=== PATIENT | female | born 1940 | race Caucasian/White ===

== ENCOUNTER 2017-12-30 10:00 | Outpatient (RCR) | payer MEDICARE, OTHER, SELFPAY ==
--- NOTE | 2017-11-30 13:50 | PTTR_ITS ---
DATE: 11/30/17 SUBJECTIVE: Smitha stating her knees have been really bothersome right greater than left. She is happy to be back participating in PT because she knows it is helpful. OBJECTIVE: Therapeutic procedures ([id number]). * X See flow sheet: Initiate a therex program for open and closed chain LE strengthening, balance re-training and general conditioning. Pt requires rest breaks between exercises due to fatigue and right knee discomfort. * X Provided skilled instruction in proper exercise performance: * X Provided skilled manual cues to facilitate proper muscle recruitment and/ or movement pattern: * X Other: BP taken pre and post session. Pt very fatigued after our session today and required single point cane to return to her car. I do walk with her to her car. Direct treatment time: 30 minutes Total treatment time: 30 minutes Andra Coates, TOOLING ENGINEER
--- NOTE | 2017-12-02 09:48 | PTTR_ITS ---
DATE: 12/02/17 SUBJECTIVE: Smitha stating she was fatigued after last session but she was still able to get some house work done in the afternoon. She knows that PT will really be beneficial to her. She notes left knee discomfort today. OBJECTIVE: Therapeutic procedures ([id number]). * X See flow sheet: Progressed her therex program per tolerance for LE strengthening and conditioning and balance re-training. Add in clinic ambulation where she tolerates 3 minutes 45 seconds prior to needing to rest due to left knee discomfort. She requires CGA with balance activities on uneven surfaces. * X Provided skilled instruction in proper exercise performance: * X Provided skilled manual cues to facilitate proper muscle recruitment and/ or movement pattern: Cues for appropriate muscle activation with her hip pre's. * X Other: Vitals taken and recorded on flow sheet. BP elevated post treatment although not symptomatic. Direct treatment time: 30 minutes Total treatment time: 30 minutes Andra Coates, PAN TANK WORKER
--- NOTE | 2017-12-07 10:59 | NT_ITS ---
NON TREATMENT NOTE: 12/07/17 Patient called in to cancel today's appointment
--- NOTE | 2017-12-09 14:47 | PTTR_ITS ---
DATE: 12/09/17 SUBJECTIVE: I am doing pretty well for the most part. I am having a better day today. OBJECTIVE: Therapeutic procedures ([id number]). * X HEP review: Technique review and corrective modification where appropriate. * X See flow sheet: Completed all activities both for stability motor control and proprioceptive feedback. * X Provided skilled instruction in proper exercise performance: [] * X Provided skilled manual cues to facilitate proper muscle recruitment and/ or movement pattern: [] * X Other: Patient tolerated treatment well Direct treatment time: 30 minutes of direct patient care.
--- NOTE | 2017-12-12 14:21 | PTTR_ITS ---
DATE: 12/12/17 SUBJECTIVE: Pt reports feeling fine today. OBJECTIVE: Therapeutic procedures ([id number]). * X See flow sheet: Progressed pt's LE strengthening program by increasing reps in standing hip PRE's and functional sit to stands, increased time and resistance on NuStep, adding dynamic UE movements to challenge balance. * X Provided skilled instruction in proper exercise performance: Pt requires minimal cueing to maintain proper movement patterns * X Provided skilled manual cues to facilitate proper muscle recruitment and/ or movement pattern. * X Other: Vitals taken at start and end of session. Direct treatment time: 45 minutes Total treatment time: 45 minutes
--- NOTE | 2017-12-14 14:49 | NT_ITS ---
NON TREATMENT NOTE: 12/14/17 Patient arrived to the clinic to cancel today's appointment because she was not feeling well.
--- NOTE | 2017-12-21 15:07 | PTTR_ITS ---
DATE: 12/21/17 SUBJECTIVE: I am sorry I missed the last appointment. I was not feeling well. OBJECTIVE: Therapeutic procedures ([id number]). * X HEP review: Technique review and corrective modification where appropriate. * X See flow sheet: Patient tolerated treatment well. * X Provided skilled instruction in proper exercise performance: [] * X Provided skilled manual cues to facilitate proper muscle recruitment and/ or movement pattern: [] * X Other: Completed all activities Direct treatment time: 30 minutes of direct patient care.
--- NOTE | 2017-12-23 12:07 | PTTR_ITS ---
DATE: 12/23/17 SUBJECTIVE: Smitha stating she feels good today. She notes she is trying to do some of the exercises we do here at home. OBJECTIVE: Therapeutic procedures ([id number]). * X See flow sheet: For LE strength and conditioning exercises incorporating balance activities. Add in cone step over where she requires min A for safety. * X Provided skilled instruction in proper exercise performance: * X Provided skilled manual cues to facilitate proper muscle recruitment and/ or movement pattern: * X Other: Pt tolerating progressions well and we will continue to progress her program as she is able to tolerate. Vitals taken and recorded on flow sheet. Direct treatment time: 35 minutes Total treatment time: 35 minutes Andra Coates, LEAD PRESS OPERATOR
--- NOTE | 2017-12-28 11:41 | PTTR_ITS ---
DATE: 12/28/17 SUBJECTIVE: I am doing pretty well for the most part. OBJECTIVE: Therapeutic procedures ([id number]). * X HEP review: Technique review and corrective modification where appropriate. * X See flow sheet: Completed all corrective activities. * X Provided skilled instruction in proper exercise performance: [] * X Provided skilled manual cues to facilitate proper muscle recruitment and/ or movement pattern: [] * X Other: Patient was guided through her program with balance, stability motor control, and endurance activities. Direct treatment time: 45 minutes of direct patient care.
--- NOTE | 2017-12-30 12:14 | PTTR_ITS ---
DATE: 12/30/17 SUBJECTIVE: Pt stating she is doing well today. No complaints. OBJECTIVE: Therapeutic procedures ([id number]): Pt instructed in her therex program as noted on her flow sheet for progressed LE strengthening, light balance tasks and general cardiopulmonary conditioning. Add additional strengthening for quads and hamstrings today which she tolerates well. Provided skilled cueing for appropriate movement mechanics and equipment set up. Vitals taken and recorded on flow sheet. See flow sheet for specifics. Pt quite fatigued after today's session. Direct treatment time: 40 minutes Total treatment time: 40 minutes Andra Coates, ACQUISITIONS ASSISTANT
== END 2017-12-30 23:59 | disposition home or self-care (01) ==
LOC: PT 10:00
PROVIDERS: PCP Internal Medicine; Referring Provider Internal Medicine; Visit Provider Internal Medicine
DX: M25.561 Pain in right knee (principal); M25.562 Pain in left knee
CPT/HCPCS: 97110

== ENCOUNTER 2018-01-05 15:20 | Outpatient (CLI) | payer MEDICARE, OTHER, SELFPAY ==
--- NOTE | 2018-01-05 14:08 | DI.US_ITS ---
SYMPTOMS/DIAGNOSIS: PARATUBAL CYST, N83.8, THICKENING OF SEPTATION IN PREEXISTING TUBAL CYST PELVIC ULTRASOUND: Comparison is made with June,. Transabdominal and transvaginal exams were performed. The transabdominal images are quite limited by lack of bladder distention. The uterus is retroverted. The endometrium appears thickened and heterogeneous at 14 mm. A cystic mass with septations is again seen in the left adnexal region. It appears slightly increased in size when compared with previous exams, now measuring 8.8 x 4 x 7.3 cm. No solid nodules are seen. The right ovary was not identified. IMPRESSION: Thickened heterogeneous endometrium. Mild interval increase in size of left-sided cystic mass with a few septations.
== END 2018-01-05 15:40 ==
PROVIDERS: PCP Internal Medicine; Visit Provider Obstetrics & Gynecology Gynecology
DX: N83.8 Other noninflammatory disorders of ovary, fallopian tube and broad ligament (principal); R93.8 Abnormal findings on diagnostic imaging of other specified body structures; N85.4 Malposition of uterus
CPT/HCPCS: 76830; 76856

== ENCOUNTER 2018-02-22 10:29 | Outpatient (CLI) | payer MEDICARE, OTHER, SELFPAY ==
[2018-02-23 11:42] LABS: CA 125 3 U/mL (0-30)
== END 2018-02-22 10:49 ==
PROVIDERS: PCP Internal Medicine; Visit Provider Obstetrics & Gynecology Gynecology
DX: N70.11 Chronic salpingitis (principal); N83.8 Other noninflammatory disorders of ovary, fallopian tube and broad ligament; R19.09 Other intra-abdominal and pelvic swelling, mass and lump
CPT/HCPCS: 36415; 86304

== ENCOUNTER 2018-02-26 06:51 | Emergency (ER) | payer MEDICARE, OTHER, SELFPAY ==
[2018-02-26] VITALS (13 sets, daily range): BP systolic 137–199; BP diastolic 82–109; PULSE 71–93; RESP 13–27; TEMP 36.4; O2SAT 92–98
--- NOTE | 2018-02-26 07:11 | DI.CT_ITS ---
SYMPTOMS/DIAGNOSIS: RT LOWER ABD PAIN, NAUSEA, VOMITING CT SCAN OF THE ABDOMEN AND PELVIS: CT scan of the abdomen and pelvis was performed following the uneventful administration of intravenous contrast material. Comparison is 08/05/16. The visualized lung bases show no acute abnormality. The liver, spleen, pancreas, gallbladder, bile ducts and adrenal glands are all unremarkable. There is a 2 x 1.6 x 1 cm stone in the proximal right ureter causing marked hydronephrosis and hydroureter. There is a 2.1 x 1.2 cm nonobstructing stone in the upper pole of the right kidney. The right kidney shows delayed enhancement and perinephritic stranding. There are nonobstructing stones seen in the left kidney. There is mild dilatation of the left renal pelvis. No ureterolithiasis is seen. The left kidney enhances normally. There are tiny hypodensities seen in the renal cortices. They are too small for further characterization but likely reflect cysts. The urinary bladder is intact. The reproductive organs are unremarkable. The abdominal aorta is of normal caliber with mild atherosclerosis. No significant abdominal or pelvic adenopathy, ascites or pneumoperitoneum is seen. There is diverticulosis of the colon but no evidence of acute diverticulitis. No evidence of bowel obstruction or inflammation. No findings to suggest an acute appendicitis are present. Multiple degenerative changes are seen in the lumbar spine. IMPRESSION: 1. 2 x 1.6 cm stone in the proximal right ureter causing marked hydronephrosis and proximal hydroureter. 2. Bilateral nonobstructing renal calculi.
[2018-02-26 07:13] LABS: Bilirubin Negative (Negative); Blood Moderate (Negative); Clarity Sl Cloudy; Glucose Negative (Negative); Ketones Negative (Negative); Leukocyte Esterase Small (Negative); Nitrite Negative (Negative); Specific Gravity 1.025 (1.005-1.025)
--- NOTE | 2018-02-26 07:13 | W.ED.GENAD ---
Discharge Plan Disposition Patient Disposition: [facility] Condition: Stable Discharge Details Chief Complaint: FlankPain Clinical Impression: Urolithiasis, Urinary tract infection Primary Care Provider: Walker Diana ED Provider: Tim Gonzalez Home Meds and New Rx's Prescriptions: No Action verapamil 360 mg capsule,ext rel. pellets 24 hr 360 mg PO DAILY RF: 0 multivitamin [Daily Value] 1 EACH tablet 1 ea PO DAILY RF: 0 atorvastatin [Lipitor] 40 MG tablet 40 mg PO DAILY RF: 0 levothyroxine 50 MCG tablet 50 mcg PO DAILY RF: 0 aspirin [Aspirin Low-Strength] 81 MG tablet,chewable 81 mg PO DAILY RF: 0 furosemide 20 MG tablet 20 mg PO DAILY RF: 0 cholecalciferol (vitamin D3) 1,000 UNIT tablet,chewable 1,000 unit PO DAILY RF: 0 magnesium oxide 400 MG tablet 400 mg PO DAILY Qty: 30 RF: 0 pantoprazole 40 MG tablet,delayed release (DR/EC) 40 mg PO BID@0730,1999 Qty: 60 RF: 0 nitroglycerin [Nitrostat] 0.4 MG tablet, sublingual 0.4 mg Sublingual Q5 MIN PRN X3 PRNQty: 1 RF: 0 clonazepam 0.5 mg Tablet 0.5 mg PO HS RF: 0 diazepam [Valium] 5 mg Tablet 2.5 mg PO DIRECTED RF: 0 bupropion HCl 150 mg Tablet Extended Release 24 Hr 150 mg PO QAM RF: 0 metoprolol succinate 100 MG tablet extended release 24 hr 50 mg PO DAILY RF: 0 Medical Decision Making <Paul Mitchell MD - Last Filed: 02/26/18 07:40> 77-year-old female presents from home with a #4 of abdominal pain associated with nausea and vomiting. She is hypertensive and in mild distress and her exam reveals tenderness of the right side of her abdomen. Differential diagnosis includes appendicitis, colitis, pyelonephritis, ureteral colic, gastroenteritis. Patient had IV access established, given fluids, analgesic and antiemetic, referred for laboratory testing and CT of the abdomen and pelvis. As it is change of shift, patient will be signed out to Dr. Gonzalez pending review of her diagnostics. Please see his note regarding patient's diagnostic findings, final impression and disposition. Lab Data Laboratory Tests Range/Units 02/26/18 02/26/18 07:07 07:15 WBC (4.4-10.8) k/cumm 14.37 H RBC (4.00-5.20) m/cumm 5.68 H Hgb (12.0-15.5) g/dL 16.1 H Hct (36.0-46.0) % 50.1 H MCV (80-95) fL 88.2 MCH (27.0-33.0) pg 28.3 MCHC (32.0-36.0) g/dL 32.1 RDW (11.7-14.6) % 14.9 H Plt Count (130-400) x1000/uL 322 MPV (8.0-11.0) fL 11.3 H Immature Gran % 0.2 Neutrophils % 80.2 Lymphocytes % 12.8 Monocytes % 6.3 Eosinophils % 0.2 Basophils % 0.3 Absolute Neutrophils (1.2-6.7) k/cumm 11.52 H Absolute Lymphocytes (1.2-3.4) k/cumm 1.84 Absolute Monocytes (0.11-0.7) k/cumm 0.91 H Absolute Eosinophils (0.0-0.7) k/cumm 0.03 Absolute Basophils (0.0-0.2) k/cumm 0.04 Urine Color (Yellow) Yellow Urine Clarity Sl cloudy Urine pH (5-8) 7.0 Ur Specific [place] (1.005-1.025) 1.025 Urine Protein (Negative) mg/dL >=300 H Urine Ketones (Negative) mg/dL Negative Urine Blood (Negative) Moderate H Urine Nitrite (Negative) Negative Urine Bilirubin (Negative) Negative Urine Urobilinogen (Up TO 0.2) EU/dL 1.0 H Ur Leukocyte Esterase (Negative) Small H Urine RBC (0-2) 20-50 H Urine WBC (0-5) HPF 20-50 Ur Epithelial Cells (Negative) HPF Many Urine Crystals (Negative) HPF Negative Urine Bacteria (Negative) HPF Moderate Urine Casts (Negative) LPF Negative Urine Mucus (Negative) Moderate Ur Culture Indicated? No/sq. contamination Urine Glucose (Negative) mg/dL Negative <Tim Gonzalez, DO - Last Filed: 02/26/18 10:33> EKG 7: 53 Rate 69, OR 190, QTc 458, QRS 108, sinus rhythm, no significant ST elevations or depressions, inverted T wave in V1, Q waves in lead III, aVF, V1, V2 and V3. These findings are consistent with prior EKG from 04/05/17 The case was signed out to me my my colleague Dr. Paul Mitchell. CT scan results have returned and demonstrate evidence of a 2 cm kidney stone with severe obstruction and notable hydronephrosis with right perirenal stranding. Patient's urinalysis does also demonstrate evidence of concern for infection, although it does appear to be a slightly dirty urine. Potassium is slightly low at 3.3. White count is elevated at 14.37, with the questionable urinalysis for infection, in conjunction with the elevated white count, I am concerned for a potential infection in conjunction with the stone. This does place the patient in a high risk category. I did start the patient on cefepime for infection with kidney stone. I did contact Dr. Bustillos and discussed the case with him, his recommendation is certainly antibiotics, and close follow-up. However the patient is requesting to see her regular urologist Dr. De La Rosa practices in [facility]. I did contact Dr. Dunne's, and he agrees with the current assessment and plan as well as the need for admission, stone removal, and antibiotics. We did contact the [facility] and they also agreed that they have room and have accepted the patient for admission. Patient's pain is currently controlled, she will be given her home blood pressure medication dose metoprolol. Patient will be transferred via [facility] for definitive urologic management. We will get a straight cath urinalysis here for further evaluation of her infection. The culture results will be called into Dr. Wilkinson by our case management team when they do result. I have extensively reviewed the treatment plan with the patient. I have addressed all patient concerns at this time. I have also discussed the plan with the admitting physician and they agree with the current assessment and plan and have agreed to assume responsibility for the patient. All parties demonstrate verbal understanding and agreement with our assessment and plan at this time. IMPRESSION: 1. 20 x 16 x 10 millimeter proximal RIGHT ureteral calculus causes severe dilatation of the RIGHT ureter, and RIGHT collecting system. The RIGHT kidney is edematous and there is RIGHT perirenal stranding. 2. 2.1 x 1.2 cm Nonobstructing right renal calculus in the upper pole of the right kidney. HPI <Paul Mitchell MD - Last Filed: 02/26/18 07:40> General Mode of arrival: ambulatory. Date/Time Provider Initiated Documentation: 02/26/18 06:52. Limitations to Documentation: no limitations. Information obtained by: patient and family. History of Present Illness 77 year old F presents to the emergency department with the chief complaint of Abdominal pain and vomiting, described as moderate, Quality is described as aching, and is localized to the abdomen and right. Patient flank. Patient started experiencing this day(s) and it has been constant. No relieving factors improve symptom(s), No exacerbating factors reported . Patient notes fever/chills. HPI Narrative: 77-year-old female presents from home with her . She has had 3-1/2 days of intermittent episodes of nausea and vomiting associated with right lower quadrant and right flank pain. She states she has had decreased urine output with dark urine. No recent travel. Related Data Home Medications Medication Instructions Recorded Confirmed aspirin [Aspirin Low-Strength] 81 mg PO DAILY tab-cap NS 04/08/14 02/26/18 atorvastatin [Lipitor] 40 mg PO DAILY tab-cap NS 04/08/14 02/26/18 cholecalciferol (vitamin D3) 1,000 unit PO DAILY tab.chew NS 04/08/14 02/26/18 furosemide 20 mg PO DAILY tab-cap NS 04/08/14 02/26/18 levothyroxine 50 mcg PO DAILY tab-cap NS 04/08/14 02/26/18 multivitamin [Daily Value] 1 ea PO DAILY NS 04/08/14 02/26/18 magnesium oxide 400 mg PO DAILY #30 tab 04/06/17 02/26/18 nitroglycerin [Nitrostat] 0.4 mg SUBLINGUAL Q5 MIN PRN X3 04/06/17 02/26/18 PRN #1 bottle pantoprazole 40 mg PO BID@0730,1999 #60 tabcr 04/06/17 02/26/18 verapamil ER 360 mg 24 hr 360 mg PO DAILY 01/16/18 02/26/18 capsule,extended release bupropion HCl 150 mg PO QAM 02/26/18 02/26/18 clonazepam 0.5 mg PO HS 02/26/18 02/26/18 diazepam [Valium] 2.5 mg PO DIRECTED 02/26/18 02/26/18 metoprolol succinate 50 mg PO DAILY 02/26/18 02/26/18 Previous Rx's Medication Instructions Recorded magnesium oxide 400 mg PO DAILY #30 tab 04/06/17 nitroglycerin [Nitrostat] 0.4 mg SUBLINGUAL Q5 MIN PRN X3 04/06/17 PRN #1 bottle pantoprazole 40 mg PO BID@0730,2000 #60 tabcr 04/06/17 Allergies Allergy/AdvReac Type Severity Reaction Status Date / Time losartan Allergy Intermediate Unverified 02/26/18 07:32 formoterol fumarate AdvReac Severe severe Unverified 02/26/18 07:32 [From Dulera] depression lisinopril AdvReac Severe cough Unverified 02/26/18 07:32 mometasone furoate AdvReac Severe severe Unverified 02/26/18 07:32 [From Dulera] depression General Stated Complaint: FlankPain PEDRO: 3 Review of Systems <Paul Mitchell MD - Last Filed: 02/26/18 07:40> Review of Systems 7 systems reviewed and otherwise negative Exam <Paul Mitchell MD - Last Filed: 02/26/18 07:40> Narrative Exam Narrative: GEN: awake, alert, oriented 3. Pleasant, well groomed, interactive, slightly diaphoretic. HEAD: Normocephalic, atraumatic ENT: Mucous membranes moist, oropharynx unremarkable, External ear exam unremarkable EYES: PERRL, EOMI NECK: Full ROM, no KIRBY, no menigismus CHEST/RESP: Nontender, clear to auscultation bilateral, no wheeze/rhonchi/rales CARDIOVASCULAR: RRR, no murmur, rub sandra. 2+ Rad pulse bilateral ABDOMEN: Abdomen is soft, tender with mild rebound right abdomen, no mass. +Bowel sounds EXT: Full ROM, no edema, no rash Neuro: Grossly normal neurologic exam, conversant, interactive. Psych: Speech fluent, thoughts congruent, affect normal Course <Paul Mitchell MD - Last Filed: 02/26/18 07:40> Vital Signs Temperature 36.4 C L 02/26/18 07:05 Pulse 71 02/26/18 07:05 Respiratory Rate 14 02/26/18 07:05 Blood Pressure 199/109 H 02/26/18 07:05 Pulse Oximetry 97 02/26/18 07:05 Temperature 36.4 C L 02/26/18 07:05 Temperature Source Temporal Artery Scan 02/26/18 07:05 Pulse 71 02/26/18 07:05 Respiratory Rate 14 02/26/18 07:05 Blood Pressure 199/109 H 02/26/18 07:05 Blood Pressure Position Sitting 02/26/18 07:05 Pulse Oximetry 97 02/26/18 07:05 Oxygen Delivery Method Room Air 02/26/18 07:05 Oxygen Flow Rate 0 02/26/18 07:05 Pain Level 10 02/26/18 07:05 Sign Out <Paul Mitchell MD - Last Filed: 02/26/18 07:40> Sign Out Data: Sign Out Comment: Followup labs and imaging, re-evaluation Last updated by Paul Mitchell MD at 02/26/18 07:42
--- NOTE | 2018-02-26 07:16 | ED.GENADUL_ITS ---
Discharge Plan Disposition Patient Disposition: [facility] Condition: Stable Discharge Details Chief Complaint: FlankPain Clinical Impression: Urolithiasis, Urinary tract infection Primary Care Provider: Walker Diana ED Provider: Tim Gonzalez Home Meds and New Rx's Prescriptions: No Action verapamil 360 mg capsule,ext rel. pellets 24 hr 360 mg PO DAILY RF: 0 multivitamin [Daily Value] 1 EACH tablet 1 ea PO DAILY RF: 0 atorvastatin [Lipitor] 40 MG tablet 40 mg PO DAILY RF: 0 levothyroxine 50 MCG tablet 50 mcg PO DAILY RF: 0 aspirin [Aspirin Low-Strength] 81 MG tablet,chewable 81 mg PO DAILY RF: 0 furosemide 20 MG tablet 20 mg PO DAILY RF: 0 cholecalciferol (vitamin D3) 1,000 UNIT tablet,chewable 1,000 unit PO DAILY RF: 0 magnesium oxide 400 MG tablet 400 mg PO DAILY Qty: 30 RF: 0 pantoprazole 40 MG tablet,delayed release (DR/EC) 40 mg PO BID@0730,1999 Qty: 60 RF: 0 nitroglycerin [Nitrostat] 0.4 MG tablet, sublingual 0.4 mg Sublingual Q5 MIN PRN X3 PRNQty: 1 RF: 0 clonazepam 0.5 mg Tablet 0.5 mg PO HS RF: 0 diazepam [Valium] 5 mg Tablet 2.5 mg PO DIRECTED RF: 0 bupropion HCl 150 mg Tablet Extended Release 24 Hr 150 mg PO QAM RF: 0 metoprolol succinate 100 MG tablet extended release 24 hr 50 mg PO DAILY RF: 0 Medical Decision Making <Paul iMtchell MD - Last Filed: 02/26/18 07:40> 77-year-old female presents from home with a #4 of abdominal pain associated with nausea and vomiting. She is hypertensive and in mild distress and her exam reveals tenderness of the right side of her abdomen. Differential diagnosis includes appendicitis, colitis, pyelonephritis, ureteral colic, gastroenteritis. Patient had IV access established, given fluids, analgesic and antiemetic, referred for laboratory testing and CT of the abdomen and pelvis. As it is change of shift, patient will be signed out to Dr. Gonzalez pending review of her diagnostics. Please see his note regarding patient's diagnostic findings, final impression and disposition. Lab Data Laboratory Tests Range/Units 02/26/18 02/26/18 07:07 07:15 WBC (4.4-10.8) k/cumm 14.37 H RBC (4.00-5.20) m/cumm 5.68 H Hgb (12.0-15.5) g/dL 16.1 H Hct (36.0-46.0) % 50.1 H MCV (80-95) fL 88.2 MCH (27.0-33.0) pg 28.3 MCHC (32.0-36.0) g/dL 32.1 RDW (11.7-14.6) % 14.9 H Plt Count (130-400) x1000/uL 322 MPV (8.0-11.0) fL 11.3 H Immature Gran % 0.2 Neutrophils % 80.2 Lymphocytes % 12.8 Monocytes % 6.3 Eosinophils % 0.2 Basophils % 0.3 Absolute Neutrophils (1.2-6.7) k/cumm 11.52 H Absolute Lymphocytes (1.2-3.4) k/cumm 1.84 Absolute Monocytes (0.11-0.7) k/cumm 0.91 H Absolute Eosinophils (0.0-0.7) k/cumm 0.03 Absolute Basophils (0.0-0.2) k/cumm 0.04 Urine Color (Yellow) Yellow Urine Clarity Sl cloudy Urine pH (5-8) 7.0 Ur Specific [place] (1.005-1.025) 1.025 Urine Protein (Negative) mg/dL >=300 H Urine Ketones (Negative) mg/dL Negative Urine Blood (Negative) Moderate H Urine Nitrite (Negative) Negative Urine Bilirubin (Negative) Negative Urine Urobilinogen (Up TO 0.2) EU/dL 1.0 H Ur Leukocyte Esterase (Negative) Small H Urine RBC (0-2) 20-50 H Urine WBC (0-5) HPF 20-50 Ur Epithelial Cells (Negative) HPF Many Urine Crystals (Negative) HPF Negative Urine Bacteria (Negative) HPF Moderate Urine Casts (Negative) LPF Negative Urine Mucus (Negative) Moderate Ur Culture Indicated? No/sq. contamination Urine Glucose (Negative) mg/dL Negative <Tim Gonzalez, DO - Last Filed: 02/26/18 10:33> EKG 7: 53 Rate 69, AK 190, QTc 458, QRS 108, sinus rhythm, no significant ST elevations or depressions, inverted T wave in V1, Q waves in lead III, aVF, V1, V2 and V3. These findings are consistent with prior EKG from 04/05/17 The case was signed out to me my my colleague Dr. Paul Mitchell. CT scan results have returned and demonstrate evidence of a 2 cm kidney stone with severe obstruction and notable hydronephrosis with right perirenal stranding. Patient's urinalysis does also demonstrate evidence of concern for infection, although it does appear to be a slightly dirty urine. Potassium is slightly low at 3.3. White count is elevated at 14.37, with the questionable urinalysis for infection, in conjunction with the elevated white count, I am concerned for a potential infection in conjunction with the stone. This does place the patient in a high risk category. I did start the patient on cefepime for infection with kidney stone. I did contact Dr. Bustillos and discussed the case with him, his recommendation is certainly antibiotics, and close follow-up. However the patient is requesting to see her regular urologist Dr. De La Rosa practices in [facility]. I did contact Dr. Dunne's, and he agrees with the current assessment and plan as well as the need for admission, stone removal, and antibiotics. We did contact the [facility] and they also agreed that they have room and have accepted the patient for admission. Patient's pain is currently controlled, she will be given her home blood pressure medication dose metoprolol. Patient will be transferred via [facility] for definitive urologic management. We will get a straight cath urinalysis here for further evaluation of her infection. The culture results will be called into Dr. Wilkinson by our case management team when they do result. I have extensively reviewed the treatment plan with the patient. I have addressed all patient concerns at this time. I have also discussed the plan with the admitting physician and they agree with the current assessment and plan and have agreed to assume responsibility for the patient. All parties demonstrate verbal understanding and agreement with our assessment and plan at this time. IMPRESSION: 1. 20 x 16 x 10 millimeter proximal RIGHT ureteral calculus causes severe dilatation of the RIGHT ureter, and RIGHT collecting system. The RIGHT kidney is edematous and there is RIGHT perirenal stranding. 2. 2.1 x 1.2 cm Nonobstructing right renal calculus in the upper pole of the right kidney. HPI <Paul Mitchell MD - Last Filed: 02/26/18 07:40> General Mode of arrival: ambulatory . Date/Time Provider Initiated Documentation: 02/26/18 06:52 . Limitations to Documentation: no limitations . Information obtained by: patient and family . History of Present Illness 77 year old F presents to the emergency department with the chief complaint of Abdominal pain and vomiting, described as moderate, Quality is described as aching, and is localized to the abdomen and right. Patient flank. Patient started experiencing this day(s) and it has been constant. No relieving factors improve symptom(s), No exacerbating factors reported . Patient notes fever/chills. HPI Narrative: 77-year-old female presents from home with her . She has had 3-1/2 days of intermittent episodes of nausea and vomiting associated with right lower quadrant and right flank pain. She states she has had decreased urine output with dark urine. No recent travel. Related Data Home Medications Medication Instructions Recorded Confirmed aspirin [Aspirin Low-Strength] 81 mg PO DAILY tab-cap NS 04/08/14 02/26/18 atorvastatin [Lipitor] 40 mg PO DAILY tab-cap NS 04/08/14 02/26/18 cholecalciferol (vitamin D3) 1,000 unit PO DAILY tab.chew NS 04/08/14 02/26/18 furosemide 20 mg PO DAILY tab-cap NS 04/08/14 02/26/18 levothyroxine 50 mcg PO DAILY tab-cap NS 04/08/14 02/26/18 multivitamin [Daily Value] 1 ea PO DAILY NS 04/08/14 02/26/18 magnesium oxide 400 mg PO DAILY #30 tab 04/06/17 02/26/18 nitroglycerin [Nitrostat] 0.4 mg SUBLINGUAL Q5 MIN PRN X3 04/06/17 02/26/18 PRN #1 bottle pantoprazole 40 mg PO BID@0730,1999 #60 tabcr 04/06/17 02/26/18 verapamil ER 360 mg 24 hr 360 mg PO DAILY 01/16/18 02/26/18 capsule,extended release bupropion HCl 150 mg PO QAM 02/26/18 02/26/18 clonazepam 0.5 mg PO HS 02/26/18 02/26/18 diazepam [Valium] 2.5 mg PO DIRECTED 02/26/18 02/26/18 metoprolol succinate 50 mg PO DAILY 02/26/18 02/26/18 Previous Rx's Medication Instructions Recorded magnesium oxide 400 mg PO DAILY #30 tab 04/06/17 nitroglycerin [Nitrostat] 0.4 mg SUBLINGUAL Q5 MIN PRN X3 04/06/17 PRN #1 bottle pantoprazole 40 mg PO BID@0730,2000 #60 tabcr 04/06/17 Allergies Allergy/AdvReac Type Severity Reaction Status Date / Time losartan Allergy Intermediate Unverified 02/26/18 07:32 formoterol fumarate AdvReac Severe severe Unverified 02/26/18 07:32 [From Dulera] depression lisinopril AdvReac Severe cough Unverified 02/26/18 07:32 mometasone furoate AdvReac Severe severe Unverified 02/26/18 07:32 [From Dulera] depression General Stated Complaint: FlankPain PEDRO: 3 Review of Systems <Paul Mitchell MD - Last Filed: 02/26/18 07:40> Review of Systems 7 systems reviewed and otherwise negative Exam <Paul Mitchell MD - Last Filed: 02/26/18 07:40> Narrative Exam Narrative: GEN: awake, alert, oriented 3. Pleasant, well groomed, interactive, slightly diaphoretic. HEAD: Normocephalic, atraumatic ENT: Mucous membranes moist, oropharynx unremarkable, External ear exam unremarkable EYES: PERRL, EOMI NECK: Full ROM, no KIRBY, no menigismus CHEST/RESP: Nontender, clear to auscultation bilateral, no wheeze/rhonchi/rales CARDIOVASCULAR: RRR, no murmur, rub sandra. 2+ Rad pulse bilateral ABDOMEN: Abdomen is soft, tender with mild rebound right abdomen, no mass. + Bowel sounds EXT: Full ROM, no edema, no rash Neuro: Grossly normal neurologic exam, conversant, interactive. Psych: Speech fluent, thoughts congruent, affect normal Course <Paul Mitchell MD - Last Filed: 02/26/18 07:40> Vital Signs Temperature 36.4 C L 02/26/18 07:05 Pulse 71 02/26/18 07:05 Respiratory Rate 14 02/26/18 07:05 Blood Pressure 199/109 H 02/26/18 07:05 Pulse Oximetry 97 02/26/18 07:05 Temperature 36.4 C L 02/26/18 07:05 Temperature Source Temporal Artery Scan 02/26/18 07:05 Pulse 71 02/26/18 07:05 Respiratory Rate 14 02/26/18 07:05 Blood Pressure 199/109 H 02/26/18 07:05 Blood Pressure Position Sitting 02/26/18 07:05 Pulse Oximetry 97 02/26/18 07:05 Oxygen Delivery Method Room Air 02/26/18 07:05 Oxygen Flow Rate 0 02/26/18 07:05 Pain Level 10 02/26/18 07:05 Sign Out <Paul Mitchell MD - Last Filed: 02/26/18 07:40> Sign Out Data: Sign Out Comment: Followup labs and imaging, re-evaluation Last updated by Paul Mitchell MD at 02/26/18 07:42
[2018-02-26] MEDS: Lactated Ringers 1,000 ML 500 ML IV (07:17)
[2018-02-26] MEDS: Ondansetron 4 MG/2 ML VIAL IVP (07:17)
[2018-02-26 07:22] LABS: Abs Immature Grans 0.03 k/cumm (0.0-0.09); Absolute Basophil Count 0.04 k/cumm (0.0-0.2); Absolute Eosinophil Count 0.03 k/cumm (0.0-0.7); Absolute Lymphocyte Count 1.84 k/cumm (1.2-3.4); Absolute Monocyte Count 0.91 k/cumm (0.11-0.7); Absolute Neutrophil Count 11.52 k/cumm (1.2-6.7); Basophils % 0.3; Eosinophils % 0.2; HCT 50.1 % (36.0-46.0); HGB 16.1 g/dL (12.0-15.5); Immature Grans % 0.2; Lymphocytes % 12.8; Mean Corp. HGB Concentration 32.1 g/dL (32.0-36.0); Mean Corpuscular Hemoglobin 28.3 pg (27.0-33.0); Mean Corpuscular Volume 88.2 fL (80-95); Mean Platelet Volume 11.3 fL (8.0-11.0); Monocytes % 6.3; Neutrophils % 80.2; Platelet Count 322 x1000/uL (130-400); RBC 5.68 m/cumm (4.00-5.20); RBC Distribution Width 14.9 % (11.7-14.6); White Blood Cell Count 14.37 k/cumm (4.4-10.8)
[2018-02-26 07:25] LABS: Bacteria Moderate HPF (Negative); C & S Indicated? No/Sq. Contamination; Casts Negative LPF (Negative); Crystals Negative HPF (Negative); Epithelial Cells Many HPF (Negative); Mucus Moderate (Negative); RBC 20-50 (0-2); WBC 20-50 HPF (0-5)
[2018-02-26] MEDS: MORPHine 10 MG/ML VIAL 2 MG IVP (07:27)
[2018-02-26 07:37] LABS: ALT 36 U/L (12-78); AST 23 U/L (15-37); Albumin 3.5 g/dL (3.4-5.0); Alkaline Phosphatase 147 U/L (46-116); Anion Gap 10.1 mmol/L (3-11); BUN 15 mg/dL (7-18); Bilirubin, Direct 0.26 mg/dL (0.00-0.20); Bilirubin, Total 0.7 mg/dL (0.2-1.0); CO2 28.9 mmol/L (21.0-32.0); CREATININE 1.06 mg/dL (0.55-1.02); Calcium 9.5 mg/dL (8.5-10.1); Chloride 98 mmol/L (98-107); Estimated GFR 50.54 (mL/min/1.73m2); Glucose 149 mg/dL (70-100); Lipase 98 U/L (73-393); Potassium 3.3 mmol/L (3.5-5.1); Sodium 137 mmol/L (136-145); Total Protein 8.7 g/dL (6.4-8.2)
[2018-02-26 07:53] LABS: Troponin I < 0.02 ng/mL (0.00-0.06)
[2018-02-26] MEDS: Potassium Chloride 20 MEQ TABCR 40 MEQ PO (08:10)
[2018-02-26] MEDS: Omnipaque 350 MG/ML 100 ML BTL IJ (09:05)
--- NOTE | 2018-02-26 09:31 | DI.VRAD_ITS ---
EXAM: CT Abdomen and Pelvis With Intravenous Contrast EXAM DATE/TIME: 02/26/2018 7:13 AM CLINICAL HISTORY: 77 years old, female; Pain; Abdominal pain; Generalized; Patient HX: Rlq pain TECHNIQUE: Axial computed tomography images of the abdomen and pelvis with intravenous contrast. Coronal and sagittal reformatted images were created and reviewed. CONTRAST: 100 ml of [id number] administered intravenously. COMPARISON: CT ABD PELVIS WO CONTRAST 08/05/2016 9:57 AM FINDINGS: Lower thorax: Bibasilar atelectasis ABDOMEN: Liver: Normal. No mass. Gallbladder and bile ducts: Normal. No calcified stones. No ductal dilation. Pancreas: Normal. No ductal dilation. Spleen: Normal. No splenomegaly. Adrenals: Normal. No mass. Kidneys and ureters: 20 x 16 x 10 millimeter proximal RIGHT ureteral calculus causes severe dilatation of the RIGHT ureter, and RIGHT collecting system. The RIGHT kidney is edematous and there is RIGHT perirenal stranding. 2.1 x 1.2 cm Nonobstructing right renal calculus in the upper pole of the right kidney. Nonobstructing left renal calculi. 9 mm cyst in the upper pole of the left kidney. 20 Hounsfield units. Mild hydronephrosis of the left kidney. Dilatation of the left extrarenal pelvis 2.2 cm. However no left ureteral calculus. Stomach and bowel: Diverticulosis of the rectosigmoid. No mauricio diverticulitis. No obstruction. No mucosal thickening. Appendix: No evidence of acute appendicitis. PELVIS: Bladder: Unremarkable as visualized. Reproductive: Unremarkable as visualized. ABDOMEN and PELVIS: Intraperitoneal space: Normal. No free air. No significant fluid collection. Bones/joints: No acute fracture. No dislocation. Soft tissues: Unremarkable. Vasculature: Normal. No abdominal aortic aneurysm. Lymph nodes: Normal. No enlarged lymph nodes. IMPRESSION: 1. 20 x 16 x 10 millimeter proximal RIGHT ureteral calculus causes severe dilatation of the RIGHT ureter, and RIGHT collecting system. The RIGHT kidney is edematous and there is RIGHT perirenal stranding. 2. 2.1 x 1.2 cm Nonobstructing right renal calculus in the upper pole of the right kidney. Dictated and Authenticated by: Yasmeen Corbett MD. Ordering:KAREEM VALLE MD
[2018-02-26] MEDS: CEFEPIME 1 GM in Normal Saline 50 ML IVPB (09:40)
[2018-02-26 09:56] LABS: Bilirubin Negative (Negative); Blood Moderate (Negative); Clarity Clear; Glucose Negative (Negative); Ketones Negative (Negative); Leukocyte Esterase Negative (Negative); Nitrite Negative (Negative); Specific Gravity 1.015 (1.005-1.025); Urobilinogen 0.2 EU/dL (Up TO 0.2); pH 7.5 (5-8)
[2018-02-26 10:12] LABS: Bacteria Few HPF (Negative); C & S Indicated? Yes; Casts Negative LPF (Negative); Crystals Moderate Amorphous HPF (Negative); Epithelial Cells Moderate HPF (Negative); Mucus Trace (Negative)
[2018-02-26] MEDS: Metoprolol 50 MG TAB PO (10:14)
[2018-02-26] MEDS: MORPHine 10 MG/ML VIAL (10:17)
--- NOTE | 2018-02-27 09:24 | CMPROGNOTE_ITS ---
Care Management Progress Note 02/27-Dr. Gonzalez requested Smitha's urine culture results call in to Dr. Stovall at [facility]. Dr. Stovall is Smitha's urologist. Called Dr. Stovall's office with the preliminary report, 24 hours, and faxed to them at [phone].
== END 2018-02-26 11:22 | disposition short-term general hospital (02) ==
PROVIDERS: Emergency Medicine; Emergency Provider Student in an Organized Health Care Education/Training Program; PCP Internal Medicine
DX: N13.2 Hydronephrosis with renal and ureteral calculous obstruction (principal); N39.0 Urinary tract infection, site not specified
CPT/HCPCS: 80053; 80076; 83690; 93005; 96361; 96365; 96375; 99285; 74177; 81003; 81015; 83735; 84484; 85025; 87086; 93010; 99284; J2270; J2405; J3490

== ENCOUNTER 2018-05-09 01:17 | Outpatient (CLI) | payer MEDICARE, OTHER, SELFPAY ==
--- NOTE | 2018-05-09 13:34 | DI.DEXA_ITS ---
SYMPTOMS/DIAGNOSIS: MENOPAUSAL SCREENING, Z78.0 DEXA SCAN: Routine examination. No priors. The lateral spine film shows no compression deformities. Evaluation of the left hip shows a total T score of 0.4 and a Z score of 2.2 which is within normal limits. Evaluation of the lumbar spine shows a total T score 0.9 and a Z score of 3.3 which is also within normal limits. There is no evidence of osteoporosis. IMPRESSION: No evidence of osteoporosis.
== END 2018-05-09 01:37 ==
PROVIDERS: PCP Internal Medicine; Visit Provider Internal Medicine
DX: Z78.0 Asymptomatic menopausal state (principal); Z13.820 Encounter for screening for osteoporosis
CPT/HCPCS: 77080

== ENCOUNTER → 2018-05-12 12:54 | Outpatient (BNVA) | payer MEDICARE, OTHER, SELFPAY | PROVIDERS: PCP Internal Medicine; Referring Provider Internal Medicine; Visit Provider Surgery | DX: R13.10 Dysphagia, unspecified (principal); J44.9 Chronic obstructive pulmonary disease, unspecified; Z87.891 Personal history of nicotine dependence; I10 Essential (primary) hypertension | CPT/HCPCS: 99203; 99213 ==

== ENCOUNTER 2018-06-06 06:06 | Day surgery (SDC) | payer MEDICARE, OTHER, SELFPAY ==
--- NOTE | 2018-06-05 07:39 | STOM_PTH ---
PATIENT: Smitha Lyon LOC: [facility] U#:[id number] AGE/SX: 77/F ROOM: RE06/06/[address]: Gely Byrne MD : 1940 BED: DIS: 06/06/2018 SPEC #: [id number] RECD: 06/06/18 12:50 STATUS: ANNAMARIA REKirill #: [id number] LOPEZ: 06/05/18 07:[address]: Gely Byrne DEPT: Surgical Specimen RECD BY: Karo Locke ENTERED: 06/06/18 12:51 SP TYPE: STOMACH OTHR DR: Walker Diana Tissues: 1 - STOMACH BIOPSY 2 - ESOPHAGUS BIOPSY Procedures: GROSS AND MICRO LEVEL 4 SPECIAL STAIN 1 Comments: [id number]
--- NOTE | 2018-06-06 06:21 | W.PM.ENDDOP ---
Date of service: 06/06/18 Time of Service: 07:30 Endoscopy Report DATE OF PROCEDURE: 06/06/18 PRE-OP DIAGNOSIS: Dysphagia POST-OP DIAGNOSIS: other (Gastritis, esophagitis, shatzki's ring) PROCEDURE: EGD with biopsies SURGEON: Gely Byrne ANESTHESIA: MAC (Tomas Cedillo, COLOR PASTE MIXING SUPERVISOR/ ASA 2) ESTIMATED BLOOD LOSS: 3 PATHOLOGY: other (Antrum bx, GE junction bx) COMPLICATIONS: None DISPOSITION: same day INDICATIONS: Mrs. Lyon is a pleasant 77-year-old female who was seen in the office to discuss an upper endoscopy. She has been having symptoms of dysphasia even though she is on pantoprazole twice a day. Risks, benefits and complications have been reviewed. Complications include but are not limited to bleeding, pain, perforation, sore throat, aspiration, and adverse reaction to the medications. Questions were entertained and answered to their satisfaction and they wished to proceed. No guarantees were given or implied. PREP: Miralax/Dulcolax FINDINGS: 1. Moderate inflammation of the antrum. No ulcers 2. Moderate inflammation of the GE junction and schatzki's ring PROCEDURE DESCRIPTION: After informed consent was obtained the patient was take to the procedure room and placed in a supine position. Monitors were applied and a time out was done. The patients name, date of , procedure type, allergies to medications and metal in their body was reviewed. A bite block was placed and the patient was sedated. Once sedated and comfortable the gastroscope was advanced through the oropharynx which was grossly normal into the esophagus. The proximal and mid-esophagus were normal. In the distal esophagus there was moderate inflammation noted as well as some scar tissue. The scope was advanced into the stomach and through the pylorus into the 3rd portion of the duodenum. The duodenum was noted to be normal. The scope was retracted back into the stomach and biopsies were done to rule out H. pylori. There were no ulcers. The scope was retro-flexed. The cardia and fundus were noted to be normal. There was no hiatal hernia noted. The scope was retracted back into the esophagus and biopsies were done of the GE junction to rule out Douglass's. The Z line was regular. The GE junction was at 35 cm. There was a ring of scar tissue noted at the GE junction. The scope was removed and the patient was woken up and taken back to [facility] in stable condition. Follow up: 2-3 weeks
--- NOTE | 2018-06-06 06:22 | W.PM.DSUDISC ---
Discharge Plan Disposition Patient Disposition: HOME Condition: Good Discharge Details Reason For Visit: Dysphagia Attending Provider: Gely Byrne Primary Care Provider: Walker Diana Home Meds and New Rx's Prescriptions: New sucralfate [Carafate] 1 gram tablet 1 gm PO QID Qty: 56 RF: 0 Continued verapamil 360 mg capsule,ext rel. pellets 24 hr 360 mg PO .12 NOON RF: 0 cholecalciferol (vitamin D3) 1,000 unit capsule 1,000 unit PO DAILY RF: 0 multivitamin [Daily Value] 1 EACH tablet 1 ea PO DAILY RF: 0 atorvastatin [Lipitor] 40 MG tablet 40 mg PO HS RF: 0 levothyroxine 50 MCG tablet 50 mcg PO DAILY RF: 0 aspirin [Aspirin Low-Strength] 81 MG tablet,chewable 81 mg PO DAILY RF: 0 furosemide 20 MG tablet 20 mg PO DAILY RF: 0 magnesium oxide 400 MG tablet 400 mg PO DAILY Qty: 30 RF: 0 pantoprazole 40 MG tablet,delayed release (DR/EC) 40 mg PO BID@0730,2000 Qty: 60 RF: 0 nitroglycerin [Nitrostat] 0.4 MG tablet, sublingual 0.4 mg Sublingual Q5 MIN PRN X3 PRNQty: 1 RF: 0 clonazepam 0.5 mg Tablet 0.5 mg PO HS RF: 0 bupropion HCl 150 mg Tablet Extended Release 24 Hr 150 mg PO QAM RF: 0 metoprolol succinate 100 MG tablet extended release 24 hr 50 mg PO DAILY RF: 0 Discharge Instructions Instructions: Upper Endoscopy (DC), Diet for Stomach Ulcers and Gastritis (GEN), Gastritis (DC), Gastroesophageal Reflux Disease (DC) Additional Instructions: Findings: Inflammation in the stomach and esophagus Follow up: 2-3 weeks New Medication: Carafate 1 tab before meals and before bed time. Other: Need to try and loose weight to help reduce reflux. Please call if you develop: fevers >101.5 Nausea or Vomiting Abdominal pain that is not transient DAY SURGERY UNIT POST COLONOSCOPY INSTRUCTIONS 1. Because there will be medication in your system for the next 24 hours, you may feel a little sleepy. Your coordination will be affected. Therefore: a. Do not drive or operate dangerous equipment for 24 hours. b. Do not drink alcohol beverages for 24 hours (not even beer). c. Plan to go home and rest for the day. 2. Generally there are no restrictions on your activity after a day or so has gone by, but you may feel a bit fatigued for a few days. 3 After you arrive home you may have a light meal and return to a normal diet as you can tolerate it without feeling sick to your stomach. 4. After surgery, you may feel pain or discomfort. This should be only transient, but if it persists please contact your doctor. 5. If there are any questions regarding the findings of your procedure, please feel free to contact your doctor. 6. If you are unable to contact your doctor with a problem, contact the hospital at [phone]. 7. Continue all your regular medications unless directed otherwise. I understand the above instructions and have no questions. Signature of Patient or Responsible Adult Escort Date/Time Name of Responsible Adult Escort Signature of Nurse Date/Time Activity:: Activity as Tolerated Diet:: low acid diet Discharge Orders Discharge Orders: Discharge Order (Routine); Ordered 06/06/18 Ordered By: Gely Byrne DS: Diagnosis Discharge Diagnosis (1) H/O esophagogastroduodenoscopy: Status: Chronic (2) Dysphagia: Status: Acute
[2018-06-06 06:29] VITALS: BP 144/80; PULSE 78; RESP 18; TEMP 37; O2SAT 96
[2018-06-06] MEDS: Lactated Ringers 1,000 ML 80 ML IV (06:55)
[2018-06-06] MEDS: Lidocaine 2% Viscous 15 ML CUP (07:30)
[2018-06-06 08:13] VITALS: BP 154/72; PULSE 60; RESP 16; TEMP 36.8; O2SAT 96
== END 2018-06-06 08:42 | disposition home or self-care (01) ==
PROVIDERS: PCP Internal Medicine; Visit Provider Surgery
PROC: 0DJ68ZZ Inspection of Stomach, Via Natural or Artificial Opening Endoscopic (ICD-10-PCS; CPT 43235; principal; 2018-06-06 07:30)
DX: R13.10 Dysphagia, unspecified (principal); K29.60 Other gastritis without bleeding; K22.10 Ulcer of esophagus without bleeding; J44.9 Chronic obstructive pulmonary disease, unspecified; I10 Essential (primary) hypertension; G47.33 Obstructive sleep apnea (adult) (pediatric)
CPT/HCPCS: 43239; 88305; 88312; J3010

== ENCOUNTER 2018-06-08 13:16 | Outpatient (CLI) | payer MEDICARE, OTHER, SELFPAY ==
--- NOTE | 2018-06-08 12:29 | DI.RAD_ITS ---
SYMPTOMS/DIAGNOSIS: ABD PAIN EPIGASTRIC, R10.13, S/P ENDOSCOPY, ? FREE AIR/PERFORATION PA CHEST: The heart is not enlarged. The lungs are clear and normally expanded. No free intraperitoneal air is seen.
== END 2018-06-08 13:36 ==
PROVIDERS: PCP Internal Medicine; Visit Provider Internal Medicine
DX: R10.13 Epigastric pain (principal)
CPT/HCPCS: 71045

== ENCOUNTER 2018-08-10 14:26 | Outpatient (REF) | payer MEDICARE, OTHER, SELFPAY ==
[2018-08-10 21:30] LABS: Abs Immature Grans 0.04 k/cumm (0.0-0.09); Absolute Basophil Count 0.02 k/cumm (0.0-0.2); Absolute Lymphocyte Count 1.89 k/cumm (1.2-3.4); Absolute Monocyte Count 1.24 k/cumm (0.11-0.7); Absolute Neutrophil Count 12.27 k/cumm (1.2-6.7); Basophils % 0.1; Eosinophils % 0.1; HCT 46.7 % (36.0-46.0); HGB 14.8 g/dL (12.0-15.5); Immature Grans % 0.3; Lymphocytes % 12.2; Mean Corp. HGB Concentration 31.7 g/dL (32.0-36.0); Mean Corpuscular Hemoglobin 27.8 pg (27.0-33.0); Mean Corpuscular Volume 87.6 fL (80-95); Mean Platelet Volume 12.8 fL (8.0-11.0); Neutrophils % 79.3; Platelet Count 232 x1000/uL (130-400); RBC 5.33 m/cumm (4.00-5.20); RBC Distribution Width 14.5 % (11.7-14.6); White Blood Cell Count 15.47 k/cumm (4.4-10.8)
[2018-08-10 21:50] LABS: Absolute Eosinophil Count 0.02 k/cumm (0.0-0.7)
[2018-08-10 21:52] LABS: ALT 23 U/L (12-78); AST 12 U/L (15-37); Albumin 3.4 g/dL (3.4-5.0); Alkaline Phosphatase 152 U/L (46-116); Anion Gap 11.9 mmol/L (3-11); BUN 16 mg/dL (7-18); Bilirubin, Total 0.7 mg/dL (0.2-1.0); CO2 30.1 mmol/L (21.0-32.0); CREATININE 0.77 mg/dL (0.55-1.02); Calcium 9.2 mg/dL (8.5-10.1); Chloride 98 mmol/L (98-107); Glucose 126 mg/dL (70-100); Sodium 140 mmol/L (136-145); TSH (W/Ref FT4) 1.34 uIU/mL (0.358-3.74); Total Protein 7.7 g/dL (6.4-8.2)
== END 2018-08-10 14:46 ==
LOC: NCHCN 14:26
PROVIDERS: PCP Internal Medicine; Visit Provider Nurse Practitioner Family
DX: R10.13 Epigastric pain (principal); R13.10 Dysphagia, unspecified; E03.9 Hypothyroidism, unspecified
CPT/HCPCS: 80053; 84443; 85025

== ENCOUNTER 2018-08-11 09:04 | Outpatient (CLI) | payer MEDICARE, OTHER, SELFPAY ==
--- NOTE | 2018-08-11 10:01 | DI.RAD_ITS ---
SYMPTOM/DIAGNOSIS: EPIGASTRIC ABD PAIN, R10.13 PA AND LATERAL CHEST: The heart is normal in size. The lungs are clear. The mediastinal structures and pleura appear intact. CONCLUSION: Normal chest.
[2018-08-11] MEDS: Omnipaque 350 MG/ML 50 ML BTL IJ ×3 (10:03→11:45)
[2018-08-11] MEDS: Breeza Beverage 473 ML BTL PO (10:04)
--- NOTE | 2018-08-11 11:38 | DI.CT_ITS ---
SYMPTOMS/DIAGNOSIS: ABD PAIN EPIGASTRIC, DYSPHAGIA, R10.13, R13.[address]: CT examination of the abdomen and pelvis was performed with intravenous infusion of 100 cc's of Omnipaque 350 and ingestion of dilute barium. Images obtained through the lung bases are unremarkable. Liver, spleen and pancreas appear normal. Gallbladder and bile ducts are CT normal. Adrenals appear normal bilaterally. Abdominal aorta is of normal diameter and no major vascular abnormality is seen. No abdominal wall hernia seen. No significant abdominal or pelvic adenopathy identified. The appendix appears normal. No evidence of bowel obstruction or diverticulitis. There is marked right hydronephrosis, and there is dilatation of the proximal right ureter. No definite stone identified. The mid to distal ureter is nondistended. The findings are suspicious for other etiologies of obstruction other than calculus including urothelial tumor or stricture. There is a question of slight left hydronephrosis. No left sided stone identified in kidney or ureter. Question slight UPJ obstruction, urothelial tumor vs stricture. The urinary bladder is essentially empty. There is a large previously described pelvic cyst which is bilobed. In comparison with previous examinations including 02/26/18, the predominantly cystic structure is markedly thick walled on today's examination raising the possibility of inflammation or neoplasm. Uterine fundus is grossly unremarkable. Lower uterine segment/cervix appears enlarged with an irregular contour raising the possibility of a mass. Ovaries not specifically identified. There is a tiny quantity of free fluid in the pelvis. CONCLUSION: 1. Proximal right ureteral obstruction, stricture vs urothelial tumor, retrograde ureteroscopy or CT urogram recommended. 2. Question mild UPJ obstruction on the left. 3. Predominantly cystic pelvic mass with marked interval change in appearance since 02/26/18, infectious vs neoplastic etiology. 4. Question lower uterine segment or cervical mass. SECURITY SYSTEM ANALYST consultation recommended.
== END 2018-08-11 09:24 ==
PROVIDERS: PCP Internal Medicine; Visit Provider Nurse Practitioner Family
DX: R10.13 Epigastric pain (principal); R13.10 Dysphagia, unspecified; N13.30 Unspecified hydronephrosis; N28.82 Megaloureter; N94.89 Other specified conditions associated with female genital organs and menstrual cycle; N85.2 Hypertrophy of uterus
CPT/HCPCS: 71046; 74177; Q9967

== ENCOUNTER 2018-08-11 15:19 | Outpatient (REF) | payer MEDICARE, OTHER, SELFPAY | END 2018-08-11 15:39 | LOC: NCHCN 15:19 | PROVIDERS: PCP Internal Medicine; Visit Provider Nurse Practitioner Family | DX: R32 Unspecified urinary incontinence (principal); N13.30 Unspecified hydronephrosis | CPT/HCPCS: 87077; 87086; 87186 ==

== ENCOUNTER 2018-08-14 11:40 | Outpatient (CLI) | payer MEDICARE, OTHER, SELFPAY ==
--- NOTE | 2018-08-14 10:34 | DI.US_ITS ---
SYMPTOM/DIAGNOSIS: F/U ABNL CT, HYDROSALPINX PELVIC ULTRASOUND: The examination is compared with recent abdominal CT of 08/11 and with previous pelvic ultrasound of 01/05/18. Previously noted elongated, predominantly cystic structure of the left adnexa is again noted. As noted on CT, this is now thick walled, raising the possibility of infectious or neoplastic disease associated with this finding. Lower uterine segment was not well visualized. Recent CT showed question of a lower uterine segment or cervical irregular mass. Endometrial stripe is about 14 mm. in thickness which is abnormal in this age group and is heterogenous appearance, neoplastic is a likely diagnostic possibility. The ovaries are not identified. There is mild right sided hydronephrosis. Recent abdominal CT showed right hydronephrosis as well. Urology consult recommended with additional retrograde imaging or CT urogram.
== END 2018-08-14 12:00 ==
PROVIDERS: PCP Internal Medicine; Visit Provider Nurse Practitioner Family
DX: N70.11 Chronic salpingitis (principal); N13.30 Unspecified hydronephrosis; N83.8 Other noninflammatory disorders of ovary, fallopian tube and broad ligament
CPT/HCPCS: 76830; 76856

== ENCOUNTER 2018-08-15 11:00 | Outpatient (REF) | payer MEDICARE, OTHER, SELFPAY ==
[2018-08-15 21:32] LABS: Anion Gap 8.4 mmol/L (3-11); BUN 10 mg/dL (7-18); CO2 32.6 mmol/L (21.0-32.0); CREATININE 0.94 mg/dL (0.55-1.02); Calcium 9.2 mg/dL (8.5-10.1); Chloride 98 mmol/L (98-107); Estimated GFR 58.05 (mL/min/1.73m2); Glucose 136 mg/dL (70-100); Sodium 139 mmol/L (136-145)
[2018-08-15 21:41] LABS: HCT 44.1 % (36.0-46.0); HGB 13.7 g/dL (12.0-15.5); Mean Corp. HGB Concentration 31.1 g/dL (32.0-36.0); Mean Corpuscular Hemoglobin 27.5 pg (27.0-33.0); Mean Corpuscular Volume 88.4 fL (80-95); Mean Platelet Volume 12.5 fL (8.0-11.0); Platelet Count 310 x1000/uL (130-400); RBC 4.99 m/cumm (4.00-5.20); RBC Distribution Width 14.3 % (11.7-14.6); White Blood Cell Count 8.84 k/cumm (4.4-10.8)
[2018-08-15 22:06] LABS: Potassium 2.9 mmol/L (3.5-5.1)
== END 2018-08-15 11:20 ==
LOC: NCHCN 11:00
PROVIDERS: PCP Internal Medicine; Visit Provider Internal Medicine
DX: E87.6 Hypokalemia (principal); I10 Essential (primary) hypertension; R10.13 Epigastric pain
CPT/HCPCS: 80048; 85027

== ENCOUNTER 2018-08-17 01:47 | Outpatient (CLI) | payer MEDICARE, OTHER, SELFPAY ==
--- NOTE | 2018-08-17 10:30 | SATEXT_ITS ---
Assessment: Ms. Lyon presents for nutritional counseling for weight management nutrition therapy, however she has been losing weight as recently she is unable to tolerate much in the way of food. She states that her hiatal hernia and her GERD are so severe that she is vomiting after eating. She walks at the mall and she uses her stepper for 10 to 15 minutes per day. She declined to be weighed at this time. BMI in MD office last week was 42. Her weight was 250 lbs. She is 67. Nutritional Diagnosis: Class 3 obesity related to excess energy intake. Intervention: We discussed eating well for her hiatal hernia and GERD. Provided written materials. Also provided meal plans for her with the right amount of food for her to eat for weight reduction. Encouraged her to be as physically active as she is able. Monitoring and Evaluation: 1. Ms. Lyon will monitor her progress with her nutrition therapy. 2. She will evaluate her follow up needs. She has my contact information. Thank you for the referral. Total time spent face to face was 28 minutes
== END 2018-08-17 02:07 ==
PROVIDERS: PCP Internal Medicine; Visit Provider Dietitian, Registered
DX: E66.9 Obesity, unspecified (principal); Z68.41 Body mass index [BMI] 40.0-44.9, adult; K21.9 Gastro-esophageal reflux disease without esophagitis; Z71.3 Dietary counseling and surveillance
CPT/HCPCS: 97802

== ENCOUNTER 2018-08-22 09:26 | Outpatient (CLI) | payer MEDICARE, OTHER, SELFPAY ==
[2018-08-22 11:12] LABS: HCT 46.9 % (36.0-46.0); HGB 14.6 g/dL (12.0-15.5); Mean Corp. HGB Concentration 31.1 g/dL (32.0-36.0); Mean Corpuscular Hemoglobin 27.5 pg (27.0-33.0); Mean Corpuscular Volume 88.3 fL (80-95); Platelet Count 311 x1000/uL (130-400); RBC 5.31 m/cumm (4.00-5.20); RBC Distribution Width 14.9 % (11.7-14.6); White Blood Cell Count 7.77 k/cumm (4.4-10.8)
[2018-08-22 12:08] LABS: Anion Gap 7.5 mmol/L (3-11); BUN 19 mg/dL (7-18); CO2 30.5 mmol/L (21.0-32.0); CREATININE 0.89 mg/dL (0.55-1.02); Calcium 9.4 mg/dL (8.5-10.1); Chloride 102 mmol/L (98-107); Glucose 115 mg/dL (70-100); Potassium 4.9 mmol/L (3.5-5.1); Sodium 140 mmol/L (136-145)
== END 2018-08-22 09:46 ==
PROVIDERS: PCP Internal Medicine; Visit Provider Obstetrics & Gynecology Gynecology
DX: N70.11 Chronic salpingitis (principal); R93.89 Abnormal findings on diagnostic imaging of other specified body structures; I10 Essential (primary) hypertension; J44.9 Chronic obstructive pulmonary disease, unspecified; K21.9 Gastro-esophageal reflux disease without esophagitis; Z01.818 Encounter for other preprocedural examination
CPT/HCPCS: 36415; 80048; 85027; 86850; 86900; 86901

== ENCOUNTER 2018-08-24 06:03 | Day surgery (SDC) | payer MEDICARE, OTHER, SELFPAY ==
[2018-08-24] VITALS (10 sets, daily range): BP systolic 110–160; BP diastolic 30–92; PULSE 61–73; RESP 11–20; TEMP 35.9–36.4; O2SAT 93–98
[2018-08-24] MEDS: Lactated Ringers 1,000 ML 80 ML IV (06:59)
--- NOTE | 2018-08-24 08:02 | ENDOMET_PTH ---
PATIENT: Smitha Lyon LOC: [facility] U#:[id number] AGE/SX: 77/F ROOM: RE08/24/[address]: Madeline Renee : 1940 BED: DIS: 08/24/2018 SPEC #: [id number] RECD: 08/24/18 12:06 STATUS: ANNAMARIA GARCIA #: [id number] LOPEZ: 08/24/18 08:[address]: Madeline Renee DEPT: Surgical Specimen RECD BY: Giulia Goddard ENTERED: 08/24/18 12:10 SP TYPE: Endomet OTHR DR: Walker Diana Tissues: 1 - ENDOMETRIUM BX/CURRETTE 2 - OVARY NOT TUMOR W OR W/O TUBES Procedures: GROSS AND MICRO LEVEL 4 IMMUNOPEROXIDASE STAIN Comments: [id number]
[2018-08-24] MEDS: Bupivacaine 0.25% Pres-Free 30 ML VIAL (08:43)
--- NOTE | 2018-08-24 10:33 | W.PM.DSUDISC ---
Discharge Plan Disposition Patient Disposition: HOME Condition: Good Discharge Details Reason For Visit: Laparoscopic Bilateral Salpingooophorectomy Attending Provider: Madeline Renee Primary Care Provider: Walkre Diana Home Meds and New Rx's Prescriptions: No Action verapamil 360 mg capsule,ext rel. pellets 24 hr 360 mg PO .12 NOON RF: 0 ondansetron 4 mg tablet,disintegrating 4 mg PO BID-TID PRNRF: 0 mirtazapine 15 mg tablet 15 mg PO DAILY RF: 0 cholecalciferol (vitamin D3) 1,000 unit capsule 1,000 unit PO DAILY RF: 0 multivitamin [Daily Value] 1 EACH tablet 1 ea PO DAILY RF: 0 levothyroxine 50 MCG tablet 50 mcg PO DAILY RF: 0 furosemide 20 MG tablet 20 mg PO DAILY RF: 0 pantoprazole 40 MG tablet,delayed release (DR/EC) 40 mg PO BID@0730,2000 Qty: 60 RF: 0 nitroglycerin [Nitrostat] 0.4 MG tablet, sublingual 0.4 mg Sublingual Q5 MIN PRN X3 PRNQty: 1 RF: 0 bupropion HCl 150 mg Tablet Extended Release 24 Hr 150 mg PO QAM RF: 0 metoprolol succinate 100 MG tablet extended release 24 hr 50 mg PO DAILY RF: 0 Discharge Instructions Additional Instructions: You have skin glue on your incisions. That can be peeled off your skin in a week or sooner if it becomes itchy. You have a prescription for Percocet. It is stronger than Tylenol and may be taken every 6 hours if the Tylenol does not help your pain. You should have a postop visit with Dr. Renee made for 1 to 2 weeks. Stand Alone Forms: Dr. Dias'carolann Laparoscopy Activity:: Activity as Tolerated Shower/Bathe:: 24 hours Diet:: As Tolerated Discharge Orders Discharge Orders: Discharge Order (Routine); Ordered 08/24/18 Ordered By: Madeline Renee DS: Diagnosis Discharge Diagnosis (1) Hydrosalpinx: Status: Chronic
--- NOTE | 2018-08-24 11:13 | ROE_ITS ---
Date of service: 08/24/18 Time of Service: 11:08 Operative Note DATE OF PROCEDURE: 08/24/18 PRE-OP DIAGNOSIS: L hydrosalpinx POST-OP DIAGNOSIS: same PROCEDURE: laparoscopic bilateral salpingoophorectomy SURGEON: Madeline Renee ASSISTING SURGEON: Rachna Reis ANESTHESIA: FERCHOA (Louie Ly CRNA) ESTIMATED BLOOD LOSS: 50 PATHOLOGY: other (Bilateral fallopian tubes including hydrosalpinx, bilateral ovaries) COMPLICATIONS: None Patient was transported to: PACU Patient's condition: stable Indications: Hydrosalpinx with small amount of interval growth on imaging studies. Findings: Upper abdomen normal. Appendix not visualized. Hydrosalpinx occupying the lateral cul-de-sac with adhesionsto the pelvic sidewall, omentum,and sigmoid colon. We were able to successfully create a tissue plane between the hydrosalpinx and the peritoneal attachments essentially peel-away hydrosalpinx. The mesosalpinx was smooth-walled with 1-2 septations and brown- colored liquid was drained from the cyst. Ovaries small and normal appearance. Uterus was also normal in appearance. Procedure Description: Patient was taken to the operating room. She was placed in the dorsal supine position and general endotracheal anesthesia was administered without difficulty. SCDs were on and inflated and she was placed in stirrups in a neurologically neutral dorsolithotomy position.she was prepped and draped in the usual sterile fashion and a holey catheter was inserted to gravity drainage. A bivalve speculum was placed into the vagina and the anterior lip of the cervix was grasped with a single-tooth tenaculum the cervical loss was dilated with a Hegar dilator and the endometrial biopsy was inserted to a depth of 7 cm and all 4 quadrants of the uterine cavity were sampled. A Jaime uterine manipulator was then inserted into the uterus and left in place the remainder of the case. Attention was turned to the patient's abdomen where the periumbilical region was infiltrated with quarter percent Marcaine without epinephrine. There is a vertical skin incision made with a scalpel in the umbilical fold and the umbilical ligament was grasped with [place] clamps, tented up and incised with Willard scissors. This allowed access to the rectus fascia which was then grasped tented and incised with curved Willard scissors and through the incision a 12 mm Casrto port was placed. Pneumoperitoneum was achieved using carbon dioxide gas. Abdomen inspected with 30 findings. The patient was placed in Trendelenburg and under direct visualization two 5 mm trochars were placed in the right and left lower quadrants respectively. The adhesions of the left hydrosalpinx were bluntly dissected away from the surrounding structures. The attachment of the hydrosalpinx to the left Narinder pelvic sidewall there was a rupture of the cystic structure and old blood from the cyst was extruded into the pelvis. It was suction aspirated and the dissection continued until the left hydrosalpinx was free of adhesions. Hydrosalpinx was then grasped across the remnant of the mesosalpinq and in sequential steps the mesosalpinx was clamped, cauterized and transected to the level of the L uterine cornua. The specimen was placed in the posterior cul-de-sac and attention was turned into the patient's left ovary. Left ovary was grasped across the infundibulopelvic ligament with a LigaSure bipolar device and subsequently cauterized and transected. Left ovary was then placed in the posterior cul-de-sac. The right fallopian tube was identified followed out to it's fimbrinated end and the attatchments of the tube to the mesosalpinx were subsequently clamped, cauterized and transected to the level of the uterine cornua. The right fallopian tube was then delivered through the 12mm umbilical port. Lastly the right ovary was identified the underlying pelvic side wall inspected and the course of the right ureter was determined to be distant from operative field. The infundibulopelvic ligament was then clamped cauterized and transected several contiguous locations and the specimen placed in the posterior cul-de-sac. All pedicle sites were noted to be hemostatic. A 10 mm Endo Catch bag was then inserted into the abdomen under direct visualization and both ovaries were placed in the Endo Catch bag and delivered through the abdominal wall. A second Endo Catch bag was used to deliver the left hydrosalpinx through the 12 mm port without difficulty. Both pedicle sites were inspected and found to be hemostatic. Clots in the posterior and anterior cul-de-sac were suction aspirated. The pelvis was carefully inspected and no fragments of either fallopian tubes or ovaries were noted. Visualization of the lower ports removed peritoneum was deflated and the Castro port removed. Rectus fascia at the port site was reapproximated with 2 interrupted sutures of 0 Vicryl. Subcutaneous tissue was closed with running suture of 0 Vicryl. Subcuticular closure of all port sites was performed using 4-0 Monocryl suture. Skin glue was used to seal the incisions. Patient was taken out of Trendelenburg and Menchaca catheter was discontinued. All instruments removed from her vagina. This tenaculum site was noted to be hemostatic. She was placed in the dorsal supine position, awakened, extubated and transported to recovery area in stable condition. Sponge, needle,and lap countsx2
== END 2018-08-24 13:17 | disposition home or self-care (01) ==
PROVIDERS: PCP Internal Medicine; Visit Provider Obstetrics & Gynecology Gynecology
PROC: (CPT 58661; principal; 2018-08-24 07:30)
DX: N70.11 Chronic salpingitis (principal); N84.0 Polyp of corpus uteri; N85.8 Other specified noninflammatory disorders of uterus
CPT/HCPCS: 58661; 88305; 88361; J1100; J1885; J2405

== ENCOUNTER 2018-08-31 11:29 | Inpatient (IN) | payer MEDICARE, OTHER, SELFPAY ==
[2018-08-31] VITALS (9 sets, daily range): BP systolic 117–150; BP diastolic 53–71; PULSE 72–85; RESP 14–27; TEMP 36.3–36.9; O2SAT 89–98
--- NOTE | 2018-08-31 11:50 | DI.CT_ITS ---
SYMPTOMS/DIAGNOSIS: LEAKING BROWN FLUID, VAGINAL DISCHARGE WITH ODOR S/P SALPINGO-OOPHORECTOMY 1 WEEK AGO ABDOMINAL AND PELVIC CT: CT examination of the abdomen and pelvis was performed with an infusion of 100 cc of Omnipaque 350. Images obtained through the lung bases are unremarkable. I would note that there is significant motion artifact, which limits the interpretation of this study. Liver and spleen are grossly unremarkable, as is the pancreas. Gallbladder and bile ducts are CT normal. Adrenals appear normal bilaterally. There is some prominence of the renal collecting systems bilaterally without gross hydronephrosis or hydroureter. No urinary tract calcifications seen. Abdominal aorta is of normal diameter. No major vascular abnormalities seen. No abdominal or pelvic adenopathy seen. The patient is reportedly status post recent salpingo-oophorectomy. Previously noted pelvic mass seen on CT of 08/11/2018 has been removed and there is no gross residual mass or fluid collection in the pelvis. No evidence of bowel obstruction. There is markedly increased attenuation in the anterior abdominal wall, which is poorly defined, but which measures roughly 8 cm in diameter. There are multiple small gas and fluid collections in this area. The phlegmonous area appears to involve the anterior abdominal wall, specifically the right rectus muscle. Poor delineation of the contour of the rectus is noted due to motion artifact, but the findings suggest direct involvement of the rectus. No free intraperitoneal air. No peritoneal abscess identified. CONCLUSION: Findings suggesting postsurgical anterior abdominal wall phlegmon or early abscess involving the subcutaneous fat and right rectus abdominis muscle.
--- NOTE | 2018-08-31 11:56 | ED.GENADUL_ITS ---
Discharge Plan Disposition Patient Disposition: [facility] INPATIENT Condition: Stable Discharge Details Chief Complaint: Abd Prob Clinical Impression: Abdominal wall fluid collections, Phlegmon, S/P bilateral salpingo-oophorectomy Attending Provider: Frederick Mesa Primary Care Provider: Walker Diana ED Provider: Jory Gerber Medical Decision Making 77-year-old female 1 week status post bilateral salpingo-oophorectomy who presents with worsening abdominal pain and leakage of foul-smelling brown fluid from the umbilicus for the past few days. Afebrile. Patient appears nontoxic. There is tenderness, erythema, edema around the umbilicus and foul-smelling brown liquid draining from center of umbilicus. Bilateral lower quadrant laparoscopic wounds appear to be healing well. No rigidity. Concern for abscess versus leakage of abdominal contents. Will place an IV, bolus IV fluids, labs, urinalysis and CT imaging. 1330 --labs and imaging reviewed. White blood cell count 13.8. No bandemia. Lactate 1.2. Urinalysis negative for infection. Reviewed with radiology and notes a phlegmon vs early abscess within the abdominal rectus muscle and subcutaneous fat. No intraperitoneal involvement, no free fluid, no well-defined fluid cavity. 1420 -- d/w boat repairer account liaison - accepts pt for admission. Will like zosyn IV. Plan is for patient to go to the OR. Patient hemodynamically stable. Medical Records Medical records reviewed: Yes I reviewed the patient's medical records. Imaging Data Radiologic Study: Radiologist's impression: ABDOMINAL AND PELVIC CT: CT examination of the abdomen and pelvis was performed with an infusion of 100 cc of Omnipaque 350. Images obtained through the lung bases are unremarkable. I would note that there is significant motion artifact, which limits the interpretation of this study. Liver and spleen are grossly unremarkable, as is the pancreas. Gallbladder and bile ducts are CT normal. Adrenals appear normal bilaterally. There is some prominence of the renal collecting systems bilaterally without gross hydronephrosis or hydroureter. No urinary tract calcifications seen. Abdominal aorta is of normal diameter. No major vascular abnormalities seen. No abdominal or pelvic adenopathy seen. The patient is reportedly status post recent salpingo-oophorectomy. Previously noted pelvic mass seen on CT of 08/11/2018 has been removed and there is no gross residual mass or fluid collection in the pelvis. No evidence of bowel obstruction. There is markedly increased attenuation in the anterior abdominal wall, which is poorly defined, but which measures roughly 8 cm in diameter. There are multiple small gas and fluid collections in this area. The phlegmonous area appears to involve the anterior abdominal wall, specifically the right rectus muscle. Poor delineation of the contour of the rectus is noted due to motion artifact, but the findings suggest direct involvement of the rectus. No free intraperitoneal air. No peritoneal abscess identified. CONCLUSION: Findings suggesting postsurgical anterior abdominal wall phlegmon or early abscess involving the subcutaneous fat and right rectus abdominis muscle. Lab Data Lab results reviewed: Yes I reviewed the patient's lab results. 08/31/18 14:45 Abdomen Wound Culture - Pending 08/31/18 14:45 Abdomen Gram Stain - Pending 08/31/18 13:06 Blood Blood Culture - Pending 08/31/18 11:48 Blood Blood Culture - Pending Laboratory Tests Range/Units 08/31/18 08/31/18 08/31/18 12:00 12:00 12:00 WBC (4.4-10.8) k/cumm 13.83 H RBC (4.00-5.20) m/cumm 5.12 Hgb (12.0-15.5) g/dL 14.2 Hct (36.0-46.0) % 45.7 MCV (80-95) fL 89.3 MCH (27.0-33.0) pg 27.7 MCHC (32.0-36.0) g/dL 31.1 L RDW (11.7-14.6) % 15.3 H Plt Count (130-400) x1000/uL 316 MPV (8.0-11.0) fL 11.8 H Immature Gran % 0.4 Neutrophils % 73.3 Lymphocytes % 17.4 Monocytes % 8.1 Eosinophils % 0.6 Basophils % 0.2 Absolute Neutrophils (1.2-6.7) k/cumm 10.14 H Absolute Lymphocytes (1.2-3.4) k/cumm 2.41 Absolute Monocytes (0.11-0.7) k/cumm 1.12 H Absolute Eosinophils (0.0-0.7) k/cumm 0.08 Absolute Basophils (0.0-0.2) k/cumm 0.03 Sodium (136-145) mmol/L 137 Potassium (3.5-5.1) mmol/L 4.3 Chloride (98-107) mmol/L 99 Carbon Dioxide (21.0-32.0) mmol/L 28.6 Anion Gap (3-11) mmol/L 9.4 BUN (7-18) mg/dL 23 H Creatinine (0.55-1.02) mg/dL 1.13 H Estimated GFR/1.73 m2 (mL/min/1.73m2) 46.94 Glucose (70-100) mg/dL 119 H Lactate (0.6-1.4) mmol/l Calcium (8.5-10.1) mg/dL 9.4 Total Bilirubin (0.2-1.0) mg/dL 0.8 AST (15-37) U/L 11 L ALT (12-78) U/L 26 Alkaline Phosphatase (46-116) U/L 150 H Total Protein (6.4-8.2) g/dL 8.4 H Albumin (3.4-5.0) g/dL 3.0 L Lipase (73-393) U/L 67 L Urine Color (Yellow) Yellow Urine Clarity Clear Urine pH (5-8) 5.0 Ur Specific Pender (1.005-1.025) 1.015 Urine Protein (Negative) mg/dL Negative Urine Ketones (Negative) mg/dL Negative Urine Blood (Negative) Trace-intact H Urine Nitrite (Negative) Negative Urine Bilirubin (Negative) Negative Urine Urobilinogen (Up TO 0.2) EU/dL 0.2 Ur Leukocyte Esterase (Negative) Negative Urine RBC (0-2) 0-2 Urine WBC (0-5) HPF 0-2 Ur Epithelial Cells (Negative) HPF Many Urine Crystals (Negative) HPF Moderate amorphous Urine Bacteria (Negative) HPF Few Urine Casts (Negative) LPF Comment Urine Mucus (Negative) Moderate Ur Culture Indicated? No/sq. contamination Urine Glucose (Negative) mg/dL Negative Range/Units 08/31/18 13:06 WBC (4.4-10.8) k/cumm RBC (4.00-5.20) m/cumm Hgb (12.0-15.5) g/dL Hct (36.0-46.0) % MCV (80-95) fL MCH (27.0-33.0) pg MCHC (32.0-36.0) g/dL RDW (11.7-14.6) % Plt Count (130-400) x1000/uL MPV (8.0-11.0) fL Immature Gran % Neutrophils % Lymphocytes % Monocytes % Eosinophils % Basophils % Absolute Neutrophils (1.2-6.7) k/cumm Absolute Lymphocytes (1.2-3.4) k/cumm Absolute Monocytes (0.11-0.7) k/cumm Absolute Eosinophils (0.0-0.7) k/cumm Absolute Basophils (0.0-0.2) k/cumm Sodium (136-145) mmol/L Potassium (3.5-5.1) mmol/L Chloride (98-107) mmol/L Carbon Dioxide (21.0-32.0) mmol/L Anion Gap (3-11) mmol/L BUN (7-18) mg/dL Creatinine (0.55-1.02) mg/dL Estimated GFR/1.73 m2 (mL/min/1.73m2) Glucose (70-100) mg/dL Lactate (0.6-1.4) mmol/l 1.2 Calcium (8.5-10.1) mg/dL Total Bilirubin (0.2-1.0) mg/dL AST (15-37) U/L ALT (12-78) U/L Alkaline Phosphatase (46-116) U/L Total Protein (6.4-8.2) g/dL Albumin (3.4-5.0) g/dL Lipase (73-393) U/L Urine Color (Yellow) Urine Clarity Urine pH (5-8) Ur Specific Pender (1.005-1.025) Urine Protein (Negative) mg/dL Urine Ketones (Negative) mg/dL Urine Blood (Negative) Urine Nitrite (Negative) Urine Bilirubin (Negative) Urine Urobilinogen (Up TO 0.2) EU/dL Ur Leukocyte Esterase (Negative) Urine RBC (0-2) Urine WBC (0-5) HPF Ur Epithelial Cells (Negative) HPF Urine Crystals (Negative) HPF Urine Bacteria (Negative) HPF Urine Casts (Negative) LPF Urine Mucus (Negative) Ur Culture Indicated? Urine Glucose (Negative) mg/dL HPI General Mode of arrival: ambulatory . Date/Time Provider Initiated Documentation: 08/31/18 11:37 . Limitations to Documentation: no limitations . Information obtained by: patient . HPI Narrative: Patient is a 77-year-old female who is one-week status post a bilateral salpingo-oophorectomy who presents with worsening periumbilical abdominal pain since the surgery, and leakage of foul-smelling brown fluid from umbilicus for the past few days. Patient saw her PCP today for an unrelated complaint and her abdomen was evaluated and patient was sent to the emergency department for further evaluation. Dr. Diana had called informing us of patient's arrival and stated that he had talked to [employer] account liaison and patient was referred here for labs and imaging. Patient admits to vomiting approximately 6 x times 2 days ago but not since then. She denies any known fever but admits to chills occasionally. She has been drinking but states she has had decreased appetite for the past few days. Related Data Home Medications Medication Instructions Recorded Confirmed furosemide 20 mg PO DAILY tab-cap NS 04/08/14 08/31/18 levothyroxine 50 mcg PO DAILY tab-cap NS 04/08/14 08/31/18 multivitamin [Daily Value] 1 ea PO DAILY NS 04/08/14 08/31/18 nitroglycerin [Nitrostat] 0.4 mg SUBLINGUAL Q5 MIN PRN X3 04/06/17 08/31/18 PRN #1 bottle pantoprazole 40 mg PO BID@0730,2000 #60 tabcr 04/06/17 08/31/18 verapamil ER 360 mg 24 hr 360 mg PO .12 NOON 01/16/18 08/31/18 capsule,extended release bupropion HCl 150 mg PO QAM 02/26/18 08/31/18 metoprolol succinate 50 mg PO DAILY 02/26/18 08/31/18 cholecalciferol (vitamin D3) 1,000 1,000 unit PO DAILY 05/08/18 08/31/18 unit capsule ondansetron 4 mg disintegrating 4 mg PO BID-TID PRN 08/16/18 08/31/18 tablet mirtazapine 15 mg tablet 15 mg PO DAILY 08/22/18 08/24/18 potassium chloride 10 meq PO DAILY 08/31/18 08/31/18 Previous Rx's Medication Instructions Recorded nitroglycerin [Nitrostat] 0.4 mg SUBLINGUAL Q5 MIN PRN X3 04/06/17 PRN #1 bottle pantoprazole 40 mg PO BID@07 #60 tabcr 04/06/17 Allergies Allergy/AdvReac Type Severity Reaction Status Date / Time losartan Allergy Intermediate Verified 08/31/18 11:42 formoterol fumarate AdvReac Severe severe Verified 08/31/18 11:42 [From Dulera] depression lisinopril AdvReac Severe cough Verified 08/31/18 11:42 mometasone furoate AdvReac Severe severe Verified 08/31/18 11:42 [From Dulera] depression General Stated Complaint: Abd Prob PEDRO: 3 Review of Systems Review of Systems All systems reviewed & are unremarkable except as noted in HPI and below Constitutional Reports as per HPI, Reports chills and Denies fever(s) Eyes Denies blurry vision ENT Denies dizziness, Denies sore throat and Denies throat swelling Cardiovascular Denies chest pain and Denies dyspnea Respiratory Denies cough and Denies dyspnea Gastrointestinal Reports abdominal pain, Denies diarrhea and Reports vomiting Genitourinary Denies hematuria and Denies dysuria Musculoskeletal Denies back pain and Denies numbness Integumentary/Breasts Denies lesions and Denies rash Neurologic Denies dizziness, Denies focal weakness and Denies numbness Allergic/Immunologic Denies throat swelling [facility] Medical History Hydrosalpinx (Chronic 07/04/17) Hiatal hernia with GERD and esophagitis (Acute) Hydrosalpinx (Chronic) SPRING (obstructive sleep apnea) (Chronic) Essential tremor (Chronic) Anxiety (Chronic) Depression (Chronic) Hyperlipidemia (Chronic) Hypothyroidism (Chronic) History of skin cancer (Chronic) COPD (chronic obstructive pulmonary disease) (Acute) Rosacea (Chronic) Hypertension (Chronic) Vitamin D deficiency (Chronic) Dysphagia (Acute) Flank pain (Acute) Obesity (BMI 35.0-39.9 without comorbidity) (Acute) Neuropathy (Acute) Chronic cough (Acute) Kidney stones (Chronic) Bradycardia (Acute) Hypokalemia (Acute) Hypomagnesemia (Acute) Balance problem (Acute) Glucose intolerance (Acute) Abdominal pain, epigastric (Acute) Esophagitis (Acute) Facial flushing (Acute) Headache (Acute) Hydronephrosis (Acute) Knee pain, left (Acute) Lesion of endometrium (Acute) Menopause (Acute) Sleep disturbance (Acute) Urinary incontinence (Acute) Osteoarthritis (Chronic) Surgical History Skin Cancer Removal (Resolved) History of kidney surgery (Acute) Hx of lithotripsy (Acute) Hx of cataract surgery (Chronic) Family History Other Heart disease Social History Smoking/Tobacco Use Status: Former Tobacco Use Alcohol Intake: current Alcohol Intake frequency: other Details: MONTHLY OR LESS Drug use: Never Substance use type: does not use Number of Children: 3 Seatbelt use: always Do you feel safe at home: Yes Do you feel safe in your relationship?: Yes Exam Const General: cooperative and no acute distress HENMT Head: normal to inspection Face and sinus: normal facial exam Eyes General: appearance normal, both eyes and all related structures Neck Neck: normal visual inspection and No submandibular swelling Lymphatic: no lymphadenopathy noted Chest Chest: normal inspection of the chest and no tenderness Resp Effort & Inspection: normal respiratory effort and able to speak in complete sentences Auscultation: clear to auscultation bilaterally Cardio Rate: regular rate Rhythm: regular rhythm GI Inspection: normal to inspection and other (LLQ/RLQ laparoscopic wounds covered with glue, no erythema/edema) Palpation: soft, not firm, not rigid, tender periumbilically (moderate surrounding erythema/edema with brown foul smelling drainage from umbilicus) and other Auscultation: normal bowel sounds Skin General skin exam: no rashes or lesions noted Neuro General: alert, awake and oriented x3 Cognition: normal cognition Speech: speech normal Motor: muscle tone normal throughout Sensory Exam: no sensory deficits noted Extrem General: normal to inspection, full ROM, normal capillary refill, no calf tenderness bilaterally and no edema Psych Appearance: grossly normal Mental Status: mental status grossly normal Speech and Movement: speech and movement normal Affect: normal affect Course Vital Signs Temperature 97.9 F 08/31/18 11:35 Pulse 85 08/31/18 11:35 Blood Pressure 150/58 H 08/31/18 11:35 Pulse Oximetry 98 08/31/18 11:35 Temperature 97.9 F 08/31/18 11:35 Temperature Source Skin 08/31/18 11:35 Pulse 85 08/31/18 11:35 Respiratory Effort 08/31/18 11:49 Blood Pressure 150/58 H 08/31/18 11:35 Pulse Oximetry 98 08/31/18 11:35 Oxygen Delivery Method Room Air 08/31/18 11:35 Oxygen Flow Rate 0 08/31/18 11:35 Pain Level 8 08/31/18 11:35
[2018-08-31] MEDS: Normal Saline 250 ML IV (12:10)
[2018-08-31 12:13] LABS: Abs Immature Grans 0.06 k/cumm (0.0-0.09); Absolute Basophil Count 0.03 k/cumm (0.0-0.2); Absolute Eosinophil Count 0.08 k/cumm (0.0-0.7); Absolute Monocyte Count 1.12 k/cumm (0.11-0.7); Absolute Neutrophil Count 10.14 k/cumm (1.2-6.7); Basophils % 0.2; Eosinophils % 0.6; HCT 45.7 % (36.0-46.0); HGB 14.2 g/dL (12.0-15.5); Immature Grans % 0.4; Lymphocytes % 17.4; Mean Corp. HGB Concentration 31.1 g/dL (32.0-36.0); Mean Corpuscular Hemoglobin 27.7 pg (27.0-33.0); Mean Corpuscular Volume 89.3 fL (80-95); Mean Platelet Volume 11.8 fL (8.0-11.0); Monocytes % 8.1; Neutrophils % 73.3; Platelet Count 316 x1000/uL (130-400); RBC 5.12 m/cumm (4.00-5.20); RBC Distribution Width 15.3 % (11.7-14.6); White Blood Cell Count 13.83 k/cumm (4.4-10.8)
[2018-08-31] MEDS: Prochlorperazine 10 MG/2 ML VIAL IVP (12:13)
[2018-08-31] MEDS: Normal Saline Flush 10 ML SYR IVP (12:14)
[2018-08-31 12:20] LABS: Absolute Lymphocyte Count 2.41 k/cumm (1.2-3.4)
[2018-08-31 12:24] LABS: Bilirubin Negative (Negative); Blood Trace-intact (Negative); Clarity Clear; Glucose Negative (Negative); Ketones Negative (Negative); Leukocyte Esterase Negative (Negative); Nitrite Negative (Negative); Specific Gravity 1.015 (1.005-1.025); Urobilinogen 0.2 EU/dL (Up TO 0.2)
[2018-08-31 12:34] LABS: ALT 26 U/L (12-78); AST 11 U/L (15-37); Alkaline Phosphatase 150 U/L (46-116); Anion Gap 9.4 mmol/L (3-11); BUN 23 mg/dL (7-18); Bilirubin, Total 0.8 mg/dL (0.2-1.0); CO2 28.6 mmol/L (21.0-32.0); CREATININE 1.13 mg/dL (0.55-1.02); Chloride 99 mmol/L (98-107); Estimated GFR 46.94 (mL/min/1.73m2); Glucose 119 mg/dL (70-100); Lipase 67 U/L (73-393); Potassium 4.3 mmol/L (3.5-5.1); Sodium 137 mmol/L (136-145); Total Protein 8.4 g/dL (6.4-8.2)
[2018-08-31 12:40] LABS: Calcium 9.4 mg/dL (8.5-10.1)
[2018-08-31 12:41] LABS: Bacteria Few HPF (Negative); C & S Indicated? No/Sq. Contamination; Crystals Moderate Amorphous HPF (Negative); Epithelial Cells Many HPF (Negative); Mucus Moderate (Negative); RBC 0-2 (0-2); WBC 0-2 HPF (0-5)
[2018-08-31 13:17] LABS: Lactate-non-spesis 1.2 mmol/l (0.6-1.4)
[2018-08-31] MEDS: Omnipaque 350 MG/ML 100 ML BTL IV (13:27)
[2018-08-31] MEDS: PIPERACILLIN/TAZO 3.375 GM in Normal Saline 50 ML IVPB ×2 (14:36→22:06)
[2018-08-31] MEDS: Lactated Ringers 1,000 ML 75 ML IV ×2 (16:29→23:18)
[2018-08-31] MEDS: HYDROcodone 5/Acetaminophen 325 TAB PO (22:05)
[2018-09-01] MEDS: HYDROcodone 5/Acetaminophen 325 TAB PO ×3 (02:40→23:35)
[2018-09-01 02:46] VITALS: BP 138/73; PULSE 82; RESP 18; TEMP 36.7; O2SAT 93
[2018-09-01] MEDS: PIPERACILLIN/TAZO 3.375 GM in Normal Saline 50 ML IVPB ×3 (06:09→22:07)
[2018-09-01 07:02] LABS: Abs Immature Grans 0.01 k/cumm (0.0-0.09); Absolute Basophil Count 0.03 k/cumm (0.0-0.2); Absolute Eosinophil Count 0.34 k/cumm (0.0-0.7); Absolute Monocyte Count 0.98 k/cumm (0.11-0.7); Absolute Neutrophil Count 5.44 k/cumm (1.2-6.7); Basophils % 0.3; Eosinophils % 3.7; HCT 39.8 % (36.0-46.0); HGB 12.2 g/dL (12.0-15.5); Immature Grans % 0.1; Lymphocytes % 26.9; Mean Corp. HGB Concentration 30.7 g/dL (32.0-36.0); Mean Corpuscular Hemoglobin 27.6 pg (27.0-33.0); Mean Platelet Volume 11.4 fL (8.0-11.0); Monocytes % 10.5; Neutrophils % 58.5; Platelet Count 274 x1000/uL (130-400); RBC 4.42 m/cumm (4.00-5.20); RBC Distribution Width 15.1 % (11.7-14.6)
[2018-09-01 07:05] VITALS: BP 143/68; PULSE 76; RESP 18; TEMP 37; O2SAT 95
[2018-09-01 07:29] LABS: ALT 19 U/L (12-78); AST 11 U/L (15-37); Albumin 2.3 g/dL (3.4-5.0); Alkaline Phosphatase 114 U/L (46-116); Anion Gap 6.2 mmol/L (3-11); BUN 19 mg/dL (7-18); Bilirubin, Total 0.7 mg/dL (0.2-1.0); CO2 29.8 mmol/L (21.0-32.0); Chloride 104 mmol/L (98-107); Glucose 104 mg/dL (70-100); Potassium 3.9 mmol/L (3.5-5.1); Sodium 140 mmol/L (136-145); Total Protein 6.8 g/dL (6.4-8.2)
[2018-09-01 07:54] LABS: Calcium 8.9 mg/dL (8.5-10.1)
--- NOTE | 2018-09-01 07:57 | W.PM.HP.N ---
Date of service: 08/31/18 Time of Service: 14:00 Assessment and Plan (1) Incisional abscess: Current visit: Yes Status: Acute I discussed management options with the patient and her . My recommendation is for incision and drainage under anesthesia in the operating room with possible wound vac placement. I discussed with her that there was the possibility that laparotomy would be necessary should we feel that the infection extends into the peritoneal cavity. All questions were answered to the patient's satisfaction. Risks of surgery were reviewed and consent was obtained. History of Present Illness Chief Complaint: Infection at incision site Narrative: 77 year old who is approximately 1 week presents to the emergency department with purulent drainage from her umbilical incision. She underwent laparoscopic bilateral salpingectomy for hydrosalpinges. She denies any fever or chills but reports increasing pain at the umbilicus. During her evaluaiton in the emergency dept she did have a CT of the abdomen and pelvis which showed an abdominal wall abscess seeming to extend to the rectus muscles. No free air was noted and it did not appear that the infection extended into the peritoneal cavity. FORMERLY [facility] Medical History Hydrosalpinx (Chronic 07/04/17) Hiatal hernia with GERD and esophagitis (Acute) Hydrosalpinx (Chronic) SPRING (obstructive sleep apnea) (Chronic) Essential tremor (Chronic) Anxiety (Chronic) Depression (Chronic) Hyperlipidemia (Chronic) Hypothyroidism (Chronic) History of skin cancer (Chronic) COPD (chronic obstructive pulmonary disease) (Acute) Rosacea (Chronic) Hypertension (Chronic) Vitamin D deficiency (Chronic) Dysphagia (Acute) Flank pain (Acute) Obesity (BMI 35.0-39.9 without comorbidity) (Acute) Neuropathy (Acute) Chronic cough (Acute) Kidney stones (Chronic) Bradycardia (Acute) Hypokalemia (Acute) Hypomagnesemia (Acute) Balance problem (Acute) Glucose intolerance (Acute) Abdominal pain, epigastric (Acute) Esophagitis (Acute) Facial flushing (Acute) Headache (Acute) Hydronephrosis (Acute) Knee pain, left (Acute) Lesion of endometrium (Acute) Menopause (Acute) Sleep disturbance (Acute) Urinary incontinence (Acute) Osteoarthritis (Chronic) Surgical History Skin Cancer Removal (Resolved) History of kidney surgery (Acute) Hx of lithotripsy (Acute) Hx of cataract surgery (Chronic) Family History Other Heart disease Social History Smoking/Tobacco Use Status: Former Tobacco Use Alcohol Intake: current Alcohol Intake frequency: other Details: MONTHLY OR LESS Drug use: Never Substance use type: does not use Number of Children: 3 Seatbelt use: always Do you feel safe at home: Yes Do you feel safe in your relationship?: Yes Meds Home Medications Medication Instructions Recorded Confirmed Type furosemide 20 mg PO DAILY tab-cap NS 04/08/14 08/31/18 History levothyroxine 50 mcg PO DAILY tab-cap NS 04/08/14 08/31/18 History multivitamin [Daily Value] 1 ea PO DAILY NS 04/08/14 08/31/18 History nitroglycerin [Nitrostat] 0.4 mg SUBLINGUAL Q5 MIN PRN X3 04/06/17 08/31/18 Rx PRN #1 bottle pantoprazole 40 mg PO BID@0730,2000 #60 tabcr 04/06/17 08/31/18 Rx verapamil ER 360 mg 24 hr 360 mg PO .12 NOON 01/16/18 08/31/18 History capsule,extended release bupropion HCl 150 mg PO QAM 02/26/18 08/31/18 History metoprolol succinate 50 mg PO DAILY 02/26/18 08/31/18 History cholecalciferol (vitamin D3) 1,000 1,000 unit PO DAILY 05/08/18 08/31/18 History unit capsule ondansetron 4 mg disintegrating 4 mg PO BID-TID PRN 08/16/18 08/31/18 History tablet mirtazapine 15 mg tablet 15 mg PO DAILY 08/22/18 08/24/18 History potassium chloride 10 meq PO DAILY 08/31/18 08/31/18 History Allergies Allergy/AdvReac Type Severity Reaction Status Date / Time losartan Allergy Intermediate Verified 08/31/18 11:42 formoterol fumarate AdvReac Severe severe Verified 08/31/18 11:42 [From Dulera] depression lisinopril AdvReac Severe cough Verified 08/31/18 11:42 mometasone furoate AdvReac Severe severe Verified 08/31/18 11:42 [From Dulera] depression Exam Resp Auscultation: clear to auscultation bilaterally Cardio Rate: regular rate Rhythm: regular rhythm GI Other: Copious purulent drainage was noted to emenate from the umbilical incision. There is surrounding induration with erythema and some fluctuance. Wound culture was obtained. Results Labs : 09/01/18 06:40 09/01/18 06:40 Laboratory Results - last 24 hr 08/31/18 08/31/18 08/31/18 12:00 12:00 12:00 WBC 13.83 H RBC 5.12 Hgb 14.2 Hct 45.7 MCV 89.3 MCH 27.7 MCHC 31.1 L RDW 15.3 H Plt Count 316 MPV 11.8 H Immature Gran % 0.4 Neutrophils % 73.3 Lymphocytes % 17.4 Monocytes % 8.1 Eosinophils % 0.6 Basophils % 0.2 Absolute Neutrophils 10.14 H Absolute Lymphocytes 2.41 Absolute Monocytes 1.12 H Absolute Eosinophils 0.08 Absolute Basophils 0.03 Sodium 137 Potassium 4.3 Chloride 99 Carbon Dioxide 28.6 Anion Gap 9.4 BUN 23 H Creatinine 1.13 H Estimated GFR/1.73 m2 46.94 Glucose 119 H Lactate Calcium 9.4 Total Bilirubin 0.8 AST 11 L ALT 26 Alkaline Phosphatase 150 H Total Protein 8.4 H Albumin 3.0 L Lipase 67 L Urine Color Yellow Urine Clarity Clear Urine pH 5.0 Ur Specific [place] 1.015 Urine Protein Negative Urine Ketones Negative Urine Blood Trace-intact H Urine Nitrite Negative Urine Bilirubin Negative Urine Urobilinogen 0.2 Ur Leukocyte Esterase Negative Urine RBC 0-2 Urine WBC 0-2 Ur Epithelial Cells Many Urine Crystals Moderate amorphous Urine Bacteria Few Urine Casts Comment Urine Mucus Moderate Ur Culture Indicated? No/sq. contamination Urine Glucose Negative 08/31/18 09/01/18 09/01/18 13:06 06:40 06:40 WBC 9.30 D RBC 4.42 Hgb 12.2 Hct 39.8 MCV 90.0 MCH 27.6 MCHC 30.7 L RDW 15.1 H Plt Count 274 MPV 11.4 H Immature Gran % 0.1 Neutrophils % 58.5 Lymphocytes % 26.9 Monocytes % 10.5 Eosinophils % 3.7 Basophils % 0.3 Absolute Neutrophils 5.44 Absolute Lymphocytes 2.50 Absolute Monocytes 0.98 H Absolute Eosinophils 0.34 Absolute Basophils 0.03 Sodium 140 Potassium 3.9 Chloride 104 Carbon Dioxide 29.8 Anion Gap 6.2 BUN 19 H Creatinine 0.90 Estimated GFR/1.73 m2 >= 60.00 Glucose 104 H Lactate 1.2 Calcium 8.9 Total Bilirubin 0.7 AST 11 L ALT 19 Alkaline Phosphatase 114 Total Protein 6.8 Albumin 2.3 L Lipase Urine Color Urine Clarity Urine pH Ur Specific [place] Urine Protein Urine Ketones Urine Blood Urine Nitrite Urine Bilirubin Urine Urobilinogen Ur Leukocyte Esterase Urine RBC Urine WBC Ur Epithelial Cells Urine Crystals Urine Bacteria Urine Casts Urine Mucus Ur Culture Indicated? Urine Glucose Last Vital Signs Temp 98.1 F 09/01/18 02:46 Pulse 82 09/01/18 02:46 Resp 18 09/01/18 02:46 BP 138/73 09/01/18 02:46 Pulse Ox 93 L 09/01/18 02:46
--- NOTE | 2018-09-01 08:06 | W.PM.OP ---
Date of service: 08/31/18 Time of Service: 20:00 Operative Note DATE OF PROCEDURE: 08/31/18 PRE-OP DIAGNOSIS: Abscess of umbilical incision POST-OP DIAGNOSIS: same PROCEDURE: Incision and drainage of abdominal wall abscess with wound vac placement. SURGEON: Frederick Mesa ASSISTING SURGEON: Madeline Renee ANESTHESIA: MAC ESTIMATED BLOOD LOSS: 0 Patient was transported to: PACU Patient's condition: stable Findings: Abscess cavity measured 8 cm in width by 7 cm in depth with tracking in multiple directions/ Procedure Description: The patient was taken to the operating room and after an adequate level of sedation was achieved. Patient was prepped and draped in usual sterile manner. The umbilical incision was opened with a #15 blade scalpel and extended inferiorly with a #15 blade scalpel approximately 3 to 4 cm. Blunt dissection was carried down to the underlying fascia which appears may have been disrupted somewhat with thickened peritoneum beneath that. The abscess cavity was probed with tracking several directions. A thorough irrigation was performed. Necrotic debris was excised. The black granular foam was placed and packed into each of the abscess tracks. DuoDERM was placed on the skin surrounding the incision. Wound VAC dressing was applied and suction activated 125 mmHg. A good seal was obtained. The procedure was concluded at this point. Wound cultures had been obtained in the emergency department prior to procedure.
[2018-09-01 09:50] VITALS: O2SAT 95
[2018-09-01] MEDS: Acetaminophen 325 MG TAB 650 MG PO (10:54)
[2018-09-01] MEDS: Normal Saline Flush 10 ML SYR IVP (10:55)
[2018-09-01 11:29] VITALS: BP 159/85; PULSE 82; RESP 18; TEMP 37; O2SAT 93
--- NOTE | 2018-09-01 11:36 | PDOC.CMIN ---
- If Service Date Differs Date of service: 09/01/18 Time of Service: 11:37 Care Management Initial Assess REASON FOR HOSPITALIZATION:: Incisional abscess status post bilat oophorectomy on 08/24/18 PAST MEDICAL HISTORY/PAST SURGICAL HISTORY:: GERD, anxiety, obesity, dysphagia, hiatal hernia, SPRING, essential tremor, depression, hyperlipidemia, hypothyroidism, history of skin cancer, COPD, rosacea, hypertension, neuropathy, kidney stones, bradycardia, hypokalemia, gait disturbance. Surgical history: Oophorectomy bilateral, with lithotripsy, cataract surgery, skin cancer removal PREVIOUS FUNCTIONAL STATUS/SOCIAL/FAMILY SUPPORTS:: Smitha is a 77-year-old woman who lives in her own home in [place] [facility] with her Derrick. She has 3 children all are grown. She retired from housekeeping. She does not drive her provides her transportation. She performs her own ADLs, and is able to make her own meals. She does states she has a history of falls and uses a 4 wheeled walker for ambulation. CURRENT FUNCTIONAL STATUS:: Smitha is lying in bed during CM assessment, she makes good eye contact and is appropriate in conversation. She shares her history of hospitalization, states it has only been the last 3 years that she has had a lot of encounters. She follows up with her primary care regularly and has a good relationship with Dr. Diana. She understands that she will be discharged home with a wound VAC, and home health services. She states her and her could not manage the wound VAC independently. ADVANCE DIRECTIVES:: None on file she reports there is a copy at primary care office CM to follow-up Has patient been provided with information about the portal?: Yes Did the patient sign up for the portal?: No CODE STATUS:: Full Code INSURANCE COVERAGE / FINANCIAL ISSUES:: Medicare, [employer] CURRENT HOME/COMMUNITY SERVICES/EQUIPMENT:: 4 wheeled walker PRIMARY CARE PHYSICIAN:: Dr. Diana POTENTIAL DISCHARGE NEEDS:: Follow-up appointment scheduled with gynecological services, referral to home health services nursing, and follow-up with primary care. PATIENT/FAMILY EDUCATION NEEDS:: Discharge education, limitations, follow-up plan of care, asked me 3 and self-management ANTICIPATED BARRIERS TO DISCHARGE:: None identified. TRANSPORTATION:: Via private car with spouse at time of discharge. PLAN:: Smitha is currently receiving IV antibiotics, wound VAC therapy initiated. Medical operating room surgical technologist is assisting providers in submitting the paperwork for wound VAC through [facility]. Anticipate Smitha will to be discharged on Tuesday with new home health services and wound VAC therapy. CM to continue to provide support, discharge planning and disposition.
--- NOTE | 2018-09-01 12:00 | INITIAL_ITS ---
- If Service Date Differs Date of service: 09/01/18 Time of Service: 11:37 Care Management Initial Assess REASON FOR HOSPITALIZATION:: Incisional abscess status post bilat oophorectomy on 08/24/18 PAST MEDICAL HISTORY/PAST SURGICAL HISTORY:: GERD, anxiety, obesity, dysphagia, hiatal hernia, SPRING, essential tremor, depression, hyperlipidemia, hypothyroidism, history of skin cancer, COPD, rosacea, hypertension, neuropathy, kidney stones, bradycardia, hypokalemia, gait disturbance. Surgical history: Oophorectomy bilateral, with lithotripsy, cataract surgery, skin cancer removal PREVIOUS FUNCTIONAL STATUS/SOCIAL/FAMILY SUPPORTS:: Smitha is a 77-year-old woman who lives in her own home in [place] [facility] with her Derrick. She has 3 children all are grown. She retired from housekeeping. She does not drive her provides her transportation. She performs her own ADLs, and is able to make her own meals. She does states she has a history of falls and uses a 4 wheeled walker for ambulation. CURRENT FUNCTIONAL STATUS:: Smitha is lying in bed during CM assessment, she makes good eye contact and is appropriate in conversation. She shares her history of hospitalization, states it has only been the last 3 years that she has had a lot of encounters. She follows up with her primary care regularly and has a good relationship with Dr. Diana. She understands that she will be discharged home with a wound VAC, and home health services. She states her and her could not manage the wound VAC independently. ADVANCE DIRECTIVES:: None on file she reports there is a copy at primary care office CM to follow-up Has patient been provided with information about the portal?: Yes Did the patient sign up for the portal?: No CODE STATUS:: Full Code INSURANCE COVERAGE / FINANCIAL ISSUES:: Medicare, [employer] CURRENT HOME/COMMUNITY SERVICES/EQUIPMENT:: 4 wheeled walker PRIMARY CARE PHYSICIAN:: Dr. Diana POTENTIAL DISCHARGE NEEDS:: Follow-up appointment scheduled with gynecological services, referral to home health services nursing, and follow-up with primary care. PATIENT/FAMILY EDUCATION NEEDS:: Discharge education, limitations, follow-up plan of care, asked me 3 and self-management ANTICIPATED BARRIERS TO DISCHARGE:: None identified. TRANSPORTATION:: Via private car with spouse at time of discharge. PLAN:: Smitha is currently receiving IV antibiotics, wound VAC therapy initiated. Medical rn neurosurgical is assisting providers in submitting the paperwork for wound VAC through [facility]. Anticipate Smitha will to be discharged on Tuesday with new home health services and wound VAC therapy. CM to continue to provide support, discharge planning and disposition.
[2018-09-01] MEDS: Lactated Ringers 1,000 ML 75 ML IV (12:15)
--- NOTE | 2018-09-01 13:41 | PHARADMIT ---
Addendum entered by Hansa Ardon 09/03/18 14:04: Pharmacy Note Subjective wound vac change today per progress note Objective BP-175/86 other VS okay no labs Assessment docusate changed to PRN, miralax discontinued zosyn continues (day 4) Plan possible discharge tomorrow Original Note: Admission Pharmacy Clinical Review abdominal wall abscess Code Status Full Code Current Weight 110.7 kg Renally Cleared and Narrow Therapeutic Index Meds Crcl ~68.1 mL/min using adjusted body weight current meds okay QTc Value / Action Taken n/a BP Control, Fever BP 159/85 afebrile Electrolytes reviewed within normal limits DVT Prophylaxis none Opiate Usage / Scheduled Bowel Regimen Ordered prn/none Plt/SCr for Heparin / Enoxaparin plt 274 SCr 0.90 INR for Warfarin n/a H/H stable, WBC/Bands h/h 12.2/39.8 wbc 9.30 Antibiotic appropriateness zosyn Cultures and Sensitivities blood cultures pending wound culture Surgical ABX d/c within 24 hr n/a DM control / Insulin Dosing BG 104 none Heart Failure (Check EF%) (MESSI's, B-Block, Diuretics) none IV to PO Switch n/a Home Meds Reviewed -multiple sources of vitamin D increase risk of adverse/toxic effects -separate admin of levothyroxine from multivitamin -bupropion may decrease the metabolism of metoprolol and mirtazapine which increases the risk of adverse/toxic effects Home Meds Not Ordered bupropion, cholecalciferol, furosemide, levothyroxine, metoprolol, mirtazapine, multivitamin, nitroglycerin, pantoprazole, potassium chloride, verapamil Comments
[2018-09-01 15:30] VITALS: BP 115/75; PULSE 82; RESP 16; TEMP 35.3; O2SAT 95
[2018-09-01 20:05] VITALS: BP 175/96; PULSE 84; RESP 16; TEMP 36.9; O2SAT 94
[2018-09-02] MEDS: Acetaminophen 325 MG TAB 650 MG PO (02:20)
[2018-09-02 03:40] VITALS: BP 136/75; PULSE 75; RESP 16; TEMP 36.6; O2SAT 95
[2018-09-02] MEDS: PIPERACILLIN/TAZO 3.375 GM in Normal Saline 50 ML IVPB ×3 (05:27→21:51)
[2018-09-02 07:25] VITALS: BP 144/80; PULSE 83; RESP 20; TEMP 36.4; O2SAT 97
[2018-09-02] MEDS: Normal Saline Flush 10 ML SYR IVP ×2 (08:31→21:51)
[2018-09-02] MEDS: Ondansetron 4 MG/2 ML VIAL IVP (08:31)
[2018-09-02 11:07] VITALS: BP 170/68; PULSE 81; RESP 19; TEMP 36.8; O2SAT 96
--- NOTE | 2018-09-02 11:10 | PDOC.CMPRO ---
- If Service Date Differs Date of service: 09/02/18 Time of Service: 11:10 Care Management Progress Note S/O:Smitha is engaged and alert anticipate no change in status today. She continues to receive IV antibiotics every 8 hours, pain control and antiemetics for nausea. Anticipate she will be discharged with wound VAC from [facility]. A: Smitha is a 77-year-old female admitted with incisional abscess status post bilateral oophorectomy on 08/24/2018. She now has a wound VAC in place, receiving IV antibiotics. P: Smitha is currently receiving IV antibiotics, wound VAC therapy initiated. Medical surgical dressing maker is assisting providers in submitting the paperwork for wound VAC through [facility]. Anticipate Smitha will to be discharged on Tuesday with new home health services and wound VAC therapy. CM contacted home health services and provided update related to plan for discharge on Tuesday. CM to continue to provide support, discharge planning and disposition.
--- NOTE | 2018-09-02 11:15 | CMPROGNOTE_ITS ---
- If Service Date Differs Date of service: 09/02/18 Time of Service: 11:10 Care Management Progress Note S/O:Smitha is engaged and alert anticipate no change in status today. She continues to receive IV antibiotics every 8 hours, pain control and antiemetics for nausea. Anticipate she will be discharged with wound VAC from [facility]. A: Smitha is a 77-year-old female admitted with incisional abscess status post bilateral oophorectomy on 08/24/2018. She now has a wound VAC in place, rece iving IV antibiotics. P: Smitha is currently receiving IV antibiotics, wound VAC therapy initiated. Medical surgical instrument mechanic is assisting providers in submitting the paperwork for wound VAC through [facility]. Anticipate Smitha will to be discharged on Tuesday with new home health services and wound VAC therapy. CM contacted home health services and provided update related to plan for discharge on Tuesday. CM to continue to provide support, discharge planning and disposition.
--- NOTE | 2018-09-02 12:19 | NUR.NOTE ---
Spoke to Dr Javier black about concerns of the patient. He went to see her. He is encouraged that she is passing flatus. For now he has ordered bowel meds to ease the amount of straining the patient will have to use to move her bowels. patient has been encouraged to ambulate as well. Nursing Note:
[2018-09-02] MEDS: Polyethylene Glycol 3350 17 GM PACKET PO (13:01)
[2018-09-02 15:56] VITALS: BP 147/76; PULSE 84; RESP 17; TEMP 36.6; O2SAT 95
[2018-09-02 19:41] VITALS: BP 131/76; PULSE 91; RESP 18; TEMP 37.3; O2SAT 95
[2018-09-02] MEDS: Docusate Sodium 100 MG CAP PO (20:11)
[2018-09-02 23:26] VITALS: BP 149/75; PULSE 86; RESP 18; TEMP 37; O2SAT 94
[2018-09-03 03:24] VITALS: BP 157/74; PULSE 75; RESP 18; TEMP 36.8; O2SAT 95
[2018-09-03] MEDS: PIPERACILLIN/TAZO 3.375 GM in Normal Saline 50 ML IVPB ×3 (05:39→21:23)
[2018-09-03 07:32] VITALS: BP 157/86; PULSE 89; RESP 20; TEMP 36.7; O2SAT 94
[2018-09-03] MEDS: Polyethylene Glycol 3350 17 GM PACKET PO (07:37)
[2018-09-03] MEDS: Docusate Sodium 100 MG CAP PO (07:37)
[2018-09-03] MEDS: Normal Saline Flush 10 ML SYR IVP ×3 (08:29→21:23)
[2018-09-03] MEDS: HYDROcodone 5/Acetaminophen 325 TAB PO (09:13)
--- NOTE | 2018-09-03 09:40 | W.PM.PROGNOT ---
Date of Service Date of service: 09/02/18 Time of Service: 11:30 Assessment and Plan (1) Incisional abscess: Current visit: Yes Status: Acute Wound vac in place. Will plan for dressing change tomorrow and hopefully discharge home on Tuesday. If abdominal pain persists will consider abdominal xray to rule out ileus. Will start on Colace now. Miralax prn. Subjective Interval history since last seen: Doing well now She did have some abdominal pain particularly on the left side and has not moved her bowels in a couple of days but has been passing flatus. She has no nausea but appetite was diminished this morning. Objective Objective Clinical Data: Vital Signs Temperature 98.1 F 09/03/18 07:32 Temperature Source Tympanic 09/03/18 07:32 Pulse 89 09/03/18 07:32 Pulse Rhythm Regular 09/02/18 20:47 Pulse 76 08/31/18 12:40 Respiratory Rate 20 09/03/18 07:32 Respiratory Effort Non-Labored 09/02/18 20:47 Respiratory Depth Normal 09/02/18 20:47 Respiratory Pattern Normal 09/02/18 20:47 Blood Pressure 157/86 H 09/03/18 07:32 Pulse Oximetry 94 L 09/03/18 07:32 Oxygen Delivery Method Room Air 09/03/18 07:32 Oxygen Flow Rate 0 09/03/18 07:32 Pain Level 0 09/03/18 09:13 Comment 09/03/18 07:32 Intake & Output 09/02/18 09/02/18 09/03/18 11:59 23:59 11:59 Intake Total 596.25 / 896.25 300 / 896.25 245 / 245 Output Total 1400 / 1650 250 / 1650 Balance -803.75 / -753.75 50 / -753.75 245 / 245 Intake: IV 346.25 / 406.25 60 / 406.25 60 / 60 Oral 250 / 490 240 / 490 185 / 185 Output: Urine 1400 / 1650 250 / 1650 Other: Urine Color Light [place] Pale Yellow Yellow Urine Appearance Clear Clear Clear Urine Odor None None None Comment pt voiding independently in toilet; urine noted to be pale yellow in toilet. pt denies GI/ issues at this time Stool Size Moderate Stool Characteristics Soft Formed Voiding Methods Toilet Toilet Toilet Laboratory Results WBC 9.30 k/cumm (4.4-10.8) D 09/01/18 06:40 RBC 4.42 m/cumm (4.00-5.20) 09/01/18 06:40 Hgb 12.2 g/dL (12.0-15.5) 09/01/18 06:40 Hct 39.8 % (36.0-46.0) 09/01/18 06:40 MCV 90.0 fL (80-95) 09/01/18 06:40 MCH 27.6 pg (27.0-33.0) 09/01/18 06:40 MCHC 30.7 g/dL (32.0-36.0) L 09/01/18 06:40 RDW 15.1 % (11.7-14.6) H 09/01/18 06:40 Plt Count 274 x1000/uL (130-400) 09/01/18 06:40 MPV 11.4 fL (8.0-11.0) H 09/01/18 06:40 Immature Gran % 0.1 09/01/18 06:40 Neutrophils % 58.5 09/01/18 06:40 Lymphocytes % 26.9 09/01/18 06:40 Monocytes % 10.5 09/01/18 06:40 Eosinophils % 3.7 09/01/18 06:40 Basophils % 0.3 09/01/18 06:40 Absolute Neutrophils 5.44 k/cumm (1.2-6.7) 09/01/18 06:40 Absolute Lymphocytes 2.50 k/cumm (1.2-3.4) 09/01/18 06:40 Absolute Monocytes 0.98 k/cumm (0.11-0.7) H 09/01/18 06:40 Absolute Eosinophils 0.34 k/cumm (0.0-0.7) 09/01/18 06:40 Absolute Basophils 0.03 k/cumm (0.0-0.2) 09/01/18 06:40 Sodium 140 mmol/L (136-145) 09/01/18 06:40 Potassium 3.9 mmol/L (3.5-5.1) 09/01/18 06:40 Chloride 104 mmol/L (98-107) 09/01/18 06:40 Carbon Dioxide 29.8 mmol/L (21.0-32.0) 09/01/18 06:40 Anion Gap 6.2 mmol/L (3-11) 09/01/18 06:40 BUN 19 mg/dL (7-18) H 09/01/18 06:40 Creatinine 0.90 mg/dL (0.55-1.02) 09/01/18 06:40 Estimated GFR/1.73 m2 >= 60.00 (mL/min/1.73m2) 09/01/18 06:40 Glucose 104 mg/dL (70-100) H 09/01/18 06:40 Lactate 1.2 mmol/l (0.6-1.4) 08/31/18 13:06 Calcium 8.9 mg/dL (8.5-10.1) 09/01/18 06:40 Total Bilirubin 0.7 mg/dL (0.2-1.0) 09/01/18 06:40 AST 11 U/L (15-37) L 09/01/18 06:40 ALT 19 U/L (12-78) 09/01/18 06:40 Alkaline Phosphatase 114 U/L (46-116) 09/01/18 06:40 Total Protein 6.8 g/dL (6.4-8.2) 09/01/18 06:40 Albumin 2.3 g/dL (3.4-5.0) L 09/01/18 06:40 Lipase 67 U/L (73-393) L 08/31/18 12:00 Urine Color Yellow (Yellow) 08/31/18 12:00 Urine Clarity Clear 08/31/18 12:00 Urine pH 5.0 (5-8) 08/31/18 12:00 Ur Specific [place] 1.015 (1.005-1.025) 08/31/18 12:00 Urine Protein Negative mg/dL (Negative) 08/31/18 12:00 Urine Ketones Negative mg/dL (Negative) 08/31/18 12:00 Urine Blood Trace-intact (Negative) H 08/31/18 12:00 Urine Nitrite Negative (Negative) 08/31/18 12:00 Urine Bilirubin Negative (Negative) 08/31/18 12:00 Urine Urobilinogen 0.2 EU/dL (Up TO 0.2) 08/31/18 12:00 Ur Leukocyte Esterase Negative (Negative) 08/31/18 12:00 Urine RBC 0-2 (0-2) 08/31/18 12:00 Urine WBC 0-2 HPF (0-5) 08/31/18 12:00 Ur Epithelial Cells Many HPF (Negative) 08/31/18 12:00 Urine Crystals Moderate amorphous HPF (Negative) 08/31/18 12:00 Urine Bacteria Few HPF (Negative) 08/31/18 12:00 Urine Casts Comment LPF (Negative) 08/31/18 12:00 Urine Mucus Moderate (Negative) 08/31/18 12:00 Ur Culture Indicated? No/sq. contamination 08/31/18 12:00 Urine Glucose Negative mg/dL (Negative) 08/31/18 12:00
--- NOTE | 2018-09-03 10:17 | CMPROGNOTE_ITS ---
Care Management Progress Note S/O: Smitha is engaged and alert anticipate no change in status today. Per MD, she has not yet had a BM and has ongoing abdominal pain, if persists MD anticipates abdominal xray to rule out ileus. CM met with Smitha at length. She did not appear to be in distress. She did share concerns around managing the wound vac at home but reported being confident after speaking with the RN with [facility] services support that she could manage upon discharge. Smitha spoke in length about her life and family and was pleasantly engaging. No change to overall plan as below. A: Smitha is a 77-year-old female admitted with incisional abscess status post bilateral oophorectomy on 08/24/2018. She now has a wound VAC in place, receiving IV antibiotics. P: Smitha is currently receiving IV antibiotics, wound VAC therapy initiated. Medical assembler surgical garment is assisting surgical providers in submitting the paperwork for wound VAC through [facility]. Anticipate Smitha will to be discharged on Tuesday with new home health services for nursing and wound VAC therapy. CM contacted home health services and provided update related to plan for discharge on Tuesday. CM to continue to provide support, discharge planning and disposition.
--- NOTE | 2018-09-03 10:32 | PGE_ITS ---
Date of Service Date of service: 09/03/18 Time of Service: 10:27 Assessment and Plan (1) Incisional abscess: Current visit: Yes Status: Acute S/P wound vac change today. Home health to change wound vac this coming Tuesday and I will have the patient follow up in the clinic on Tuesday for dressing change there. Anticipate discharge home tomorrow. Subjective Interval history since last seen: No problems overnight. Some loose stools No nausea or vomiting Tolerating regular diet. Exam GI Other: The wound vac was removed and replaced. 20 ml of 1% lidocaine was injected into the sponge prior to removal and the sponge was further soaked with saline during removal. On exam no necrotic tissue was visualized. The extensions at the base of the wound are much smaller. The wound was packed with a single l megan strip of granulofoam. Duoderm was applied surround the incision to protect the skin. The wound vac was applied and suction activated. The dressing change was tolerated well. Objective Objective Clinical Data: Vital Signs Temperature 98.1 F 09/03/18 07:32 Temperature Source Tympanic 09/03/18 07:32 Pulse 89 09/03/18 07:32 Pulse Rhythm Regular 09/02/18 20:47 Pulse 76 08/31/18 12:40 Respiratory Rate 20 09/03/18 07:32 Respiratory Effort Non-Labored 09/02/18 20:47 Respiratory Depth Normal 09/02/18 20:47 Respiratory Pattern Normal 09/02/18 20:47 Blood Pressure 157/86 H 09/03/18 07:32 Pulse Oximetry 94 L 09/03/18 07:32 Oxygen Delivery Method Room Air 09/03/18 07:32 Oxygen Flow Rate 0 09/03/18 07:32 Pain Level 0 09/03/18 09:13 Comment 09/03/18 07:32 Intake & Output 09/02/18 09/02/18 09/03/18 11:59 23:59 11:59 Intake Total 596.25 / 896.25 300 / 896.25 245 / 245 Output Total 1400 / 1650 250 / 1650 Balance -803.75 / -753.75 50 / -753.75 245 / 245 Intake: IV 346.25 / 406.25 60 / 406.25 60 / 60 Oral 250 / 490 240 / 490 185 / 185 Output: Urine 1400 / 1650 250 / 1650 Other: Urine Color Light [place] Pale Yellow Yellow Urine Appearance Clear Clear Clear Urine Odor None None None Comment pt voiding independently in toilet; urine noted to be pale yellow in toilet. pt denies GI/ issues at this time Stool Size Moderate Stool Characteristics Soft Formed Voiding Methods Toilet Toilet Toilet Laboratory Results WBC 9.30 k/cumm (4.4-10.8) D 09/01/18 06:40 RBC 4.42 m/cumm (4.00-5.20) 09/01/18 06:40 Hgb 12.2 g/dL (12.0-15.5) 09/01/18 06:40 Hct 39.8 % (36.0-46.0) 09/01/18 06:40 MCV 90.0 fL (80-95) 09/01/18 06:40 MCH 27.6 pg (27.0-33.0) 09/01/18 06:40 MCHC 30.7 g/dL (32.0-36.0) L 09/01/18 06:40 RDW 15.1 % (11.7-14.6) H 09/01/18 06:40 Plt Count 274 x1000/uL (130-400) 09/01/18 06:40 MPV 11.4 fL (8.0-11.0) H 09/01/18 06:40 Immature Gran % 0.1 09/01/18 06:40 Neutrophils % 58.5 09/01/18 06:40 Lymphocytes % 26.9 09/01/18 06:40 Monocytes % 10.5 09/01/18 06:40 Eosinophils % 3.7 09/01/18 06:40 Basophils % 0.3 09/01/18 06:40 Absolute Neutrophils 5.44 k/cumm (1.2-6.7) 09/01/18 06:40 Absolute Lymphocytes 2.50 k/cumm (1.2-3.4) 09/01/18 06:40 Absolute Monocytes 0.98 k/cumm (0.11-0.7) H 09/01/18 06:40 Absolute Eosinophils 0.34 k/cumm (0.0-0.7) 09/01/18 06:40 Absolute Basophils 0.03 k/cumm (0.0-0.2) 09/01/18 06:40 Sodium 140 mmol/L (136-145) 09/01/18 06:40 Potassium 3.9 mmol/L (3.5-5.1) 09/01/18 06:40 Chloride 104 mmol/L (98-107) 09/01/18 06:40 Carbon Dioxide 29.8 mmol/L (21.0-32.0) 09/01/18 06:40 Anion Gap 6.2 mmol/L (3-11) 09/01/18 06:40 BUN 19 mg/dL (7-18) H 09/01/18 06:40 Creatinine 0.90 mg/dL (0.55-1.02) 09/01/18 06:40 Estimated GFR/1.73 m2 >= 60.00 (mL/min/1.73m2) 09/01/18 06:40 Glucose 104 mg/dL (70-100) H 09/01/18 06:40 Lactate 1.2 mmol/l (0.6-1.4) 08/31/18 13:06 Calcium 8.9 mg/dL (8.5-10.1) 09/01/18 06:40 Total Bilirubin 0.7 mg/dL (0.2-1.0) 09/01/18 06:40 AST 11 U/L (15-37) L 09/01/18 06:40 ALT 19 U/L (12-78) 09/01/18 06:40 Alkaline Phosphatase 114 U/L (46-116) 09/01/18 06:40 Total Protein 6.8 g/dL (6.4-8.2) 09/01/18 06:40 Albumin 2.3 g/dL (3.4-5.0) L 09/01/18 06:40 Lipase 67 U/L (73-393) L 08/31/18 12:00 Urine Color Yellow (Yellow) 08/31/18 12:00 Urine Clarity Clear 08/31/18 12:00 Urine pH 5.0 (5-8) 08/31/18 12:00 Ur Specific [place] 1.015 (1.005-1.025) 08/31/18 12:00 Urine Protein Negative mg/dL (Negative) 08/31/18 12:00 Urine Ketones Negative mg/dL (Negative) 08/31/18 12:00 Urine Blood Trace-intact (Negative) H 08/31/18 12:00 Urine Nitrite Negative (Negative) 08/31/18 12:00 Urine Bilirubin Negative (Negative) 08/31/18 12:00 Urine Urobilinogen 0.2 EU/dL (Up TO 0.2) 08/31/18 12:00 Ur Leukocyte Esterase Negative (Negative) 08/31/18 12:00 Urine RBC 0-2 (0-2) 08/31/18 12:00 Urine WBC 0-2 HPF (0-5) 08/31/18 12:00 Ur Epithelial Cells Many HPF (Negative) 08/31/18 12:00 Urine Crystals Moderate amorphous HPF (Negative) 08/31/18 12:00 Urine Bacteria Few HPF (Negative) 08/31/18 12:00 Urine Casts Comment LPF (Negative) 08/31/18 12:00 Urine Mucus Moderate (Negative) 08/31/18 12:00 Ur Culture Indicated? No/sq. contamination 08/31/18 12:00 Urine Glucose Negative mg/dL (Negative) 08/31/18 12:00
[2018-09-03] MEDS: Lidocaine 1% Multi-Dose 50 ML VIAL (10:33)
--- NOTE | 2018-09-03 10:33 | PDOC.HHF2F ---
1. Encounter Date and Reason I certify that NADIA SOSA was seen by Frederick Mesa MD on 09/03/18 and that I had a [id number] encounter with this patient that meets the physician face to face encounter requirements. 2. Clinical Findings Supporting Skilled Need and Homebound Status I certify that home health services are medically necessary, include either intermittent penitentiary and/or physical/speech therapy, and that this patient is homebound in that absences from the home require considerable and taxing effort and are infrequent or of short duration, or are attributable to the need to receive medical care. [X] (a) Attached documentation from encounter provides clinical findings supporting skilled need and homebound status (including what assistance patient requires to leave the home). The encounter with the patient was in whole, or in part, for the following medical condition, which is the primary reason for home health care: ABDOMINAL WALL ABSCESS Long-Term: Patient will require wound vac dressing changes q 3 days. First dressing change to occur on 09/06/2018 and will have subsequent dressing change in the office by physician on Tuesday09/08/2018 then q 3 days by home health. Please have patient take oral pain medication prescribed by physician 30 minutes prior to dressing change. Prior to removal of old sponge inject 10-20 ml of 1% lidocaine directly into sponge or may pass down tubing into wound. Pack wound as deep as possible. Apply duoderm to skin surrounding wound and apply sheeting in usual fashion. May discontinue wound vac when wound is too superficial to place granulofoam and then may switch to wet to dry dressing changes daily. Physical Therapy: Please arrange PT for home evaluation to evaluate fall risk and safety. Speech Therapy: Homebound: Plan for discharge home on 09/04/2018 3. Certification and Authentication I certify that I composed the above information based on my clinical judgement relating to this patient's medical condition and, if applicable, clinical findings communicated to me by the NPP or inpatient physician who performed the Home Health Referral. All further orders will be obtained through Dr. Frederick Mesa or Dr. Madeline Renee at [facility].
--- NOTE | 2018-09-03 10:42 | HHF2F_ITS ---
1. Encounter Date and Reason I certify that NADIA SOSA was seen by Frederick Mesa MD on 09/03/18 and that I had a [id number] encounter with this patient that meets the physician face to face encounter requirements. 2. Clinical Findings Supporting Skilled Need and Homebound Status I certify that home health services are medically necessary, include either intermittent penitentiary and/or physical/speech therapy, and that this patient is homebound in that absences from the home require considerable and taxing effort and are infrequent or of short duration, or are attributable to the need to receive medical care. [X] (a) Attached documentation from encounter provides clinical findings supporting skilled need and homebound status (including what assistance patient requires to leave the home). The encounter with the patient was in whole, or in part, for the following medical condition, which is the primary reason for home health care: ABDOMINAL WALL ABSCESS Care Home: Patient will require wound vac dressing changes q 3 days. First dressing change to occur on 09/06/2018 and will have subsequent dressing change in the office by physician on Tuesday09/08/2018 then q 3 days by home health. Please have patient take oral pain medication prescribed by physician 30 minutes prior to dressing change. Prior to removal of old sponge inject 10-20 ml of 1% lidocaine directly into sponge or may pass down tubing into wound. Pack wound as deep as possible. Apply duoderm to skin surrounding wound and apply sheeting in usual fashion. May discontinue wound vac when wound is too superficial to place granulofoam and then may switch to wet to dry dressing changes daily. Physical Therapy: Please arrange PT for home evaluation to evaluate fall risk and safety. Speech Therapy: Homebound: Plan for discharge home on 09/04/2018 3. Certification and Authentication I certify that I composed the above information based on my clinical judgement relating to this patient's medical condition and, if applicable, clinical findings communicated to me by the NPP or inpatient physician who performed the Home Health Referral. All further orders will be obtained through Dr. Frederick Mesa or Dr. Madeline Renee at [facility].
[2018-09-03 11:29] VITALS: BP 175/86; PULSE 75; RESP 20; TEMP 36.7; O2SAT 95
[2018-09-03 16:00] VITALS: BP 154/84; PULSE 82; RESP 19; TEMP 36.7; O2SAT 96
[2018-09-03 19:25] VITALS: BP 170/83; PULSE 89; RESP 18; TEMP 37.1; O2SAT 94
[2018-09-03] MEDS: Acetaminophen 325 MG TAB 650 MG PO (21:53)
[2018-09-04 00:04] VITALS: BP 185/82; PULSE 86; RESP 20; TEMP 36.8; O2SAT 95
[2018-09-04] MEDS: Normal Saline Flush 10 ML SYR IVP (05:18)
[2018-09-04] MEDS: PIPERACILLIN/TAZO 3.375 GM in Normal Saline 50 ML IVPB (05:19)
[2018-09-04 05:21] VITALS: BP 173/75; PULSE 85; RESP 18; TEMP 36.4; O2SAT 92
[2018-09-04 05:53] LABS: Abs Immature Grans 0.03 k/cumm (0.0-0.09); Absolute Basophil Count 0.03 k/cumm (0.0-0.2); Absolute Eosinophil Count 0.54 k/cumm (0.0-0.7); Absolute Lymphocyte Count 2.28 k/cumm (1.2-3.4); Absolute Monocyte Count 0.56 k/cumm (0.11-0.7); Absolute Neutrophil Count 3.39 k/cumm (1.2-6.7); Basophils % 0.4; Eosinophils % 7.9; HCT 39.5 % (36.0-46.0); HGB 12.5 g/dL (12.0-15.5); Immature Grans % 0.4; Lymphocytes % 33.4; Mean Corp. HGB Concentration 31.6 g/dL (32.0-36.0); Mean Corpuscular Hemoglobin 28.5 pg (27.0-33.0); Mean Corpuscular Volume 90.2 fL (80-95); Mean Platelet Volume 11.2 fL (8.0-11.0); Monocytes % 8.2; Neutrophils % 49.7; Platelet Count 289 x1000/uL (130-400); RBC 4.38 m/cumm (4.00-5.20); RBC Distribution Width 14.8 % (11.7-14.6); White Blood Cell Count 6.83 k/cumm (4.4-10.8)
[2018-09-04 07:25] VITALS: BP 187/70; PULSE 80; RESP 16; TEMP 36.4; O2SAT 96
--- NOTE | 2018-09-04 09:02 | PDOC.HHF2F ---
1. Encounter Date and Reason I certify that NADIA SOSA was seen by Frederick Mesa MD on 09/04/18 and that I had a [id number] encounter with this patient that meets the physician face to face encounter requirements. 2. Clinical Findings Supporting Skilled Need and Homebound Status I certify that home health services are medically necessary, include either intermittent long term and/or physical/speech therapy, and that this patient is homebound in that absences from the home require considerable and taxing effort and are infrequent or of short duration, or are attributable to the need to receive medical care. [X] (a) Attached documentation from encounter provides clinical findings supporting skilled need and homebound status (including what assistance patient requires to leave the home). The encounter with the patient was in whole, or in part, for the following medical condition, which is the primary reason for home health care: ABDOMINAL WALL ABSCESS Mcc: Please see prior referral form for instructions. Only change will be to maintain wound vac pressure at 100mg/hg for patient comfort. All other instructions remain unchanged. Physical Therapy: Speech Therapy: Homebound: 3. Certification and Authentication I certify that I composed the above information based on my clinical judgement relating to this patient's medical condition and, if applicable, clinical findings communicated to me by the NPP or inpatient physician who performed the Home Health Referral. All further orders will be obtained through (Community Based Physician - PCP)
--- NOTE | 2018-09-04 09:05 | PGE_ITS ---
Date of Service Date of service: 09/04/18 Time of Service: 09:03 Assessment and Plan (1) Incisional abscess: Current visit: Yes Status: Acute Plan for discharge home with home health for dressing change this coming Tuesday. Follow up in clinic on Tuesday. Will discontinue antibiotics completely. Subjective Interval history since last seen: Doing well this morning. No problems overnight. We did reduce the pressure of the wound vac to 100 mm/Hg for comfort. She has been afebrile. No pain overnight. Exam GI Other: Wound vac is in place. Operating well. Surround skin has no erythema or induration. Objective Objective Clinical Data: Abnormal lab results 09/04/18 Range/Units 05:30 MCHC 31.6 L (32.0-36.0) g/dL RDW 14.8 H (11.7-14.6) % MPV 11.2 H (8.0-11.0) fL Vital Signs Temperature 97.5 F L 09/04/18 07:25 Temperature Source Tympanic 09/04/18 07:25 Pulse 80 09/04/18 07:25 Pulse Rhythm Regular 09/04/18 07:50 Pulse 76 08/31/18 12:40 Respiratory Rate 16 09/04/18 07:25 Respiratory Effort 09/04/18 07:50 Respiratory Depth Normal 09/04/18 07:50 Respiratory Pattern Normal 09/04/18 07:50 Blood Pressure 187/70 H 09/04/18 07:25 Pulse Oximetry 96 09/04/18 07:25 Oxygen Delivery Method Room Air 09/04/18 07:25 Oxygen Flow Rate 0 09/04/18 07:25 Pain Level 9 09/03/18 21:53 Comment 09/03/18 07:32 Intake & Output 09/03/18 09/03/18 09/04/18 11:59 23:59 11:59 Intake Total 345 / 925 580 / 925 290 / 290 Balance 345 / 925 580 / 925 290 / 290 Intake: IV 60 / 160 100 / 160 50 / 50 Oral 285 / 765 480 / 765 240 / 240 Other: Urine Color Yellow Yellow Urine Appearance Clear Clear Clear Urine Odor None Comment pt voiding independently in toilet; urine noted to be pale yellow in toilet. pt denies GI/ issues at this time unable to measure not hat. Stool Size Moderate Moderate Stool Characteristics Soft Liquid Formed Brown Green Voiding Methods Toilet Toilet Toilet Laboratory Results WBC 6.83 k/cumm (4.4-10.8) 09/04/18 05:30 RBC 4.38 m/cumm (4.00-5.20) 09/04/18 05:30 Hgb 12.5 g/dL (12.0-15.5) 09/04/18 05:30 Hct 39.5 % (36.0-46.0) 09/04/18 05:30 MCV 90.2 fL (80-95) 09/04/18 05:30 MCH 28.5 pg (27.0-33.0) 09/04/18 05:30 MCHC 31.6 g/dL (32.0-36.0) L 09/04/18 05:30 RDW 14.8 % (11.7-14.6) H 09/04/18 05:30 Plt Count 289 x1000/uL (130-400) 09/04/18 05:30 MPV 11.2 fL (8.0-11.0) H 09/04/18 05:30 Immature Gran % 0.4 09/04/18 05:30 Neutrophils % 49.7 09/04/18 05:30 Lymphocytes % 33.4 09/04/18 05:30 Monocytes % 8.2 09/04/18 05:30 Eosinophils % 7.9 09/04/18 05:30 Basophils % 0.4 09/04/18 05:30 Absolute Neutrophils 3.39 k/cumm (1.2-6.7) 09/04/18 05:30 Absolute Lymphocytes 2.28 k/cumm (1.2-3.4) 09/04/18 05:30 Absolute Monocytes 0.56 k/cumm (0.11-0.7) 09/04/18 05:30 Absolute Eosinophils 0.54 k/cumm (0.0-0.7) 09/04/18 05:30 Absolute Basophils 0.03 k/cumm (0.0-0.2) 09/04/18 05:30 Sodium 140 mmol/L (136-145) 09/01/18 06:40 Potassium 3.9 mmol/L (3.5-5.1) 09/01/18 06:40 Chloride 104 mmol/L (98-107) 09/01/18 06:40 Carbon Dioxide 29.8 mmol/L (21.0-32.0) 09/01/18 06:40 Anion Gap 6.2 mmol/L (3-11) 09/01/18 06:40 BUN 19 mg/dL (7-18) H 09/01/18 06:40 Creatinine 0.90 mg/dL (0.55-1.02) 09/01/18 06:40 Estimated GFR/1.73 m2 >= 60.00 (mL/min/1.73m2) 09/01/18 06:40 Glucose 104 mg/dL (70-100) H 09/01/18 06:40 Lactate 1.2 mmol/l (0.6-1.4) 08/31/18 13:06 Calcium 8.9 mg/dL (8.5-10.1) 09/01/18 06:40 Total Bilirubin 0.7 mg/dL (0.2-1.0) 09/01/18 06:40 AST 11 U/L (15-37) L 09/01/18 06:40 ALT 19 U/L (12-78) 09/01/18 06:40 Alkaline Phosphatase 114 U/L (46-116) 09/01/18 06:40 Total Protein 6.8 g/dL (6.4-8.2) 09/01/18 06:40 Albumin 2.3 g/dL (3.4-5.0) L 09/01/18 06:40 Lipase 67 U/L (73-393) L 08/31/18 12:00 Urine Color Yellow (Yellow) 08/31/18 12:00 Urine Clarity Clear 08/31/18 12:00 Urine pH 5.0 (5-8) 08/31/18 12:00 Ur Specific [place] 1.015 (1.005-1.025) 08/31/18 12:00 Urine Protein Negative mg/dL (Negative) 08/31/18 12:00 Urine Ketones Negative mg/dL (Negative) 08/31/18 12:00 Urine Blood Trace-intact (Negative) H 08/31/18 12:00 Urine Nitrite Negative (Negative) 08/31/18 12:00 Urine Bilirubin Negative (Negative) 08/31/18 12:00 Urine Urobilinogen 0.2 EU/dL (Up TO 0.2) 08/31/18 12:00 Ur Leukocyte Esterase Negative (Negative) 08/31/18 12:00 Urine RBC 0-2 (0-2) 08/31/18 12:00 Urine WBC 0-2 HPF (0-5) 08/31/18 12:00 Ur Epithelial Cells Many HPF (Negative) 08/31/18 12:00 Urine Crystals Moderate amorphous HPF (Negative) 08/31/18 12:00 Urine Bacteria Few HPF (Negative) 08/31/18 12:00 Urine Casts Comment LPF (Negative) 08/31/18 12:00 Urine Mucus Moderate (Negative) 08/31/18 12:00 Ur Culture Indicated? No/sq. contamination 08/31/18 12:00 Urine Glucose Negative mg/dL (Negative) 08/31/18 12:00
[2018-09-04] MEDS: Potassium Chloride 10 MEQ TABCR PO (09:37)
[2018-09-04] MEDS: Pantoprazole 40 MG TABCR PO (09:37)
[2018-09-04] MEDS: buPROPion-XL 150 MG TABCR PO (09:38)
[2018-09-04] MEDS: Levothyroxine 50 MCG TAB PO (09:38)
[2018-09-04] MEDS: Multivitamin TAB 1 TAB PO (09:38)
[2018-09-04] MEDS: Metoprolol CR 50 MG TABCR PO (09:38)
[2018-09-04] MEDS: Furosemide 20 MG TAB PO (09:38)
[2018-09-04 11:15] VITALS: BP 190/79; PULSE 71; RESP 18; TEMP 36.9; O2SAT 96
--- NOTE | 2018-09-04 11:43 | W.PM.DS.N ---
Date of service: 09/04/18 Time of Service: 11:43 DS: Diagnosis Discharge Diagnosis (1) Incisional abscess: Status: Acute (2) S/P debridement: Status: Acute Discharge Plan Disposition Patient Disposition: HOME Condition: Stable Discharge Details Reason For Visit: ABDOMINAL WALL ABSCESS Admit Date/Time: 08/31/18 15:43 Admit Provider: Frederick Mesa Attending Provider: Frederick Mesa Primary Care Provider: Walker Diana Hospital Course Hospital Course: Patient was admitted for management of incisional abscess following laparoscopy. She was taken for I&D in the OR and managed with wound vac over the weekend. She was placed on Zosyn from antibiotic therapy. She did have a dressing change yesterday and the wound displayed good health granulation tissue throughout. Will discharge home today with home health services. Next dressing change on 09/06 by home health and subsequent dressing change in clinic on 09/08. Will discontinue antibiotics. Home Meds and New Rx's Prescriptions: New hydrocodone-acetaminophen 5-325 mg Tablet 1 tab PO Q6H PRN PRNQty: 15 RF: 0 Continued verapamil 360 mg capsule,ext rel. pellets 24 hr 360 mg PO .12 NOON RF: 0 ondansetron 4 mg tablet,disintegrating 4 mg PO BID-TID PRNRF: 0 mirtazapine 15 mg tablet 15 mg PO DAILY RF: 0 cholecalciferol (vitamin D3) 1,000 unit capsule 1,000 unit PO DAILY RF: 0 multivitamin [Daily Value] 1 EACH tablet 1 ea PO DAILY RF: 0 levothyroxine 50 MCG tablet 50 mcg PO DAILY RF: 0 furosemide 20 MG tablet 20 mg PO DAILY RF: 0 potassium chloride 10 mEq Tablet Extended Release 10 meq PO DAILY RF: 0 pantoprazole 40 MG tablet,delayed release (DR/EC) 40 mg PO BID@0730,2000 Qty: 60 RF: 0 nitroglycerin [Nitrostat] 0.4 MG tablet, sublingual 0.4 mg Sublingual Q5 MIN PRN X3 PRNQty: 1 RF: 0 bupropion HCl 150 mg Tablet Extended Release 24 Hr 150 mg PO QAM RF: 0 metoprolol succinate 100 MG tablet extended release 24 hr 50 mg PO DAILY RF: 0 Discharge Instructions Additional Instructions: Wound Vac will be left in place while you are at home. The visiting nurses will change your dresssing during the week. You will be given an appointment with Dr. Mesa for 09/08/18 to have a your incisional bandage changed. Stand Alone Forms: Nursing Discharge Form Referrals: Frederick Mesa MD [ [facility] STAFF PHYSICIAN] - 09/08/18 9:20 am Activity:: Activity as Tolerated Equipment/Supplies:: wound vac Diet:: As Tolerated Discharge Orders Discharge Orders: Discharge Order (Routine); Ordered 09/04/18 Ordered By: Madeline Renee Exam Const General: comfortable and no acute distress Nutritional Appearance: average body habitus Orientation: alert, awake and oriented x3 Resp Auscultation: clear to auscultation bilaterally Cardio Rate: regular rate Rhythm: regular rhythm GI Inspection: incision (Incision packing changed his granulation tissue present) and other (depth remains approximately 8 cm width 3 remains proximally 7 cm) Palpation: soft and no hepatosplenomegaly General: deferred Skin General skin exam: scars (Two 5 mm lower port incisions are healing well.) Lesions: no lesions Rashes: no rashes (None around the umbilical port site) Extrem General: normal to inspection, full ROM and normal capillary refill Psych Appearance: grossly normal Speech and Movement: speech and movement normal Mood: congruent mood Affect: normal affect Attitude: cooperative Thought Process: normal Thought Content: normal Insight: insight good Judgment: judgment good DS: Data Vitals/I&O Vitals and I&O: Vital Signs Temperature 98.4 F 09/04/18 11:15 Temperature Source Tympanic 09/04/18 11:15 Pulse 71 09/04/18 11:15 Pulse Rhythm Regular 09/04/18 07:50 Pulse 76 08/31/18 12:40 Respiratory Rate 18 09/04/18 11:15 Respiratory Effort 09/04/18 07:50 Respiratory Depth Normal 09/04/18 07:50 Respiratory Pattern Normal 09/04/18 07:50 Blood Pressure 190/79 H 09/04/18 11:15 Pulse Oximetry 96 09/04/18 11:15 Oxygen Delivery Method Room Air 09/04/18 11:15 Oxygen Flow Rate 0 09/04/18 11:15 Pain Level 9 09/03/18 21:53 Comment 09/03/18 07:32 Intake & Output 09/03/18 09/03/18 09/04/18 11:59 23:59 11:59 Intake Total 345 / 925 580 / 925 340 / 340 Balance 345 / 925 580 / 925 340 / 340 Intake: IV 60 / 160 100 / 160 100 / 100 Oral 285 / 765 480 / 765 240 / 240 Other: Urine Color Yellow Yellow Urine Appearance Clear Clear Clear Urine Odor None Comment pt voiding independently in toilet; urine noted to be pale yellow in toilet. pt denies GI/ issues at this time unable to measure not hat. Stool Size Moderate Moderate Stool Characteristics Soft Liquid Formed Brown Green Voiding Methods Toilet Toilet Toilet Labs on day of discharge: Labs from last 24 hours 09/04/18 05:30 WBC 6.83 RBC 4.38 Hgb 12.5 Hct 39.5 MCV 90.2 MCH 28.5 MCHC 31.6 L RDW 14.8 H Plt Count 289 MPV 11.2 H Immature Gran % 0.4 Neutrophils % 49.7 Lymphocytes % 33.4 Monocytes % 8.2 Eosinophils % 7.9 Basophils % 0.4 Absolute Neutrophils 3.39 Absolute Lymphocytes 2.28 Absolute Monocytes 0.56 Absolute Eosinophils 0.54 Absolute Basophils 0.03 Preliminary micro results at discharge 08/31/18 14:45 Wound Culture - Preliminary Abdomen Corynebacterium Species Staphylococcus Aureus Gram Negative [place] 08/31/18 13:06 Blood Culture - Preliminary Blood NO GROWTH 72 HOURS 08/31/18 11:48 Blood Culture - Preliminary Blood NO GROWTH 72 HOURS [facility] Medical History Lesion of endometrium (Acute) Hiatal hernia with GERD and esophagitis (Acute) Hydrosalpinx (Chronic) SPRING (obstructive sleep apnea) (Chronic) Essential tremor (Chronic) Anxiety (Chronic) Depression (Chronic) Hyperlipidemia (Chronic) Hypothyroidism (Chronic) History of skin cancer (Chronic) COPD (chronic obstructive pulmonary disease) (Acute) Rosacea (Chronic) Hypertension (Chronic) Vitamin D deficiency (Chronic) Dysphagia (Acute) Flank pain (Acute) Obesity (BMI 35.0-39.9 without comorbidity) (Acute) Neuropathy (Acute) Chronic cough (Acute) Kidney stones (Chronic) Bradycardia (Acute) Hypokalemia (Acute) Hypomagnesemia (Acute) Balance problem (Acute) Glucose intolerance (Acute) Abdominal pain, epigastric (Acute) Esophagitis (Acute) Facial flushing (Acute) Headache (Acute) Hydronephrosis (Acute) Knee pain, left (Acute) Menopause (Acute) Urinary incontinence (Acute) Osteoarthritis (Chronic) Surgical History S/P debridement (Acute) Hx of BSO (bilateral salpingo-oophorectomy) (Resolved) Skin Cancer Removal (Resolved) History of kidney surgery (Acute) Hx of lithotripsy (Acute) Hx of cataract surgery (Chronic) Family History Other Heart disease Social History Smoking/Tobacco Use Status: Former Tobacco Use Alcohol Intake: current Alcohol Intake frequency: other Details: MONTHLY OR LESS Drug use: Never Substance use type: does not use Number of Children: 3 Seatbelt use: always Do you feel safe at home: Yes Do you feel safe in your relationship?: Yes
--- NOTE | 2018-09-04 12:13 | PDOC.CMDIS ---
- If Service Date Differs Date of service: 09/04/18 Time of Service: 12:13 LACE Index Scoring Tool - Questions: Length of Stay (in days): 4 - 6 Acuity (Admit via E.D.?): Yes Comorbidities: Chronic Pulmonary Disease E.D. Visits: 2 - Answers: Total Score: 11 Risk of Readmission: High Risk Care Management Discharge Reason for Hospitalization: Incisional abscess status post bilat oophorectomy on 08/24/18 Discharge Plan: Smitha will return home today with new home health RN services for wound vac. CM notified LILIAM Perdomo, of discharge needs. Smitha's [facility] will transport her. She will F/U with Dr. Mesa and plan of care as prescribed. Patient/Family Education Needs: Review DC instructions, any limitations, and discuss 'Ask Me Three' Services Needed at Discharge: Home Health Care Services (RN - Wound vac.)
[2018-09-04 15:54] VITALS: BP 159/90; PULSE 78; RESP 18; TEMP 37; O2SAT 94
== END 2018-09-04 17:45 | disposition home health service (06) | DRG 857 ==
LOC: ER 15:53 → DSU 16:14 → MS 18:16 → ER 09-01 07:48 → MS 09-01 07:51
PROVIDERS: Admitting Provider Obstetrics & Gynecology; Emergency Provider Physician Assistant; PCP Internal Medicine; Visit Provider Obstetrics & Gynecology Gynecology
PROC: 0J980ZZ Drainage of Abdomen Subcutaneous Tissue and Fascia, Open Approach (ICD-10-PCS; 2018-08-31 17:00)
DX: T81.42XA Infection following a procedure, deep incisional surgical site, initial encounter (principal); L02.211 Cutaneous abscess of abdominal wall; Z98.890 Other specified postprocedural states; B95.61 Methicillin susceptible Staphylococcus aureus infection as the cause of diseases classified elsewhere; B96.89 Other specified bacterial agents as the cause of diseases classified elsewhere; E74.39 Other disorders of intestinal carbohydrate absorption; E66.9 Obesity, unspecified; G47.33 Obstructive sleep apnea (adult) (pediatric); E03.9 Hypothyroidism, unspecified; J44.9 Chronic obstructive pulmonary disease, unspecified; Z87.891 Personal history of nicotine dependence; Z90.79 Acquired absence of other genital organ(s)
CPT/HCPCS: 36415; 80053; 83690; 87040; 87077; 96361; 96365; 96375; 99223; 99233; 99285; NC; 74177; 81003; 81015; 83605; 85025; 87070; 87186; 87205; 99284; J0780; J2405; J2543; J3490

== ENCOUNTER 2019-01-02 00:42 | Outpatient (CLI) | payer MEDICARE, OTHER, SELFPAY ==
--- NOTE | 2019-01-02 11:00 | DI.RAD_ITS ---
SYMPTOMS/DIAGNOSIS: LT KNEE PAIN, M25.562 LEFT KNEE: Comparison is made with [id number]. There is moderate narrowing of the medial femoral tibial joint space and mild periarticular spurring and sclerosis. Mild spurring is seen at the tibial spines and femoral intercondylar notch as well as patellofemoral joint. No joint effusion is visible. 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
== END 2019-01-02 01:02 ==
PROVIDERS: PCP Internal Medicine; Visit Provider Internal Medicine
DX: M25.562 Pain in left knee (principal); M17.12 Unilateral primary osteoarthritis, left knee
CPT/HCPCS: 73562

== ENCOUNTER → 2019-02-01 10:17 | Outpatient (BNVA) | payer MEDICARE, OTHER, SELFPAY | PROVIDERS: PCP Internal Medicine; Referring Provider Internal Medicine; Visit Provider Student in an Organized Health Care Education/Training Program | DX: M17.12 Unilateral primary osteoarthritis, left knee (principal) | CPT/HCPCS: 20610; 99213; J1040 ==

== ENCOUNTER → 2019-03-16 10:00 | Outpatient (BNVA) | payer MEDICARE, OTHER, SELFPAY | PROVIDERS: PCP Internal Medicine; Referring Provider Internal Medicine; Visit Provider Student in an Organized Health Care Education/Training Program | DX: M17.12 Unilateral primary osteoarthritis, left knee (principal); M25.562 Pain in left knee; J44.9 Chronic obstructive pulmonary disease, unspecified; Z87.891 Personal history of nicotine dependence; I10 Essential (primary) hypertension | CPT/HCPCS: 20610; 99213; J7318 ==

== ENCOUNTER → 2019-04-23 10:54 | Outpatient (BNVA) | payer MEDICARE, OTHER, SELFPAY | PROVIDERS: PCP Internal Medicine; Referring Provider Internal Medicine; Visit Provider Student in an Organized Health Care Education/Training Program | DX: M17.12 Unilateral primary osteoarthritis, left knee (principal); M25.562 Pain in left knee; J44.9 Chronic obstructive pulmonary disease, unspecified; I10 Essential (primary) hypertension; Z87.891 Personal history of nicotine dependence | CPT/HCPCS: 99213 ==

== ENCOUNTER → 2019-06-25 10:00 | Outpatient (BNVA) | payer MEDICARE, OTHER, SELFPAY | PROVIDERS: PCP Internal Medicine; Referring Provider Internal Medicine; Visit Provider Student in an Organized Health Care Education/Training Program | DX: M17.12 Unilateral primary osteoarthritis, left knee (principal); M25.569 Pain in unspecified knee; M25.562 Pain in left knee; I10 Essential (primary) hypertension; J44.9 Chronic obstructive pulmonary disease, unspecified | CPT/HCPCS: 99212; 99213 ==

== ENCOUNTER 2019-06-26 13:00 | Outpatient (REF) | payer MEDICARE, OTHER, SELFPAY ==
[2019-06-26 21:08] LABS: BUN 19 mg/dL (7-18); CREATININE 0.97 mg/dL (0.55-1.02); Calcium 8.7 mg/dL (8.5-10.1); Chloride 103 mmol/L (98-107); Estimated GFR 55.83 (mL/min/1.73m2); FREE T4 1.24 ng/dL (0.76-1.46); Glucose 103 mg/dL (74-106); Potassium 4.3 mmol/L (3.5-5.1); Sodium 140 mmol/L (136-145); TSH 2.83 uIU/mL (0.36-3.74)
== END 2019-06-26 13:20 ==
LOC: NCHCN 13:00
PROVIDERS: PCP Internal Medicine; Visit Provider Internal Medicine
DX: R73.03 Prediabetes (principal); R13.10 Dysphagia, unspecified; I10 Essential (primary) hypertension; R19.7 Diarrhea, unspecified; E03.9 Hypothyroidism, unspecified; M25.562 Pain in left knee; F41.9 Anxiety disorder, unspecified
CPT/HCPCS: 80048; 83036; 84439; 84443

== ENCOUNTER 2019-07-05 13:35 | Outpatient (REF) | payer MEDICARE, OTHER, SELFPAY ==
[2019-07-05 21:05] LABS: HCT 49.8 % (36.0-46.0); HGB 15.4 g/dL (12.0-15.5); Mean Corp. HGB Concentration 30.9 g/dL (32.0-36.0); Mean Corpuscular Hemoglobin 27.4 pg (27.0-33.0); Mean Corpuscular Volume 88.6 fL (80-95); Mean Platelet Volume 12.2 fL (8.0-11.0); Platelet Count 306 x1000/uL (130-400); RBC 5.62 m/cumm (4.00-5.20); RBC Distribution Width 14.3 % (11.7-14.6); White Blood Cell Count 7.79 k/cumm (4.4-10.8)
[2019-07-05 21:53] LABS: ESR 21 mm/hr (0-30)
== END 2019-07-05 13:55 ==
LOC: NCHCN 13:35
PROVIDERS: PCP Internal Medicine; Visit Provider Family Medicine
DX: R23.2 Flushing (principal)
CPT/HCPCS: 85027; 85652

== ENCOUNTER 2019-12-24 12:57 | Outpatient (REF) | payer MEDICARE, OTHER, SELFPAY ==
[2019-12-24 20:52] LABS: HGB 15.7 g/dL (11.2-15.7); MCH 27.8 pg (27.0-33.0); MCHC 30.8 % (32.0-36.0); MCV 90.4 fL (80-95); MPV 12.2 fL (8.0-11.0); Platelet Count 284 10^3/uL (130-400); RBC 5.64 10^6/uL (3.93-5.22); RDW 14.4 % (11.7-14.6); RDW-SD 47.8 fL; WBC 8.36 10^3/uL (4.4-10.8)
[2019-12-24 21:44] LABS: ALT 25 U/L (14-59); AST 11 U/L (15-37); Albumin 3.4 g/dL (3.4-5.0); Alkaline Phosphatase 117 U/L (46-116); Anion Gap 4.3 mmol/L (3-11); BUN 21 mg/dL (7-18); Bilirubin, Total 0.3 mg/dL (0.2-1.0); CO2 31.7 mmol/L (21.0-32.0); CREATININE 0.91 mg/dL (0.55-1.02); Calcium 9.6 mg/dL (8.5-10.1); Chloride 106 mmol/L (98-107); Estimated GFR 59.94 (mL/min/1.73m2); Glucose 92 mg/dL (74-106); Sodium 142 mmol/L (136-145); Total Protein 7.9 g/dL (6.4-8.2); Vitamin B12 481 pg/mL (193-986)
[2019-12-26 11:45] LABS: IgA 555 mg/dL (85-499); Interpretation (See Note); Tissue Transglutaminase IgA 1.6 U/mL (<4.0)
== END 2019-12-24 13:17 ==
LOC: NCHCN 12:57
PROVIDERS: PCP Internal Medicine; Visit Provider Internal Medicine
DX: R19.7 Diarrhea, unspecified (principal)
CPT/HCPCS: 80053; 82784; 83516; 85027; 82607

== ENCOUNTER 2019-12-25 16:47 | Outpatient (REF) | payer MEDICARE, OTHER, SELFPAY ==
[2019-12-31 15:08] LABS: Misc Referral (VDH) See Comments
== END 2019-12-25 17:07 ==
LOC: NCHCN 16:47
PROVIDERS: PCP Internal Medicine; Visit Provider Internal Medicine
DX: R19.7 Diarrhea, unspecified (principal)
CPT/HCPCS: 87329; 87505; 82272; 82274; 83630

== ENCOUNTER 2019-12-28 04:01 | Outpatient (CLI) | payer MEDICARE, OTHER, SELFPAY ==
--- NOTE | 2019-12-28 13:57 | DI.US_ITS ---
EXAM: US RENAL CLINICAL HISTORY: RT HYDRONEPHROSIS,N13.30,H/O KIDNEY STONES, Z87.442 TECHNIQUE: Ultrasound performed using standard protocol. COMPARISON: US US PELVIS TRANSVAGINAL from 08/14/2018 FINDINGS: Kidneys are normal in size and shape. There is apparent mild bilateral hydronephrosis. No gross nep hrolithiasis. Ureteral jets were nonvisualized. Urinary bladder grossly intact with pre and post void volume 104 cc and 0 cc respectively. IMPRESSION: Apparent persistent bilateral hydronephrosis. Correlation with CT urogram or retrograde study recomm ended DATA REPOSITORY:
== END 2019-12-28 04:21 ==
PROVIDERS: PCP Internal Medicine; Visit Provider Internal Medicine
DX: N13.30 Unspecified hydronephrosis (principal); Z87.442 Personal history of urinary calculi
CPT/HCPCS: 76770

== ENCOUNTER 2020-03-03 18:53 | Outpatient (REF) | payer MEDICARE, OTHER, SELFPAY ==
[2020-03-07 15:18] LABS: Albumin 3.1 g/dL (3.4-4.7); Total Protein 7.5 g/dL (6.3-7.9)
[2020-03-07 15:19] LABS: Comment See Comments
== END 2020-03-03 19:13 ==
LOC: NCHCN 18:53
PROVIDERS: PCP Internal Medicine; Visit Provider Internal Medicine
DX: R53.83 Other fatigue (principal); R19.7 Diarrhea, unspecified; G25.0 Essential tremor
CPT/HCPCS: 84165

== ENCOUNTER 2020-03-28 11:24 | Outpatient (REF) | payer MEDICARE, OTHER, SELFPAY ==
[2020-04-01 10:01] LABS: Hepatitis C Ab w Rflx HCV PCR Negative (Negative)
[2020-04-01 15:36] LABS: ANA Interpretation Positive (Negative); ANA Titer Pattern 1:160 Homogeneous
== END 2020-03-28 11:44 ==
LOC: NCHCN 11:24
PROVIDERS: PCP Internal Medicine; Visit Provider Internal Medicine
DX: I10 Essential (primary) hypertension (principal); D89.0 Polyclonal hypergammaglobulinemia; K58.0 Irritable bowel syndrome with diarrhea; Z11.59 Encounter for screening for other viral diseases; G25.0 Essential tremor
CPT/HCPCS: 86803; 86038

== ENCOUNTER 2020-06-03 22:52 | Outpatient (REF) | payer MEDICARE, OTHER, SELFPAY ==
[2020-06-05 11:16] LABS: dsDNA Ab, IgG <12.3 IU/mL (<30.0)
== END 2020-06-03 22:53 | disposition home or self-care (01) ==
LOC: NCHCN 22:52
PROVIDERS: PCP Internal Medicine; Visit Provider Internal Medicine
DX: R76.0 Raised antibody titer (principal)
CPT/HCPCS: 86225

== ENCOUNTER 2020-07-28 17:15 | Outpatient (REF) | payer MEDICARE, OTHER, SELFPAY ==
[2020-07-28 20:43] LABS: HCT 50.7 % (36.0-46.0); HGB 15.6 g/dL (11.2-15.7); MCH 28.1 pg (27.0-33.0); MCHC 30.8 % (32.0-36.0); MCV 91.4 fL (80-95); MPV 12.3 fL (8.0-11.0); Platelet Count 273 10^3/uL (130-400); RBC 5.55 10^6/uL (3.93-5.22); RDW 14.2 % (11.7-14.6); WBC 9.09 10^3/uL (4.4-10.8)
[2020-07-28 21:05] LABS: Anion Gap 9.8 mmol/L (3-11); BUN 20 mg/dL (7-18); CO2 28.2 mmol/L (21.0-32.0); Calcium 9.8 mg/dL (8.5-10.1); Chloride 102 mmol/L (98-107); Estimated GFR 53.76 (mL/min/1.73m2); FREE T4 1.14 ng/dL (0.76-1.46); Glucose 151 mg/dL (74-106); Magnesium 1.9 mg/dL (1.8-2.4); Potassium 4.3 mmol/L (3.5-5.1); Sodium 140 mmol/L (136-145); TSH 2.22 uIU/mL (0.36-3.74)
[2020-07-28 21:25] LABS: Hemoglobin A1C 6.6 % (<5.7)
== END 2020-07-28 17:16 | disposition home or self-care (01) ==
LOC: NCHCN 17:15
PROVIDERS: PCP Internal Medicine; Visit Provider Internal Medicine
DX: E83.42 Hypomagnesemia (principal); I10 Essential (primary) hypertension; R73.03 Prediabetes; K58.0 Irritable bowel syndrome with diarrhea; R53.83 Other fatigue
CPT/HCPCS: 80048; 85027; 83036; 83735; 84439; 84443

== ENCOUNTER 2021-05-26 17:47 | Outpatient (REF) | payer MEDICARE, OTHER, SELFPAY ==
[2021-05-26 16:44] LABS: Abs Immature Grans 0.03 10^3/uL (0.0-0.06); Absolute Basophil Count 0.05 10^3/uL (0.0-0.2); Absolute Eosinophil Count 0.29 10^3/uL (0.0-0.7); Absolute Lymphocyte Count 2.43 10^3/uL (1.2-3.4); Absolute Monocyte Count 0.44 10^3/uL (0.1-0.8); Absolute Neutrophil Count 5.02 10^3/uL (1.2-6.7); Basophils % 0.6; Eosinophils % 3.5; HCT 50.8 % (36.0-46.0); HGB 15.3 g/dL (11.2-15.7); Immature Grans % 0.4; Lymphocytes % 29.4; MCH 27.7 pg (27.0-33.0); MCHC 30.1 % (32.0-36.0); MPV 12.3 fL (8.0-11.0); Monocytes % 5.3; Neutrophils % 60.8; Nucleated RBC 0 %; Platelet Count 288 10^3/uL (130-400); RBC 5.52 10^6/uL (3.93-5.22); RDW 14.4 % (11.7-14.6); WBC 8.26 10^3/uL (4.4-10.8)
[2021-05-26 17:14] LABS: ALT 31 U/L (14-59); AST 18 U/L (15-37); Albumin 3.3 g/dL (3.4-5.0); Alkaline Phosphatase 123 U/L (46-116); Anion Gap 7.4 mmol/L (3-11); BUN 15 mg/dL (7-18); Bilirubin, Total 0.3 mg/dL (0.2-1.0); CO2 29.6 mmol/L (21.0-32.0); Calcium 9.1 mg/dL (8.5-10.1); Chloride 103 mmol/L (98-107); Estimated GFR 53.62 (mL/min/1.73m2); Glucose 153 mg/dL (74-106); Potassium 4.4 mmol/L (3.5-5.1); Sodium 140 mmol/L (136-145); TSH 3.22 uIU/mL (0.36-3.74); Total Protein 7.8 g/dL (6.4-8.2)
[2021-05-27 14:49] LABS: Albumin 50.9 % (55.8-66.1); Total Protein 7.7 g/dL (6.3-8.2)
== END 2021-05-26 17:48 | disposition home or self-care (01) ==
LOC: NCHCN 17:47
PROVIDERS: PCP Internal Medicine; Visit Provider Internal Medicine
DX: R53.83 Other fatigue (principal); D89.0 Polyclonal hypergammaglobulinemia; E11.9 Type 2 diabetes mellitus without complications; R79.89 Other specified abnormal findings of blood chemistry
CPT/HCPCS: 80053; 84165; 84443; 85025

== ENCOUNTER 2021-07-03 08:03 | Emergency (ER) | payer MEDICARE, OTHER, SELFPAY ==
[2021-07-03] VITALS (38 sets, daily range): BP systolic 182–199; BP diastolic 74–82; PULSE 65–71; RESP 20; TEMP 36.6; O2SAT 92–97
[2021-07-03] MEDS: Normal Saline 1,000 ML 150 ML IV (08:27)
[2021-07-03] MEDS: Ketorolac 30 MG/ML VIAL 15 MG IVP (08:28)
[2021-07-03 08:29] LABS: Abs Immature Grans 0.03 10^3/uL (0.0-0.06); Absolute Basophil Count 0.06 10^3/uL (0.0-0.2); Absolute Eosinophil Count 0.41 10^3/uL (0.0-0.7); Absolute Monocyte Count 0.52 10^3/uL (0.1-0.8); Absolute Neutrophil Count 5.56 10^3/uL (1.2-6.7); Basophils % 0.6; Eosinophils % 4.4; HCT 52.1 % (36.0-46.0); HGB 15.8 g/dL (11.2-15.7); Immature Grans % 0.3; Lymphocytes % 29.1; MCH 28.2 pg (27.0-33.0); MCHC 30.3 % (32.0-36.0); MCV 92.9 fL (80-95); MPV 11.4 fL (8.0-11.0); Monocytes % 5.6; Nucleated RBC 0 %; Platelet Count 287 10^3/uL (130-400); RBC 5.61 10^6/uL (3.93-5.22); RDW 14.1 % (11.7-14.6); RDW-SD 48.5 fL; WBC 9.28 10^3/uL (4.4-10.8)
--- NOTE | 2021-07-03 08:39 | DI.CT_ITS ---
Exam(s) CT RENAL COLIC WO EXAM: CT RENAL COLIC WO CLINICAL HISTORY: R flank pain hx of stones. TECHNIQUE: Imaging Protocol: Axial computed tomography images with coronal and sagittal reformatted images were created and reviewed. COMPARISON: CT CT ABDOMEN PELVIS W from 08/31/2018 FINDINGS: The examination is limited due to patient motion artifact. ABDOMEN: Lung Bases: Small hiatal hernia. Liver: Normal density. No measurable mass. Gallbladder and biliary tract: No radiodense calculus or biliary ductal dilation. Pancreas: Diffuse fatty infiltration. Spleen: Normal. Kidneys: Normal size, contour and axis.Right nephrolithiasis. There is mild dilatation of the proxim al renal collecting system. This may represent a recently passed stone. No ureterolithiasis is seen . No masses seen. Adrenal glands: No mass is seen. Lymph nodes: Within normal limits. Abdominal Aorta: Abdominal portion non-dilated. Atherosclerosis. PELVIS: Bladder:Symmetric distention, no gross wall thickening. Bowel: No obstruction or bowel wall thickening. No evidence of appendicitis. Diverticulosis in the c olon, but no evidence of acute diverticulitis. Peritoneal cavity: No ascites, collection or mesenteric inflammatory response. No free air. Reproductive organs: Within normal limits. Bones: Within normal limits. Soft Tissues: Within normal limits. IMPRESSION: 1. Right nephrolithiasis. 2. Mild dilatation of the right renal collecting system with no evidence of ureterolithiasis. A rece ntly passed stone may have this appearance 3. Results of this exam have been verbally communicated with provider. RADIATION DOSE DELIVERED: 1,546.67mGy.cm Total DLP DATA REPOSITORY: All CT scans at this facility are submitted to the National Radiology Data Registry (NRDR) Dose Index Registry (DIR) with the [employer] (ACR). RADIATION OPTIMIZATION: All CT scans at this facility use at least one of these dose optimization te chniques: automated exposure control; mA and/or kV adjustment per patient size (includes targeted exa ms where dose is matched to clinical indication); or iterative reconstruction.
[2021-07-03 09:18] LABS: ALT 23 U/L (14-59); AST 19 U/L (15-37); Albumin 3.1 g/dL (3.4-5.0); Alkaline Phosphatase 122 U/L (46-116); Anion Gap 5.6 mmol/L (3-11); BUN 15 mg/dL (7-18); Bilirubin, Total 0.4 mg/dL (0.2-1.0); CO2 29.4 mmol/L (21.0-32.0); CREATININE 0.9 mg/dL (0.55-1.02); Calcium 9.1 mg/dL (8.5-10.1); Chloride 105 mmol/L (98-107); Glucose 140 mg/dL (74-106); Sodium 140 mmol/L (136-145)
--- NOTE | 2021-07-03 09:24 | NUR.NOTE ---
Nursing Note: Pt info given to care management to be seen by [facility] urology for R renal colic. Within 1-2 weeks. DARLIN Finn
--- NOTE | 2021-07-03 09:26 | ED.GENADUL_ITS ---
Discharge Plan Disposition Patient Disposition: HOME Condition: Improving Discharge Details Clinical Impression: Renal colic on right side Primary Care Provider: Walker Diana ED Provider: Paul Mitchell Home Meds and New Rx's Prescriptions: New cephalexin 500 mg capsule 500 mg PO TID 5 Days Qty: 15 0RF Continued verapamil 360 mg capsule,ext rel. pellets 24 hr 360 mg PO .12 NOON 0RF mirtazapine 15 mg tablet 15 mg PO DAILY 0RF cholecalciferol (vitamin D3) 1,000 unit capsule 1,000 unit PO DAILY 0RF celecoxib 200 mg capsule 200 mg PO DAILY Qty: 14 0RF multivitamin [Daily Value] 1 EACH tablet 1 ea PO DAILY 0RF levothyroxine 50 MCG tablet 50 mcg PO DAILY 0RF furosemide 20 MG tablet 20 mg PO DAILY 0RF propranolol 20 mg tablet 20 mg PO BID 0RF budesonide 32 mcg/actuation spray,non-aerosol 1 spray intranasal DAILY 0RF Rx Instructions: administer into each nostril benzonatate 100 mg capsule 100 mg PO BID PRN0RF Shingrix (PF) 50 mcg/0.5 mL suspension for reconstitution 0.5 ml IM ONCE 0RF Rx Instructions: as a single dose cyclobenzaprine 5 mg tablet 5 mg PO QHS 0RF loratadine 10 mg tablet 10 mg PO DAILY 0RF potassium chloride 10 mEq Tablet Extended Release 10 meq PO DAILY 0RF pantoprazole 40 MG tablet,delayed release (DR/EC) 40 mg PO BID@0730,1999 Qty: 60 0RF nitroglycerin [Nitrostat] 0.4 MG tablet, sublingual 0.4 mg Sublingual Q5 MIN PRN X3 PRNQty: 1 0RF bupropion HCl 150 mg Tablet Extended Release 24 Hr 150 mg PO QAM 0RF metoprolol succinate 100 MG tablet extended release 24 hr 50 mg PO DAILY 0RF Discharge Instructions Instructions: Renal Colic (ED) Additional Instructions: Home to rest. May continue Tylenol 650 mg every 4-6 hours, and/or ibuprofen 600 mg every 8 hours if needed for further discomfort. Please take antibiotics as prescribed. As we discussed we will have a urine culture pending and will call you if there is further information you need to know. We will ask our care management team to make you a referral to see Dr. Stovall at [facility] urology. The office number is [phone] Today the office requested that you have your previous urology records sent from the [place] office to the [place] office and they will then be able to schedule you. I have asked our medical records to forward a copy of my note to the office as well. Return to the emergency room for any acute concerns Medical Decision Making 80-year-old female with a history of renal colic for which she has previously seen Dr. Stovall at both [place] and [facility]. Reports 4 to 5 days of intermittent episodes of right flank pain that has been fairly consistently located in her flank. No nausea, vomiting, fever or chills. Took ibuprofen at home last evening with improvement. Now her pain approximately 1 out of 10. States she is tired of prolonged discomfort and hopefully she does not have a recurrent obstructed stone. Patient arrives to the emergency department awake, alert and interactive. She has a blood pressure 182/76 she is afebrile. Her exam is notable for right lower quadrant tenderness without rebound or guarding on right flank tenderness. Most consistent with pathology. Patient had IVF established, screening labs obtained, she is referred for CT imaging. White blood cell count is 9, hematocrit 2, platelets 287. Unremarkable chemistries with a BUN of 15 and creatinine 0.9. Urinalysis shows specific gravity of 1.015, no nitrite. There is trace leuk esterase. Likely contaminated but with a predominance of some white blood cells. Culture is pending. I will place her on a short course of antibiotics empirically for UTI. CT reveals right nephrolithiasis, mild dilatation of the right renal collecting system with no evidence of ureterolithiasis. See formal report Patient is stable and improved, appropriate for outpatient management. We will have her follow-up with urology, Dr. Stovall's office as she has a longstanding relationship with him. Please forward a copy of this note to Dr. Brigido Stovall at [facility] u[facility] [address] [place] [address] , [place], [address] Lab Data Lab results reviewed: Yes I reviewed the patient's lab results. Labs: Laboratory Results - last 24 hr 07/03/21 07/03/21 07/03/21 08:24 08:24 09:00 WBC 9.28 RBC 5.61 H Hgb 15.8 H Hct 52.1 H MCV 92.9 MCH 28.2 MCHC 30.3 L RDW 14.1 Plt Count 287 MPV 11.4 H Immature Gran % 0.3 Neutrophils % 60.0 Lymphocytes % 29.1 Monocytes % 5.6 Eosinophils % 4.4 Basophils % 0.6 Nucleated RBC % 0 Absolute Neutrophils 5.56 Absolute Lymphocytes 2.70 Absolute Monocytes 0.52 Absolute Eosinophils 0.41 Absolute Basophils 0.06 Sodium Cancelled 140 Potassium Cancelled 4.0 Chloride Cancelled 105 Carbon Dioxide Cancelled 29.4 Anion Gap Cancelled 5.6 BUN Cancelled 15 Creatinine Cancelled 0.9 Estimated GFR/1.73 m2 Cancelled >= 60.00 Glucose Cancelled 140 H Calcium Cancelled 9.1 Total Bilirubin Cancelled 0.4 AST Cancelled 19 ALT Cancelled 23 Alkaline Phosphatase Cancelled 122 H Total Protein Cancelled 8.0 Albumin Cancelled 3.1 L Urine Color Urine Clarity Urine pH Ur Specific [place] Urine Protein Urine Ketones Urine Blood Urine Nitrite Urine Bilirubin Urine Urobilinogen Ur Leukocyte Esterase Urine RBC Urine WBC Ur Epithelial Cells Urine Crystals Urine Bacteria Urine Casts Urine Mucus Urine Other Ur Culture Indicated? Urine Glucose 07/03/21 09:05 WBC RBC Hgb Hct MCV MCH MCHC RDW Plt Count MPV Immature Gran % Neutrophils % Lymphocytes % Monocytes % Eosinophils % Basophils % Nucleated RBC % Absolute Neutrophils Absolute Lymphocytes Absolute Monocytes Absolute Eosinophils Absolute Basophils Sodium Potassium Chloride Carbon Dioxide Anion Gap BUN Creatinine Estimated GFR/1.73 m2 Glucose Calcium Total Bilirubin AST ALT Alkaline Phosphatase Total Protein Albumin Urine Color Yellow Urine Clarity Clear Urine pH 6.5 Ur Specific [place] 1.015 Urine Protein 100 H Urine Ketones Negative Urine Blood Trace-intact H Urine Nitrite Negative Urine Bilirubin Negative Urine Urobilinogen 0.2 Ur Leukocyte Esterase Trace H Urine RBC 3-5 H Urine WBC 10-20 H Ur Epithelial Cells Few Urine Crystals Negative Urine Bacteria Moderate Urine Casts Negative Urine Mucus Trace Urine Other Negative Ur Culture Indicated? Yes Urine Glucose Negative HPI General Mode of arrival: wheelchair . Date/Time Provider Initiated Documentation: 07/03/21 08:06 . Limitations to Documentation: no limitations . Information obtained by: patient . History of Present Illness 80 year old F presents to the emergency department with the chief complaint of Right flank pain approximately 4 days time, described as moderate and similar to prior episodes, and is localized to the back and right. Patient started experiencing this day(s) improves with No relieving factors improve symptom(s), No exacerbating factors reported . Patient notes denies cough, fever/chills, nausea/vomiting and syncope. Patient did receive the following treatments prior to arrival, NSAID Related Data Home Medications Medication Instructions Recorded Confirmed Daily Value (multivitamin) 1 ea PO DAILY NS 04/08/14 07/03/21 furosemide 20 mg tablet 20 mg PO DAILY tab-cap NS 04/08/14 07/03/21 levothyroxine 50 mcg tablet 50 mcg PO DAILY tab-cap NS 04/08/14 07/03/21 nitroglycerin 0.4 mg sublingual 0.4 mg SUBLINGUAL Q5 MIN PRN X3 04/06/17 07/03/21 tablet (Nitrostat) PRN #1 bottle pantoprazole 40 mg tablet,delayed 40 mg PO BID@0730,2000 #60 tabcr 04/06/17 07/03/21 release verapamil 360 mg 24 hr 360 mg PO .12 NOON 01/16/18 07/03/21 capsule,extended release bupropion HCl 150 mg 24 hr tablet, 150 mg PO QAM 02/26/18 07/03/21 extended release metoprolol succinate 100 mg 50 mg PO DAILY 02/26/18 03/16/19 tablet,extended release 24 hr cholecalciferol (vitamin D3) 25 1,000 unit PO DAILY 05/08/18 07/03/21 mcg (1,000 unit) capsule mirtazapine 15 mg tablet 15 mg PO DAILY 08/22/18 07/03/21 potassium chloride 10 mEq 10 meq PO DAILY 08/31/18 07/03/21 tablet,extended release celecoxib 200 mg capsule 200 mg PO DAILY #14 cap 03/16/19 03/16/19 benzonatate 100 mg capsule 100 mg PO BID PRN 07/30/20 07/03/21 budesonide 32 mcg/actuation nasal 1 spray INTRANASAL DAILY 07/30/20 07/03/21 spray cyclobenzaprine 5 mg tablet 5 mg PO QHS 07/30/20 07/03/21 loratadine 10 mg tablet 10 mg PO DAILY 07/30/20 07/03/21 propranolol 20 mg tablet 20 mg PO BID 07/30/20 07/03/21 varicella-zoster glycoE [id number] 0.5 ml IM ONCE 07/30/20 adj(PF) 50 mcg/0.5 mL IM susp, kit (Shingrix (PF)) cephalexin 500 mg capsule 500 mg PO TID 5 Days #15 cap 07/03/21 Previous Rx's Medication Instructions Recorded nitroglycerin 0.4 mg sublingual 0.4 mg SUBLINGUAL Q5 MIN PRN X3 04/06/17 tablet (Nitrostat) PRN #1 bottle pantoprazole 40 mg tablet,delayed 40 mg PO BID@0730,1999 #60 tabcr 04/06/17 release celecoxib 200 mg capsule 200 mg PO DAILY #14 cap 03/16/19 cephalexin 500 mg capsule 500 mg PO TID 5 Days #15 cap 07/03/21 Allergies Allergy/AdvReac Type Severity Reaction Status Date / Time losartan Allergy Intermediate Verified 03/16/19 10:40 formoterol fumarate AdvReac Severe severe Verified 03/16/19 10:40 [From Dulera] depression lisinopril AdvReac Severe cough Verified 03/16/19 10:40 mometasone furoate AdvReac Severe severe Verified 03/16/19 10:40 [From Dulera] depression General Stated Complaint: FlankPain PEDRO: 3 Review of Systems Narrative: Denies recent illness. Previous history of renal colic with multiple previous interventions. No abdominal discomfort, denies vomiting. States she has history of frequent loose stools this is unchanged. 8 systems were reviewed and otherwise negative PFSH All Active Problems Renal colic on right side (Acute) Primary osteoarthritis of left knee (Chronic) Injected: 02/01/2019 S/P debridement (Acute) 08/31/18. Incision of debridement of SQ abscess of umbilical port site. 09/18/18 dressing removed small amount superficial debridement, wound irrigated and redressed diflucan for yeast Lesion of endometrium (Acute) Thickened endometrial stripe in a postmenopausal female. No history of abnormal uterine bleeding. Incisional abscess (Acute) Atypical chest pain (Acute) GERD with esophagitis (Acute) Anxiety (Acute) Obesity, Class III, BMI 40-49.9 (morbid obesity) (Acute) Increased endometrial stripe thickness (Acute 06/20/17) Incidental finding at the time of a pelvic CT scan for hydronephrosis in 2017. EMBx @ [facility] benign. No hx of PMB. Expectant management. H/O esophagogastroduodenoscopy (Chronic ~06/06/18) Dysphagia (Acute) Hiatal hernia with GERD and esophagitis (Acute) Hydrosalpinx (Chronic) 01/2017 left adnexa cystic lesion measuring 72 x 17 x 62 mm 06/24/17 pelvic ultrasound left hydrosalpinx 73 x 36 x 69 mm with several loculations. Endometrial stripe is 10 mm. 01/05/18 Pelvic u/s L adnexal cyst: [id number]. 08/11/2018 Pelvic u/s L adnexal cyst [id number]. 2 internal septations. Thick walled. ES 14mm. 08/24/18. Laparoscopic bilateral BSO. Premliminary path: benign, SPRING (obstructive sleep apnea) (Chronic) Essential tremor (Chronic) Anxiety (Chronic) Depression (Chronic) Hyperlipidemia (Chronic) Hypothyroidism (Chronic) History of skin cancer (Chronic) COPD (chronic obstructive pulmonary disease) (Acute) Rosacea (Chronic) Hypertension (Chronic) Vitamin D deficiency (Chronic) Dysphagia (Acute) Flank pain (Acute) Obesity (BMI 35.0-39.9 without comorbidity) (Acute) Neuropathy (Acute) Chronic cough (Acute) Kidney stones (Chronic) Bradycardia (Acute) Hypokalemia (Acute) Hypomagnesemia (Acute) Balance problem (Acute) Glucose intolerance (Acute) History of kidney surgery (Acute) Medical History Abdominal pain, epigastric NAOMIE positive Chronic diarrhea Chronic fatigue and malaise Encounter for counseling Esophagitis Facial flushing Floaters in visual field Headache History of prediabetes Hydronephrosis Irritable bowel syndrome with diarrhea Knee pain, left Menopause Osteoarthritis Osteoarthritis of left knee Polyclonal gammopathy Seasonal allergies Sleep disturbances Urinary incontinence Surgical History Hx of cataract surgery Hx of lithotripsy Family History Other Heart disease Social History Smoking/Tobacco Use Status: Former Tobacco Use Smoking risk assessment performed?: Yes Alcohol Intake: current Alcohol Intake frequency: other Details: MONTHLY OR LESS Drug use: Never Substance use type: does not use Number of Children: 3 Current gender identity: female Seatbelt use: always Do you feel safe at home: Yes Do you feel safe in your relationship?: Yes Exam Narrative Exam Narrative: GEN: awake, alert, oriented 3. Pleasant, well groomed, interactive. HEAD: Normocephalic, atraumatic ENT: Mucous membranes moist, oropharynx unremarkable, External ear exam unremarkable EYES: PERRL, EOMI NECK: Full ROM, no KIRBY, no menigismus CHEST/RESP: Nontender, clear to auscultation bilateral, no wheeze/rhonchi/rales CARDIOVASCULAR: Distant RRR, no murmur, rub sandra. 2+ Rad pulse bilateral ABDOMEN: Soft, right lower quadrant tender to palpation without rebound or guarding, no mass. +Bowel sounds. Back exam: Right flank tender to percussion, no rash EXT: Full ROM, no edema, no rash Neuro: Grossly normal neurologic exam, conversant, interactive. Psych: Speech fluent, thoughts congruent, affect normal Course Vital Signs Vital signs: Vital Signs Temperature 36.6 C 07/03/21 08:11 Pulse 71 07/03/21 08:11 Respiratory Rate 20 07/03/21 08:11 Blood Pressure 199/82 H 07/03/21 08:11 Pulse Oximetry 97 07/03/21 08:11 Temperature 36.6 C 07/03/21 08:11 Temperature Source Temporal Artery Scan 07/03/21 08:11 Pulse 65 07/03/21 09:09 Respiratory Rate 20 07/03/21 08:11 Respiratory Effort 07/03/21 08:20 Blood Pressure 182/76 H 07/03/21 09:09 Blood Pressure Position Sitting 07/03/21 08:11 Pulse Oximetry 94 07/03/21 09:09 Oxygen Delivery Method Room Air 07/03/21 08:11 Oxygen Flow Rate 0 07/03/21 08:11 Pain Level 9 07/03/21 08:17 Lab/Test Results Lab/Test Results: Laboratory Tests Range/Units 07/03/21 07/03/21 07/03/21 08:24 08:24 09:00 WBC (4.4-10.8) 10^3/uL 9.28 RBC (3.93-5.22) 10^6/uL 5.61 H Hgb (11.2-15.7) g/dL 15.8 H Hct (36.0-46.0) % 52.1 H MCV (80-95) fL 92.9 MCH (27.0-33.0) pg 28.2 MCHC (32.0-36.0) % 30.3 L RDW (11.7-14.6) % 14.1 Plt Count (130-400) 10^3/uL 287 MPV (8.0-11.0) fL 11.4 H Immature Gran % 0.3 Neutrophils % 60.0 Lymphocytes % 29.1 Monocytes % 5.6 Eosinophils % 4.4 Basophils % 0.6 Nucleated RBC % % 0 Absolute Neutrophils (1.2-6.7) 10^3/uL 5.56 Absolute Lymphocytes (1.2-3.4) 10^3/uL 2.70 Absolute Monocytes (0.1-0.8) 10^3/uL 0.52 Absolute Eosinophils (0.0-0.7) 10^3/uL 0.41 Absolute Basophils (0.0-0.2) 10^3/uL 0.06 Sodium Cancelled 140 Potassium Cancelled 4.0 Chloride Cancelled 105 Carbon Dioxide Cancelled 29.4 Anion Gap Cancelled 5.6 BUN Cancelled 15 Creatinine Cancelled 0.9 Estimated GFR/1.73 m2 Cancelled >= 60.00 Glucose Cancelled 140 H Calcium Cancelled 9.1 Total Bilirubin Cancelled 0.4 AST Cancelled 19 ALT Cancelled 23 Alkaline Phosphatase Cancelled 122 H Total Protein Cancelled 8.0 Albumin Cancelled 3.1 L
[2021-07-03 09:27] LABS: Bilirubin Negative (Negative); Blood Trace-intact (Negative); Clarity Clear (Clear); Glucose Negative (Negative); Ketones Negative (Negative); Leukocyte Esterase Trace (Negative); Nitrite Negative (Negative); Specific Gravity 1.015 (1.005-1.025); Urobilinogen 0.2 EU/dL (Up TO 0.2); pH 6.5 (5-8)
[2021-07-03 09:36] LABS: Bacteria Moderate HPF (Negative); C & S Indicated? Yes; Casts Negative LPF (Negative); Crystals Negative HPF (Negative); Epithelial Cells Few HPF (Negative); Mucus Trace (Negative); Other Cells Negative (Negative)
[2021-07-03] MEDS: Cephalexin 500 MG CAP PO (09:45)
--- NOTE | 2021-07-03 10:37 | PDOC.ERCMACT ---
- If Service Date Differs Date of service: 07/03/21 Time of Service: 10:37 Care Management Activity Note Smitha presents in the ED for renal colic on right side. At the request of ED provider, DAVIDSON coordinates a referral to Dr. Stovall at [facility] to assist Smitha in transferring her care from [facility] to [facility]. Smitha is advised by Dr. Mitchell that she needs to contact the [place] office to ask that her records be transferred to [facility].
== END 2021-07-03 09:58 | disposition home or self-care (01) ==
PROVIDERS: Emergency Provider Emergency Medicine; PCP Internal Medicine
DX: N20.0 Calculus of kidney (principal); Z87.442 Personal history of urinary calculi
CPT/HCPCS: 36415; 80053; 87077; 96374; 99284; 74176; 81003; 81015; 85025; 87086; 87186; 99283; J1885

== ENCOUNTER 2021-07-07 13:55 | Emergency (ER) | payer MEDICARE, OTHER, SELFPAY ==
[2021-07-07 14:00] VITALS: BP 177/78; PULSE 72; RESP 18; TEMP 36.3; O2SAT 92
[2021-07-07 15:07] VITALS: TEMP 36.1
[2021-07-07 15:17] VITALS: BP 184/96; PULSE 61; RESP 18; O2SAT 94
[2021-07-07 15:19] LABS: Bilirubin Negative (Negative); Blood Trace-intact (Negative); Clarity Sl Cloudy (Clear); Glucose Negative (Negative); Ketones Negative (Negative); Leukocyte Esterase Negative (Negative); Nitrite Negative (Negative); Specific Gravity >= 1.030 (1.005-1.025); Urobilinogen 0.2 EU/dL (Up TO 0.2); pH 5.5 (5-8)
--- NOTE | 2021-07-07 15:20 | W.ED.GENAD ---
Discharge Plan Disposition Patient Disposition: HOME Condition: Stable Discharge Details Clinical Impression: Flank pain, Hydronephrosis of right kidney Primary Care Provider: Walker Diana ED Provider: Jacqueline Montelongo Home Meds and New Rx's Prescriptions: Continued verapamil 360 mg capsule,ext rel. pellets 24 hr 360 mg PO .12 NOON 0RF mirtazapine 15 mg tablet 15 mg PO DAILY 0RF cholecalciferol (vitamin D3) 1,000 unit capsule 1,000 unit PO DAILY 0RF celecoxib 200 mg capsule 200 mg PO DAILY Qty: 14 0RF multivitamin [Daily Value] 1 EACH tablet 1 ea PO DAILY 0RF levothyroxine 50 MCG tablet 50 mcg PO DAILY 0RF furosemide 20 MG tablet 20 mg PO DAILY 0RF propranolol 20 mg tablet 20 mg PO BID 0RF budesonide 32 mcg/actuation spray,non-aerosol 1 spray intranasal DAILY 0RF Rx Instructions: administer into each nostril benzonatate 100 mg capsule 100 mg PO BID PRN0RF Shingrix (PF) 50 mcg/0.5 mL suspension for reconstitution 0.5 ml IM ONCE 0RF Rx Instructions: as a single dose cyclobenzaprine 5 mg tablet 5 mg PO QHS 0RF loratadine 10 mg tablet 10 mg PO DAILY 0RF potassium chloride 10 mEq Tablet Extended Release 10 meq PO DAILY 0RF oxycodone 5 mg tablet 2.5 mg PO BID 0RF Label Comments: Take 1/2 tablet by mouth four times a day as needed for pain start at 1/2 tablet, may increase to 1 whole tablet every 6 hours if 1/2 tablet is ineffective. pantoprazole 40 MG tablet,delayed release (DR/EC) 40 mg PO BID@07,1999 Qty: 60 0RF nitroglycerin [Nitrostat] 0.4 MG tablet, sublingual 0.4 mg Sublingual Q5 MIN PRN X3 PRNQty: 1 0RF bupropion HCl 150 mg Tablet Extended Release 24 Hr 150 mg PO QAM 0RF metoprolol succinate 100 MG tablet extended release 24 hr 50 mg PO DAILY 0RF Discharge Instructions Instructions: Flank Pain (ED) Additional Instructions: No significant change was noted with the CT however your kidney function, BUN and creatinine are slightly more elevated than your last visit. You are placed on a care management list to aid in assistance with follow-up with urology. I do recommend he see urology within the next week. Follow up with primary care provider in 3-5 days. Return to ED sooner if any worsening or concerns. Increase oral fluids. Please take Tylenol with food every 4-6 hours as needed for pain and swelling. Referrals: Etienne Bustillos MD [ [facility] STAFF PHYSICIAN] - 1 week Walker Diana MD [Primary Care Provider] - 3 days Discharge Data Discharge Date/Time-TO BE ENTERED AT DEPARTURE: 07/07/21 17:31 Medical Decision Making <WILLIAM Martinez - Last Filed: 07/08/21 09:27> Patient has been discomfort on her abdominal exam She is alert and oriented She is ordered for repeat CT scan abdomen and pelvis, I will use contrast this time as she had CT renal during her previous visit Urinalysis does not show evidence of obvious infection Labs are hemoconcentrated, given 1 L of normal saline Given 50 mcg of fentanyl for pain control and Zofran as needed for nausea Denies any chest pain or epigastric pain, no EKG ordered at this time Denies weakness or dizziness Will sign out to Jacqueline Montelongo pending CT scan, reassessment, diagnostic laboratory evaluation and disposition Medical Records Medical records reviewed: Yes I reviewed the patient's medical records. Lab Data Lab results reviewed: Yes I reviewed the patient's lab results. <Jacqueline Montelongo - Last Filed: 07/07/21 18:32> Patient has been discomfort on her abdominal exam She is alert and oriented She is ordered for repeat CT scan abdomen and pelvis, I will use contrast this time as she had CT renal during her previous visit Urinalysis does not show evidence of obvious infection Labs are hemoconcentrated, given 1 L of normal saline Given 50 mcg of fentanyl for pain control and Zofran as needed for nausea Denies any chest pain or epigastric pain, no EKG ordered at this time Denies weakness or dizziness Will sign out to Jacqueline Montelongo pending CT scan, reassessment, diagnostic laboratory evaluation and disposition 1613: SJ: Care assumed from provider Karo THOMAS, please see her original HPI and PE, upon sign out CT and Chest Xray are pending. Patient became slightly hypoxic after administration of Fentanyl, was placed on oxygen at 3L sat now 98% up From 80%. EXAM: XR CHEST 2V PA LATERAL COMPARISON: CR XR CHEST 2V PA LATERAL from 08/11/2018 FINDINGS: Heart size is normal. The mediastinum is not widened. Lungs are clear. No infiltrates nor pleural effusions. IMPRESSION: No acute pulmonary findings.No significant change compared to July 2018. (IV); COMPARISON: CT ABDOMEN PELVIS W 08/31/2018 12:54 PM FINDINGS: Liver: Normal. No mass. Gallbladder and bile ducts: Normal. No calcified stones. No ductal dilation. Pancreas: Normal. No ductal dilation. Spleen: Normal. No splenomegaly. Adrenal glands: Normal. No mass. Kidneys and ureters: The right collecting system has of similar appearance that it did in 2019 with mild dilatation of the collecting system and proximal right ureter. However no ureteral calculus is identified.. 10 mm simple cyst upper pole left kidney . No follow-up imaging recommended . Nonobstructing right renal calculus Stomach and bowel: Diverticulosis of the rectosigmoid. No diverticulitis. Appendix: No evidence of appendicitis. Intraperitoneal space: Unremarkable. No free air. No significant fluid collection. Vasculature: Unremarkable. No abdominal aortic aneurysm. Lymph nodes: Unremarkable. No enlarged lymph nodes. Urinary bladder: Anterior bladder wall measures 23 mm This is nonspecific and may represent inflammation or infection. Neoplastic process and neurogenic bladder are included in the differential. Reproductive: Unremarkable as visualized. Bones/joints: Hemangioma T7 Soft tissues: Unremarkable. IMPRESSION: 1. The right collecting system has of similar appearance that it did in 2019 with mild dilatation of the collecting system and proximal right ureter. However no ureteral calculus is identified.. 2. Anterior bladder wall measures 23 mm This is nonspecific and may represent inflammation or infection. Neoplastic process and neurogenic bladder are included in the differential. Recommend urology consult Thank you for allowing us to participate in the care of your patient. Dictated and Authenticated by: Yasmeen Corbett MD [id number]: We will place patient on care management list for urology follow-up even though patient does have pending follow-up with [facility] with urology. Patient does agree to consider follow-up here at [facility]. She expresses her frustration with not getting any answers. Did discuss her CT results with her. Patient is requesting to be discharged home. This text was generated using Devveration system, please disregard any oddities of phrase or misspellings. HPI <WILLIAM Martinez - Last Filed: 07/08/21 09:27> General Date/Time Provider Initiated Documentation: 07/07/21 14:36. HPI Narrative: 80 you old presents out of concern for persistent right flank pain. She has not followed up with her urologist yet. She has a history of ureterolithiasis and sees Dr. Stovall at [facility]. She was told that she likely passed a stone during her last encounter. Denies fever or chills. Denies nausea or vomiting. States the pain is consistent with her previous kidney stone pain. Was told to come here by her primary care physician for ultrasound of her kidney. Patient is prescribed Keflex in the outpatient setting which she has been taking as prescribed. Related Data Home Medications Medication Instructions Recorded Confirmed Daily Value (multivitamin) 1 ea PO DAILY NS 04/08/14 07/07/21 furosemide 20 mg tablet 20 mg PO DAILY tab-cap NS 04/08/14 07/07/21 levothyroxine 50 mcg tablet 50 mcg PO DAILY tab-cap NS 04/08/14 07/07/21 nitroglycerin 0.4 mg sublingual 0.4 mg SUBLINGUAL Q5 MIN PRN X3 04/06/17 07/07/21 tablet (Nitrostat) PRN #1 bottle pantoprazole 40 mg tablet,delayed 40 mg PO BID@0730,2000 #60 tabcr 04/06/17 07/07/21 release verapamil 360 mg 24 hr 360 mg PO .12 NOON 01/16/18 07/07/21 capsule,extended release bupropion HCl 150 mg 24 hr tablet, 150 mg PO QAM 02/26/18 07/07/21 extended release metoprolol succinate 100 mg 50 mg PO DAILY 02/26/18 07/07/21 tablet,extended release 24 hr cholecalciferol (vitamin D3) 25 1,000 unit PO DAILY 05/08/18 07/07/21 mcg (1,000 unit) capsule mirtazapine 15 mg tablet 15 mg PO DAILY 08/22/18 07/07/21 potassium chloride 10 mEq 10 meq PO DAILY 08/31/18 07/07/21 tablet,extended release celecoxib 200 mg capsule 200 mg PO DAILY #14 cap 03/16/19 07/07/21 benzonatate 100 mg capsule 100 mg PO BID PRN 07/30/20 07/07/21 budesonide 32 mcg/actuation nasal 1 spray INTRANASAL DAILY 07/30/20 07/07/21 spray cyclobenzaprine 5 mg tablet 5 mg PO QHS 07/30/20 07/07/21 loratadine 10 mg tablet 10 mg PO DAILY 07/30/20 07/07/21 propranolol 20 mg tablet 20 mg PO BID 07/30/20 07/07/21 varicella-zoster glycoE [id number] 0.5 ml IM ONCE 07/30/20 07/07/21 adj(PF) 50 mcg/0.5 mL IM susp, kit (Shingrix (PF)) oxycodone 5 mg tablet 2.5 mg PO BID 07/07/21 07/07/21 Previous Rx's Medication Instructions Recorded nitroglycerin 0.4 mg sublingual 0.4 mg SUBLINGUAL Q5 MIN PRN X3 04/06/17 tablet (Nitrostat) PRN #1 bottle pantoprazole 40 mg tablet,delayed 40 mg PO BID@0730,1999 #60 tabcr 04/06/17 release celecoxib 200 mg capsule 200 mg PO DAILY #14 cap 03/16/19 Allergies Allergy/AdvReac Type Severity Reaction Status Date / Time losartan Allergy Intermediate Verified 07/07/21 14:04 formoterol fumarate AdvReac Severe severe Verified 07/07/21 14:04 [From Dulera] depression lisinopril AdvReac Severe cough Verified 07/07/21 14:04 mometasone furoate AdvReac Severe severe Verified 07/07/21 14:04 [From Dulera] depression fentanyl AdvReac Intermediate Other (See Verified 07/07/21 16:11 Comment) General Stated Complaint: FlankPain PEDRO: 3 Review of Systems <WILLIAM Martinez - Last Filed: 07/08/21 09:27> All systems reviewed & are unremarkable except as noted in HPI and below PFSH <WILLIAM Martinez - Last Filed: 07/08/21 09:27> All Active Problems Renal colic on right side (Acute) Hydronephrosis of right kidney (Acute) Primary osteoarthritis of left knee (Chronic) Injected: 02/01/2019 S/P debridement (Acute) 08/31/18. Incision of debridement of SQ abscess of umbilical port site. 5/20/19 dressing removed small amount superficial debridement, wound irrigated and redressed diflucan for yeast Lesion of endometrium (Acute) Thickened endometrial stripe in a postmenopausal female. No history of abnormal uterine bleeding. Incisional abscess (Acute) Atypical chest pain (Acute) GERD with esophagitis (Acute) Anxiety (Acute) Obesity, Class III, BMI 40-49.9 (morbid obesity) (Acute) Increased endometrial stripe thickness (Acute 06/20/17) Incidental finding at the time of a pelvic CT scan for hydronephrosis in 2016. EMBx @ [facility] benign. No hx of PMB. Expectant management. H/O esophagogastroduodenoscopy (Chronic ~06/06/18) Dysphagia (Acute) Hiatal hernia with GERD and esophagitis (Acute) Hydrosalpinx (Chronic) 01/2017 left adnexa cystic lesion measuring 72 x 17 x 62 mm 06/24/17 pelvic ultrasound left hydrosalpinx 73 x 36 x 69 mm with several loculations. Endometrial stripe is 10 mm. 01/05/18 Pelvic u/s L adnexal cyst: [id number]. 08/11/2018 Pelvic u/s L adnexal cyst [id number]. 2 internal septations. Thick walled. ES 14mm. 08/24/18. Laparoscopic bilateral BSO. Premliminary path: benign, SPRING (obstructive sleep apnea) (Chronic) Essential tremor (Chronic) Anxiety (Chronic) Depression (Chronic) Hyperlipidemia (Chronic) Hypothyroidism (Chronic) History of skin cancer (Chronic) COPD (chronic obstructive pulmonary disease) (Acute) Rosacea (Chronic) Hypertension (Chronic) Vitamin D deficiency (Chronic) Dysphagia (Acute) Flank pain (Acute) Obesity (BMI 35.0-39.9 without comorbidity) (Acute) Neuropathy (Acute) Chronic cough (Acute) Kidney stones (Chronic) Bradycardia (Acute) Hypokalemia (Acute) Hypomagnesemia (Acute) Balance problem (Acute) Glucose intolerance (Acute) History of kidney surgery (Acute) Medical History Abdominal pain, epigastric NAOMIE positive Chronic diarrhea Chronic fatigue and malaise Encounter for counseling Esophagitis Facial flushing Floaters in visual field Headache History of prediabetes Hydronephrosis Irritable bowel syndrome with diarrhea Knee pain, left Menopause Osteoarthritis Osteoarthritis of left knee Polyclonal gammopathy Seasonal allergies Sleep disturbances Urinary incontinence Surgical History Hx of cataract surgery Hx of lithotripsy Family History Other Heart disease Social History Smoking/Tobacco Use Status: Former Tobacco Use Smoking risk assessment performed?: Yes Alcohol Intake: current Alcohol Intake frequency: other Details: MONTHLY OR LESS Drug use: Never Substance use type: does not use Number of Children: 3 Current gender identity: female Seatbelt use: always Do you feel safe at home: Yes Do you feel safe in your relationship?: Yes Exam <WILLIAM Martinez Last Filed: 07/08/21 09:27> Const General: cooperative and no acute distress Eyes Pupils: PERRL Resp Effort & Inspection: normal respiratory effort Auscultation: clear to auscultation bilaterally Cardio Rate: regular rate Rhythm: regular rhythm GI Other: Right flank tenderness No abdominal bruit or pulsatile mass Skin General skin exam: no rashes or lesions noted Neuro General: patient alert and patient oriented x3 Extrem Other: Distal pulses intact Course <WILLIAM Martinez Last Filed: 07/08/21 09:27> Vital Signs Vital signs: Vital Signs Temperature 36.3 C L 07/07/21 14:00 Pulse 72 07/07/21 14:00 Respiratory Rate 18 07/07/21 14:00 Blood Pressure 177/78 H 07/07/21 14:00 Pulse Oximetry 92 07/07/21 14:00 Temperature 36.1 C L 07/07/21 15:07 Temperature Source Temporal Artery Scan 07/07/21 15:07 Pulse 61 07/07/21 15:17 Respiratory Rate 18 07/07/21 15:17 Respiratory Effort Non-Labored 07/07/21 14:05 Blood Pressure 184/96 H 07/07/21 15:17 Blood Pressure Position Sitting 07/07/21 14:00 Pulse Oximetry 94 07/07/21 15:17 Oxygen Delivery Method Room Air 07/07/21 15:17 Oxygen Flow Rate 0 07/07/21 15:17 Sign Out <WILLIAM Martinez Last Filed: 07/08/21 09:27> Sign Out Data: Sign Out Comment: pending labs, ct, reassessment Last updated by Karo Gomes PA at 07/07/21 15:48
[2021-07-07 15:25] LABS: Bacteria Rare HPF (Negative); Casts 0-2 Hyaline LPF (Negative); Crystals Negative HPF (Negative); Epithelial Cells Many HPF (Negative); Mucus Negative (Negative); RBC 0-2 HPF (0-2); WBC Negative HPF (0-5)
[2021-07-07 15:26] LABS: C & S Indicated? No/Sq. Contamination
[2021-07-07 15:28] LABS: Abs Immature Grans 0.03 10^3/uL (0.0-0.06); Absolute Basophil Count 0.07 10^3/uL (0.0-0.2); Absolute Eosinophil Count 0.47 10^3/uL (0.0-0.7); Absolute Lymphocyte Count 2.96 10^3/uL (1.2-3.4); Absolute Monocyte Count 0.72 10^3/uL (0.1-0.8); Basophils % 0.7; Eosinophils % 4.4; HCT 51.9 % (36.0-46.0); HGB 15.8 g/dL (11.2-15.7); Immature Grans % 0.3; Lymphocytes % 27.5; MCH 28.5 pg (27.0-33.0); MCHC 30.4 % (32.0-36.0); MCV 93.5 fL (80-95); MPV 11.4 fL (8.0-11.0); Monocytes % 6.7; Neutrophils % 60.4; Nucleated RBC 0 %; Platelet Count 282 10^3/uL (130-400); RBC 5.55 10^6/uL (3.93-5.22); RDW 14.5 % (11.7-14.6); RDW-SD 49.9 fL; WBC 10.75 10^3/uL (4.4-10.8)
--- NOTE | 2021-07-07 15:30 | DI.CT_ITS ---
Exam(s) CT ABDOMEN PELVIS W EXAM: CT ABDOMEN PELVIS W INDICATION: right flank and RUQ abdominal tenderness,. COMPARISON: CT CT RENAL COLIC WO from 07/03/2021 TECHNIQUE: FINDINGS: CT examination of the abdomen and pelvis was performed with a bolus infusion of 100 cc of Omnipaque 3 50. Images obtained through the lung bases are unremarkable. The liver is unremarkable in appearance. Gallbladder and bile ducts are CT normal. Pancreas appears normal. Spleen is unremarkable in appearance. Adrenals appear normal. The right kidney contains a midpole nonobstructing 4 millimeter calculus. There is apparent midpole renal scarring noted as well. Couple of tiny presumed cysts are noted but these are too small to paula racterize. There is slight prominence of collecting system and proximal ureter without evidence of h ydronephrosis. No ureterolithiasis. On the left, the kidney contains presumed small renal cysts. No nephrolithiasis hydro nephrosis or u reterolithiasis period. Abdominal aorta is of normal diameter and no major vascular abnormality is seen. No abdominal wall hernia. No abdominal or pelvic adenopathy. BAR[employer] structures appear unremarkable for age.. Appendix is normal. No evidence of diverticulitis or bowel obstruction. IMPRESSION: Nonobstructing right renal calculus. Question bladder wall thickening, although this is possibly due to underdistention. Urology consulta tion suggested. RADIATION DOSE DELIVERED: 1,597.75mGy.cm Total DLP 1,597.75mGy.cm Total DLP !Error CTDIvol RADIATION OPTIMIZATION: All CT scans at this facility use at least one of these dose optimization te chniques: automated exposure control; mA and/or kV adjustment per patient size (includes targeted exa ms where dose is matched to clinical indication); or iterative reconstruction.
[2021-07-07 15:43] LABS: ALT 29 U/L (14-59); AST 21 U/L (15-37); Albumin 3.5 g/dL (3.4-5.0); Alkaline Phosphatase 123 U/L (46-116); Anion Gap 6.6 mmol/L (3-11); BUN 23 mg/dL (7-18); Bilirubin, Total 0.5 mg/dL (0.2-1.0); CO2 32.4 mmol/L (21.0-32.0); CREATININE 1.1 mg/dL (0.55-1.02); Calcium 9.4 mg/dL (8.5-10.1); Chloride 102 mmol/L (98-107); Estimated GFR 48.04 (mL/min/1.73m2); Glucose 127 mg/dL (74-106); Lipase 60 U/L (73-393); Sodium 141 mmol/L (136-145)
[2021-07-07] MEDS: Normal Saline 1,000 ML 1000 ML IV (15:47)
[2021-07-07] MEDS: Ondansetron 4 MG/2 ML VIAL IVP (15:47)
[2021-07-07] MEDS: fentaNYL 100 MCG/2 ML VIAL 50 MCG IVP (15:47)
--- NOTE | 2021-07-07 16:00 | DI.RAD_ITS ---
Exam(s) XR CHEST 2V PA LATERAL EXAM: XR CHEST 2V PA LATERAL CLINICAL HISTORY: hypoxia. TECHNIQUE: 2D digital imaging was performed. COMPARISON: CR XR CHEST 2V PA LATERAL from 08/11/2018 FINDINGS: Heart size is normal. The mediastinum is not widened. Lungs are clear. No infiltrates nor pleural effusions. IMPRESSION: No acute pulmonary findings.No significant change compared to July 2018. DATA REPOSITORY: RADIATION DOSE DELIVERED:
--- NOTE | 2021-07-07 16:03 | NUR.NOTE ---
Nursing Note: Pt medicated for pain & nausea as ordered. Pt kept on O2 sat monitor, requested BP cuff removed. Pt noted to have O2 sat 75-80% on RA. Pt assessed, no distress noted, color pink, denies SOB. O2 sat monitor repositioned and another machine checked, sat unchanged, provider notified, O2 via NC applied at 2 lpm via nc, sats 89% with oxygen. Pt reports in the past had to use CPAP but refuses currently denies O2 use at home, states sleeps in recliner at home. O2 turned up to 3 lpm via NC, encouraged slow even breaths in through nose and out of mouth, O2 sat currently 97%, cont. to monitor.
[2021-07-07 16:46] VITALS: BP 183/84; PULSE 62; RESP 20; O2SAT 94
--- NOTE | 2021-07-07 16:47 | NUR.NOTE ---
Nursing Note:Pt assisted to BSC, O2 sat brendon on RA, IV bolus complete, to DI for exam via stretcher w/tech, reports pain present with moving but is able to rest when lying still.
--- NOTE | 2021-07-07 17:13 | DI.VRAD_ITS ---
PROCEDURE INFORMATION: Exam: XR Chest Exam date and time: 07/07/2021 4:07 PM Age: 80 years old Clinical indication: Other: Hypoxia TECHNIQUE: Imaging protocol: XR of the chest. Views: 2 views. COMPARISON: CR XR CHEST 2V PA LATERAL 08/11/2018 9:59 AM FINDINGS: Lungs: Unremarkable. No consolidation. Pleural spaces: Unremarkable. No pleural effusion. No pneumothorax. Heart/Mediastinum: Unremarkable. No cardiomegaly. Bones/joints: Unremarkable. IMPRESSION: No acute findings. Dictated and Authenticated by: Dena Alexander MD. Ordering:JUAN F Huddleston MD
[2021-07-07 17:27] VITALS: O2SAT 94
--- NOTE | 2021-07-07 17:50 | DI.VRAD_ITS ---
PROCEDURE INFORMATION: Exam: CT Abdomen And Pelvis With Contrast Exam date and time: 07/07/2021 3:45 PM Age: 80 years old Clinical indication: Abdominal pain; Right upper quadrant (ruq); Patient HX: Ruq pain, right flank pain TECHNIQUE: Imaging protocol: Computed tomography of the abdomen and pelvis with contrast. Radiation optimization: All CT scans at this facility use at least one of these dose optimization techniques: automated exposure control; mA and/or kV adjustment per patient size (includes targeted exams where dose is matched to clinical indication); or iterative reconstruction. Contrast material: OMNI-PAQUE 350; Contrast volume: 100 ml; Contrast route: INTRAVENOUS (IV); COMPARISON: CT ABDOMEN PELVIS W 08/31/2018 12:54 PM FINDINGS: Liver: Normal. No mass. Gallbladder and bile ducts: Normal. No calcified stones. No ductal dilation. Pancreas: Normal. No ductal dilation. Spleen: Normal. No splenomegaly. Adrenal glands: Normal. No mass. Kidneys and ureters: The right collecting system has of similar appearance that it did in 2019 with mild dilatation of the collecting system and proximal right ureter. However no ureteral calculus is identified.. 10 mm simple cyst upper pole left kidney . No follow-up imaging recommended . Nonobstructing right renal calculus Stomach and bowel: Diverticulosis of the rectosigmoid. No diverticulitis. Appendix: No evidence of appendicitis. Intraperitoneal space: Unremarkable. No free air. No significant fluid collection. Vasculature: Unremarkable. No abdominal aortic aneurysm. Lymph nodes: Unremarkable. No enlarged lymph nodes. Urinary bladder: Anterior bladder wall measures 23 mm This is nonspecific and may represent inflammation or infection. Neoplastic process and neurogenic bladder are included in the differential. Reproductive: Unremarkable as visualized. Bones/joints: Hemangioma T7 Soft tissues: Unremarkable. IMPRESSION: 1. The right collecting system has of similar appearance that it did in 2019 with mild dilatation of the collecting system and proximal right ureter. However no ureteral calculus is identified.. 2. Anterior bladder wall measures 23 mm This is nonspecific and may represent inflammation or infection. Neoplastic process and neurogenic bladder are included in the differential. Recommend urology consult Dictated and Authenticated by: Yasmeen Corbett MD. Ordering:JUAN F Huddleston MD
[2021-07-07] MEDS: Omnipaque 350 MG/ML 100 ML BTL IJ (17:55)
[2021-07-07 18:12] VITALS: BP 191/80; PULSE 72; RESP 18; O2SAT 92
--- NOTE | 2021-07-07 18:16 | NUR.NOTE ---
Nursing Note: Referral faxed to [facility] Urology for right sided hydronephrosis and pain. Follow up to be determined by Urology. Mildred Lemus
== END 2021-07-07 17:31 | disposition home or self-care (01) ==
PROVIDERS: Physician Assistant; Emergency Provider Registered Nurse Emergency; PCP Internal Medicine
DX: N13.30 Unspecified hydronephrosis (principal); R10.9 Unspecified abdominal pain; R09.02 Hypoxemia; R10.11 Right upper quadrant pain
CPT/HCPCS: 36415; 80053; 83690; 96361; 96374; 96375; 99284; 71046; 74177; 81003; 81015; 85025; J2405; J3010; J3490

== ENCOUNTER 2021-08-14 00:37 | Outpatient (CLI) | payer MEDICARE, OTHER, SELFPAY ==
--- OUTSIDE RECORDS SUMMARY | 2021-08-14 00:40 | XMS_ITS ---
:1940 Author Care Team Providers Name Role Phone DEBBIE STOVALL MD Urologist [phone] PIYUSH LOPEZ MD Primary Care Provider [phone] Allergies Code Code System Name Reaction Severity Status Onset 4337 RxNorm Fentanyl ? ? Active ? 56025 RxNorm Formoterol ? ? Active ? 13443 RxNorm Lisinopril Cough ? Active ? 31266 RxNorm Losartan ? ? Active ? Mometasone ? ? Active ? Furoate Medications Name Status Start Date Stop Date ? ? benzonatate 100 mg capsule Active ? Not a vailable Take 1 capsule twice a day by oral route as needed. budesonide 32 mcg/actuation nasal spray Active ? Not available Take by nasal route. bupropion HCl 150 mg tablet,12 hr sustained-release(smoking dete rrent) Active ? Not available Take 1 tablet twice a day by oral route. celecoxib 200 mg capsule Active ? Not donta ilable Take 1 capsule every day by oral route. cephalexin 500 mg tablet Active ? Not donta ilable Take 1 tablet 3 times a day by oral route. cholecalciferol (vit D3)(bulk) Active ? N ot available cyclobenzaprine 5 mg tablet Active ? Not available Take 1 tablet 3 times a day by oral route. furosemide 20 mg tablet Active ? Not avai lable Take 1 tablet every day by oral route. levothyroxine 50 mcg tablet Active ? Not available Take 1 tablet every day by oral route. loratadine 10 mg tablet Active ? Not avai lable Take 1 tablet every day by oral route. metoprolol succinate ER 100 mg tablet,extended release 24 hr Act lele ? Not available Take 1 tablet every day by oral route. mirtazapine 15 mg tablet Active ? Not donta ilable Take 1 tablet every day by oral route. multivitamin Active ? Not available nitroglycerin 0.4 mg sublingual tablet Active ? Not available Place by sublingual route. oxycodone 5 mg tablet Active ? Not availa ble Take 1 tablet twice a day by oral route. potassium chloride Active ? Not available propranolol 20 mg tablet Active ? Not donta ilable Take 1 tablet twice a day by oral route. verapamil ER 360 mg 24 hr capsule,extended release Active ? Not available Take 1 capsule every day by oral route. Problems Name Status Onset Date Source ? Obesity Active 07/15/2021 ? Anxiety Active 07/15/2021 ? Gastroesophageal Reflux Disease Active 07/15/2021 ? Hydronephrosis Active 07/15/2021 ? Atypical Chest Pain Active 07/15/2021 ? Renal Colic Active 07/15/2021 ? Osteoarthritis of Left Knee Joint Active 07/15/2021 ? Procedures Date Name Performed by ? 07/24/2021 NM, Kidney Scan, W/ Vascular Flow + Xray [facility] Function, Single, W/ Pharma Pob [address] [place], [place] [address] (Work Place) Results Lab Results Date Name Specimen Result Interpretation Description Value Range Status Address ? 07/24/2021 Urinalysis, Urine ? Color Yellow ? ? P _urology: Dipstick, [address] [facility] max Reflex Micro [facility] ? ? Urine ? Appearance Clear ? ? P_uro logy: [address] [facility] ? ? Urine ? Glucose Normal ? ? P_urolog y: [address] [place] [address] ? ? Urine ? Bilirubin Negative ? ? P_ur ology: [address] [place] [address] ? ? Urine ? Ketones Negative ? ? P_urol ogy: [address] [facility] ? ? Urine ? Specific 1.015 ? ? P_urolo gy: [place] [address] [facility] ? ? Urine ? Blood Trace ? ? P_urology: [address] [facility] ? ? Urine ? Ph 5.0 ? ? P_urology: [address] [facility] ? ? Urine ? Protein 2+ ? ? P_urolog y: [address] [place] [address] ? ? Urine ? Urobilinogen 0.2 ? ? P_u rology: [address] [place] [address] ? ? Urine ? Nitrite negative ? ? P_urol ogy: [address] [facility] ? ? Urine ? Leukocyte Negative ? ? P_ur ology: [place] [address] [facility] Past Encounters 07/24/2021 Thoracic Back Pain; Hydronephrosis; Kidn ey Stone; Morbid Obesity Debbie Stovall MD: [address] [place] [address], Ph. Social History Tobacco Smoking Status Former Smoker Vaccine List None recorded. Plan of Care Reminders Provider Appointments None ? ? recorded. Lab None ? ? recorded. Referral None ? ? recorded. Procedures None ? ? recorded. Surgeries None ? ? recorded. Imaging None ? ? recorded. Vitals Height Weight BMI Blood Pressure 165.1 cm 116.12 kg 42.6 kg/m2 185/108 mm[Hg]
--- OUTSIDE RECORDS SUMMARY | 2021-08-14 00:40 | XMS_ITS | Encounter Summary ---
:1940 Author Care Team Providers Name Role Phone Walker Diana MD Primary Care Provider [phone] Brigido Stovall MD Urologist [phone] Reason for Visit Patient stated I had kidney stones Assessment and Plan Assessment Note Await Lasix renogram ([facility]), follow up based on results. Attempt to obtain [address] [facility] [address] If renogram is negative, pursue possible neuropathic or musculoskeletal etiologies for her pain through her PCP, as it is highly unlikely to relate to either the non-obstructive intrarenal calculus or the mild residual right renal pelvic dilation. 1. Thoracic back pain See below. The fact that she w as having significant pain in the ER with a nonobstructive stone, in addition to the nearly daily occurrence, the variability, the location just above the right SI lizandro nt with some anterior radiation all suggest a likely musculoskeletal or neuropathic et iology which will need to be pursued through her PCP. See below. ? urinalysis, dipstick, refl ex micro 2. Hydronephrosis Mild right renal pelvic dilati on, with a markedly improved appearance versus at the time of her stone presenta tion in 2018, despite having not undergone recommended reduction pyeloplasty. This almost certainly represents mild residual pyelocaliectasis from prior chronic insi gnificant obstruction, rather than ongoing obstruction. See below. Await Lasix srinivasa gram. ? NM, kidney scan, w/ vascul ar flow + function, single, w/ pharma intervention 3. Kidney stone 4 mm right corticomedullary in trarenal calculus, unsure if new or old, could be in the nephrostomy tract or a r emnant from the PCNL which may be mucosalized. Alternatively, could be new (will attempt to obtain 2019 CT referenced on the current CT). Given rapid stone re currence previously despite a relatively unrevealing metabolic evaluation (in ret rospect likely related to infection), I had recommended Nephrology referral. I am no t sure that that ever happened. We can reconsider that moving forward. The shahram rodriguez was not in an obstructive position when she was in the ER with her severe pain. Her pain is intermittent and could conceivably relate either to intermittent intrusion of the stone at the UPJ, or to a partial ureteropelvic junction obstruction (alth ough I must admit the appearance of her renal pelvis is dramatically better than what I would have expected without the reduction pyeloplasty having been performed, and t he mild dilation is very likely residual pyelocaliectasis rather than current obs truction). A Lasix renogram may be more definitive, although the reduced right r enal function relative to the left may confuse matters. We could consider endos copic removal of the stone, but no guarantees would be given that the pain relates to the stone. In fact, I highly doubt it does. She likely has a musculoskeletal or neur opathic etiology which should be thoroughly evaluated through her PCP (if not alread y) before surgery would be considered. 4. Morbid obesity BMI 43, complicating care, cayden ging and management. Discussion Note: None recorded.Patient educational handouts: No information available. Plan of Care Reminders Provider Appointments None recorded. ? ? Lab Urinalysis, P_uro logy Dipstick, Reflex Micro 07/24/2021 Referral None recorded. ? ? Procedures None recorded. ? ? Surgeries None recorded. ? ? Imaging NM, Kidney [facility] X ray Scan, W/ Vascular Flow + 07/24/2021 Function, Single, W/ Pharma Intervention Medications Name Start Date ? ? benzonatate 100 mg capsule ? Take 1 capsule twice a day by oral route as needed. budesonide 32 mcg/actuation nasal spray ? Take by nasal route. bupropion HCl 150 mg tablet,12 hr sustained-release(sm oking deterrent) ? Take 1 tablet twice a day by oral route. celecoxib 200 mg capsule ? Take 1 capsule every day by oral route. cephalexin 500 mg tablet ? Take 1 tablet 3 times a day by oral route. cholecalciferol (vit D3)(bulk) ? cyclobenzaprine 5 mg tablet ? Take 1 tablet 3 times a day by oral route. furosemide 20 mg tablet ? Take 1 tablet every day by oral route. levothyroxine 50 mcg tablet ? Take 1 tablet every day by oral route. loratadine 10 mg tablet ? Take 1 tablet every day by oral route. metoprolol succinate ER 100 mg tablet,extended release 24 hr ? Take 1 tablet every day by oral route. mirtazapine 15 mg tablet ? Take 1 tablet every day by oral route. multivitamin ? nitroglycerin 0.4 mg sublingual tablet ? Place by sublingual route. oxycodone 5 mg tablet ? Take 1 tablet twice a day by oral route. potassium chloride ? propranolol 20 mg tablet ? Take 1 tablet twice a day by oral route. verapamil ER 360 mg 24 hr capsule,extended release ? Take 1 capsule every day by oral route. Medications Administered None recorded. Vitals Height Weight BMI Blood Pressure 5 ft 5 in 256 lbs 42.6 kg/m2 185/108 mm[Hg] Results Lab Results Date Name Specimen Result Interpretation Description Value Range Status Address ? 07/24/2021 Urinalysis, Urine ? Color Yellow ? ? P _urology: Dipstick, [address] [facility] max Reflex Micro [facility] ? ? Urine ? Appearance Clear ? ? P_uro logy: [address] [place] [address] ? ? Urine ? Glucose Normal ? ? P_urolog y: [address] [place] [address] ? ? Urine ? Bilirubin Negative ? ? P_ur ology: [address] [place] [address] ? ? Urine ? Ketones Negative ? ? P_urol ogy: [address] [place] [address] ? ? Urine ? Specific 1.015 ? ? P_urolo gy: [place] [address] [facility] ? ? Urine ? Blood Trace ? ? P_urology: [address] [place] [address] ? ? Urine ? Ph 5.0 ? ? P_urology: [address] [place] [address] ? ? Urine ? Protein 2+ ? ? P_urolog y: [address] [place] [address] ? ? Urine ? Urobilinogen 0.2 ? ? P_u rology: [address] [place] [address] ? ? Urine ? Nitrite negative ? ? P_urol ogy: [address] [place] [address] ? ? Urine ? Leukocyte Negative ? ? P_ur ology: [place] [address] [facility] Allergies Code Code System Name Reaction Severity Onset 0557 RxNorm Fentanyl ? ? ? 87308 RxNorm Formoterol ? ? ? 41085 RxNorm Lisinopril Cough ? ? 76203 RxNorm Losartan ? ? ? Mometasone Furoate ? ? ? Problems Name Status Onset Date Source ? Obesity Active 07/15/2021 ? Anxiety Active 07/15/2021 ? Gastroesophageal Reflux Disease Active 07/15/2021 ? Hydronephrosis Active 07/15/2021 ? Atypical Chest Pain Active 07/15/2021 ? Renal Colic Active 07/15/2021 ? Osteoarthritis of Left Knee Joint Active 07/15/2021 ? Procedures Date Name Performed by ? 07/24/2021 NM, Kidney Scan, W/ Vascular Flow + Xray [facility] Function, Single, W/ Pharma Pob [address] [place], [place] [address] (Work Place) Vaccine List None recorded. Social History Tobacco Smoking Status Former Smoker How many children do you have? 3 Has tobacco cessation counseling been provided? N What is your level of alcohol consumption? Occasional Functional Status Unknown. Past Encounters 07/24/2021 Thoracic Back Pain; Hydronephrosis; Kidn ey Stone; Morbid Obesity Brigido Stovall MD: [address] [place] [address], Ph. History of Present Illness Note: <div>Mrs. Lyon is a pleasant self-referred patient known to me from my [facility] practice (last seen 03/19). She was recently seen in the ER at [facility] on 07/07/21, with some right-sided flank or abdominal pain. CT imaging was read as showing mild stable right hydronephrosis unchanged vs 2019 CT. with a 4 mm right corticomedullary intrarenal calculus.</div><div>
</div><div>She was treated for a UTI which her urine was not suggestive of (pH 5.5, trace protein, trace blood, 0-2 RBC's, no WBC's, nitrite negative ( although I do not have a final culture result but it is not clear that one was done given the urinalysis findings). She was referred to [facility] but refused, stating that she would prefer to come see me in [place].</div><div>
</div><div>Her daughter says she has been doing well since her PCNL with no bleeding or symptomatic UTI's.</div><div>
</div><div>Back when I last saw her, she had been referred to [facility] for right PCNL and consideration of pyeloplasty due to a massively dilated renal pelvis from recurrent ureteral obstructions. She had a large stone burden, 2+ centimeters in the right kidney and 2 cm in the right upper ureter. I had stented her before referral. She saw Dr. Candelaria in consideration of robotic-assisted reduction pyeloplasty, but he recommended against. Dr. Hobson proceeded with a right PCNL. Her stent was removed 04/13/18. A diuretic renogram in 03/19 with the stent in showed 27% function on the right. The plan was for a follow up US in a year. I do not know if the currently seen 4 mm peripheral calculus was leftover from that surgery or is new (don't know if there was a postop CT, US or KUB would likely miss a 4 mm stone given her BMI).</div><div>
</div><div>I do not have the referenced 2019 CT to see if that stone is new or was present then.</div><div>
</div><div>Dr. Hobson's clinic note says she declined an updated 24 hour urine metabolic evaluation. They don't recall that and she says if offered she would have done it. She did one for me. I recall it being someone unremarkable such that I was surprised when herstones rapidly recurred. As a result I recommended Nephrology referral to assess for something we might have missed. I also believe that her stone composition was MAP (c/w Proteus infection).</div><div>
</div><div>She endorses intermittent pain which she localizes justabove the right sacroiliac joint. It occurs once in a while, sharp, into my right groin." And she said to happens daily. She denies fevers or chills or gross hematuria.</div>&lt ;div>
</div><div>She says she is drinking a lot of water. She still drinks 1 coke a day. She drinks no coffee.</div><div>
</div><div>She voids 4-5 times daily and 3 times at night. I recall her having had some baseline OAB symptomatology exacerbated with her stent. She says she leaks with a cough or sneeze now.</div><div>
</div><div>Medication list and problem list are updated.</div>Review of Systems: ROS as noted in the HPI Review of Systems None recorded. Physical Exam ? Notes: <div>Pleasant elderly woman accompanied by her and daughter, no distress. She is a little em otionally labile.

Abdomen remains protuberant, soft and non-te nder. No CVA tenderness.</div>
--- NOTE | 2021-08-14 13:00 | DI.NM_ITS ---
Exam(s) NM DTPA RENOGRAM W LASIX CLINICAL HISTORY: HYDRONEPHROSIS, N13.30. COMPARISON: NM MPI RESTING AND STRESS from 04/06/2017 EXAMINATION: Dose: 11 mCi Tc-99m MAG3 Images: According to protocol. Thirty-fivemg Lasix was administered after peak uptake in the renal c ortex at approximately 13 min. FINDINGS: Time to peak: Right: 28 min Left: 7 min Split renal function: Right: 31.5 % Left: 68.5 % There is washout of the left kidney without evidence of obstruction. Time to max is 7 minutes. There is delayed washout of the right renal collecting system. There is a T 1/2 of greater than 20 m inutes. The findings consistent with obstruction. IMPRESSION: Findings of obstruction of the right renal collecting system.
[2021-08-14] MEDS: Furosemide 40 MG/4 ML VIAL 35 MG IVP (15:49)
== END 2021-08-14 00:57 ==
PROVIDERS: PCP Internal Medicine; Visit Provider Urology
DX: N13.30 Unspecified hydronephrosis (principal); N28.89 Other specified disorders of kidney and ureter
CPT/HCPCS: 78708; J1940

== ENCOUNTER 2022-01-13 11:59 | Inpatient (IN) | payer MEDICARE, OTHER, SELFPAY ==
[2022-01-13] VITALS (21 sets, daily range): BP systolic 134–175; BP diastolic 68–93; PULSE 61–73; RESP 13–27; TEMP 36.1–36.3; O2SAT 89–96
--- NOTE | 2022-01-13 12:00 | RT.EKG_ITS ---
APPROVED REPORT Exam: Resting ECG Reason for Exam: dizzy Patient Location: E HR:62 bpm ECG Measurements Heart Rate 62 AXIS RI 257 P 24 QRSd 105 QRS -26 QT 448 T 128 QTc 455 Conclusion Sinus rhythm...normal P axis, V-rate 60- 99 Prolonged RI interval...RI >220, V-rate 50- 90 LVH with secondary repolarization abnormality...multi-LVH criteria, abnrm ST-T Phsician: no stemi, unchanged from prior
--- NOTE | 2022-01-13 13:15 | DI.CT_ITS ---
Exam(s) CT HEAD WO EXAM: CT HEAD WO CLINICAL HISTORY: Headache, dizziness, right-sided visual changes. TECHNIQUE: Imaging Protocol: Axial computed tomography images with coronal and sagittal reformatted images were created and reviewed COMPARISON: No exams were available for comparison FINDINGS: There are no skull fractures nor fluid in the visualized paranasal sinuses. There is no evidence of intracranial hemorrhage, mass effect, or shift of midline structures. There are no extra-axial fluid collections. The ventricles are not enlarged or shifted and there is no blo od within the ventricular system nor within the basal cisterns. There are symmetrical bilateral 10 x 10 millimeter a hypodensities which are probably developmental s ub lenticular cysts. No evidence of acute territorial infarction. Small midline falx level lipoma noted. IMPRESSION: No acute intracranial findings on this noninfused CT scan of the brain. Bilateral symmetrical 10 x 10 millimeter hypodensities which are probably developmental sub lenticula r cysts. RADIATION DOSE DELIVERED: 653.92mGy.cm Total DLP DATA REPOSITORY: All CT scans at this facility are submitted to the National Radiology Data Registry (NRDR) Dose Index Registry (DIR) with the [employer] ([employer]). RADIATION OPTIMIZATION: All CT scans at this facility use at least one of these dose optimization te chniques: automated exposure control; mA and/or kV adjustment per patient size (includes targeted exa ms where dose is matched to clinical indication); or iterative reconstruction.
[2022-01-13 13:40] LABS: Abs Immature Grans 0.02 10^3/uL (0.0-0.06); Absolute Basophil Count 0.07 10^3/uL (0.0-0.2); Absolute Eosinophil Count 0.16 10^3/uL (0.0-0.7); Absolute Lymphocyte Count 2.25 10^3/uL (1.2-3.4); Absolute Monocyte Count 0.43 10^3/uL (0.1-0.8); Absolute Neutrophil Count 6.79 10^3/uL (1.2-6.7); Basophils % 0.7; Eosinophils % 1.6; HCT 54.3 % (36.0-46.0); HGB 16.8 g/dL (11.2-15.7); Immature Grans % 0.2; Lymphocytes % 23.1; MCH 28.4 pg (27.0-33.0); MCHC 30.9 % (32.0-36.0); MCV 92 fL (80-95); MPV 11.4 fL (8.0-11.0); Monocytes % 4.4; Platelet Count 307 10^3/uL (130-400); RBC 5.92 10^6/uL (3.93-5.22); RDW 13.9 % (11.7-14.6); RDW-SD 47.8 fL; WBC 9.72 10^3/uL (4.4-10.8)
[2022-01-13 13:57] LABS: ALT 26 U/L (14-59); AST 18 U/L (15-37); Albumin 3.6 g/dL (3.4-5.0); Alkaline Phosphatase 133 U/L (46-116); Anion Gap 3.7 mmol/L (3-11); BUN 24 mg/dL (7-18); Bilirubin, Total 0.4 mg/dL (0.2-1.0); CO2 35.3 mmol/L (21.0-32.0); CREATININE 1.1 mg/dL (0.55-1.02); Calcium 9.5 mg/dL (8.5-10.1); Chloride 98 mmol/L (98-107); Estimated GFR 51.11 (mL/min/1.73m2); Glucose 140 mg/dL (74-106); Magnesium 1.9 mg/dL (1.8-2.4); Potassium 4.4 mmol/L (3.5-5.1); Sodium 137 mmol/L (136-145); Total Protein 9.6 g/dL (6.4-8.2); Troponin I < 50 ng/L (<or=60)
--- NOTE | 2022-01-13 14:47 | ED.GENADUL_ITS ---
Discharge Plan Disposition Patient Disposition: [facility] INPATIENT Condition: Serious Discharge Details Clinical Impression: New cerebellar infarct Admit Date/Time: 01/13/22 17:50 Admit Provider: Juarez Taveras Attending Provider: Juarez Taveras Primary Care Provider: Walker Diana ED Provider: Jacqueline Montelongo Discharge Data Discharge Date/Time-TO BE ENTERED AT DEPARTURE: 01/13/22 18:40 Medical Decision Making <Anupam Castano NP - Last Filed: 01/14/22 13:38> Patient presenting to the emergency department for chief complaint of headache, dizziness, and right peripheral visual disturbances. She states that 3 days ago she started having onset of symptoms that are not going away. Family reported symptoms review of systems otherwise negative. Patient does have significant risk factors of family history of stroke, she is obese and HX of sleep apnea, COPD, psychiatric history of anxiety, depression, migraine, electrolyte abnormalities, neuropathy, hypertension. Physical exam is unremarkable for any acute neurological findings. She does state that while she has been here she has seen arrows go up the wall but at home she had seen children, and is crawling on her plants, and other shadows. She endorses these are only out of the right peripheral vision and not seen anywhere else. We will plan on checking labs including starting with CT imaging for concern of possible atypical CVA. Pending results we will give acetaminophen to see if this is also a presentation of an atypical headache. Please see physician interpretation for full interpretation of EKG but patient appears to be in sinus rhythm with no findings to suggest STEMI noted. Reviewed labs that show elevation of RBCs hemoglobin and hematocrit which have been present in the past but slightly more increased today, carbon dioxide level of 35.3, BUN of 24 with creatinine 1.1 and GFR 51 which is similar to the past. Patient has slight elevation of glucose at 140 otherwise no electrolyte abnormalities are noted, negative troponin. Urinalysis does show that patient is positive for nitrites and leukocyte Estrace with 5-10 white cells. Lab is stating that urine is contaminated but I am question being a possible atypical UTI so we will still start patient on antibiotics. UDS is negative. CT imaging reviewed and shows no acute findings on CT imaging but there does appear to be bilateral cyst. Discussed patient case with radiologist and plan of care now to include MRI imaging to further evaluate for atypical CVA. Imaging Data Radiologic Study: Attestation: I personally reviewed and interpreted this imaging study as follows: Imaging: CT Scan Radiologist's impression: FINDINGS: There are no skull fractures nor fluid in the visualized paranasal sinuses. There is no evidence of intracranial hemorrhage, mass effect, or shift of midline structures. There are no extra-axial fluid collections. The ventricles are not enlarged or shifted and there is no blood within the ventricular system nor within the basal cisterns. 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 No evidence of acute territorial infarction. Small midline falx level lipoma n oted. IMPRESSION: No acute intracranial findings on this noninfused CT scan of the brain. 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 Lab Data Lab results reviewed: Yes I reviewed the patient's lab results. <Jacqueline Montelongo NP - Last Filed: 01/14/22 00:35> Patient presenting to the emergency department for chief complaint of headache, dizziness, and right peripheral visual disturbances. She states that 3 days ago she started having onset of symptoms that are not going away. Family reported symptoms review of systems otherwise negative. Patient does have significant risk factors of family history of stroke, she is obese and HX of sleep apnea, COPD, psychiatric history of anxiety, depression, migraine, electrolyte abnormalities, neuropathy, hypertension. Physical exam is unremarkable for any acute neurological findings. She does state that while she has been here she has seen arrows go up the wall but at home she had seen children, and is crawling on her plants, and other shadows. She endorses these are only out of the right peripheral vision and not seen anywhere else. We will plan on checking labs including starting with CT imaging for concern of possible atypical CVA. Pending results we will give acetaminophen to see if this is also a presentation of an atypical headache. Please see physician interpretation for full interpretation of EKG but patient appears to be in sinus rhythm with no findings to suggest STEMI noted. Reviewed labs that show elevation of RBCs hemoglobin and hematocrit which have been present in the past but slightly more increased today, carbon dioxide level of 35.3, BUN of 24 with creatinine 1.1 and GFR 51 which is similar to the past. Patient has slight elevation of glucose at 140 otherwise no electrolyte abnormalities are noted, negative troponin. Urinalysis does show that patient is positive for nitrites and leukocyte Estrace with 5-10 white cells. Lab is stating that urine is contaminated but I am question being a possible atypical UTI so we will still start patient on antibiotics. UDS is negative. CT imaging reviewed and shows no acute findings on CT imaging but there does appear to be bilateral cyst. Discussed patient case with radiologist and plan of care now to include MRI imaging to further evaluate for atypical CVA. 1602: SJ: Care assumed from provider (Cresencio Castano NP) Please see their initial HPI, PE, and documentation. Discussed patient details and case and pending workup and disposition. Patient is hemodynamically stable, and alert and oriented. At the time of signout pending MRI of the brain. 1649: Spoke with radiologist regarding MRI result he does report acute ischemic strokes in the cerebellum largest on the right. Please see the official report. 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 Images pushed to [facility]. Discussed results with patient and family who verbalized understanding. Aspirin 243 mg ordered, patient did take an 81 mg this am with her normal meds. 1658: [facility] Transfer center contacted, 1725: Spoke with Dr. Vela with [facility] neurology regarding MRI results he recommends an echocardiogram, giving patient her regular blood pressure medications to bring her blood pressure down since been over 48 hours he also recommends a CTA of the head and an event monitor and admission. He does not accept patient for transfer due to patient not being a candidate for any acute intervention. Will contact hospitalist. 1732: Spoke with Dr. Taveras regarding patient case and details he agrees to accept patient for admission he asked that we order the CTA of the head and neck done here in the ER. He will place orders. CTA ordered. This text was generated using [employer] dictation system, please disregard any oddities of phrase or misspellings. Medical Records Medical records reviewed: Yes I reviewed the patient's medical records. Imaging Data Radiologic Study #2: Imaging: MRI Radiologist's impression: EXAM: MR BRAIN WO CLINICAL HISTORY: Headache, visual disturbance, dizzy TECHNIQUE: Multiplanar multisequence MRI of the brain was performed. COMPARISON: CT CT HEAD WO from 01/13/2022 FINDINGS: CEREBRAL PARENCHYMA: There is no evidence of intracranial hemorrhage, mass effect, or shift of midli ne structures. There are no extra-axial fluid collections. Ventricles are not enlarged or shifted. 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 There are 3 areas of restricted diffusion in the cerebellar hemispheres. The largest on the right side, measuring 8 x 4 millimeters, consistent with acute ischemic event. In addition, there are few other tiny foci of restricted diffusion in both cerebellar hemispheres, both inferiorly and superiorly, both in the territory of the inferior and superior cerebellar arteries.. No large territorial infarct. No restricted diffusion evident in the rodolfo, midbrain, and thalami. Mild increased signal seen in the right-side of the rodolfo on FLAIR imaging as well as in the periventricular periatrial white matter bilaterally but without evidence of supra tentorial restricted diffusion. Expected flow voids are noted. Also no evidence of aneurysm nor obvious vascular malformation. PITUITARY GLAND: No mass nor parasellar abnormality. No obvious abnormality in the cavernous sinuses. PARANASAL SINUSES: The visualized paranasal sinuses appear unremarkable. No obvious finding ORBITS: No obvious findings. IMPRESSION: There are multiple foci of restricted diffusion in both cerebellar hemispheres, largest being in the mid level of the right cerebellar hemisphere, measuring 8 x 4 millimeters, exhibiting restricted diffusion and consistent with nonhemorrhagic ischemic event. Cannot exclude possibility of emboli given the multiplicity these foci of restricted diffusion in both cerebellar hemispheres. Incidentally noted are bilateral developmental sub lenticular cysts, as seen on the recent CT scan. Lab Data Labs: Laboratory Tests Range/Units 01/13/22 01/13/22 01/13/22 13:18 13:18 14:54 WBC (4.4-10.8) 10^3/uL 9.72 RBC (3.93-5.22) 10^6/uL 5.92 H Hgb (11.2-15.7) g/dL 16.8 H Hct (36.0-46.0) % 54.3 H MCV (80-95) fL 92 MCH (27.0-33.0) pg 28.4 MCHC (32.0-36.0) % 30.9 L RDW (11.7-14.6) % 13.9 Plt Count (130-400) 10^3/uL 307 MPV (8.0-11.0) fL 11.4 H Immature Gran % 0.2 Neutrophils % 70.0 Lymphocytes % 23.1 Monocytes % 4.4 Eosinophils % 1.6 Basophils % 0.7 Nucleated RBC % (0.0-0.3) % 0.0 Absolute Neutrophils (1.2-6.7) 10^3/uL 6.79 H Absolute Lymphocytes (1.2-3.4) 10^3/uL 2.25 Absolute Monocytes (0.1-0.8) 10^3/uL 0.43 Absolute Eosinophils (0.0-0.7) 10^3/uL 0.16 Absolute Basophils (0.0-0.2) 10^3/uL 0.07 Sodium (136-145) mmol/L 137 Potassium (3.5-5.1) mmol/L 4.4 Chloride (98-107) mmol/L 98 Carbon Dioxide (21.0-32.0) mmol/L 35.3 H Anion Gap (3-11) mmol/L 3.7 BUN (7-18) mg/dL 24 H Creatinine (0.55-1.02) mg/dL 1.1 H Est GFR (CKD-EPI 2020) (mL/min/1.73m2) 51.11 Glucose (74-106) mg/dL 140 H Calcium (8.5-10.1) mg/dL 9.5 Magnesium (1.8-2.4) mg/dL 1.9 Total Bilirubin (0.2-1.0) mg/dL 0.4 AST (15-37) U/L 18 ALT (14-59) U/L 26 Alkaline Phosphatase (46-116) U/L 133 H Troponin I (<or=60) ng/L < 50 Total Protein (6.4-8.2) g/dL 9.6 H Albumin (3.4-5.0) g/dL 3.6 Urine Color (Yellow) Urine Clarity (Clear) Urine pH (5-8) Ur Specific [place] (1.005-1.025) Urine Protein (Negative) mg/dL Urine Ketones (Negative) mg/dL Urine Blood (Negative) Urine Nitrite (Negative) Urine Bilirubin (Negative) Urine Urobilinogen (Up TO 0.2) EU/dL Ur Leukocyte Esterase (Negative) Urine RBC (0-2) HPF Urine WBC (0-5) HPF Ur Epithelial Cells (Negative) HPF Urine Crystals (Negative) HPF Urine Bacteria (Negative) HPF Urine Casts (Negative) LPF Urine Mucus (Negative) Ur Culture Indicated? Urine Glucose (Negative) mg/dL Urine Opiates Screen (Negative) Negative Urine Methadone Screen (Negative) Negative Ur Barbiturates Screen (Negative) Negative Ur Tricyclics Screen (Negative) Negative Ur Amphetamines Screen (Negative) Negative U Benzodiazepines Scrn (Negative) Negative Urine Cocaine Screen (Negative) Negative Ur THC Screen (Negative) Negative COVID-19 Source SARS-CoV-2 (PCR) (Negative) Range/Units 01/13/22 01/13/22 14:54 17:07 WBC (4.4-10.8) 10^3/uL RBC (3.93-5.22) 10^6/uL Hgb (11.2-15.7) g/dL Hct (36.0-46.0) % MCV (80-95) fL MCH (27.0-33.0) pg MCHC (32.0-36.0) % RDW (11.7-14.6) % Plt Count (130-400) 10^3/uL MPV (8.0-11.0) fL Immature Gran % Neutrophils % Lymphocytes % Monocytes % Eosinophils % Basophils % Nucleated RBC % (0.0-0.3) % Absolute Neutrophils (1.2-6.7) 10^3/uL Absolute Lymphocytes (1.2-3.4) 10^3/uL Absolute Monocytes (0.1-0.8) 10^3/uL Absolute Eosinophils (0.0-0.7) 10^3/uL Absolute Basophils (0.0-0.2) 10^3/uL Sodium (136-145) mmol/L Potassium (3.5-5.1) mmol/L Chloride (98-107) mmol/L Carbon Dioxide (21.0-32.0) mmol/L Anion Gap (3-11) mmol/L BUN (7-18) mg/dL Creatinine (0.55-1.02) mg/dL Est GFR (CKD-EPI 2020) (mL/min/1.73m2) Glucose (74-106) mg/dL Calcium (8.5-10.1) mg/dL Magnesium (1.8-2.4) mg/dL Total Bilirubin (0.2-1.0) mg/dL AST (15-37) U/L ALT (14-59) U/L Alkaline Phosphatase (46-116) U/L Troponin I (<or=60) ng/L Total Protein (6.4-8.2) g/dL Albumin (3.4-5.0) g/dL Urine Color (Yellow) Yellow Urine Clarity (Clear) Sl Cloudy Urine pH (5-8) 6.0 Ur Specific [place] (1.005-1.025) 1.015 Urine Protein (Negative) mg/dL Negative Urine Ketones (Negative) mg/dL Negative Urine Blood (Negative) Negative Urine Nitrite (Negative) Positive H Urine Bilirubin (Negative) Negative Urine Urobilinogen (Up TO 0.2) EU/dL 0.2 Ur Leukocyte Esterase (Negative) Small H Urine RBC (0-2) HPF Negative Urine WBC (0-5) HPF 5-10 Ur Epithelial Cells (Negative) HPF Many Urine Crystals (Negative) HPF Negative Urine Bacteria (Negative) HPF Moderate Urine Casts (Negative) LPF Negative Urine Mucus (Negative) Negative Ur Culture Indicated? No/Sq. Contamination Urine Glucose (Negative) mg/dL Negative Urine Opiates Screen (Negative) Urine Methadone Screen (Negative) Ur Barbiturates Screen (Negative) Ur Tricyclics Screen (Negative) Ur Amphetamines Screen (Negative) U Benzodiazepines Scrn (Negative) Urine Cocaine Screen (Negative) Ur THC Screen (Negative) COVID-19 Source Nasal/Nares SARS-CoV-2 (PCR) (Negative) Negative <Paul Mitchell MD - Last Filed: 01/13/22 18:33> Medical Records Medical records reviewed: Yes I reviewed the patient's medical records. Medical records narrative: Attending note: Patient seen, examined and discussed with Ms. Cabrera. I agree with her assessment and plan including consultation with neurology prior to admission. HPI <Anupam Castano NP - Last Filed: 01/14/22 13:38> General Mode of arrival: ambulatory . Date/Time Provider Initiated Documentation: 01/13/22 12:28 . Limitations to Documentation: no limitations . Information obtained by: patient, family, RN notes reviewed and old records reviewed . History of Present Illness 81 year old F presents to the emergency department with the chief complaint of Dizziness, headache, visual disturbance, described as mild, with intensity rated at 3. Quality is described as aching, and is localized to the head. Patient reports no radiation. Patient started experiencing this day(s) (3) and it has been constant. No relieving factors improve symptom(s), No exacerbating factors reported . Patient notes no other symptoms.. Patient did receive the following treatments prior to arrival, none Related Data Home Medications Medication Instructions Recorded Confirmed Daily Value (multivitamin) 1 ea PO DAILY 04/08/14 01/13/22 furosemide 20 mg tablet 20 mg PO DAILY 04/08/14 01/13/22 levothyroxine 50 mcg tablet 50 mcg PO DAILY 04/08/14 01/13/22 nitroglycerin 0.4 mg sublingual 0.4 mg sublingual Q5 MIN PRN X3 04/06/17 01/13/22 tablet (Nitrostat) PRN ##1 pantoprazole 40 mg tablet,delayed 40 mg PO BID@ ##60 04/06/17 01/13/22 release verapamil 360 mg 24 hr 360 mg PO .12 NOON 01/16/18 01/13/22 capsule,extended release cholecalciferol (vitamin D3) 25 1,000 unit PO DAILY 05/08/18 01/13/22 mcg (1,000 unit) capsule mirtazapine 15 mg tablet 15 mg PO DAILY 08/22/18 01/13/22 potassium chloride 10 mEq 10 meq PO DAILY 08/31/18 01/13/22 tablet,extended release benzonatate 100 mg capsule 100 mg PO BID PRN 07/30/20 01/13/22 budesonide 32 mcg/actuation nasal 1 spray intranasal DAILY 07/30/20 01/13/22 spray cyclobenzaprine 5 mg tablet 5 mg PO QHS 07/30/20 01/13/22 propranolol 20 mg tablet 20 mg PO BID 07/30/20 01/13/22 spironolactone 25 mg tablet 25 mg PO DAILY 01/13/22 01/13/22 Previous Rx's Medication Instructions Recorded nitroglycerin 0.4 mg sublingual 0.4 mg sublingual Q5 MIN PRN X3 04/06/17 tablet (Nitrostat) PRN ##1 pantoprazole 40 mg tablet,delayed 40 mg PO BID@ ##60 04/06/17 release Allergies Allergy/AdvReac Type Severity Reaction Status Date / Time losartan Allergy Intermediate Verified 01/13/22 12:07 formoterol fumarate AdvReac Severe severe Verified 01/13/22 12:07 [From Dulera] depression lisinopril AdvReac Severe cough Verified 01/13/22 12:07 mometasone furoate AdvReac Severe severe Verified 01/13/22 12:07 [From Dulera] depression fentanyl AdvReac Intermediate Other (See Verified 01/13/22 12:07 Comment) General Stated Complaint: Dizzy/Sync PEDRO: 3 Review of Systems <Anupam Castano NP - Last Filed: 01/14/22 13:38> Constitutional Constitutional: Denies chills, Denies fever(s), Reports headache(s) and Denies malaise Eyes Eyes: Reports as per HPI, Denies blurry vision, Denies change in vision, Denies diplopia, Denies loss of peripheral vision, Denies loss of vision, Reports other visual disturbances and Denies eye pain ENT Ears, Nose, Mouth, and Throat: Denies abnormal hearing, Reports dizziness, Reports headache(s) and Denies neck pain Cardiovascular Cardiovascular: Denies chest pain, Denies syncope and Denies dyspnea Respiratory Respiratory: Denies cough and Denies dyspnea Gastrointestinal Gastrointestinal: Denies abdominal pain, Denies nausea and Denies vomiting Genitourinary Genitourinary: Reports system reviewed and no additional complaints, except as documented Musculoskeletal Musculoskeletal: Denies abnormal gait, Denies back pain and Denies neck pain Integumentary/Breasts Skin/Breast: Denies rash Neurologic Neurologic: Reports as per HPI, Denies abnormal hearing, Denies abnormal movements, Denies abnormal speech, Denies abnormal gait, Denies behavioral changes, Denies confusion, Reports dizziness, Denies syncope, Reports headache(s), Denies localized weakness, Denies loss of vision, Reports other visual disturbances, Denies convulsions, Denies sensory deficit and Denies paresthesias Psychiatric Psychiatric: Reports anxiety, Denies behavioral changes and Denies confusion PENDING SALE TO [facility] <Anupam Castano NP - Last Filed: 01/14/22 13:38> All Active Problems Vertebral artery stenosis/occlusion with infarction (Acute) Cerebellar stroke (Acute) Discharge planning issues (Acute) UTI (urinary tract infection) (Acute) New cerebellar infarct (Acute) Primary osteoarthritis of left knee (Chronic) Injected: 02/01/2019 S/P debridement (Acute) 08/31/18. Incision of debridement of SQ abscess of umbilical port site. 09/18/18 dressing removed small amount superficial debridement, wound irrigated and redressed diflucan for yeast Lesion of endometrium (Acute) Thickened endometrial stripe in a postmenopausal female. No history of abnormal uterine bleeding. Incisional abscess (Acute) Atypical chest pain (Acute) GERD with esophagitis (Acute) Anxiety (Acute) Obesity, Class III, BMI 40-49.9 (morbid obesity) (Acute) Increased endometrial stripe thickness (Acute 06/20/17) Incidental finding at the time of a pelvic CT scan for hydronephrosis in 2017. [place] [facility] [place]. No hx of PMB. Expectant management. H/O esophagogastroduodenoscopy (Chronic ~06/06/18) Dysphagia (Acute) Hiatal hernia with GERD and esophagitis (Acute) Hydrosalpinx (Chronic) 01/2017 left adnexa cystic lesion measuring 72 x 17 x 62 mm 06/24/17 pelvic ultrasound left hydrosalpinx 73 x 36 x 69 mm with several loculations. Endometrial stripe is 10 mm. 01/05/18 Pelvic u/s L adnexal cyst: [id number]. 08/11/2018 Pelvic u/s L adnexal cyst [id number]. 2 internal septations. Thick walled. ES 14mm. 08/24/18. Laparoscopic bilateral BSO. Premliminary path: benign, [place] (obstructive sleep apnea) (Chronic) Essential tremor (Chronic) Anxiety (Chronic) Depression (Chronic) Hyperlipidemia (Chronic) Hypothyroidism (Chronic) History of skin cancer (Chronic) COPD (chronic obstructive pulmonary disease) (Acute) Rosacea (Chronic) Hypertension (Chronic) Vitamin D deficiency (Chronic) Dysphagia (Acute) Flank pain (Acute) Obesity (BMI 35.0-39.9 without comorbidity) (Acute) Neuropathy (Acute) Chronic cough (Acute) Kidney stones (Chronic) Bradycardia (Acute) Hypokalemia (Acute) Hypomagnesemia (Acute) Balance problem (Acute) Glucose intolerance (Acute) History of kidney surgery (Acute) Medical History Abdominal pain, epigastric NAOMIE positive Chronic diarrhea Chronic fatigue and malaise Encounter for counseling Esophagitis Facial flushing Floaters in visual field Headache History of prediabetes Hydronephrosis Irritable bowel syndrome with diarrhea Knee pain, left Menopause Osteoarthritis Osteoarthritis of left knee Polyclonal gammopathy Seasonal allergies Sleep disturbances Urinary incontinence Surgical History Hx of cataract surgery Hx of lithotripsy Family History Other Heart disease Social History Smoking/Tobacco Use Status: Former Tobacco Use Smoking risk assessment performed?: Yes Alcohol Intake: current Alcohol Intake frequency: other Details: MONTHLY OR LESS Drug use: Never Substance use type: does not use Number of Children: 3 Current gender identity: female Seatbelt use: always Do you feel safe at home: Yes Do you feel safe in your relationship?: Yes Exam <Anupam Castano NP - Last Filed: 01/14/22 13:38> Const General: cooperative, healthy appearing, no acute distress and well groomed Orientation: alert, awake and oriented x3 HENMT Head: normal to inspection Ears: hearing grossly normal bilaterally and TM's normal bilaterally Mouth: oral mucosae normal and moist mucous membranes Throat: posterior oropharynx normal Eyes Visual Woo: normal visual woo by confrontation Alignment and Position: alignment normal Periorbital: periorbital findings normal Eyelids: eyelids normal Sclera: sclerae normal Pupils: PERRL EOM: EOM intact bilaterally and No nystagmus Neck Neck: normal visual inspection, full ROM, no lymphadenopathy and no meningeal signs Resp Effort & Inspection: normal respiratory effort and able to speak in complete sentences Auscultation: clear to auscultation bilaterally Cardio Rate: regular rate Rhythm: regular rhythm Heart Sounds: S1 normal and S2 normal Neuro General: patient alert, patient awake, patient oriented x3, gait normal, tone n ormal, moves all extremities, CN's II-XI intact bilaterally and not confused Cranial Nerves: no nystagmus Cognition: normal cognition Speech: speech normal Motor: muscle tone normal throughout, strength 5/5 throughout, no pronator drift, no movement abnormalities noted and no fasciculations Sensory Exam: no sensory deficits noted Coordination: [id number] test normal, Does not sway with eyes open and rapid alternating movement UE normal Course <Anupam Castano, [employer] ADVISOR - Last Filed: 01/14/22 13:38> Vital Signs Vital signs: Vital Signs Temperature 36.1 C L 01/13/22 12:03 Pulse 67 01/13/22 12:03 Respiratory Rate 16 01/13/22 12:03 Blood Pressure 162/93 H 01/13/22 12:03 Pulse Oximetry 95 01/13/22 12:03 Temperature 36.1 C L 01/13/22 12:03 Pulse 67 01/13/22 12:03 Respiratory Rate 16 01/13/22 12:03 Respiratory Effort 01/13/22 12:11 Respiratory Depth Normal 01/13/22 12:11 Respiratory Pattern Normal 01/13/22 12:11 Blood Pressure 162/93 H 01/13/22 12:03 Pulse Oximetry 95 01/13/22 12:03 Lab/Test Results Lab/Test Results: Laboratory Tests Range/Units 01/13/22 01/13/22 13:18 13:18 WBC (4.4-10.8) 10^3/uL 9.72 RBC (3.93-5.22) 10^6/uL 5.92 H Hgb (11.2-15.7) g/dL 16.8 H Hct (36.0-46.0) % 54.3 H MCV (80-95) fL 92 MCH (27.0-33.0) pg 28.4 MCHC (32.0-36.0) % 30.9 L RDW (11.7-14.6) % 13.9 Plt Count (130-400) 10^3/uL 307 MPV (8.0-11.0) fL 11.4 H Immature Gran % 0.2 Neutrophils % 70.0 Lymphocytes % 23.1 Monocytes % 4.4 Eosinophils % 1.6 Basophils % 0.7 Nucleated RBC % (0.0-0.3) % 0.0 Absolute Neutrophils (1.2-6.7) 10^3/uL 6.79 H Absolute Lymphocytes (1.2-3.4) 10^3/uL 2.25 Absolute Monocytes (0.1-0.8) 10^3/uL 0.43 Absolute Eosinophils (0.0-0.7) 10^3/uL 0.16 Absolute Basophils (0.0-0.2) 10^3/uL 0.07 Sodium (136-145) mmol/L 137 Potassium (3.5-5.1) mmol/L 4.4 Chloride (98-107) mmol/L 98 Carbon Dioxide (21.0-32.0) mmol/L 35.3 H Anion Gap (3-11) mmol/L 3.7 BUN (7-18) mg/dL 24 H Creatinine (0.55-1.02) mg/dL 1.1 H Est GFR (CKD-EPI 2020) (mL/min/1.73m2) 51.11 Glucose (74-106) mg/dL 140 H Calcium (8.5-10.1) mg/dL 9.5 Magnesium (1.8-2.4) mg/dL 1.9 Total Bilirubin (0.2-1.0) mg/dL 0.4 AST (15-37) U/L 18 ALT (14-59) U/L 26 Alkaline Phosphatase (46-116) U/L 133 H Troponin I (<or=60) ng/L < 50 Total Protein (6.4-8.2) g/dL 9.6 H Albumin (3.4-5.0) g/dL 3.6 Sign Out <Anupam Castano NP - Last Filed: 01/14/22 13:38> Sign Out Data: Sign Out Comment: Patient pending MRI imaging and 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 Patient started on antibiotics for UTI and recommended to continue treatment on outpatient basis if discharged. Last updated by Anupam Castano NP at 01/13/22 15:46
[2022-01-13 15:00] LABS: Bilirubin Negative (Negative); Blood Negative (Negative); Clarity Sl Cloudy (Clear); Glucose Negative (Negative); Ketones Negative (Negative); Leukocyte Esterase Small (Negative); Nitrite Positive (Negative); Specific Gravity 1.015 (1.005-1.025); Urobilinogen 0.2 EU/dL (Up TO 0.2)
--- NOTE | 2022-01-13 15:02 | DI.MRI_ITS ---
Exam(s) MR BRAIN WO EXAM: MR BRAIN WO CLINICAL HISTORY: Headache, visual disturbance, dizzy TECHNIQUE: Multiplanar multisequence MRI of the brain was performed. COMPARISON: CT CT HEAD WO from 01/13/2022 FINDINGS: CEREBRAL PARENCHYMA: There is no evidence of intracranial hemorrhage, mass effect, or shift of midline structures. There are no extra-axial fluid collections. Ventricles are not enlarged or shifted. 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 There are 3 areas of restricted diffusion in the cerebellar hemispheres. The largest on the right si de, measuring 8 x 4 millimeters, consistent with acute ischemic event. In addition, there are few other tiny foci of restricted diffusion in both cerebellar hemispheres, devyn th inferiorly and superiorly, both in the territory of the inferior and superior cerebellar arteries. . No large territorial infarct. No restricted diffusion evident in the rodolfo, midbrain, and thalami. Mild increased signal seen in the right-side of the rodolfo on FLAIR imaging as well as in the periven tricular periatrial white matter bilaterally but without evidence of supra tentorial restricted diffu heaven. Expected flow voids are noted. Also no evidence of aneurysm nor obvious vascular malformation. PITUITARY GLAND: No mass nor parasellar abnormality. No obvious abnormality in the cavernous sinuses. PARANASAL SINUSES: The visualized paranasal sinuses appear unremarkable. No obvious finding ORBITS: No obvious findings. IMPRESSION: There are multiple foci of restricted diffusion in both cerebellar hemispheres, largest being in the mid level of the right cerebellar hemisphere, measuring 8 x 4 millimeters, exhibiting restricted diff usion and consistent with nonhemorrhagic ischemic event. Cannot exclude possibility of emboli given the multiplicity these foci of restricted diffusion in both cerebellar hemispheres. Incidentally noted are bilateral developmental sub lenticular cysts, as seen on the recent CT scan. Report called by myself to the ER provider. DATA REPOSITORY:
[2022-01-13 15:06] LABS: Bacteria Moderate HPF (Negative); C & S Indicated? No/Sq. Contamination; Casts Negative LPF (Negative); Crystals Negative HPF (Negative); Epithelial Cells Many HPF (Negative); Mucus Negative (Negative); RBC Negative HPF (0-2)
[2022-01-13 15:16] LABS: *AMPHETAMINES SCREEN URINE Negative (Negative); *BARBITURATES SCREEN URINE Negative (Negative); *BENZODIAZEPINES SCREEN URINE Negative (Negative); Cannabinoids THC Negative (Negative); Cocaine Screen,Urine Negative (Negative); METHADONE URINE SCREEN Negative (Negative); OPIATES URINE SCREEN Negative (Negative); Tricyclic Antidepressants Negative (Negative)
[2022-01-13] MEDS: ACETAMINOPHEN 1,000 MG/100 ML BTL 400 MG IVPB (15:37)
[2022-01-13] MEDS: Aspirin 81 MG CHEW 324 MG CH (16:57)
[2022-01-13 17:13] LABS: Source Nasal/Nares
--- NOTE | 2022-01-13 17:30 | DI.CT_ITS ---
Exam(s) CT BRAIN NECK CTA EXAM: CT BRAIN NECK CTA CLINICAL HISTORY: CVA, Dizziness, Falls. TECHNIQUE: Imaging Protocol: Axial CT angiography was performed with multi-slice acquisition and mu lti-planar and/or 3D reconstructions. CONTRAST MATERIAL: Intravenous: Omnipaque 350 contrast volume:85 mL COMPARISON: CT CT HEAD WO from 01/13/2022 FINDINGS: CT Head W/O and W: Ventricles and Extra axial spaces: Normal in size and morphology for the patient's age. Hemorrhage: None. Cerebral parenchyma: No acute territorial infarct is seen. No suspicious intracranial mass or enhanc ing lesion is seen. Midline shift: None. Brainstem/Cerebellum: Normal. Calvarium: Normal. Visualized Paranasal sinuses/Mastoids: Clear. Soft Tissues: Unremarkable. Enhancement: Unremarkable. CTA Neck W: Common Carotid: Right: No dissection, occlusion or significant stenosis. Left: No dissection, occlusion or significant stenosis. External Carotid: Right: No occlusion or significant stenosis. Left: No occlusion or significant stenosis. Internal Carotid: Right: No dissection, occlusion or significant stenosis. Mild atherosclerosis at the origin of the r ight internal carotid artery without significant stenosis. Left: No dissection, occlusion or significant stenosis. Mild atherosclerosis at the origin of the le ft internal carotid artery. It does result in moderate focal stenosis (50-69 percent). Vertebral Artery: Right: There appears to be occlusion of the distal right vertebral artery at the level of the cranio cervical junction. Left: No dissection, occlusion or significant stenosis. Lung Apices: Normal. Bones: Within normal limits for the patient's age. Soft Tissues: Normal. CTA Brain W: Internal Carotid Arteries: Atherosclerosis of the internal carotid arteries bilaterally. No signific ant stenosis or occlusion is seen. Anterior Cerebral Arteries: Right: No aneurysm, occlusion or significant stenosis. There is absence of the right A1 segment. Th is is a normal variant. The anterior communicating artery is patent as is the distal right anterior cerebral artery. Left: No aneurysm, occlusion or significant stenosis. Middle Cerebral Arteries: Right: No aneurysm, occlusion or significant stenosis. Left: No aneurysm, occlusion or significant stenosis. Posterior Cerebral Arteries: Right: No aneurysm, occlusion or significant stenosis. There is origin of the right posterior communicating artery which is a normal developmental variant. Left: No aneurysm is seen. There is narrowing of the caliber of the left P1 and P2 segments which c ould reflect atherosclerotic disease. No occlusion is seen. Vertebral Arteries: Right: The intracranial portion of the right vertebral artery is not visualized suspicious for occlu heaven. Left: There is irregular narrowing of the intracranial segment of the left vertebral artery. Basilar Artery: No occlusion. There is narrowing and irregularity of the arroyo of the basilar arter y. IMPRESSION: 1. Suspected occlusion of the right vertebral artery from the level of the craniocervical junction. 2. Narrowing and irregularity of the caliber of the left vertebral artery and basilar artery. This c ould reflect atherosclerotic disease. 3. Narrowing and irregularity of the left P1 and P2 segments which may reflect atherosclerosis. 4. Moderate stenosis at the origin of the left internal carotid artery. 5. No acute intracranial process. 6. RADIATION DOSE DELIVERED: 1,166.12mGy.cm Total DLP DATA REPOSITORY: All CT scans at this facility are submitted to the National Radiology Data Registry (NRDR) Dose Index Registry (DIR) with the [employer] (ACR). RADIATION OPTIMIZATION: All CT scans at this facility use at least one of these dose optimization te chniques: automated exposure control; mA and/or kV adjustment per patient size (includes targeted exa ms where dose is matched to clinical indication); or iterative reconstruction.
[2022-01-13] MEDS: Propranolol 20 MG TAB PO ×2 (17:36→20:01)
[2022-01-13 17:47] LABS: COVID-19 PCR Negative (Negative)
[2022-01-13] MEDS: Omnipaque 350 MG/ML 100 ML BTL IV (18:42)
--- NOTE | 2022-01-13 18:59 | DI.VRAD_ITS ---
Addendum created by Faraz Pederson MD on 01/13/2022 7:07:38 PM EDT: THIS REPORT CONTAINS FINDINGS THAT MAY BE CRITICAL TO PATIENT CARE. The findings were verbally communicated via telephone conference with Dr. Mitchell at 7:07 PM EDT on 01/13/2022. The findings were acknowledged and understood. Initial report created on 01/13/2022 6:59:23 PM EDT: PROCEDURE INFORMATION: Exam: CTA Head With Contrast, Arteriography Exam date and time: 01/13/2022 6:08 PM Age: 81 years old Clinical indication: Other: CVA, dizziness, falls TECHNIQUE: Imaging protocol: Computed tomographic angiography of the head with contrast. Exam focused on the arteries. 3D rendering (Not supervised by radiologist): MIP and/or 3D reconstructed images were created by the technologist. Radiation optimization: All CT scans at this facility use at least one of these dose optimization techniques: automated exposure control; mA and/or kV adjustment per patient size (includes targeted exams where dose is matched to clinical indication); or iterative reconstruction. Contrast material: OMNIPAQUE 350; Contrast volume: 85 ml; Contrast route: INTRAVENOUS (IV); COMPARISON: MR BRAIN WO 01/13/2022 3:53 PM FINDINGS: ANTERIOR CIRCULATION: Right internal carotid artery: Intracranial segment is patent with no significant stenosis. No aneurysm. Right middle cerebral artery: No occlusion or significant stenosis. No aneurysm. 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 No aneurysm. Left internal carotid artery: Intracranial segment is patent with no significant stenosis. No aneurysm. Left middle cerebral artery: No occlusion or significant stenosis. No aneurysm. Left anterior cerebral artery: No occlusion or significant stenosis. No aneurysm. POSTERIOR CIRCULATION: Right vertebral artery: Suspected occlusion of the intracranial segment of the right vertebral artery. Left vertebral artery: There is narrowing and irregularity in the caliber of flow seen in the intracranial segment of the left vertebral artery with severe focal stenosis suspected proximal to the vertebrobasilar confluence. Basilar artery: Narrowing and irregular in the caliber of flow seen throughout the basilar artery without focal occlusion. Right posterior cerebral artery: origin of the right posterior cerebral artery is a common developmental variant and there is no occlusion or significant stenosis. No aneurysm. Left posterior cerebral artery: Narrowing in the caliber of flow seen in the left P1 and P2 segments could reflect atherosclerotic disease. No occlusion detected. IMPRESSION: 1. Suspected occlusion of the intracranial segment of the right vertebral artery. Narrowing and irregularity in caliber of flow are seen involving the intracranial segment left vertebral artery and the basilar artery as above. 2. Narrowing in the caliber flow seen in the left P1 and P2 segments could reflect underlying atherosclerotic disease. 3. 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 PROCEDURE INFORMATION: Exam: CTA Neck With Contrast Exam date and time: 01/13/2022 6:08 PM Age: 81 years old Clinical indication: Other: CVA, dizziness, falls TECHNIQUE: Imaging protocol: Computed tomographic angiography of the neck with contrast. 3D rendering (Not supervised by radiologist): MIP and/or 3D reconstructed images were created by the technologist. Radiation optimization: All CT scans at this facility use at least one of these dose optimization techniques: automated exposure control; mA and/or kV adjustment per patient size (includes targeted exams where dose is matched to clinical indication); or iterative reconstruction. Contrast material: OMNIPAQUE 350; Contrast volume: 85 ml; Contrast route: INTRAVENOUS (IV); COMPARISON: MR BRAIN WO 01/13/2022 3:53 PM FINDINGS: Right common carotid artery: No stenosis. No dissection or occlusion. Right internal carotid artery: Scant atherosclerotic calcifications are seen at the right carotid bifurcation with no evidence of 50% or greater stenosis of the extracranial segment. No dissection or occlusion. Right external carotid artery: No occlusion or stenosis of the origin. Left common carotid artery: No stenosis. No dissection or occlusion. Left internal carotid artery: Atherosclerotic calcifications are seen at the left carotid bifurcation and involving the proximal left internal carotid artery with moderate focal stenosis identified at the origin of the left internal carotid artery. There is no evidence of 50% or greater stenosis involving the remainder of the extracranial segment. No dissection or occlusion. Left external carotid artery: No occlusion or stenosis of the origin. Right vertebral artery: Suspected occlusion of the distal right vertebral artery at the level of the craniocervical junction. Left vertebral artery: No stenosis. No dissection or occlusion. Soft tissues: Normal. No significant soft tissue swelling. Bones/joints: No acute fracture. IMPRESSION: 1. Moderate focal stenosis identified at the origin of the left internal carotid artery, estimated to be in the range of 50-69% by NASCET criteria. No evidence of 50% or greater stenosis involving the remainder of the cervical segment of the left ICA. 2. No evidence of 50% or greater stenosis seen involving the cervical segment of the right internal carotid artery at cervical levels. 3. Suspected occlusion of the distal right vertebral artery at the level of the craniocervical junction. REFERENCES: NASCET CRITERIA. The degree of stenosis in the cervical segment of the internal carotid artery is based on NASCET criteria. Normal is no stenosis. Mild is less than 50% stenosis. Moderate is 50-69% stenosis. Severe is 70% to 99% stenosis. Total occlusion is no detectable patent lumen. Dictated and Authenticated by: Faraz Pederson MD. Ordering:CAMRYN Phillips MD
[2022-01-13] MEDS: Pantoprazole 40 MG TABCR PO (19:38)
[2022-01-13] MEDS: Clopidogrel 75 MG TAB PO (19:41)
[2022-01-13] MEDS: Atorvastatin 40 MG TAB 80 MG PO (21:14)
[2022-01-13] MEDS: Cyclobenzaprine 10 MG TAB 5 MG PO (21:14)
--- NOTE | 2022-01-13 21:52 | HPE_ITS ---
Date of service: 01/13/22 Time of Service: 21:53 Assessment and Plan Assessment and plan (1) New cerebellar infarct: Status: Acute Assessment and plan: Bilateral cerebellar findings; possibly embolic. Echocardiogram, PT/OT. ASA 81mg daily. Already taking at home. Plavix 75mg daily Atorvastatin 80mg QHS. No speech available this week but no dysarthria. Only a small perioral droop. Passed bedside swallow by nursing. Telemetry. Cardiac event recorder at time of D/C. Carotid US. Neurology consulted. (2) COPD (chronic obstructive pulmonary disease): Status: Acute Assessment and plan: No exacerbation. Pt does not use any pulmonary meds. (3) Hypertension: Status: Chronic Assessment and plan: Cont propanolol and verapamil. Also will continue spironolactone and lasix. Monitor. (4) UTI (urinary tract infection): Status: Acute Assessment and plan: Positive UA but no culture initially ordered in ED. Rocephin initiated in ED and will continue. Culture to be sent (5) Discharge planning issues: Status: Acute Assessment and plan: Discussed her code status. She believes she signed an advanced directive at some point in time. She desires a DNR/DNI status. Likely will not need SNF but likely outpt PT/OT or PT/OT. History of Present Illness History of Present Illness Chief Complaint: visual disturbance, dizziness, headache Narrative: This is a 81 yo femal with a PMH of COPD, SPRING, migraines, peripheral neuropathy, HTN, depression and anxiety. She endorsed 3 day history of right visual field disturbance, an achy [place] and dizzines like on a drunk. She describes the visual changes in various ways; arrows going up the arroyo, shadows, bugs crawliing on her plants, images of children. No focal weakness but is unsteady with gait. No CP/palpitations, N/V. EKG with sinus rhythm. Hgb 16.8, WBC count normal. Platelets 307. Na 137. K 4.4. BUN 24. Creatinine 1.1. Glucose 140. Mg 1.9. UDS neg. UA + for nitrities leuk es t. 5-10 WBCs and bacteria. Rocephin initiated in the ED. No dysuria/frequency/odor. Noncontrast CT head: No acute intracranial findings on this noninfused CT scan of the brain. 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 MRI head: + for cerebellar ischemic findings; bilateral. CTA head: There are multiple foci of restricted diffusion in both cerebellar hemispheres, largest being in the mid level of the right cerebellar hemisphere, measuring 8 x 4 millimeters, exhibiting restricted diffusion and consistent with nonhemorrhagic ischemic event.? Cannot exclude possibility of emboli given the multiplicity these foci of restricted diffusion in both cerebellar hemispheres. She had taken 81mg ASA on day of admission. Given further dosing in ED. Consult with [facility] neurologist, Dr Vela. Recommended echocardiogram, her propanolol regular dose given (over 48 hours since onset of symptoms so no permissive HTN at this time), no acute interventions. Admitted for further evaluation/treatment. Review of Systems All systems reviewed & are unremarkable except as noted in HPI and below PFSH All Active Problems Discharge planning issues (Acute) UTI (urinary tract infection) (Acute) New cerebellar infarct (Acute) Primary osteoarthritis of left knee (Chronic) Injected: 02/01/2019 S/P debridement (Acute) 08/31/18. Incision of debridement of SQ abscess of umbilical port site. 09/18/18 dressing removed small amount superficial debridement, wound irrigated and redressed diflucan for yeast Lesion of endometrium (Acute) Thickened endometrial stripe in a postmenopausal female. No history of abnormal uterine bleeding. Incisional abscess (Acute) Atypical chest pain (Acute) GERD with esophagitis (Acute) Anxiety (Acute) Obesity, Class III, BMI 40-49.9 (morbid obesity) (Acute) Increased endometrial stripe thickness (Acute 06/20/17) Incidental finding at the time of a pelvic CT scan for hydronephrosis in 2017. EMBx @ [facility] [place] benign. No hx of PMB. Expectant management. H/O esophagogastroduodenoscopy (Chronic ~06/06/18) Dysphagia (Acute) Hiatal hernia with GERD and esophagitis (Acute) Hydrosalpinx (Chronic) 01/2017 left adnexa cystic lesion measuring 72 x 17 x 62 mm 06/24/17 pelvic ultrasound left hydrosalpinx 73 x 36 x 69 mm with several loculations. Endometrial stripe is 10 mm. 01/05/18 Pelvic u/s L adnexal cyst: [id number]. 08/11/2018 Pelvic u/s L adnexal cyst [id number]. 2 internal septations. Thick walled. ES 14mm. 08/24/18. Laparoscopic bilateral BSO. Premliminary path: benign, SPRING (obstructive sleep apnea) (Chronic) Essential tremor (Chronic) Anxiety (Chronic) Depression (Chronic) Hyperlipidemia (Chronic) Hypothyroidism (Chronic) History of skin cancer (Chronic) COPD (chronic obstructive pulmonary disease) (Acute) Rosacea (Chronic) Hypertension (Chronic) Vitamin D deficiency (Chronic) Dysphagia (Acute) Flank pain (Acute) Obesity (BMI 35.0-39.9 without comorbidity) (Acute) Neuropathy (Acute) Chronic cough (Acute) Kidney stones (Chronic) Bradycardia (Acute) Hypokalemia (Acute) Hypomagnesemia (Acute) Balance problem (Acute) Glucose intolerance (Acute) History of kidney surgery (Acute) Medical History Abdominal pain, epigastric NAOMIE positive Chronic diarrhea Chronic fatigue and malaise Encounter for counseling Esophagitis Facial flushing Floaters in visual field Headache History of prediabetes Hydronephrosis Irritable bowel syndrome with diarrhea Knee pain, left Menopause Osteoarthritis Osteoarthritis of left knee Polyclonal gammopathy Seasonal allergies Sleep disturbances Urinary incontinence Surgical History Hx of cataract surgery Hx of lithotripsy Family History Other Heart disease Social History Smoking/Tobacco Use Status: Former Tobacco Use Smoking risk assessment performed?: Yes Alcohol Intake: current Alcohol Intake frequency: other Details: MONTHLY OR LESS Drug use: Never Substance use type: does not use Number of Children: 3 Current gender identity: female Seatbelt use: always Do you feel safe at home: Yes Do you feel safe in your relationship?: Yes Meds Allergies and Home Medications Allergies Allergy/AdvReac Type Severity Reaction Status Date / Time losartan Allergy Intermediate Verified 01/13/22 12:07 formoterol fumarate AdvReac Severe severe Verified 01/13/22 12:07 [From Dulera] depression lisinopril AdvReac Severe cough Verified 01/13/22 12:07 mometasone furoate AdvReac Severe severe Verified 01/13/22 12:07 [From Dulera] depression fentanyl AdvReac Intermediate Other (See Verified 01/13/22 12:07 Comment) Home Medications Medication Instructions Recorded Confirmed Type Daily Value (multivitamin) 1 ea PO DAILY 04/08/14 01/13/22 History furosemide 20 mg tablet 20 mg PO DAILY 04/08/14 01/13/22 History levothyroxine 50 mcg tablet 50 mcg PO DAILY 04/08/14 01/13/22 History nitroglycerin 0.4 mg sublingual 0.4 mg sublingual Q5 MIN PRN X3 04/06/17 01/13/22 Rx tablet (Nitrostat) PRN ##1 pantoprazole 40 mg tablet,delayed 40 mg PO BID@0730,2000 ##60 04/06/17 01/13/22 Rx release verapamil 360 mg 24 hr 360 mg PO .12 NOON 01/16/18 01/13/22 History capsule,extended release cholecalciferol (vitamin D3) 25 1,000 unit PO DAILY 05/08/18 01/13/22 History mcg (1,000 unit) capsule mirtazapine 15 mg tablet 15 mg PO DAILY 08/22/18 01/13/22 History potassium chloride 10 mEq 10 meq PO DAILY 08/31/18 01/13/22 History tablet,extended release benzonatate 100 mg capsule 100 mg PO BID PRN 07/30/20 01/13/22 History budesonide 32 mcg/actuation nasal 1 spray intranasal DAILY 07/30/20 01/13/22 History spray cyclobenzaprine 5 mg tablet 5 mg PO QHS 07/30/20 01/13/22 History propranolol 20 mg tablet 20 mg PO BID 07/30/20 01/13/22 History spironolactone 25 mg tablet 25 mg PO DAILY 01/13/22 01/13/22 History Exam Narrative Exam Narrative: Pleasant, conversant elderly female. Using walker to return to bed from the bathroom. Const General: cooperative and no acute distress Nutritional Appearance: obese Orientation: alert and oriented x3 HENMT Head: normocephalic and atraumatic Ears: hearing grossly normal bilaterally Eyes General: appearance normal, both eyes and all related structures Pupils: PERRL EOM: EOM intact bilaterally and No nystagmus Resp Effort & Inspection: normal respiratory effort Auscultation: clear to auscultation bilaterally Cardio Rate: regular rate Rhythm: regular rhythm Heart Sounds: S1 normal and S2 normal GI Inspection: normal to inspection and obesity Palpation: soft and nontender Skin General skin exam: no rashes or lesions noted Neuro General: no focal motor deficits Cranial Nerves: facial strength abnormal (slight right sided perioral droop.) and no nystagmus Cognition: normal cognition Speech: speech normal Gait: staggering (mildly so) Motor: strength 5/5 throughout Sensory Exam: no sensory deficits noted Coordination: [id number] test normal Extrem General: no pedal edema and no calf tenderness Psych Appearance: grossly normal Mental Status: mental status grossly normal Mood: congruent mood Affect: normal affect Results Labs Result diagrams: 01/13/22 13:18 01/13/22 13:18 Labs: Laboratory Results - last 24 hr 01/13/22 01/13/22 01/13/22 13:18 13:18 14:54 WBC 9.72 RBC 5.92 H Hgb 16.8 H Hct 54.3 H MCV 92 MCH 28.4 MCHC 30.9 L RDW 13.9 Plt Count 307 MPV 11.4 H Immature Gran % 0.2 Neutrophils % 70.0 Lymphocytes % 23.1 Monocytes % 4.4 Eosinophils % 1.6 Basophils % 0.7 Nucleated RBC % 0.0 Absolute Neutrophils 6.79 H Absolute Lymphocytes 2.25 Absolute Monocytes 0.43 Absolute Eosinophils 0.16 Absolute Basophils 0.07 Sodium 137 Potassium 4.4 Chloride 98 Carbon Dioxide 35.3 H Anion Gap 3.7 BUN 24 H Creatinine 1.1 H Est GFR (CKD-EPI 2020) 51.11 Glucose 140 H Calcium 9.5 Magnesium 1.9 Total Bilirubin 0.4 AST 18 ALT 26 Alkaline Phosphatase 133 H Troponin I < 50 Total Protein 9.6 H Albumin 3.6 Urine Color Urine Clarity Urine pH Ur Specific [place] Urine Protein Urine Ketones Urine Blood Urine Nitrite Urine Bilirubin Urine Urobilinogen Ur Leukocyte Esterase Urine RBC Urine WBC Ur Epithelial Cells Urine Crystals Urine Bacteria Urine Casts Urine Mucus Ur Culture Indicated? Urine Glucose Urine Opiates Screen Negative Urine Methadone Screen Negative Ur Barbiturates Screen Negative Ur Tricyclics Screen Negative Ur Amphetamines Screen Negative U Benzodiazepines Scrn Negative Urine Cocaine Screen Negative Ur THC Screen Negative COVID-19 Source SARS-CoV-2 (PCR) 01/13/22 01/13/22 14:54 17:07 WBC RBC Hgb Hct MCV MCH MCHC RDW Plt Count MPV Immature Gran % Neutrophils % Lymphocytes % Monocytes % Eosinophils % Basophils % Nucleated RBC % Absolute Neutrophils Absolute Lymphocytes Absolute Monocytes Absolute Eosinophils Absolute Basophils Sodium Potassium Chloride Carbon Dioxide Anion Gap BUN Creatinine Est GFR (CKD-EPI 2020) Glucose Calcium Magnesium Total Bilirubin AST ALT Alkaline Phosphatase Troponin I Total Protein Albumin Urine Color Yellow Urine Clarity Sl Cloudy Urine pH 6.0 Ur Specific [place] 1.015 Urine Protein Negative Urine Ketones Negative Urine Blood Negative Urine Nitrite Positive H Urine Bilirubin Negative Urine Urobilinogen 0.2 Ur Leukocyte Esterase Small H Urine RBC Negative Urine WBC 5-10 Ur Epithelial Cells Many Urine Crystals Negative Urine Bacteria Moderate Urine Casts Negative Urine Mucus Negative Ur Culture Indicated? No/Sq. Contamination Urine Glucose Negative Urine Opiates Screen Urine Methadone Screen Ur Barbiturates Screen Ur Tricyclics Screen Ur Amphetamines Screen U Benzodiazepines Scrn Urine Cocaine Screen Ur THC Screen COVID-19 Source Nasal/Nares SARS-CoV-2 (PCR) Negative Last Vital Signs Temp 36.3 C L 01/13/22 19:09 Pulse 64 01/13/22 19:09 Resp 14 01/13/22 19:09 BP 134/68 01/13/22 19:09 Pulse Ox 94 01/13/22 19:09
[2022-01-14] VITALS (12 sets, daily range): BP systolic 124–157; BP diastolic 64–90; PULSE 44–70; RESP 16–20; TEMP 36.3–36.7; O2SAT 92–95
--- NOTE | 2022-01-14 | DI.US_ITS ---
Exam(s) US CAROTID EXAM: US CAROTID CLINICAL HISTORY: CVA. TECHNIQUE: Ultrasound carotids performed using grayscale, color-flow, and spectral Doppler imaging. COMPARISON: No exams were available for comparison FINDINGS: RIGHT CAROTID ARTERY: Plaque: Minimal. Velocity elevation: None. LEFT CAROTID ARTERY: Plaque: Calcific plaque is seen in the left bulb and left internal carotid artery. Velocity elevation: None. VERTEBRAL ARTERIES: Antegrade flow. Measurements: R Bulb: 71.3cm/s PS / 10.3cm/s ED R CCA: 41.4cm/s PS / 9cm/s ED R ECA: 160.1cm/s PS / 8.4cm/s ED R ICA Prox: 53.1cm/s PS / 12.9cm/s ED R ICA Mid: 44cm/s PS / 10.3cm/s ED R ICA Distal: 38.8cm/s PS /9cm/s ED R Vert: 31cm/s PS / 9.3cm/s ED R SVR: 1.3 R DVR: 1.4 L Bulb: 86.9cm/s PS / 8.9cm/s ED L CCA: 54.8cm/s PS / 10.9cm/s ED L ECA: 171.6cm/s PS / 10.2cm/s ED L ICA Prox: 68.7cm/s PS / 15cm/s ED L ICA Mid: 60.2cm/s PS / 14cm/s ED L ICA Distal: 124.5cm/s PS / 19.2cm/s ED L Vert: 43.5cm/s PS / 12.7cm/s ED L SVR:2.3 L DVR:1.8 IMPRESSION: 1. No hemodynamically significant velocity elevation on the right. 2. Elevated velocities in the distal left ICA consistent with 50-69 % stenosis. Criteria for Carotid Stenosis: Normal: ICA PSV <125 cm/s no plaque or intimal thickening is visible. <50% stenosis: ICA PSV <125 cm/s and plaque or intimal thickening is visible. 50-69% stenosis: ICA PSV is 125-250 cm/s and plaque is visible. >70% stenosis to near occlusion: ICA PSV >250 cm/s with visible plaque and luminal narrowing. DATA REPOSITORY:
--- NOTE | 2022-01-14 | DI.MRI_ITS ---
Exam(s) MR BRAIN WO EXAM: MR BRAIN WO CLINICAL HISTORY: ACUTE CVA TECHNIQUE: Multiplanar multisequence MRI of the brain was performed. COMPARISON: MR MR BRAIN WO from 01/13/2022 FINDINGS: VENTRICLES AND EXTRA AXIAL SPACES: Normal in size and morphology for the patient's age. MIDLINE SHIFT: None. CEREBRAL PARENCHYMA: There are stable areas of restricted diffusion in the cerebellar hemispheres. N o new areas of restricted diffusion are identified. No space-occupying lesion identified. Multiple a reas of hyperintense signal are again seen in the white matter consistent with small vessel ischemic disease. HEMORRHAGE: None. BRAINSTEM/CEREBELLUM: Normal. CALVARIUM: Normal. VISUALIZED PARANASAL SINUSES/MASTOIDS:Clear. [place]: There is a lack of a flow void seen in the right vertebral artery. PITUITARY GL[place]: Unremarkable. OTHER FINDINGS: None. IMPRESSION: 1. No change in appearance of the brain compared to 01/13/2022. Stable areas of restricted diffusion in the cerebellar hemispheres. No new areas of restricted diffusion are identified. 2. Findings were discussed with Dr. Herndon on the date of the examination. DATA REPOSITORY:
[2022-01-14] MEDS: Levothyroxine 50 MCG TAB PO (06:10)
[2022-01-14 07:00] LABS: Abs Immature Grans 0.03 10^3/uL (0.0-0.06); Absolute Basophil Count 0.05 10^3/uL (0.0-0.2); Absolute Eosinophil Count 0.19 10^3/uL (0.0-0.7); Absolute Lymphocyte Count 2.27 10^3/uL (1.2-3.4); Absolute Monocyte Count 0.52 10^3/uL (0.1-0.8); Absolute Neutrophil Count 5.71 10^3/uL (1.2-6.7); Basophils % 0.6; Eosinophils % 2.2; HCT 48.2 % (36.0-46.0); HGB 15.1 g/dL (11.2-15.7); Immature Grans % 0.3; Lymphocytes % 25.9; MCH 28.6 pg (27.0-33.0); MCHC 31.3 % (32.0-36.0); MCV 91 fL (80-95); MPV 11.2 fL (8.0-11.0); Monocytes % 5.9; Neutrophils % 65.1; Platelet Count 263 10^3/uL (130-400); RBC 5.28 10^6/uL (3.93-5.22); RDW 13.8 % (11.7-14.6); RDW-SD 46.7 fL; WBC 8.77 10^3/uL (4.4-10.8)
[2022-01-14 07:15] LABS: Anion Gap 8.5 mmol/L (3-11); BUN 24 mg/dL (7-18); CO2 30.5 mmol/L (21.0-32.0); CREATININE 1.1 mg/dL (0.55-1.02); Chloride 99 mmol/L (98-107); Estimated GFR 51.11 (mL/min/1.73m2); Glucose 145 mg/dL (74-106); Potassium 4.2 mmol/L (3.5-5.1); Sodium 138 mmol/L (136-145)
[2022-01-14] MEDS: Mirtazapine 15 MG TAB PO (08:13)
[2022-01-14] MEDS: Cholecalciferol (Vitamin D3) 1,000 UNIT TAB 1000 UNITS PO (08:13)
[2022-01-14] MEDS: Potassium Chloride 10 MEQ TABCR PO (08:13)
[2022-01-14] MEDS: Spironolactone 25 MG TAB PO (08:13)
[2022-01-14] MEDS: Propranolol 20 MG TAB PO (08:13)
[2022-01-14] MEDS: Furosemide 20 MG TAB PO (08:13)
[2022-01-14] MEDS: Pantoprazole 40 MG TABCR PO ×2 (08:13→19:56)
[2022-01-14] MEDS: Multivitamin TAB 1 TAB PO (08:13)
[2022-01-14] MEDS: Clopidogrel 75 MG TAB PO (08:13)
--- NOTE | 2022-01-14 09:48 | INITIAL_ITS ---
- If Service Date Differs Date of service: 01/14/22 Time of Service: 09:49 Care Management Initial Assess REASON FOR HOSPITALIZATION:: cerebellar infarct PAST MEDICAL HISTORY/PAST SURGICAL HISTORY:: All Active Problems . Discharge planning issues (Acute). UTI (urinary tract infection) (Acute). New cerebellar infarct (Acute). Primary osteoarthritis of left knee (Chronic). Injected: 02/01/2019. S/P debridement (Acute). 08/31/18. Incision of debridement of SQ abscess of umbilical port site. 09/18/18 dressing removed small amount superficial debridement, wound irrigated and redressed. diflucan for yeast. Lesion of endometrium (Acute). Thickened endometrial stripe in a postmenopausal female. No history of abnormal uterine bleeding. Incisional abscess (Acute). Atypical chest pain (Acute). GERD with esophagitis (Acute). Anxiety (Acute). Obesity, Class III, BMI 40-49.9 (morbid obesity) (Acute). Increased endometrial stripe thickness (Acute 06/20/17). Incidental finding at the time of a pelvic CT scan for hydronephrosis in 2017. EMBx @ [facility] [place] [place] benign. No hx of PMB. Expectant management. H/O esophagogastroduodenoscopy (Chronic ~06/06/18). Dysphagia (Acute). Hiatal hernia with GERD and esophagitis (Acute). Hydrosalpinx (Chronic). 01/2017 left adnexa cystic lesion measuring 72 x 17 x 62 mm. 06/24/17 pelvic ultrasound left hydrosalpinx 73 x 36 x 69 mm with several loculations. Endometrial stripe is 10 mm. 01/05/18 Pelvic u/s L adnexal cyst: [id number]. 08/11/2018 Pelvic u/s L adnexal cyst [id number]. 2 internal septations. Thick walled. ES 14mm. 08/24/18. Laparoscopic bilateral BSO. Premliminary path: benign,. SPRING (obstructive sleep apnea) (Chronic). Essential tremor (Chronic). Anxiety (Chronic). Depression (Chronic). Hyperlipidemia (Chronic). Hypothyroidism (Chronic). History of skin cancer (Chronic). COPD (chronic obstructive pulmonary disease) (Acute). Rosacea (Chronic). Hypertension (Chronic). Vitamin D deficiency (Chronic). Dysphagia (Acute). Flank pain (Acute). Obesity (BMI 35.0-39.9 without comorbidity) (Acute). Neuropathy (Acute). Chronic cough (Acute). Kidney stones (Chronic). Bradycardia (Acute). Hypokalemia (Acute). Hypomagnesemia (Acute). Balance problem (Acute). Glucose intolerance (Acute). History of kidney surgery (Acute). Medical History . Abdominal pain, epigastric. NAOMIE positive. Chronic diarrhea. Chronic fatigue and malaise. Encounter for counseling. Esophagitis. Facial flushing. Floaters in visual field. Headache. History of prediabetes. Hydronephrosis. Irritable bowel syndrome with diarrhea. Knee pain, left. Menopause. Osteoarthritis. Osteoarthritis of left knee. Polyclonal gammopathy. Seasonal allergies. Sleep disturbances. Urinary incontinence. Surgical History . Hx of cataract surgery. Hx of lithotripsy PREVIOUS FUNCTIONAL STATUS/SOCIAL/FAMILY SUPPORTS:: Smitha is a 81-year-old woman who lives in her own, single level home in [place] with her Derrick. She has 3 children, but is estranged from one of her daughters.All are grown. 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 She does not drive and her provides her transportation. Smitha performs her own ADLs, and is able to make her own meals. She does states she has a history of falls and uses a 4 wheeled walker for ambulation. CURRENT FUNCTIONAL STATUS:: Smitha was sitting up in a chair visiting with her and daughter Karie when CM met with her. She was pleasant and easily engaged in conversation. Smitha shared that she has been having difficulty getting around for quite some time. She was at [facility] in 2019 and at that time she reported a history of falls and the need to use a walker for ambulation. Her current hospitalization is for ischemic strokes causing visual disturbances and dizziness. During CM's visit, Smitha's face suddenly became very red and she stated that she was not feeling well. She stated that CM seemed very far away and that she could not clearly see CM. Her speech became garbled and she was temporarily confused. The provider and nurse both came to see and examine her and additional testing was ordered. ADVANCE DIRECTIVES:: None on file but states one exists; encouraged to bring in copy for [facility] records Has patient been provided with info about the portal/API?: Yes Did the patient sign up for the portal?: No CODE STATUS:: DNR/DNI INSURANCE COVERAGE / FINANCIAL ISSUES:: Medicare. [email or web address] CURRENT HOME/COMMUNITY SERVICES/EQUIPMENT:: none currently PRIMARY CARE PHYSICIAN:: Walker Diana POTENTIAL DISCHARGE NEEDS:: follow up with PCP and plan of care PATIENT/FAMILY EDUCATION NEEDS:: Review of discharge instructions, follow up plan, limitations, activity, medications, discuss Ask Me Three TRANSPORTATION:: via private vehicle with family PLAN:: Smitha will likely be discharged home with new home health services for PT. She will follow up with her PCP and plan of care and transport with family. CM will offer support to Smitha and her discharge planning needs.
--- NOTE | 2022-01-14 10:43 | PT.INIE ---
Date of service: 01/14/22 Time of Service: 10:43 PT Notes Visit Reasons: Cerebellar CVA Physical Therapy Inpatient Initial Evaluation Date: 01/14/2022 Referring Doctor: Juarez Taveras MD PT Orders: PT CONSULT: Eval/Treat Precautions: Fall. Standard. Activity as tolerated. Patient Profile/Admitting Diagnosis: Smitha is a 81-year-old female who presented to the ED on 01/13/2022 with chief complaints of headache, dizziness, and some visual disorder 3 days before ED admission. Patient is diagnosed with new cerebellar infarct, COPD, hypertension, and UTI. PMHX: All Active Problems? Discharge planning issues (Acute) UTI (urinary tract infection) (Acute) New cerebellar infarct (Acute) Primary osteoarthritis of left knee (Chronic) Injected: 02/01/2019S/P debridement (Acute) 08/31/18. Incision of debridement of SQ abscess of umbilical port site. 09/18/18 dressing removed small amount superficial debridement, wound irrigated and redressed diflucan for yeast Lesion of endometrium (Acute) Thickened endometrial stripe in a postmenopausal female.? No history of abnormal uterine bleeding. Incisional abscess (Acute) Atypical chest pain (Acute) GERD with esophagitis (Acute) Anxiety (Acute) Obesity, Class III, BMI 40-49.9 (morbid obesity) (Acute) Increased endometrial stripe thickness (Acute 06/20/17) Incidental finding at the time of a pelvic CT scan for hydronephrosis in 2016. [place] [facility] [place] [facility] [place] No hx of PMB. Expectant management. H/O esophagogastroduodenoscopy (Chronic ~06/06/18) Dysphagia (Acute) Hiatal hernia with GERD and esophagitis (Acute) Hydrosalpinx (Chronic) 01/2017 left adnexa cystic lesion measuring 72 x 17 x 62 mm 06/24/17 pelvic ultrasound left hydrosalpinx 73 x 36 x 69 mm with several loculations.? Endometrial stripe is 10 mm. 01/05/18 Pelvic u/s L adnexal cyst: [id number]. 08/11/2018 Pelvic u/s L adnexal cyst [id number]. 2 internal septations. Thick walled. ES 14mm. 08/24/18. Laparoscopic bilateral BSO. Premliminary path: benign,SPRING (obstructive sleep apnea) (Chronic) Essential tremor (Chronic) Anxiety (Chronic) Depression (Chronic) Hyperlipidemia (Chronic) Hypothyroidism (Chronic) History of skin cancer (Chronic) COPD (chronic obstructive pulmonary disease) (Acute) Rosacea (Chronic) Hypertension (Chronic) Vitamin D deficiency (Chronic) Dysphagia (Acute) Flank pain (Acute) Obesity (BMI 35.0-39.9 without comorbidity) (Acute) Neuropathy (Acute) Chronic cough (Acute) Kidney stones (Chronic) Bradycardia (Acute) Hypokalemia (Acute) Hypomagnesemia (Acute) Balance problem (Acute) Glucose intolerance (Acute) History of kidney surgery (Acute) Medical History? Abdominal pain, epigastric NAOMIE positive Chronic diarrhea Chronic fatigue and malaise Encounter for counseling Esophagitis Facial flushing Floaters in visual field Headache History of prediabetes Hydronephrosis Irritable bowel syndrome with diarrhea Knee pain, left Menopause Osteoarthritis Osteoarthritis of left knee Polyclonal gammopathy Seasonal allergies Sleep disturbances Urinary incontinence Surgical History? Hx of cataract surgery Hx of lithotripsy Social History/Home Situation: Lives with in a private home with 5 steps to enter with rails on both sides. Independent with ambulation using single-point cane. Equipment Owned/DME: 4WW, SPC Subjective: Agreeable to PT consult. Reports headache on and off. Indicates that she has been seeing black shadows of different shapes off her R eye that happens randomly associated when her eyes get tired. This has been going on for months now she says. Patient states that her balance has also been off for years now and that she has had over 5 falls now for the past year. She also verbalizes that she has not seen her eye doctor for over 5 years now. Adds that most of the time she has been noticing there are times she has more difficulty finding words. Objective: General Observation: Right lower half of face lopsided. High BMI. IV access through R forearm. Telemetry monitoring in place. Mental Status: Alert and oriented as to person, place, time, and purpose. Able to pay attention, focus, and respond appropriately. Pain: Denies Vital Signs: WNL as closely monitored via tele ROM: Right Upper Extremity: Shoulder Flexion WFL. Shoulder abduction WFL. Elbow flexion WFL. Wrist flexion WFL. Functional opening and closing of hand WFL. Left Upper Extremity: Shoulder Flexion WFL. Shoulder abduction WFL. Elbow flexion WFL. Wrist flexion WFL. Functional opening and closing of hand WFL. Right Lower Extremity: Hip flexion WFL. Hip abduction WFL. Knee flexion WFL. Ankle dorsiflexion WFL. Ankle plantarflexion WFL. Left Lower Extremity: Hip flexion WFL. Hip abduction WFL. Knee flexion WFL. Ankle dorsiflexion WFL. Ankle plantarflexion WFL. Strength: Right Upper Extremity: Shoulder flexors 5/5. Shoulder abductors 5/5. Elbow flexors 5/5. Elbow extensors 5/5. In Store Banker strong. Left Upper Extremity: Shoulder flexors 4/5. Shoulder abductors 4/5. Elbow flexors 4/5. Elbow extensors 4/5. In Store Banker strong. Right Lower Extremity: Hip flexors 5/5. Hip abductors 5/5. Knee flexors 5/5. Knee extensors 5/5. Ankle dorsiflexors 4/5. Ankle plantarflexors 4/5. Left Lower Extremity: Hip flexors 4/5. Hip abductors 4/5. Knee flexors 4/5. Knee extensors 4/5. Ankle dorsiflexors 4/5. Ankle plantarflexors 4/5. Bed Mobility/Transfers: Sit to stand with stand by assist using FWW Stand to sit with stand by assist using FWW Bed to reclining chair stand by assist using FWW Reclining chair to bed stand by assist using FWW Gait: Instructed patient with level surface ambulation of 150 feet + 150 feet requiring stand by assist. Suzette decreased. Step height decreased. Step length decreased. Step-to gait pattern. Mild shortness of breath. Balance: Static Sitting: Normal Dynamic Sitting: Normal Static Standing: Fair Dynamic Standing: Fair Special Tests: Mobility Limitations Standardized Measure [facility] 6 clicks Basic Mobility Inpatient Short Form: Raw Score: 20 CMS Score: 36% deficit 4-stage balance Test: Patient is not able to maintain any of the 4 positions in the test indincating high fall risk and need for FWW use. Pronator Drift: Positive on R UE Romberg Test: Positive. Near LOB and extensive postural sway during test. Informed Consent/Education: Patient was instructed in purpose of PT consult and plan of care. Agreeable to proceed with established PT POC to achieve personal goals. Assessment: Pronator drift on L UE. Lower R half of face paretic. Did not report any visual disturbance throughout session. Patient presents with clinical signs and symptoms consistent with current/admitting diagnoses that have resulted to mobility limitations, gait instability, generalized weakness, and overall ADL decline as demonstrated by the following impairment level findings: 1. Decreased strength to L UE/LE major muscle groups 2. Impaired standing balance 3. Impaired activity tolerance 4. Shortness of breath Impairments are contributing to the following functional limitations: 1. Difficulty with ambulation without assistive device 2. Increased completion time for mobility ADL performance 3. Increased risk for falls 4. Difficulty with managing steps alone safely Patient is assessed as a 03528 moderate complexity based on the following: History: 81-year-old female with past medical history as indicated above Examination: Demonstrable impairment in strength, balance, and mobility level with underlying impairments and functional limitations as exhibited above as well as deficit score of 36% utilizing the [facility] Mobility Inpatient Short Form Presentation: Evolving Decision Makin moderate complexity Goals: Goals X1 week 1. Supine-Sit independent 2. Sit-Supine independent 3. Sit-Stand independent 4. Stand-Sit independent with FWW 5. Bed-Chair independent with FWW 6. Chair-Bed independent with FWW 7. Independent gait on level surface with use of FWW for at least 300 feet without report of pain nor dyspnea 8. Independent stair negotiation while holding onto B5 rails for at least [] steps without report of pain nor dyspnea 9. Independent with home exercise program 10. Good static and dynamic standing balance/tolerance Plan of Care/Treatment Plan: 1-2x/day, 7 days/week x 1 week. Plan of care has been reviewed with the [facility]STER providing the service under Physical Therapy direction. Initiate Physical Therapy intervention for pain management as needed, strengthening, bed mobility, transfers, gait, stairs, balance training, and use of assistive device. DISCHARGE RECOMMENDATIONS: [] Home with no services [] [X] Home with services. Patient will benefit from home health PT services in order to progress mobility level using least restrictive assistive ambulatory device, assess home safety, identify additional equipment needs, and establish a functional maintenance program that will increase ability of patient to remain at home. [] Home with outpatient PT [] [] SNF for continued rehabilitation [] [] Front Counter Clerk Care [] [] SNF versus LTC based on ability to participate and progress [] TREATMENT CODE/TIME: 85919 x 20 minutes, 15964 x 21 minutes beginning at 10:43 AM. Thank you for the opportunity to participate in the care of this patient. Tamra Haddad PT, DPT, CLT [facility] [place], [place]
[2022-01-14] MEDS: Verapamil C.R. 180 MG TABCR 360 MG PO (12:13)
[2022-01-14] MEDS: Aspirin E.C. 81 MG TABEC PO (12:13)
--- NOTE | 2022-01-14 12:31 | W.NEUROCONSU ---
Date of service: 01/14/22 Time of Service: 15:28 Assessment and Plan Assessment and plan (1) Cerebellar stroke: Status: Acute (2) Vertebral artery stenosis/occlusion with infarction: Status: Acute Assessment and plan: Ms. Lyon is a 81 year-old with hypertension, hyperlipidemia admitted with bilateral cerebellar strokes. I am unclear if these have had any clinical manifestation. She describes feeling not well for several weeks with various symptoms including dizziness, confusion, numbness, weakness, headaches, and hallucinations. Etiology like due to large vessel stenosis/occlusions involving predominantly the R vertebral and basilar arteries. She had a spell this afternoon. Differential includes TIA vs pre-syncope. Clopidorgel loaded in case it was a TIA. Verapamil has been stopped to allow BP and HR to come up a bit. Work-up: -Telemetry; no need for extended cardiac monitoring at discharge for stroke given etiology secondary to large vessel disease; but if needed from cardiac etiology please do -A1c -Lipid panel Medications: -aspirin 81mg daily + clopidogrel 75mg daily x 3months given large vessel disease, and then continue aspirin 81mg daily only, for secondary stroke prevention -atrovastatin 80mg daily for secondary stroke prevention; ok to titrated dose at discharge for goal LDL <70 Other: -Avoid hypotension given occlusive arterial disease with goal SBP 130-140 systolic -Physical therapy for leg weakness, gait training - seen and recommending home with services -Occupation therapy for activities of daily living -consider speech therapy evaluation if dysarthria continues She should follow-up in neurology clinic in 4-6 weeks. History of Present Illness History of Present Illness Chief Complaint: stroke Narrative: Handedness: right. HPI: Ms. Lyon is a 81 year-old with hypertension, hyperlipidemia, SPRING intolerant of CPAP, depression, anxiety, hypothyroidism, nephrolithasis, COPD, Essential Tremor, OA. Ms. Lyon was admitted 01/13/22 with 3+ days of headaches, dizziness, ?confusion, and ?visual hallucinations. She and note that she has not been feeling well for several weeks and has been having headaches for several weeks. On 01/07/22, apparently called daughter to let her know that Smitha could not feel or move her feet or legs. Daughter talked to her on the phone and told her to call her PCP the next morning. She did apparently do this but never had a call back. She reportedly went to the local [facility] care, but I am not sure what day that was. It seems she finally came to the ER on 01/13/22 after the development of visual hallucinations (complex in Right lower quadrant only???) and some confusion noted by family. She underwent imaging as below which showed evidence of bilateral cerebellar subacute strokes. She was admitted for further treatment/testing. She was not on an antiplatelet at baseline. She was started on ASA 81mg daily, clopidogrel 75mg daily (she was not loaded initially), and atorvastatin 80mg daily. This afternoon, she became abruptly red in the face followed by garbled speech, ?confusion, and a new ?facial droop. She describes talking to someone and it was as if they were moving and sounding further and further away. She felt like she might pass out. BP 130s. HR 40-50s. Stat CTH performed as below with no acute findings. Upon return to room, symptoms appeared significantly improved/resolving though dysarthria seemed to last some time. She was subsequently given 225mg clopidogrel to complete loading dose. MRI performed below with no new findings. She seems to be back at baseline now. She isn't really able to tell me much about what has been going on at home for the last 1 week or even last 1 month. We discussed some of the sensations that she has been experiencing - she wasn't able to tell me if she is still having them or not. It does sound like she is no longer having complex visual hallucinations. Work-up: -CTH (01/13/22): Old R cerebellar infarct with L cerebellar hypodensity noted of unclear age. Bilateral basal ganglia Virchow-Jose Juan spaces. I reviewed these images personally and this is my personal interpretation. -MRI brain w/o (01/13/22): scattered subacute infarcts bilaterally in the cerebellum with the largest infarct on the right. Mild chronic vascular changes. Bilateral basal ganglia Virchow-Jose Juan spaces. I reviewed these images personally and this is my personal interpretation. -CTA head/neck (01/13/22): the right vertebral artery is stenotic vs small throughout it's course to the brain but then appears occluded intracranially. Absent R AICA? The basilar artery also appears stenotic as well as the L [employer] SUPER[employer]ING [employer]. Plaque at left distal ICA without significant stenosis in my opinion but read as moderate per rads. Rads also thought L vertebral artery was stenotic. I reviewed these images personally and this is my personal interpretation. -CUS (01/14/22): L ICA 50-69%. -TTE (01/14/22): Normal LV/RV size and function. Normal LA/RA size. No PFO by color doppler. Cardiac valves not well visualized. -Tele: SR/SB, no afib -A1c: pending -LDL: pending -CTH (01/14/22): no acute findings. I reviewed these images personally and this is my personal interpretation. -MRI brain w/o (01/14/22): no new strokes. No hemorrhage. I reviewed these images personally and this is my personal interpretation. Review of Systems All systems reviewed & are unremarkable except as noted in HPI and below PFSH All Active Problems Vertebral artery stenosis/occlusion with infarction (Acute) Cerebellar stroke (Acute) Discharge planning issues (Acute) UTI (urinary tract infection) (Acute) New cerebellar infarct (Acute) Primary osteoarthritis of left knee (Chronic) Injected: 02/01/2019 S/P debridement (Acute) 08/31/18. Incision of debridement of SQ abscess of umbilical port site. 09/18/18 dressing removed small amount superficial debridement, wound irrigated and redressed diflucan for yeast Lesion of endometrium (Acute) Thickened endometrial stripe in a postmenopausal female. No history of abnormal uterine bleeding. Incisional abscess (Acute) Atypical chest pain (Acute) GERD with esophagitis (Acute) Anxiety (Acute) Obesity, Class III, BMI 40-49.9 (morbid obesity) (Acute) Increased endometrial stripe thickness (Acute 06/20/17) Incidental finding at the time of a pelvic CT scan for hydronephrosis in 2017. EMBx @ [facility] [place] benign. No hx of PMB. Expectant management. H/O esophagogastroduodenoscopy (Chronic ~06/06/18) Dysphagia (Acute) Hiatal hernia with GERD and esophagitis (Acute) Hydrosalpinx (Chronic) 01/2017 left adnexa cystic lesion measuring 72 x 17 x 62 mm 06/24/17 pelvic ultrasound left hydrosalpinx 73 x 36 x 69 mm with several loculations. Endometrial stripe is 10 mm. 01/05/18 Pelvic u/s L adnexal cyst: [id number]. 08/11/2018 Pelvic u/s L adnexal cyst [id number]. 2 internal septations. Thick walled. ES 14mm. 08/24/18. Laparoscopic bilateral BSO. Premliminary path: benign, SPRING (obstructive sleep apnea) (Chronic) Essential tremor (Chronic) Anxiety (Chronic) Depression (Chronic) Hyperlipidemia (Chronic) Hypothyroidism (Chronic) History of skin cancer (Chronic) COPD (chronic obstructive pulmonary disease) (Acute) Rosacea (Chronic) Hypertension (Chronic) Vitamin D deficiency (Chronic) Dysphagia (Acute) Flank pain (Acute) Obesity (BMI 35.0-39.9 without comorbidity) (Acute) Neuropathy (Acute) Chronic cough (Acute) Kidney stones (Chronic) Bradycardia (Acute) Hypokalemia (Acute) Hypomagnesemia (Acute) Balance problem (Acute) Glucose intolerance (Acute) History of kidney surgery (Acute) Medical History Abdominal pain, epigastric NAOMIE positive Chronic diarrhea Chronic fatigue and malaise Encounter for counseling Esophagitis Facial flushing Floaters in visual field Headache History of prediabetes Hydronephrosis Irritable bowel syndrome with diarrhea Knee pain, left Menopause Osteoarthritis Osteoarthritis of left knee Polyclonal gammopathy Seasonal allergies Sleep disturbances Urinary incontinence Surgical History Hx of cataract surgery Hx of lithotripsy Family History Other Heart disease Social History Smoking/Tobacco Use Status: Former Tobacco Use Smoking risk assessment performed?: Yes Alcohol Intake: current Alcohol Intake frequency: other Details: MONTHLY OR LESS Drug use: Never Substance use type: does not use Number of Children: 3 Current gender identity: female Seatbelt use: always Do you feel safe at home: Yes Do you feel safe in your relationship?: Yes Visit Medication and Allergies Active Medications Generic Name Dose Route Start Last Admin Trade Name Freq PRN Reason Stop Dose Admin Acetaminophen 0 mg 01/13/22 17:55 Acetaminophen 325 Mg Tab PO Q4H PRN PRN Aspirin 81 mg 01/14/22 11:15 01/14/22 12:13 Aspirin E.C. 81 Mg Tabec PO 81 mg DAILY MANPREET Administration Atorvastatin Calcium 80 mg 01/13/22 20:45 01/13/22 21:14 Atorvastatin 40 Mg Tab PO 80 mg QPM MANPREET Administration Budesonide 1 spray 01/14/22 08:30 01/14/22 12:14 Budesonide Nasal 32 Mcg/[place] 120 [place] Btl NS 1 spray DAILY MANPREET Administration Cholecalciferol 1,000 units 01/14/22 08:30 01/14/22 08:13 Cholecalciferol (Vitamin D3) 1,000 Unit Tab PO 1,000 units DAILY MANPREET Administration Clopidogrel Bisulfate 75 mg 01/14/22 08:30 01/14/22 08:13 Clopidogrel 75 Mg Tab PO 75 mg DAILY MANPREET Administration Cyclobenzaprine HCl 5 mg 01/13/22 22:00 01/13/22 21:14 Cyclobenzaprine 10 Mg Tab PO 5 mg HS MANPREET Administration Dimethicone/Zinc Oxide 0 gm 01/13/22 17:50 Neha Protect Cream 142 Gm Tube TP PRN PRN Furosemide 20 mg 01/14/22 08:30 01/14/22 08:13 Furosemide 20 Mg Tab PO 20 mg DAILY MANPREET Administration Ceftriaxone Sodium/Dextrose 1 gm in 50 mls @ 100 mls/hr 01/14/22 14:00 Rocephin IVPB Q24H MANPREET IV Miscellaneous Supplies 1 each 01/13/22 13:30 Iv Access IV DIRECTED MANPREET Iohexol 100 ml 01/13/22 18:45 01/13/22 18:42 Omnipaque 350 Mg/Ml 100 Ml Btl IV 02/12/22 23:59 85 ml DIRECTED MANPREET Administration Levothyroxine Sodium 50 mcg 01/14/22 05:35 01/14/22 06:10 Levothyroxine 50 Mcg Tab PO 50 mcg DAILY AM MANPREET Administration Mirtazapine 15 mg 01/14/22 08:30 01/14/22 08:13 Mirtazapine 15 Mg Tab PO 15 mg DAILY MANPREET Administration Multivitamins 1 tab 01/14/22 08:30 01/14/22 08:13 Multivitamin Tab PO 1 tab DAILY MANPREET Administration Pantoprazole Sodium 40 mg 01/13/22 20:00 01/14/22 08:13 Pantoprazole 40 Mg Tabcr PO 40 mg BID@0730,2000 MANPREET Administration Polyethylene Glycol 17 gm 01/13/22 17:55 Polyethylene Glycol 3350 17 Gm Packet PO DAILY PRN PRN Constipation Potassium Chloride 10 meq 01/14/22 08:30 01/14/22 08:13 Potassium Chloride 10 Meq Tabcr PO 10 meq DAILY MANPREET Administration Propranolol HCl 20 mg 01/14/22 08:30 01/14/22 08:13 Propranolol 20 Mg Tab PO 20 mg BID MANPREET Administration Sodium Chloride 0 ml 01/13/22 13:26 Normal Saline Flush 10 Ml Syr IVP PRN PRN Sodium Chloride 250 ml 01/13/22 18:45 01/13/22 18:42 Normal Saline 250 Ml Bag IV 50 ml DIRECTED MANPREET Administration Spironolactone 25 mg 01/14/22 08:30 01/14/22 08:13 Spironolactone 25 Mg Tab PO 25 mg DAILY MANPREET Administration Verapamil HCl 360 mg 01/14/22 12:00 01/14/22 12:13 Verapamil C.R. 180 Mg Tabcr PO 360 mg Q24H MANPREET Administration Allergies losartan Allergy (Intermediate, Verified 01/13/22 12:07) formoterol fumarate [From Dulera] Adverse Reaction (Severe, Verified 01/13/22 12:07) severe depression lisinopril Adverse Reaction (Severe, Verified 01/13/22 12:07) cough mometasone furoate [From Dulera] Adverse Reaction (Severe, Verified 01/13/22 12:07) severe depression fentanyl Adverse Reaction (Intermediate, Verified 01/13/22 12:07) Other (See Comment) Exam Narrative Exam Narrative: Physical Exam: Gen: Patient of apparent stated age, NAD Head and face: no facial or cranial abnormalities Neck: Supple, no meningismus, no occipital tenderness CV: bradycardia no murmur Resp: CTA B/L Abd: soft, nontender, nondistended Ext: No edema. No clubbing or cyanosis. No bony deformity. Neuro Exam: Language: fluency, naming, repetition, and comprehension intact; Mental Status: AAOx3, current events and fund of knowledge limited; Speech: no dysarthria Cranial nerves: Funduscopy: not performed CN II: visual woo intact CN III, IV, : extraocular movements intact, no nystagmus, pupils symmetric and reactive to light CN V: face sensation intact to LT and PP CN VII: no facial asymmetry noted CN VIII: hearing intact bilaterally CN IX, X: palate rises symmetrically CN XI: trapezius/SCM 5/5 bilaterally CN XII: protrudes tongue symmetrically Sensory: intact to LT, PP, vibration Motor: bulk and tone intact. Fine motor movements intact bilaterally. No pronator drift. Strength 5/5 throughout including the deltoids, biceps, triceps, wrist extensors, hip flexors, knee flexors, knee extensors, ankle flexors, and ankle extensors. Reflexes: hyporeflexic throughout; toes down going bilaterally; Coordination: FTN and HTS intact bilaterally Gait: walker, slight wide base Results Last Vital Signs Temp 98.1 F 01/14/22 11:31 Pulse 70 01/14/22 11:31 Resp 20 01/14/22 11:31 BP 124/77 01/14/22 11:31 Pulse Ox 94 01/14/22 11:31 Labs Result diagrams: 01/14/22 06:43 01/14/22 06:43 Labs: Laboratory Results - last 24 hr 01/13/22 01/13/22 01/13/22 13:18 13:18 14:54 WBC 9.72 RBC 5.92 H Hgb 16.8 H Hct 54.3 H MCV 92 MCH 28.4 MCHC 30.9 L RDW 13.9 Plt Count 307 MPV 11.4 H Immature Gran % 0.2 Neutrophils % 70.0 Lymphocytes % 23.1 Monocytes % 4.4 Eosinophils % 1.6 Basophils % 0.7 Nucleated RBC % 0.0 Absolute Neutrophils 6.79 H Absolute Lymphocytes 2.25 Absolute Monocytes 0.43 Absolute Eosinophils 0.16 Absolute Basophils 0.07 Sodium 137 Potassium 4.4 Chloride 98 Carbon Dioxide 35.3 H Anion Gap 3.7 BUN 24 H Creatinine 1.1 H Est GFR (CKD-EPI 2020) 51.11 Glucose 140 H Calcium 9.5 Magnesium 1.9 Total Bilirubin 0.4 AST 18 ALT 26 Alkaline Phosphatase 133 H Troponin I < 50 Total Protein 9.6 H Albumin 3.6 Urine Color Urine Clarity Urine pH Ur Specific [place] Urine Protein Urine Ketones Urine Blood Urine Nitrite Urine Bilirubin Urine Urobilinogen Ur Leukocyte Esterase Urine RBC Urine WBC Ur Epithelial Cells Urine Crystals Urine Bacteria Urine Casts Urine Mucus Ur Culture Indicated? Urine Glucose Urine Opiates Screen Negative Urine Methadone Screen Negative Ur Barbiturates Screen Negative Ur Tricyclics Screen Negative Ur Amphetamines Screen Negative U Benzodiazepines Scrn Negative Urine Cocaine Screen Negative Ur THC Screen Negative COVID-19 Source SARS-CoV-2 (PCR) 01/13/22 01/13/22 01/14/22 14:54 17:07 06:43 WBC RBC Hgb Hct MCV MCH MCHC RDW Plt Count MPV Immature Gran % Neutrophils % Lymphocytes % Monocytes % Eosinophils % Basophils % Nucleated RBC % Absolute Neutrophils Absolute Lymphocytes Absolute Monocytes Absolute Eosinophils Absolute Basophils Sodium 138 Potassium 4.2 Chloride 99 Carbon Dioxide 30.5 Anion Gap 8.5 BUN 24 H Creatinine 1.1 H Est GFR (CKD-EPI 2020) 51.11 Glucose 145 H Calcium 9.0 Magnesium Total Bilirubin AST ALT Alkaline Phosphatase Troponin I Total Protein Albumin Urine Color Yellow Urine Clarity Sl Cloudy Urine pH 6.0 Ur Specific [place] 1.015 Urine Protein Negative Urine Ketones Negative Urine Blood Negative Urine Nitrite Positive H Urine Bilirubin Negative Urine Urobilinogen 0.2 Ur Leukocyte Esterase Small H Urine RBC Negative Urine WBC 5-10 Ur Epithelial Cells Many Urine Crystals Negative Urine Bacteria Moderate Urine Casts Negative Urine Mucus Negative Ur Culture Indicated? No/Sq. Contamination Urine Glucose Negative Urine Opiates Screen Urine Methadone Screen Ur Barbiturates Screen Ur Tricyclics Screen Ur Amphetamines Screen U Benzodiazepines Scrn Urine Cocaine Screen Ur THC Screen COVID-19 Source Nasal/Nares SARS-CoV-2 (PCR) Negative 01/14/22 06:43 WBC 8.77 RBC 5.28 H Hgb 15.1 Hct 48.2 H MCV 91 MCH 28.6 MCHC 31.3 L RDW 13.8 Plt Count 263 MPV 11.2 H Immature Gran % 0.3 Neutrophils % 65.1 Lymphocytes % 25.9 Monocytes % 5.9 Eosinophils % 2.2 Basophils % 0.6 Nucleated RBC % 0.0 Absolute Neutrophils 5.71 Absolute Lymphocytes 2.27 Absolute Monocytes 0.52 Absolute Eosinophils 0.19 Absolute Basophils 0.05 Sodium Potassium Chloride Carbon Dioxide Anion Gap BUN Creatinine Est GFR (CKD-EPI 2020) Glucose Calcium Magnesium Total Bilirubin AST ALT Alkaline Phosphatase Troponin I Total Protein Albumin Urine Color Urine Clarity Urine pH Ur Specific [place] Urine Protein Urine Ketones Urine Blood Urine Nitrite Urine Bilirubin Urine Urobilinogen Ur Leukocyte Esterase Urine RBC Urine WBC Ur Epithelial Cells Urine Crystals Urine Bacteria Urine Casts Urine Mucus Ur Culture Indicated? Urine Glucose Urine Opiates Screen Urine Methadone Screen Ur Barbiturates Screen Ur Tricyclics Screen Ur Amphetamines Screen U Benzodiazepines Scrn Urine Cocaine Screen Ur THC Screen COVID-19 Source SARS-CoV-2 (PCR)
--- NOTE | 2022-01-14 14:15 | DI.CT_ITS ---
Exam(s) CT HEAD - STROKE PROTOCOL EXAM: CT HEAD - STROKE PROTOCOL CLINICAL HISTORY: acute dysarthric speech in setting of CVA. TECHNIQUE: Imaging Protocol: Axial computed tomography images with coronal and sagittal reformatted images were created and reviewed COMPARISON: MR MR BRAIN WO from 01/13/[address] BRAIN NECK CTA from 01/13/2022 FINDINGS: Ventricles and Extra axial spaces: Normal in size and morphology for the patient's age. Hemorrhage: None. Cerebral parenchyma: There is again seen an area of decreased attenuation in the right cerebral hemis phere corresponding to the area of restricted diffusion seen on the MRI from 01/13/2022. No new areas of decreased attenuation are seen in the white matter. There is cerebral atrophy consistent with th e patient's age. Areas of decreased attenuation are present consistent with small vessel ischemic di sease. These appear stable Midline shift: None. Brainstem/Cerebellum: Normal. Calvarium: Normal. Visualized Paranasal sinuses/Mastoids: Clear. Soft Tissues: Unremarkable. IMPRESSION: No acute change in appearance of the brain since 01/13/2022. MRI of the brain from 01/13/2022 showed m ultiple areas of restricted diffusion in both cerebellar hemispheres. RADIATION DOSE DELIVERED: 696.25mGy.cm Total DLP DATA REPOSITORY: All CT scans at this facility are submitted to the National Radiology Data Registry (NRDR) Dose Index Registry (DIR) with the [employer] (A[employer]). RADIATION OPTIMIZATION: All CT scans at this facility use at least one of these dose optimization te chniques: automated exposure control; mA and/or kV adjustment per patient size (includes targeted exa ms where dose is matched to clinical indication); or iterative reconstruction.
--- NOTE | 2022-01-14 14:18 | CHAPLAIN ---
Smitha was sitting up in the chair when I visited. She told me she's from [place] and waiting for her family members to visit. They arrived shortly after I left.
--- NOTE | 2022-01-14 14:34 | NUR.NOTE ---
Nursing Note: change in pt condition at this time, dispatch manager Aliza called this journalists and other writers to the room at approximately 14:25 because pt had stated her vision was blurry and felt like everyones voice was distant. pts face was warm and red, notable change and slurring of words as compared to this morning. pts muscle strength was not different from morning assessment however there was noticeable facial drooping, pt was confused about time and her birthdate but was able to state her name and where she was. CC and Dr. Amezcua responded to event. pt sent to CT. vitals stable at this time.
--- NOTE | 2022-01-14 15:01 | W.PM.PROGNOT ---
Date of Service Date of service: 01/14/22 Time of Service: 15:01 Assessment and Plan Assessment and plan (1) New cerebellar infarct: Status: Acute Assessment and plan: MRI Demonstrated multiple foci of restricted diffusion defects in both cerebellar hemispheres with the largest being in the mid level of the right cerebellar hemisphere. Findings are consistent with nonhemorrhagic CVAs. CT of the head neck was performed yesterday and demonstrated occlusion of the right vertebral artery from the level of the craniocervical junction. She also has narrowing and irregularity of the left vertebral artery and basilar artery and narrowing and irregularity of the left P1 and P2 segments of moderate stenosis at the origin of her left internal carotid artery. Echocardiogram and carotid ultrasound are pending at this time. Given her new findings of dysarthric speech and right facial droop there is concern that she may have a new CVA. Stat noncontrast CT of her head was performed showed no cerebral bleed. Patient will go for MRI scan of the brain to see if there is some new diffusion defects. Patient got a full dose aspirin yesterday and got started on Plavix 75 mg but never received a full loading dose of Plavix. She got her 81 mg aspirin this morning and will now get the balance of the full loading dose of Plavix of 225 mg for a total of 300 mg today. Case discussed with Dr. Marlena Mckeon who will see her this afternoon. Since the patient returned from CT scan of her head she is improving. Her rhythm has been reviewed there is been no paroxysmal atrial fibrillation. She does have significant sinus bradycardia with heart rates dropping down into the 40s. Patient's been on dual beta-mars and calcium channel mars for hypertension including propranolol and verapamil. I will continue her propranolol with holding orders for slow heart rates and I will discontinue verapamil and consider replacement w/ norvasc however, for now will allow some passive hypertension in setting of acute CVA Professional time spent interviewing and examining patient, discussion of goals of care with hospital team (care management, nursing and consulting professionals) was 45 minutes. (2) COPD (chronic obstructive pulmonary disease): Status: Acute Assessment and plan: No exacerbation. Pt does not use any pulmonary meds. (3) Hypertension: Status: Chronic Assessment and plan: Continue propranolol with blood pressure and heart rate parameters. DC her verapamil given her significant bradycardia. We will allow some passive hypertension in the setting of her CVA. Tomorrow we will consider adding low-dose Norvasc with holding parameters for blood pressures below 150 mm (4) UTI (urinary tract infection): Status: Acute Assessment and plan: Positive UA but no culture initially ordered in ED. Rocephin initiated in ED and will continue. Culture to be sent (5) Discharge planning issues: Status: Acute Assessment and plan: Discussed her code status. She believes she signed an advanced directive at some point in time. She desires a DNR/DNI status. Likely will not need SNF but likely outpt PT/OT or PT/OT. Subjective Subjective Interval history since last seen: Called to the patient's room to evaluate for possible extension of her stroke. manager of applications development was talk with the patient when the patient became very reddened in the face and the case management director after if she was feeling all right patient said no she felt confused and felt like a case management director was very far off from her and she could not hear her well. manager of applications development noted that the patient's speech was very slurred and called the patient's primary nurse and the charge nurse into the room to evaluate her. Patient denies a headache or acute visual changes. The charge nurse asked to repeat the phrase you can teach an old dog new tricks the patient's speech was dysarthric. Exam Narrative Exam Narrative: Per my initial exam when I was called in the see the patient patient appeared to be very plethoric very reddened in the face. Per nursing vital signs did not show any hypertensive/hypotensive BP changes. BP 130/64, heart rate has been SR/SB w/ 1st degree AV block; however patient rate at times is down into the mid 40's but w/ no advanced heart block She is awake/alert, initially she was confused and had trouble giving me her and when asked her name she was dysarthric speech; however, after her CT of her head she was feeling someehat better, not as confused and able to readily answer questions w/out hesitation although her speech is still somewhat thick; she has noticeable right facial droop from the corner of her mouth EOMI; no acute visual deficit by confrontation, PERRLA Motor: normal strength and ROM w/ both hands and arms; gait wide based and she requires use of walker but she had no problems picking her feet and legs up Sensory: grossly normal to touch bilaterally Babinski: too much withdrawal to determine Objective Last Vital Signs Temp 36.7 C 01/14/22 14:26 Pulse 68 01/14/22 14:26 Resp 16 01/14/22 14:26 BP 130/64 01/14/22 14:26 Pulse Ox 94 01/14/22 14:26 Laboratory Results - last 24 hr 01/13/22 01/13/22 01/13/22 14:54 14:54 17:07 WBC RBC Hgb Hct MCV MCH MCHC RDW Plt Count MPV Immature Gran % Neutrophils % Lymphocytes % Monocytes % Eosinophils % Basophils % Nucleated RBC % Absolute Neutrophils Absolute Lymphocytes Absolute Monocytes Absolute Eosinophils Absolute Basophils Sodium Potassium Chloride Carbon Dioxide Anion Gap BUN Creatinine Est GFR (CKD-EPI 2020) Glucose Calcium Urine Color Yellow Urine Clarity Sl Cloudy Urine pH 6.0 Ur Specific [place] 1.015 Urine Protein Negative Urine Ketones Negative Urine Blood Negative Urine Nitrite Positive H Urine Bilirubin Negative Urine Urobilinogen 0.2 Ur Leukocyte Esterase Small H Urine RBC Negative Urine WBC 5-10 Ur Epithelial Cells Many Urine Crystals Negative Urine Bacteria Moderate Urine Casts Negative Urine Mucus Negative Ur Culture Indicated? No/Sq. Contamination Urine Glucose Negative Urine Opiates Screen Negative Urine Methadone Screen Negative Ur Barbiturates Screen Negative Ur Tricyclics Screen Negative Ur Amphetamines Screen Negative U Benzodiazepines Scrn Negative Urine Cocaine Screen Negative Ur THC Screen Negative COVID-19 Source Nasal/Nares SARS-CoV-2 (PCR) Negative 01/14/22 01/14/22 06:43 06:43 WBC 8.77 RBC 5.28 H Hgb 15.1 Hct 48.2 H MCV 91 MCH 28.6 MCHC 31.3 L RDW 13.8 Plt Count 263 MPV 11.2 H Immature Gran % 0.3 Neutrophils % 65.1 Lymphocytes % 25.9 Monocytes % 5.9 Eosinophils % 2.2 Basophils % 0.6 Nucleated RBC % 0.0 Absolute Neutrophils 5.71 Absolute Lymphocytes 2.27 Absolute Monocytes 0.52 Absolute Eosinophils 0.19 Absolute Basophils 0.05 Sodium 138 Potassium 4.2 Chloride 99 Carbon Dioxide 30.5 Anion Gap 8.5 BUN 24 H Creatinine 1.1 H Est GFR (CKD-EPI 2020) 51.11 Glucose 145 H Calcium 9.0 Urine Color Urine Clarity Urine pH Ur Specific [place] Urine Protein Urine Ketones Urine Blood Urine Nitrite Urine Bilirubin Urine Urobilinogen Ur Leukocyte Esterase Urine RBC Urine WBC Ur Epithelial Cells Urine Crystals Urine Bacteria Urine Casts Urine Mucus Ur Culture Indicated? Urine Glucose Urine Opiates Screen Urine Methadone Screen Ur Barbiturates Screen Ur Tricyclics Screen Ur Amphetamines Screen U Benzodiazepines Scrn Urine Cocaine Screen Ur THC Screen COVID-19 Source SARS-CoV-2 (PCR)
--- NOTE | 2022-01-14 15:45 | RT.EKG_ITS ---
APPROVED REPORT Exam: Resting ECG Reason for Exam: sinus bradycardia, 1st degree AV block Patient Location: I HR:61 bpm ECG Measurements Heart Rate 61 AXIS NJ 289 P 154 QRSd 104 QRS -21 QT 457 T 155 QTc 461 Conclusion Sinus or ectopic atrial rhythm...P axis (-45,135) Probable Mobitz 1 second-degree AV block (Wenkebach) Prolonged NJ interval...NJ >220, V-rate 50- 90 LVH with secondary repolarization abnormality...multi-LVH criteria, abnrm ST-T Anterior infarct, old...Q >40mS, abnormal ST-T, V2-V5
[2022-01-14] MEDS: Clopidogrel 75 MG TAB 225 MG PO (16:36)
[2022-01-14] MEDS: Normal Saline Flush 10 ML SYR IVP (16:36)
[2022-01-14] MEDS: cefTRIAXone 1 GM/50 ML BAG IVPB (16:36)
[2022-01-14 16:53] LABS: Hemoglobin A1C 6.6 % (<5.7)
[2022-01-14] MEDS: Atorvastatin 40 MG TAB 80 MG PO (19:56)
[2022-01-14] MEDS: Cyclobenzaprine 10 MG TAB 5 MG PO (22:01)
[2022-01-14] MEDS: Acetaminophen 325 MG TAB PO (23:32)
[2022-01-15] VITALS (8 sets, daily range): BP systolic 125–139; BP diastolic 64–84; PULSE 72–93; RESP 16–18; TEMP 35.9–36.6; O2SAT 91–93
[2022-01-15] MEDS: Levothyroxine 50 MCG TAB PO (05:29)
[2022-01-15] MEDS: Acetaminophen 325 MG TAB PO (05:29)
[2022-01-15 05:49] LABS: Calculated LDL 142 mg/dL (<100); Cholesterol 209 mg/dL (<200); HDL Cholesterol 50 mg/dL (40-60); Triglyceride 85 mg/dL (<150)
[2022-01-15] MEDS: LORazepam 0.5 MG TAB PO (06:54)
[2022-01-15] MEDS: Aspirin E.C. 81 MG TABEC PO (08:15)
[2022-01-15] MEDS: Cholecalciferol (Vitamin D3) 1,000 UNIT TAB 1000 UNITS PO (08:15)
[2022-01-15] MEDS: Pantoprazole 40 MG TABCR PO (08:15)
[2022-01-15] MEDS: Furosemide 20 MG TAB PO (08:15)
[2022-01-15] MEDS: Spironolactone 25 MG TAB PO (08:15)
[2022-01-15] MEDS: Potassium Chloride 10 MEQ TABCR PO (08:16)
[2022-01-15] MEDS: Multivitamin TAB 1 TAB PO (08:16)
[2022-01-15] MEDS: Mirtazapine 15 MG TAB PO (08:16)
[2022-01-15] MEDS: Clopidogrel 75 MG TAB PO (08:16)
--- NOTE | 2022-01-15 10:44 | CMPROGNOTE_ITS ---
- If Service Date Differs Date of service: 01/15/22 Time of Service: 10:44 Care Management Progress Note S/O: A: 81 year old female admitted to [facility] on 01/13/22 for cerebellar infarct. P: Smitha will likely be discharged home with new home health services for PT. She will follow up with her PCP and plan of care and transport with family. CM will offer support to Smitha and her discharge planning needs.
--- NOTE | 2022-01-15 12:08 | W.PM.DS.N ---
Date of service: 01/15/22 Time of Service: 12:08 DS: Diagnosis Discharge Diagnosis (1) Cerebellar stroke: Status: Deleted Asessment and Plan: patient found to have multivessel disease including : 1. Suspected occlusion of the right vertebral artery from the level of the craniocervical junction. 2. Narrowing and irregularity of the caliber of the left vertebral artery and basilar artery.? This could reflect atherosclerotic disease. 3. Narrowing and irregularity of the left P1 and P2 segments which may reflect atherosclerosis. 4. Moderate stenosis at the origin of the left internal carotid artery.? MRI demonstrated: There are multiple foci of restricted diffusion in both cerebellar hemispheres, largest being in the mid level of the right cerebellar hemisphere, measuring 8 x 4 millimeters, exhibiting restricted diffusion and consistent with nonhemorrhagic ischemic event.? Cannot exclude possibility of emboli given the multiplicity these foci of restricted diffusion in both cerebellar hemispheres. Incidentally noted are bilateral developmental sub lenticular cysts, as seen on the recent CT scan. patient was started on ASA 81 mg, Plavix 75 mg and atorvastatin 80 mg daily. P.T. was consulted and she did well w/ use of FWW and was able to be dc to home w/ home health including PT, OT, ST. (2) Vertebral artery stenosis/occlusion with infarction: Status: Acute (3) Bradycardia: Status: Acute Asessment and Plan: patient had severe symptomatic bradycardia but no advanced heart block. Her verapamil and propranolol were stopped. follow up cardiac event recorder was ordered to be done as outpatient while off her calcium channel and beta mars (4) Hypertension: Status: Chronic Asessment and Plan: continue spironolactone and furosemide. monitor BP twice a day. may need to add an MESSI inhibitor or ARB to her regimen.Goal is SBP 130 to 140 but avoid hypotension in setting of severe multivessel cerebrovascular disease. (5) UTI (urinary tract infection): Status: Resolved Asessment and Plan: patient UA was suspicious for UTI but urine culture grew mixe margarita of gram positive and gram negative junito, <10,000 colonies. Patient was treated w/ one time dose of Rocephin and then fosfomycin. (6) SPRING (obstructive sleep apnea): Status: Chronic (7) New onset type 2 diabetes mellitus: Status: Acute Asessment and Plan: new dx. HbA1C was 6.6%. Patient begun on metformin 500 mg daily. Follow up diabetic education to be obtained through home health services or may be obtained at the hospital. Discharge Plan Disposition Patient Disposition: HOME W/HOME HEALTH SERVICE Condition: Improving Discharge Details Reason For Visit: Cerebellar CVA Admit Date/Time: 01/13/22 17:50 Admit Provider: Juarez Taveras Attending Provider: Juarez Taveras Primary Care Provider: Walker Diana Hospital Course Hospital Course: 81 yo femal with a PMH of COPD, SPRING, migraines, peripheral neuropathy, HTN, depression and anxiety who presented w/ 3 day hx of right visual field disturbance (hallucinations of bugs crawling up the [place]royo, shadows of children in the room but no acutal vision loss), along w/ gait imbalance and confusion. See admission H&P and ED notes for details. Workup included MRI demonstrating bilateral cerebellar CVA's and CTA of brain and cervical vessels demonstrating occlusion of the right vertebral artery at the @ craniocervical jxn, narrowing and irregularity of the left vertebral and basilar arteries, narrowing and irregularities of the P1 and P2 segments c/w atherosclerosis and moderate stenosis of the left ICA. Patient had already taken her aspirin 81 mg on the day of admission so the ER gave her the rest of a loading dose of aspirin and she was started on Plavix 75 mg (although a loading dose was not given until the next day). She was put on high dose atorvastatin and admitted to med/surg floor on telemetry monitoring for further neurologic evaluation and completion of her stroke workup including echocardiogram, neurology consultation and consults w/ P.T. Echocardiogram was normal w/ no evidence for atrial septal defect. Carotid US showed no significant hemodynamically increased velocities of the right ICA but significantly increased velocities in the left distal ICA c/w moderate stenosis.Patient did well w/ P.T. walking independently w/ a walker. The patient had a spell on 01/14 while talking w/ the case manage in which the patient had dysarthric speech and noticeable facial droop and transient confusion along w/ dysarthric speech. This led to repeat non-contrast CT of the head (which did not show any bleed but showed prior area of decreased attenuation in the right cerebral hemisphere that corresponded to the restricted diffusion defect seen on prior MRI. Repeat MRI of brain was ordered and showed the prior biblateral cerebellar diffusion defects seen on the MRI from 01/13. The patient's symptoms resolved with no intervention. Dr. Mckeon, neurology evaluated the patient, see her note for details. She felt that patient should be on DAPT w/ ASA 81 mg daily and Plavix 75 mg daily x 3 months d/t her large vessel cerebrovascular disease then ASA 81 mg for life. atorvatatin 80 mg daily w/ down titration later as long as goal of LDL <70 is achieved. She did not recommend prolonged outpatient groundwater monitoring technician from stroke standpoint as she felt that patient severe cerebrovascular disease could account for the bilateral cva and the patient did not exhibit any PSVT or PAF during this admission. However, the patient experienced significant bradycardia w/ HR in the 40's necessitating stopping both her verapamil and propranolol. An outpatient cardiac event recorder has been ordered. ST and OT did not get consulted during this admission but have been requested as part of her home health services. BP goal is 140 SBP, avoid hypotension. As part of her workup she had a glycohemoglobin A1c lab test done which came back at 6.6% which is at the threshold for new onset DM type 2. Patient was begun on metformin 500 mg once daily. She should have follow up outpatient diabetic education. Her lipid profile was done and showed high LDL of 142, total cholesterol 209. She was discharged on atorvastatin 80 mg daily. Please repeat lipids in 6 to 8 weeks and if not achieving a goal of LDL less than 70 consider change in her statin to high dose Rosuvastatin. Patient should follow up in the neurology clinic in 4 to 6 weeks. Home Meds and New Rx's Prescriptions: New aspirin 81 mg Tablet,Delayed Release (Dr/Ec) 81 mg PO DAILY Qty: 90 1RF atorvastatin 40 mg Tablet 80 mg PO QPM Qty: 30 2RF clopidogrel 75 mg Tablet 75 mg PO DAILY Qty: 30 2RF metformin 500 mg tablet extended release 24 hr 500 mg PO DAILY Qty: 30 1RF Continued mirtazapine 15 mg tablet 15 mg PO DAILY cholecalciferol (vitamin D3) 1,000 unit capsule 1,000 unit PO DAILY multivitamin [Daily Value] 1 EACH tablet 1 ea PO DAILY levothyroxine 50 MCG tablet 50 mcg PO DAILY furosemide 20 MG tablet 20 mg PO DAILY budesonide 32 mcg/actuation spray,non-aerosol 1 spray intranasal DAILY Rx Instructions: administer into each nostril benzonatate 100 mg capsule 100 mg PO BID PRN cyclobenzaprine 5 mg tablet 5 mg PO QHS potassium chloride 10 mEq Tablet Extended Release 10 meq PO DAILY spironolactone 25 mg tablet 25 mg PO DAILY Label Comments: TAKE ONE TABLET BY MOUTH EVERY DAY pantoprazole 40 MG tablet,delayed release (DR/EC) 40 mg PO BID@ Qty: 60 0RF nitroglycerin [Nitrostat] 0.4 MG tablet, sublingual 0.4 mg Sublingual Q5 MIN PRN X3 PRNQty: 1 0RF Discontinued verapamil 360 mg capsule,ext rel. pellets 24 hr 360 mg PO .12 NOON propranolol 20 mg tablet 20 mg PO BID Discharge Instructions Instructions: Ischemic Stroke (DC) Stand Alone Forms: Nursing Discharge Form Referrals: Walker Diana MD [Primary Care Provider] - 01/25/22 11:15 am () Activity:: Activity as Tolerated Equipment/Supplies:: No Equipment Needed Diet:: Carb Counting Discharge Orders Discharge Orders: Discharge Order (Routine); Ordered 01/15/22 Ordered By: Trey Amezcua Discharge Data Discharge Date/Time-TO BE ENTERED AT DEPARTURE: 01/15/22 14:01 DS: Summary Time Spent with Patient providing and/or coordinating discharge services: Greater than 30 minutes Specific discharge activities: Interview/exam of patient; review of discharge instructions, completion of prescriptions/discharge instructions; discussion w/ nursing and CM; documentation of hospital visit Status at Discharge Functional status at discharge: uses cane/walker Overall status at discharge: patient is progressing back to baseline Mental Status: mental status grossly normal Speech and Movement: speech and movement normal Mood: congruent mood Affect: normal affect Quality: Stroke Contraindication Not Initiating IV-Tpa: Not indicated Onset of Symptoms Date: 01/07/22 Exam Narrative Exam Narrative: Smitha is sitting up in her chair she is alert and oriented her speech is much clearer today. She is alert and oriented person place time circumstance. HEENT no noticeable facial droop and no dysarthric speech Lungs are clear to auscultation Heart is regular but slightly bradycardic. Review of her telemetry overnight heart rate is in the 70s this morning. On the 10:57 PM shift she was as low as 44 bpm as high as 86 bpm Abdomen obese soft and nontender Extremities normal range of motion and strength in both upper and lower extremities. Neuro exam no dysarthric speech no facial asymmetry full extraocular motion intact normal [id number] testing bilaterally. I observed her gait while she walked with physical therapy she did well independently ambulating with use of a front wheel walker with no loss of balance. Psych Mental Status: mental status grossly normal Speech and Movement: speech and movement normal Mood: congruent mood Affect: normal affect DS: Data Vitals/I&O Vitals and I&O: Vital Signs Temperature 36.0 C L 01/15/22 11:44 Temperature Source Tympanic 01/15/22 11:44 Pulse 84 01/15/22 11:44 Pulse Rhythm Regular 01/15/22 09:39 Pulse 67 01/13/22 17:40 Respiratory Rate 16 01/15/22 11:44 Respiratory Effort Non-Labored 01/15/22 09:39 Respiratory Depth Normal 01/15/22 09:39 Respiratory Pattern Normal 01/15/22 09:39 Blood Pressure 125/75 01/15/22 11:44 Blood Pressure Mean 92 01/13/22 17:31 Pulse Oximetry 91 L 01/15/22 11:44 Oxygen Delivery Method Room Air 01/15/22 11:44 Oxygen Flow Rate 0 01/15/22 11:44 Pain Level 0 01/15/22 07:58 Comment 01/14/22 11:31 Intake & Output 01/14/22 01/15/22 01/15/22 23:59 11:59 23:59 Intake Total 290 / 1090 240 / 240 Output Total 500 / 1000 Balance -210 / 90 240 / 240 Intake: IV 50 / 50 Oral 240 / 1040 240 / 240 Output: Urine 500 / 1000 Other: Urine Color Yellow Yellow Urine Appearance Clear Clear Urine Odor Normal Comment pT voided in toilet Voiding Methods Toilet Toilet Data Completed and Pending Labs on day of discharge: Labs from last 24 hours 01/15/22 01/14/22 05:25 06:43 Hemoglobin A1c 6.6 H Triglycerides 85 Total Cholesterol 209 H LDL Cholesterol, Calc 142 H HDL Cholesterol 50 Preliminary micro results at discharge 01/13/22 23:39 Urine Culture - Preliminary Urine - Clean Catch Gram Positive Margarita,Mixed Gram Negative Junito PFSH All Active Problems (Updated 01/16/22 @ 00:01 by BRITTANY REYNA) New onset type 2 diabetes mellitus (Acute) Vertebral artery stenosis/occlusion with infarction (Acute) New cerebellar infarct (Acute) Primary osteoarthritis of left knee (Chronic) Injected: 02/01/2019 S/P debridement (Acute) 08/31/18. Incision of debridement of SQ abscess of umbilical port site. 09/18/18 dressing removed small amount superficial debridement, wound irrigated and redressed diflucan for yeast Lesion of endometrium (Acute) Thickened endometrial stripe in a postmenopausal female. No history of abnormal uterine bleeding. GERD with esophagitis (Acute) Obesity, Class III, BMI 40-49.9 (morbid obesity) (Acute) Increased endometrial stripe thickness (Acute 06/20/17) Incidental finding at the time of a pelvic CT scan for hydronephrosis in 2017. EMBx @ [facility] [place] benign. No hx of PMB. Expectant management. H/O esophagogastroduodenoscopy (Chronic ~06/06/18) Hiatal hernia with GERD and esophagitis (Acute) Hydrosalpinx (Chronic) 01/2017 left adnexa cystic lesion measuring 72 x 17 x 62 mm 06/24/17 pelvic ultrasound left hydrosalpinx 73 x 36 x 69 mm with several loculations. Endometrial stripe is 10 mm. 01/05/18 Pelvic u/s L adnexal cyst: [id number]. 08/11/2018 Pelvic u/s L adnexal cyst [id number]. 2 internal septations. Thick walled. ES 14mm. 08/24/18. Laparoscopic bilateral BSO. Premliminary path: benign, SPRING (obstructive sleep apnea) (Chronic) Essential tremor (Chronic) Anxiety (Chronic) Depression (Chronic) Hyperlipidemia (Chronic) Hypothyroidism (Chronic) History of skin cancer (Chronic) COPD (chronic obstructive pulmonary disease) (Chronic) Rosacea (Chronic) Hypertension (Chronic) Vitamin D deficiency (Chronic) Flank pain (Acute) Obesity (BMI 35.0-39.9 without comorbidity) (Acute) Neuropathy (Acute) Chronic cough (Acute) Kidney stones (Chronic) Bradycardia (Acute) Balance problem (Acute) Glucose intolerance (Acute) History of kidney surgery (Acute) Medical History (Updated 01/16/22 @ 00:01 by BRITTANY REYNA) Abdominal pain, epigastric NAOMIE positive Chronic diarrhea Chronic fatigue and malaise Encounter for counseling Esophagitis Facial flushing Floaters in visual field Headache History of prediabetes Hydronephrosis Irritable bowel syndrome with diarrhea Knee pain, left Menopause Osteoarthritis Osteoarthritis of left knee Polyclonal gammopathy Seasonal allergies Sleep disturbances Urinary incontinence Surgical History Hx of cataract surgery Hx of lithotripsy Family History Other Heart disease Social History Smoking/Tobacco Use Status: Former Tobacco Use Smoking risk assessment performed?: Yes Alcohol Intake: current Alcohol Intake frequency: other Details: MONTHLY OR LESS Drug use: Never Substance use type: does not use Number of Children: 3 Current gender identity: female Seatbelt use: always Do you feel safe at home: Yes Do you feel safe in your relationship?: Yes
--- NOTE | 2022-01-15 12:15 | PT.INDS ---
Date of service: 01/18/22 PT Notes Visit Reasons: Cerebellar CVA Physical Therapy Inpatient Discharge Summary Date: 01/14/2022 Dates of Service: 01/14/2022 through 01/15/2022 Referring Doctor: Juarez Taveras MD PT Orders: PT CONSULT: Eval/Treat Precautions: Fall. Standard. Activity as tolerated. Patient Profile/Admitting Diagnosis:? Smitha is a 81-year-old female who presented to the ED on 01/13/2022 with chief complaints of headache, dizziness, and some visual disorder 3 days before ED admission.? Patient is diagnosed with new cerebellar infarct, COPD, hypertension, and UTI. PMHX: All Active Problems? Discharge planning issues (Acute) UTI (urinary tract infection) (Acute) New cerebellar infarct (Acute) Primary osteoarthritis of left knee (Chronic) Injected: 02/01/2019S/P debridement (Acute) 08/31/18. Incision of debridement of SQ abscess of umbilical port site. 09/18/18 dressing removed small amount superficial debridement, wound irrigated and redressed diflucan for yeast Lesion of endometrium (Acute) Thickened endometrial stripe in a postmenopausal female.? No history of abnormal uterine bleeding. Incisional abscess (Acute) Atypical chest pain (Acute) GERD with esophagitis (Acute) Anxiety (Acute) Obesity, Class III, BMI 40-49.9 (morbid obesity) (Acute) Increased endometrial stripe thickness (Acute 06/20/17) Incidental finding at the time of a pelvic CT scan for hydronephrosis in 2016. EMBx @ [facility] benign. No hx of PMB. Expectant management. H/O esophagogastroduodenoscopy (Chronic ~06/06/18) Dysphagia (Acute) Hiatal hernia with GERD and esophagitis (Acute) Hydrosalpinx (Chronic) 01/2017 left adnexa cystic lesion measuring 72 x 17 x 62 mm 06/24/17 pelvic ultrasound left hydrosalpinx 73 x 36 x 69 mm with several loculations.? Endometrial stripe is 10 mm. 01/05/18 Pelvic u/s L adnexal cyst: [id number]. 08/11/2018 Pelvic u/s L adnexal cyst [id number]. 2 internal septations. Thick walled. ES 14mm. 08/24/18. Laparoscopic bilateral BSO. Premliminary path: benign,SPRING (obstructive sleep apnea) (Chronic) Essential tremor (Chronic) Anxiety (Chronic) Depression (Chronic) Hyperlipidemia (Chronic) Hypothyroidism (Chronic) History of skin cancer (Chronic) COPD (chronic obstructive pulmonary disease) (Acute) Rosacea (Chronic) Hypertension (Chronic) Vitamin D deficiency (Chronic) Dysphagia (Acute) Flank pain (Acute) Obesity (BMI 35.0-39.9 without comorbidity) (Acute) Neuropathy (Acute) Chronic cough (Acute) Kidney stones (Chronic) Bradycardia (Acute) Hypokalemia (Acute) Hypomagnesemia (Acute) Balance problem (Acute) Glucose intolerance (Acute) History of kidney surgery (Acute) Medical History? Abdominal pain, epigastric NAOMIE positive Chronic diarrhea Chronic fatigue and malaise Encounter for counseling Esophagitis Facial flushing Floaters in visual field Headache History of prediabetes Hydronephrosis Irritable bowel syndrome with diarrhea Knee pain, left Menopause Osteoarthritis Osteoarthritis of left knee Polyclonal gammopathy Seasonal allergies Sleep disturbances Urinary incontinence Surgical History? Hx of cataract surgery Hx of lithotripsy Social History/Home Situation: Lives with in a private home with 5 steps to enter with rails on both sides.? Independent with ambulation using single-point cane.? Equipment Owned/DME: 4WW, SPC Subjective: NT. See most recent BLOOD BANK COORDINATOR notes. Objective: General Observation: NT. See most recent BLOOD BANK COORDINATOR notes. Mental Status: NT. See most recent BLOOD BANK COORDINATOR notes. Pain: NT. See most recent BLOOD BANK COORDINATOR notes. Vital Signs: NT. See most recent BLOOD BANK COORDINATOR notes. ROM: Right Upper Extremity: ? Shoulder Flexion WFL. Shoulder abduction WFL. Elbow flexion WFL. Wrist flexion WFL. Functional opening and closing of hand WFL. Left Upper Extremity:? Shoulder Flexion WFL. Shoulder abduction WFL. Elbow flexion WFL. Wrist flexion WFL. Functional opening and closing of hand WFL. Right Lower Extremity: Hip flexion WFL. Hip abduction WFL. Knee flexion WFL. Ankle dorsiflexion WFL. Ankle plantarflexion WFL. Left Lower Extremity: Hip flexion WFL. Hip abduction WFL. Knee flexion WFL. Ankle dorsiflexion WFL. Ankle plantarflexion WFL. Strength: Right Upper Extremity: Shoulder flexors 5/5. Shoulder abductors 5/5. Elbow flexors 5/5. Elbow extensors 5/5. Architect Manager strong. Left Upper Extremity: Shoulder flexors 4/5. Shoulder abductors 4/5. Elbow flexors 4/5. Elbow extensors 4/5. Architect Manager strong. Right Lower Extremity: Hip flexors 5/5. Hip abductors 5/5. Knee flexors 5/5. Knee extensors 5/5. Ankle dorsiflexors 4/5. Ankle plantarflexors 4/5. Left Lower Extremity: Hip flexors 4/5. Hip abductors 4/5. Knee flexors 4/5. Knee extensors 4/5. Ankle dorsiflexors 4/5. Ankle plantarflexors 4/5. Bed Mobility/Transfers: Sit to stand with stand by assist using FWW Stand to sit with stand by assist using FWW Bed to reclining chair stand by assist using FWW Reclining chair to bed stand by assist using FWW Gait: Instructed patient with level surface ambulation of 150 feet + 150 feet requiring stand by assist. Suzette decreased. Step height decreased. Step length decreased.? Step-to gait pattern. Mild shortness of breath. Balance: Static Sitting: Normal Dynamic Sitting: Normal Static Standing: Fair Dynamic Standing: Fair 4-stage balance Test: Patient is not able to maintain any of the 4 positions in the test indincating high fall risk and need for FWW use.? Pronator Drift: Positive on R UE Romberg Test:? Positive.? Near LOB and extensive postural sway during test. Assessment: Pronator drift on L UE.? Lower R half of face paretic.? Did not report any visual disturbance throughout session. Patient presents with clinical signs and symptoms consistent with current/admitting diagnoses that have resulted to mobility limitations, gait instability, generalized weakness, and overall ADL decline as demonstrated by the following impairment level findings: 1.? Decreased strength to L UE/LE major muscle groups 2.? Impaired standing balance 3.? Impaired activity tolerance 4.? Shortness of breath Impairments are contributing to the following functional limitations: 1.? Difficulty with ambulation without assistive device 2.? Increased completion time for mobility ADL performance 3.? Increased risk for falls 4.? Difficulty with managing steps alone safely Goals: Goals X1 week 1. Supine-Sit independent MET 2. Sit-Supine independent MET 3. Sit-Stand independent NOT MET 4. Stand-Sit independent with FWW NOT MET 5. Bed-Chair independent with FWW NOT MET 6. Chair-Bed independent with FWW NOT MET 7. Independent gait on level surface with use of FWW for at least 300 feet without report of pain nor dyspnea NOT MET 8. Independent stair negotiation while holding onto B rails for at least 5 steps without report of pain nor dyspnea NOT MET 9. Independent with home exercise program NOT MET 10. Good static and dynamic standing balance/tolerance NOT MET DISCHARGE RECOMMENDATIONS: [] ? Home with no services [] [X] ? Home with services.? Patient will benefit from home health PT services in order to progress mobility level using least restrictive assistive ambulatory device, assess home safety, identify additional equipment needs, and establish a functional maintenance program that will increase ability of patient to remain at home. [] ? Home with outpatient PT [] [] ? SNF for continued rehabilitation [] [] ? Assisted Care [] [] ? SNF versus LTC based on ability to participate and progress [] TREATMENT CODE/TIME: 26469 x 2 units. Thank you for the opportunity to participate in the care of this patient. Tamra Haddad PT, DPT, CLT [facility] [place], [place]
--- NOTE | 2022-01-15 12:21 | PDOC.HHF2F_ITS ---
Home Health Certification Home Health Certification: 1. Encounter Date and Reason I certify that Smitha Lyon was seen by Trey Amezcua on 01/15/22 and that I had a [id number] encounter with this patient that meets the physician face to face encounter requirements. 2. Clinical Findings Supporting Skilled Need and Homebound Status I certify that home health services are medically necessary, include either intermittent mcc and/or physical/speech therapy, and that this patie nt is homebound in that absences from the home require considerable and taxing effort and are infrequent or of short duration, or are attributable to the need to receive medical care. [X] (a) Attached documentation from encounter provides clinical findings supporting skilled need and homebound status (including what assistance patient requires to leave the home). The encounter with the patient was in whole, or in part, for the following medical condition, which is the primary reason for home health care: Cerebellar CVA Nursing Home: Visiting nurse to monitor patient's blood pressure and heart rate and monitor her recovery from her stroke. Visiting nurse to provide diabetic education as the patient has a new diagnosis of type 2 diabetes mellitus and will be started on metformin extended release 500 mg daily. Visiting nurse to coordinate with PCP any changes in her medications as well as follow-up on any outpatient testing Physical Therapy: Occupational Therapy and physical therapy to work with the patient regarding evaluation and treatment of recent bilateral cerebellar CVAs. Work on gait balance strength and coordination as well as performance of ADLs. Speech Therapy: Speech therapy to evaluate the patient regarding recent bilateral cerebellar CVAs. Assess quality of speech as well as monitor for any dysphagia symptoms and treat accordingly. Homebound: Patient is homebound secondary to recent bilateral CVAs causing gait instability and increased risk of injury from falls. 3. Certification and Authentication I certify that I composed the above information based on my clinical judgement relating to this patient's medical condition and, if applicable, clinical findings communicated to me by the NPP or inpatient physician who performed the Home Health Referral. All further orders will be obtained through Dr. Walker Diana (Community Based Physician - PCP)
[2022-01-15] MEDS: Fosfomycin Tromethamine 3 GM PACKET PO (12:30)
--- NOTE | 2022-01-15 13:00 | PDOC.CMDIS ---
- If Service Date Differs Date of service: 01/15/22 Time of Service: 13:00 LACE Index Scoring Tool - Questions: Length of Stay (in days): 2 Acuity (Admit via E.D.?): Yes Comorbidities: Chronic Pulmonary Disease, Any Tumor (HX Skin Cancer) E.D. Visits: 3 - Answers: Total Score: 13 Risk of Readmission: High Risk Care Management Discharge Reason for Hospitalization: cerebellar infarct Discharge Plan: Smitha is discharged home via private vehicle with family. New RX's transmitted to [facility], orders for new [facility] services were sent and cardiac event recorder is provided. Smitha will follow her discharge plan of care as prescribed and follow up with Dr. Diana (PCP) on 01/25/22 as scheduled. Patient/Family Education Needs: Review discharge instructions, limitations, medications and plan to follow up with community providers and [facility]. Review ask me three. Services Needed at Discharge: Home Health Care Services ([facility] RN/PT/OT/ST. CM notified [facility], face to face form is complete.)
== END 2022-01-15 14:01 | disposition home health service (06) | DRG 65 ==
LOC: ER 18:06 → MS 18:42
PROVIDERS: Internal Medicine; Nurse Practitioner Family; Admitting Provider Family Medicine; Emergency Provider Registered Nurse Emergency; PCP Internal Medicine; Visit Provider Family Medicine
DX: I63.213 Cerebral infarction due to unspecified occlusion or stenosis of bilateral vertebral arteries (principal); N39.0 Urinary tract infection, site not specified; Z68.41 Body mass index [BMI] 40.0-44.9, adult; I10 Essential (primary) hypertension; J44.9 Chronic obstructive pulmonary disease, unspecified; F41.9 Anxiety disorder, unspecified; F32.A Depression, unspecified; G43.909 Migraine, unspecified, not intractable, without status migrainosus; R29.810 Facial weakness; Z66 Do not resuscitate; G47.33 Obstructive sleep apnea (adult) (pediatric); H53.8 Other visual disturbances; M17.12 Unilateral primary osteoarthritis, left knee; K21.9 Gastro-esophageal reflux disease without esophagitis; E66.01 Morbid (severe) obesity due to excess calories; K44.9 Diaphragmatic hernia without obstruction or gangrene; K21.00 Gastro-esophageal reflux disease with esophagitis, without bleeding; G25.0 Essential tremor; E78.5 Hyperlipidemia, unspecified; E03.9 Hypothyroidism, unspecified; E55.9 Vitamin D deficiency, unspecified; R05.3 Chronic cough; N20.0 Calculus of kidney; R47.1 Dysarthria and anarthria; R00.1 Bradycardia, unspecified; I65.22 Occlusion and stenosis of left carotid artery; E11.42 Type 2 diabetes mellitus with diabetic polyneuropathy
CPT/HCPCS: 36415; 36416; 70496; 70498; 80048; 80053; 80061; 80307; 82962; 87635; 93005; 96365; 96367; 97162; 97530; 99223; 99285; 70450; 70551; 81003; 81015; 83036; 83735; 84484; 85025; 87086; 93010; 93306; 93880; 99232; 99239; J0131; J0696; J3490

== ENCOUNTER 2022-01-15 12:38 | Outpatient (CLI) | payer MEDICARE, OTHER, SELFPAY ==
--- NOTE | 2022-02-08 14:17 | W.CARDEVENT ---
Date of service: 02/08/22 Time of Service: 14:17 Cardiac Event Recorder Referring Provider:: Walker iDana Indications:: Stroke Cardiac Event Note: This is a 14-day event monitor ordered because of stroke Rhythm throughout was sinus with an average heart rate of 79. Minimum was 58, maximum 110 First-degree AV block was seen There was no atrial fibrillation, no high-grade AV block, no pauses greater than 3 seconds
== END 2022-01-15 12:39 | disposition home or self-care (01) ==
LOC: RT 12:39
PROVIDERS: PCP Internal Medicine; Visit Provider Internal Medicine
DX: I63.9 Cerebral infarction, unspecified (principal); R00.1 Bradycardia, unspecified
CPT/HCPCS: 93270

== ENCOUNTER 2022-01-25 13:12 | Outpatient (REF) | payer MEDICARE, OTHER, SELFPAY ==
[2022-01-25 15:39] LABS: Anion Gap 7.8 mmol/L (3-11); BUN 19 mg/dL (7-18); CO2 29.2 mmol/L (21.0-32.0); Calcium 9.5 mg/dL (8.5-10.1); Chloride 101 mmol/L (98-107); Estimated GFR 57.31 (mL/min/1.73m2); Glucose 135 mg/dL (74-106); Sodium 138 mmol/L (136-145)
== END 2022-01-25 13:13 | disposition home or self-care (01) ==
LOC: NCHCN 13:12
PROVIDERS: PCP Internal Medicine; Visit Provider Internal Medicine
DX: I10 Essential (primary) hypertension (principal); I65.01 Occlusion and stenosis of right vertebral artery; F32.9 Major depressive disorder, single episode, unspecified; G25.0 Essential tremor; Z86.73 Personal history of transient ischemic attack (TIA), and cerebral infarction without residual deficits
CPT/HCPCS: 80048

== ENCOUNTER 2022-02-08 14:17 | Outpatient (CLI) | payer MEDICARE, OTHER, SELFPAY | END 2022-02-08 14:18 | LOC: CARDOPNVT 02-15 09:31 | PROVIDERS: PCP Internal Medicine; Referring Provider Internal Medicine; Visit Provider Internal Medicine Cardiovascular Disease | DX: I44.0 Atrioventricular block, first degree (principal); I63.9 Cerebral infarction, unspecified; R00.1 Bradycardia, unspecified | CPT/HCPCS: 93248 ==

== ENCOUNTER 2022-04-28 09:24 | Outpatient (REF) | payer MEDICARE, OTHER, SELFPAY ==
[2022-04-27 20:43] LABS: Calculated LDL 74 mg/dL (<100); Cholesterol 161 mg/dL (<200); HDL Cholesterol 61 mg/dL (40-60); Triglyceride 130 mg/dL (<150)
== END 2022-04-28 09:25 | disposition home or self-care (01) ==
LOC: NCHCN 09:24
PROVIDERS: PCP Internal Medicine; Visit Provider Internal Medicine
DX: I10 Essential (primary) hypertension (principal); E11.9 Type 2 diabetes mellitus without complications; R53.83 Other fatigue
CPT/HCPCS: 80061

== ENCOUNTER 2022-12-30 14:35 | Outpatient (REF) | payer MEDICARE, OTHER, SELFPAY ==
[2022-12-30 16:50] LABS: Anion Gap 7.5 mmol/L (3-11); BUN 20 mg/dL (7-18); CO2 32.5 mmol/L (21.0-32.0); Calcium 9.7 mg/dL (8.5-10.1); Chloride 100 mmol/L (98-107); Estimated GFR 56.95 (mL/min/1.73m2); Glucose 207 mg/dL (74-106); Potassium 3.5 mmol/L (3.5-5.1); Sodium 140 mmol/L (136-145); TSH (W/Ref FT4) 2.12 uIU/mL (0.36-3.74)
[2022-12-30 16:53] LABS: Hemoglobin A1C 7.4 % (<5.7)
== END 2022-12-30 14:36 | disposition home or self-care (01) ==
LOC: NCHCN 14:35
PROVIDERS: PCP Internal Medicine; Visit Provider Internal Medicine
DX: I10 Essential (primary) hypertension (principal); E03.9 Hypothyroidism, unspecified; F32.89 Other specified depressive episodes; F41.8 Other specified anxiety disorders; K20.90 Esophagitis, unspecified without bleeding; Z86.73 Personal history of transient ischemic attack (TIA), and cerebral infarction without residual deficits; R73.09 Other abnormal glucose
CPT/HCPCS: 80048; 83036; 84443

== ENCOUNTER 2023-11-14 12:51 | Emergency (ER) | payer MEDICARE, OTHER, SELFPAY ==
--- NOTE | 2023-11-14 12:45 | RT.EKG_ITS ---
APPROVED REPORT Exam: Resting ECG Reason for Exam: CP Patient Location: E HR:83 bpm ECG Measurements Heart Rate 83 AXIS NM 235 P 69 QRSd 161 QRS -45 QT 451 T 112 QTc 529 Conclusion Sinus rhythm LBBB no stemi
--- NOTE | 2023-11-14 12:45 | RT.EKG_ITS ---
APPROVED REPORT Exam: Resting ECG Reason for Exam: chest pain Patient Location: E HR:96 bpm ECG Measurements Heart Rate 96 AXIS AL 208 P 63 QRSd 157 QRS -44 QT 405 T 113 QTc 513 Conclusion Sinus rhythm 96 LBBB no stemi
[2023-11-14 12:53] VITALS: BP 155/57; PULSE 89; RESP 22; O2SAT 92
[2023-11-14 13:02] VITALS: RESP 25
[2023-11-14 13:15] LABS: Abs Immature Grans 0.03 10^3/uL (0.0-0.06); Absolute Basophil Count 0.07 10^3/uL (0.0-0.2); Absolute Eosinophil Count 0.23 10^3/uL (0.0-0.7); Absolute Lymphocyte Count 3.31 10^3/uL (1.2-3.4); Absolute Monocyte Count 0.63 10^3/uL (0.1-0.8); Absolute Neutrophil Count 5.58 10^3/uL (1.2-6.7); Basophils % 0.7 %; Eosinophils % 2.3 %; HCT 50.9 % (36.0-46.0); HGB 15.8 g/dL (11.2-15.7); Immature Grans % 0.3 %; Lymphocytes % 33.6 %; MCH 27.4 pg (27.0-33.0); MCV 88 fL (80-95); MPV 11.3 fL (8.0-11.0); Monocytes % 6.4 %; Neutrophils % 56.7 %; Platelet Count 275 10^3/uL (130-400); RBC 5.77 10^6/uL (3.93-5.22); RDW-SD 48.8 fL; WBC 9.85 10^3/uL (4.4-10.8)
[2023-11-14 13:29] LABS: PTT Activated 24.2 sec (23.6-32.8); Prothrombin Time 10.4 sec (9.1-11.1)
[2023-11-14 13:37] LABS: ALT 26 U/L (14-59); AST 12 U/L (15-37); Albumin 3.5 g/dL (3.4-5.0); Alkaline Phosphatase 114 U/L (46-116); Anion Gap 8.6 mmol/L (3-11); BUN 21 mg/dL (7-18); Bilirubin, Total 0.38 mg/dL (0.2-1.0); CO2 30.4 mmol/L (21.0-32.0); CREATININE 1.1 mg/dL (0.55-1.02); Calcium 9.4 mg/dL (8.5-10.1); Chloride 101 mmol/L (98-107); Estimated GFR 50.48 (mL/min/1.73m2); Glucose 128 mg/dL (74-106); NT-proBNP 80 pg/mL (<300); Sodium 140 mmol/L (136-145); Total Protein 8.5 g/dL (6.4-8.2); Troponin I < 50 ng/L (< or =60)
[2023-11-14 13:39] VITALS: BP 138/46; PULSE 83; RESP 23; O2SAT 92
--- NOTE | 2023-11-14 13:40 | DI.RAD_ITS ---
Exam(s) XR PORTABLE CHEST AP EXAM: XR PORTABLE CHEST AP CLINICAL HISTORY: chest pain TECHNIQUE: 2D digital imaging was performed. COMPARISON: CR,XR XR CHEST 2V PA LATERAL from 07/07/2021 FINDINGS: Exam limited by under penetration overlying monitoring leads LUNGS: Clear. No pleural abnormality seen. HEART: Heart appears mildly enlarged which may be secondary to projection. AORTA: Normal diameter. BONES: Degenerative changes. Soft tissues: Unremarkable. IMPRESSION: No acute findings. DATA REPOSITORY: RADIATION DOSE DELIVERED:
[2023-11-14 13:49] VITALS: BP 126/75; PULSE 89; RESP 25; O2SAT 88
[2023-11-14 16:44] LABS: Troponin I < 50 ng/L (< or =60)
[2023-11-14 17:02] VITALS: BP 171/94; PULSE 86; RESP 24; TEMP 37.2; O2SAT 94
--- NOTE | 2023-11-14 17:12 | ED.GENADUL_ITS ---
Discharge Plan Disposition Patient Disposition: Home Discharge Details Clinical Impression: Chest pain, Shortness of breath Primary Care Provider: Walker Diana ED Provider: Safia Venegas Home Meds and New Rx's Prescriptions: No Action mirtazapine 15 mg tablet 15 mg PO DAILY cholecalciferol (vitamin D3) 1,000 unit capsule 1,000 unit PO DAILY multivitamin [Daily Value] 1 EACH tablet 1 ea PO DAILY levothyroxine 50 MCG tablet 50 mcg PO DAILY furosemide 20 MG tablet 20 mg PO DAILY budesonide 32 mcg/actuation spray,non-aerosol 1 spray intranasal DAILY Rx Instructions: administer into each nostril benzonatate 100 mg capsule 100 mg PO BID PRN cyclobenzaprine 5 mg tablet 5 mg PO QHS potassium chloride 10 mEq Tablet Extended Release 10 meq PO DAILY spironolactone 25 mg tablet 25 mg PO DAILY Patient Comments: TAKE ONE TABLET BY MOUTH EVERY DAY aspirin 81 mg Tablet,Delayed Release (Dr/Ec) 81 mg PO DAILY Qty: 90 1RF atorvastatin 40 mg Tablet 80 mg PO QPM Qty: 30 2RF clopidogrel 75 mg Tablet 75 mg PO DAILY Qty: 30 2RF metformin 500 mg tablet extended release 24 hr 500 mg PO DAILY Qty: 30 1RF pantoprazole 40 MG tablet,delayed release (DR/EC) 40 mg PO BID@0730,1999 Qty: 60 0RF nitroglycerin [Nitrostat] 0.4 MG tablet, sublingual 0.4 mg Sublingual Q5 MIN PRN X3 PRNQty: 1 0RF Discharge Instructions Additional Instructions: ED work up today is stable No signs of cardiac abnormality, please follow up your PCP Discharge Data Discharge Date/Time-TO BE ENTERED AT DEPARTURE: 11/14/23 17:17 HPI General Date/Time Provider Initiated Documentation: 11/14/23 13:01 . Limitations to Documentation: altered mental status (prior CVA ) . Information obtained by: patient . HPI Narrative: 83y F with PMH diabetes CVA hypertension presents for evaluation of chest pain. She reports that she woke up around 2 AM and had pain. She took 2 nitroglycerin and the pain did not resolve. She reports some mild shortness of breath. She describes her chest pain as being pulled with rubber band. She reports compliance with her medication. She states that she feels fine now. Related Data Home Medications ?Medication ?Instructions ?Recorded ?Confirmed Daily Value (multivitamin) 1 ea PO DAILY 04/08/14 01/13/22 furosemide 20 mg tablet 20 mg PO DAILY 04/08/14 01/13/22 levothyroxine 50 mcg tablet 50 mcg PO DAILY 04/08/14 01/13/22 nitroglycerin 0.4 mg sublingual 0.4 mg sublingual Q5 MIN PRN X3 04/06/17 01/13/22 tablet (Nitrostat) PRN ##1 pantoprazole 40 mg tablet,delayed 40 mg PO BID@ ##60 04/06/17 01/13/22 release cholecalciferol (vitamin D3) 25 1,000 unit PO DAILY 05/08/18 01/13/22 mcg (1,000 unit) capsule mirtazapine 15 mg tablet 15 mg PO DAILY 08/22/18 01/13/22 potassium chloride 10 mEq 10 meq PO DAILY 08/31/18 01/13/22 tablet,extended release benzonatate 100 mg capsule 100 mg PO BID PRN 07/30/20 01/13/22 budesonide 32 mcg/actuation nasal 1 spray intranasal DAILY 07/30/20 01/13/22 spray cyclobenzaprine 5 mg tablet 5 mg PO QHS 07/30/20 01/13/22 spironolactone 25 mg tablet 25 mg PO DAILY 01/13/22 01/13/22 aspirin 81 mg tablet,delayed 81 mg PO DAILY #90 tabs 01/15/22 release atorvastatin 40 mg tablet 80 mg (2 x 40 mg) PO QPM #30 tabs 01/15/22 clopidogrel 75 mg tablet 75 mg PO DAILY #30 tabs 01/15/22 metformin 500 mg tablet,extended 500 mg PO DAILY #30 tabs 01/15/22 release 24 hr Previous Rx's ?Medication ?Instructions ?Recorded nitroglycerin 0.4 mg sublingual 0.4 mg sublingual Q5 MIN PRN X3 04/06/17 tablet (Nitrostat) PRN ##1 pantoprazole 40 mg tablet,delayed 40 mg PO BID@ ##60 04/06/17 release aspirin 81 mg tablet,delayed 81 mg PO DAILY #90 tabs 01/15/22 release atorvastatin 40 mg tablet 80 mg (2 x 40 mg) PO QPM #30 tabs 01/15/22 clopidogrel 75 mg tablet 75 mg PO DAILY #30 tabs 01/15/22 metformin 500 mg tablet,extended 500 mg PO DAILY #30 tabs 01/15/22 release 24 hr Allergies Allergy/AdvReac Type Severity Reaction Status Date / Time losartan Allergy Intermediate Verified 01/13/22 12:07 formoterol fumarate (From AdvReac Severe severe Verified 01/13/22 12:07 Dulera) depression lisinopril AdvReac Severe cough Verified 01/13/22 12:07 mometasone furoate (From AdvReac Severe severe Verified 01/13/22 12:07 Dulera) depression fentanyl AdvReac Intermediate Other (See Verified 01/13/22 12:07 Comment) General Stated Complaint: Chest Pain PEDRO: 2 Exam Narrative Exam Narrative: Review of Systems: All systems reviewed & are unremarkable except as noted in HPI and below Well-developed, no acute distress NCAT PERRL, normal conjunctiva RRR no murmur Hypertensive Unlabored respiratory effort clear bilaterally Nondistended abdomen Extremities w/o deformity, no cyanosis, no edema No rashes or lesions. no focal neurologic deficits speech slow but clear, looks to her to answer questions. Seems confused about presenting history Appropriate mood and affect Course Vital Signs Vital signs: Vital Signs Pulse 89 11/14/23 12:53 Respiratory Rate 11/14/23 12:53 Blood Pressure 155/57 H 11/14/23 12:53 Pulse Oximetry 92 11/14/23 12:53 Temperature 37.2 C 11/14/23 17:02 Temperature Source Skin 11/14/23 17:02 Pulse 86 11/14/23 17:02 Pulse 89 11/14/23 13:49 Respiratory Rate 24 11/14/23 17:02 Respiratory Effort Non-Labored 11/14/23 13:02 Respiratory Depth Shallow 11/14/23 13:02 Respiratory Pattern Normal 11/14/23 13:02 Blood Pressure 171/94 H 11/14/23 17:02 Blood Pressure Mean 119 11/14/23 17:02 Pulse Oximetry 94 11/14/23 17:02 Oxygen Delivery Method Room Air 11/14/23 17:02 Oxygen Flow Rate 0 11/14/23 17:02 Pain Level 0 11/14/23 13:45 Lab/Test Results Lab/Test Results: Laboratory Tests Range/Units 11/14/23 11/14/23 13:10 16:14 WBC (4.4-10.8) 10^3/uL 9.85 RBC (3.93-5.22) 10^6/uL 5.77 H Hgb (11.2-15.7) g/dL 15.8 H Hct (36.0-46.0) % 50.9 H MCV (80-95) fL 88 MCH (27.0-33.0) pg 27.4 MCHC (32.0-36.0) % 31.0 L RDW (11.7-14.6) % 15.0 H Plt Count (130-400) 10^3/uL 275 MPV (8.0-11.0) fL 11.3 H Immature Gran % % 0.3 Neutrophils % % 56.7 Lymphocytes % % 33.6 Monocytes % % 6.4 Eosinophils % % 2.3 Basophils % % 0.7 Nucleated RBC % (0.0-0.3) % 0.0 Absolute Neutrophils (1.2-6.7) 10^3/uL 5.58 Absolute Lymphocytes (1.2-3.4) 10^3/uL 3.31 Absolute Monocytes (0.1-0.8) 10^3/uL 0.63 Absolute Eosinophils (0.0-0.7) 10^3/uL 0.23 Absolute Basophils (0.0-0.2) 10^3/uL 0.07 PT (9.1-11.1) sec 10.4 INR (0.9-1.1) 1.0 APTT (23.6-32.8) sec 24.2 Sodium (136-145) mmol/L 140 Potassium (3.5-5.1) mmol/L 4.0 Chloride (98-107) mmol/L 101 Carbon Dioxide (21.0-32.0) mmol/L 30.4 Anion Gap (3-11) mmol/L 8.6 BUN (7-18) mg/dL 21 H Creatinine (0.55-1.02) mg/dL 1.1 H Est GFR (CKD-EPI 2020) (mL/min/1.73m2) 50.48 Glucose (74-106) mg/dL 128 H Calcium (8.5-10.1) mg/dL 9.4 Magnesium (1.8-2.4) mg/dL 2.0 Total Bilirubin (0.2-1.0) mg/dL 0.38 AST (15-37) U/L 12 L ALT (14-59) U/L 26 Alkaline Phosphatase (46-116) U/L 114 Troponin I (< or =60) ng/L < 50 < 50 NT-Pro-B Natriuret Pep (<300) pg/mL 80 Total Protein (6.4-8.2) g/dL 8.5 H Albumin (3.4-5.0) g/dL 3.5 Medical Decision Making Emergent evaluation of chest pain. Patient does have multiple risk factors of initial differential includes ACS, CHF, hypertensive emergency. The patient history is very difficult to follow. When asking questions about the quality and character of her chest pain, she looks to her to answer these questions. Asking him to tell me how I said I felt. The patient kind of goes back and forth in terms of when she had chest pain if she had chest pain how much chest pain she had. It is very unclear. Currently she is stable, no signs of respiratory distress or volume overload. Plan for cardiac monitoring,. And lab work including serial troponins. I reviewed her EKG, sinus rhythm 96. There is a left bundle branch block present. This does appear to be new in comparison to an EKG obtained 2 years ago, but I do not appreciate Sgarbossa criteria indicating STEMI equivalent. Lab work obtained and reviewed. There is no elevation in white blood cell count. Hemoglobin is stable from prior. Normal platelet count. Her electrolytes do not demonstrate any derangement. Her creatinine while slightly elevated at 1.1 is at her baseline. Serial troponins obtained and these are negative. BNP is not elevated. Chest x-ray was obtained and reviewed, no acute findings This time I do not feel the patient needs to be admitted to the hospital and she is requesting to go home. She was provided with strict return precautions and recommended that she follow-up closely with her PCP. If she has any recurrence of persistent chest pain, persistent shortness of breath or any worrisome symptoms, she and her were advised to please return to the emergency department for further evaluation. Medical Records Medical records reviewed: Yes I reviewed the patient's medical records. Lab Data Lab results reviewed: Yes I reviewed the patient's lab results. Quality:[facility] Health Related Social Needs: No Data to Display PFSH All Active Problems Shortness of breath (Acute) Chest pain (Acute) New onset type 2 diabetes mellitus (Acute) Vertebral artery stenosis/occlusion with infarction (Acute) New cerebellar infarct (Acute) Primary osteoarthritis of left knee (Chronic) Injected: 02/01/2019 S/P debridement (Acute) 08/31/18. Incision of debridement of SQ abscess of umbilical port site. 09/18/18 dressing removed small amount superficial debridement, wound irrigated and redressed diflucan for yeast Lesion of endometrium (Acute) Thickened endometrial stripe in a postmenopausal female. No history of abnormal uterine bleeding. GERD with esophagitis (Acute) Obesity, Class III, BMI 40-49.9 (morbid obesity) (Acute) Increased endometrial stripe thickness (Acute 06/20/17) Incidental finding at the time of a pelvic CT scan for hydronephrosis in 2016. EMBx @ [facility] [place] benign. No hx of PMB. Expectant management. H/O esophagogastroduodenoscopy (Chronic ~06/06/18) Hiatal hernia with GERD and esophagitis (Acute) Hydrosalpinx (Chronic) 01/2017 left adnexa cystic lesion measuring 72 x 17 x 62 mm 06/24/17 pelvic ultrasound left hydrosalpinx 73 x 36 x 69 mm with several loculations. Endometrial stripe is 10 mm. 01/05/18 Pelvic u/s L adnexal cyst: [id number]. 08/11/2018 Pelvic u/s L adnexal cyst [id number]. 2 internal septations. Thick walled. ES 14mm. 08/24/18. Laparoscopic bilateral BSO. Premliminary path: benign, SPRING (obstructive sleep apnea) (Chronic) Essential tremor (Chronic) Anxiety (Chronic) Depression (Chronic) Hyperlipidemia (Chronic) Hypothyroidism (Chronic) History of skin cancer (Chronic) COPD (chronic obstructive pulmonary disease) (Chronic) Rosacea (Chronic) Hypertension (Chronic) Vitamin D deficiency (Chronic) Flank pain (Acute) Obesity (BMI 35.0-39.9 without comorbidity) (Acute) Neuropathy (Acute) Chronic cough (Acute) Kidney stones (Chronic) Bradycardia (Acute) Balance problem (Acute) Glucose intolerance (Acute) History of kidney surgery (Acute) Medical History History of prediabetes Seasonal allergies Floaters in visual field Sleep disturbances Osteoarthritis of left knee Chronic diarrhea Chronic fatigue and malaise Polyclonal gammopathy Irritable bowel syndrome with diarrhea NAOMIE positive Encounter for counseling Urinary incontinence Headache Knee pain, left Hydronephrosis Facial flushing Menopause Abdominal pain, epigastric Esophagitis Osteoarthritis Surgical History Hx of cataract surgery Hx of lithotripsy Family History Other Heart disease Social History Smoking risk assessment performed?: No Details: MONTHLY OR LESS Drug use: Never Substance use type: does not use Housing: house Number of Children: 3 Current gender identity: female Seatbelt use: always Do you feel safe at home: Yes Do you feel safe in your relationship?: Yes
== END 2023-11-14 17:17 | disposition home or self-care (01) ==
PROVIDERS: Emergency Provider Emergency Medicine; PCP Internal Medicine
DX: R07.9 Chest pain, unspecified (principal); R06.02 Shortness of breath; E11.40 Type 2 diabetes mellitus with diabetic neuropathy, unspecified; J44.9 Chronic obstructive pulmonary disease, unspecified; I44.7 Left bundle-branch block, unspecified; I10 Essential (primary) hypertension; Z86.73 Personal history of transient ischemic attack (TIA), and cerebral infarction without residual deficits; Z79.02 Long term (current) use of antithrombotics/antiplatelets; Z79.84 Long term (current) use of oral hypoglycemic drugs; Z79.82 Long term (current) use of aspirin
CPT/HCPCS: 80053; 93005; 99284; 71045; 83735; 83880; 84484; 85025; 85610; 85730; 93010; 99283

== ENCOUNTER → 2023-12-07 02:03 | Outpatient (CLI) | payer MEDICARE, OTHER, SELFPAY ==
--- NOTE | 2023-12-07 14:30 | DI.US_ITS ---
APPROVED REPORT EXAM: Comprehensive 2D, Doppler, and color-flow Echocardiogram Patient Location: Out-Patient Audio Video Repairer: Tommie Delgado RDCS (AE) Indications: Localized edema of lower extremity Other Information Technically limited study due to body habitus. Conclusion Normal left ventricular wall thickness and chamber size. Ejection fraction is 50 to 55%. There are no segmental wall motion abnormalities Normal right ventricular size and function Both atria are normal in size Aortic valve is mildly sclerotic and trileaflet without stenosis or regurgitation Ascending aorta measures 3.45 cm Wall motion Left Ventricle The left ventricle is normal size. The left ventricular systolic function is normal. The left ventric ular ejection fraction is within the normal range. There is normal left ventricular wall thickness. N o segmental wall motion abnormalities There is no ventricular septal defect visualized. LVEF is 50-55 %. Right Ventricle The right ventricle is normal size. The right ventricular systolic function is normal. Atria The left atrium size is normal. The right atrium size is normal. The interatrial septum is intact wit h no evidence for an atrial septal defect. Aortic Valve The aortic valve is mildly sclerotic. Aortic valve is trileaflet. There is no aortic valvular stenosi s. No aortic regurgitation is present. Mitral Valve The mitral valve is normal in structure. No evidence of mitral valve stenosis. There is no mitral mohsen ve regurgitation noted. Tricuspid Valve The tricuspid valve is normal in structure. There is no tricuspid valve stenosis. Trace to mild tricu spid regurgitation. Unable to assess PA pressure. Pulmonic Valve The pulmonary valve is normal in structure. There is no pulmonic valvular stenosis. Trace pulmonic re gurgitation. Great Vessels The aortic root is normal in size. The ascending aorta is mildly dilated. Aortic arch is normal in ca liber. IVC is normal in size and collapses >50% with inspiration. Pericardium There is no pericardial effusion. 2D Dimensions IVSD d PLAX 0.91 cm F: 0.6-1.0 Ao Root d 2.65 cm F: 2.7 - 3.3 LVPW d PLAX 0.87 cm F: 0.6 - 1.0 Ao Asc Diam d 3.45 cm F: 2.3 - 3.1 LVID d PLAX 4.80 cm F: 3.8 - 5.2 LVDs 3.55 cm F: 2.2 - 3.5 LV EF Teichholz 51.2 % FS 26.11 % LV EDV (Teich) 107.5 mL LV ESV (Teich) 52.5 mL Stroke Vol Index (Teich) 26.06 M-Mode TAPSE 2.38 cm (M/F) >1.7 Auto EF LV EDV A4C 136.2 mL LV EDV A2C 100.2 mL LV EDV BP 130.6 mL LV ESV A4C 72.4 mL LV ESV A2C 49.8 mL LV ESV BP 60.7 mL LVEF(%) A4C 46.8 % LVEF(%) A2C 50.3 % LVEF(%) BP 53.5 % LV SV A4C 63.7 ml LV SV A2C 50.4 ml LV SV BP 69.8 ml LV CO A4C 4.8 L/min LV CO A2C 3.6 L/min LV CO BP 4.2 L/min HR A4C 75.47 BPM HR A2C 71.86 BPM LV EDV Index (BP) LA Volume LA Length A4C 3.9 cm LA Length A2C 5.1 cm LA Area A4C s 8.12 cm2 LA Area A2C s 15.72 cm2 LA Vol A4C A-L 14.27 mL LA Vol A2C A-L 41.04 mL LA Vol Biplane A-L 27.6 mL LA Vol/BSA A4C A-L LA Vol/BSA A2C A-L LA Vol/BSA BP A-L 13.1 mL/m2 LA Vol A4C MOD 13.4 mL LA Vol A2C MOD 39.1 mL LA Vol BP MOD 25.9 mL RA Volume RA Area A4C 8.8 cm2 RA ESV A4C (A-L) 14.3mL RA Vol/BSA A4C A-L RA Length A4C 4.5 cm RA ESV A4C (MOD) 13.9mL LV Diastology MV E' medial 0.049 (>0.07 m/s) MV E Vmax 0.95 (0.4-1.3 m/s) MV E' lateral 0.051 (>0.1 m/s) Aortic Valve AoV Vmax 1.75 m/s LVOT Vmax 0.99 m/s AoV Peak Grad 12.2 mmHg LVOT Peak Grad 3.9 mmHg AoV Area (Vmax) 1.31 cm2 LVOT VTI 0.224 m AoV VTI 0.368 m LVOT Mean Grad 2.4 mmHg AoV Mean Jun. 1.21 m/s LVOT SV 51.73 mL AoV Mean Grad 6.7 mmHg LVOT Diam s 1.70 cm AoV Area (VTI) 1.41 cm2 AV Regurg Peak Gr. 12.22 mmHg Velocity Ratio 0.57 Mitral Valve MV Vmax TIPS 0.97 m/s MV Mean Grad 1.7 (<2mmHg) MV VTI 0.204 m Pulmonary Valve PV Vmax 0.77 (0.5-1.5 m/s) RVOT Vmax 0.40 m/s PV Peak Grad 2.4 mmHg RVOT Peak Gr. 0.7 mmHg PV Mean Jun 0.55 m/s RVOT VTI 0.084 m PV Mean Grad 1.4 mmHg RVOT Mean Gr. 0.4 mmHg
== END ==
PROVIDERS: PCP Family Medicine; Visit Provider Family Medicine
DX: R60.0 Localized edema (principal)
CPT/HCPCS: 93306

== ENCOUNTER 2025-01-13 08:49 | Emergency (ER) | payer MEDICARE, OTHER, SELFPAY ==
[2025-01-13] VITALS (34 sets, daily range): BP systolic 113–156; BP diastolic 44–112; PULSE 60–82; RESP 12–30; TEMP 36.4; O2SAT 92–97
--- NOTE | 2025-01-13 08:45 | DI.CT_ITS ---
Exam(s) CT ABDOMEN PELVIS W EXAM: CT ABDOMEN PELVIS W CLINICAL HISTORY: L. flank pain, nausea. TECHNIQUE: Imaging Protocol: Axial computed tomography images with coronal and sagittal reformatted images were created and reviewed CONTRAST MATERIAL: Intravenous: Omnipaque-350 100cc Oral: None COMPARISON: CT CT ABDOMEN PELVIS W from 07/07/[address] BRAIN NECK CTA from 01/13/2022 FINDINGS: VISUALIZED LUNG BASES: No nodules nor pleural effusions evident. ABDOMEN: There is no ascites. LIVER: There are no focal hepatic lesions evident. No dilated intrahepatic ducts. GALLBLADDER/BILIARY: Gallbladder is moderately distended. There is hyperdense mid tear layering in the fundus, probably sludge or tiny gallstones. There is no gallbladder wall edema nor pericholecystic fluid. CBD is not dilated. PANCREAS: Unremarkable. No masses nor dilatation pancreatic duct. No parenchymal calcifications. SPLEEN: Spleen is not enlarged. No obvious intrasplenic lesions. Splenic and portal veins are patent. ADRENALS: There are no significant adrenal masses. KIDNEYS:There is obstruction at both ureteropelvic junctions with hydronephrosis above this level bilaterally. There is an obstructing 5 millimeter calculus at the left UPJ. No remainingz radiopaque calculi seen in the left kidney. No significant left kidney masses.. In the opposite-right kidney there is possibly a punctate calculus at the UPJ. There is a calculus in the mid-upper pole region of the right kidney which measures 7 mm. No solid renal masses. The mid-lower ureters are not dilated and there are no calculi in the lower ureters at the UVJ levels nor radiopaque calculi seen within the urinary bladder. The bladder is moderately distended, measuring 12 cm craniocaudal by 7.5 cm AP by 8.7 cm wide.. ABDOMINAL AORTA: Abdominal aorta is calcified. Atherosclerotic distally. There is also calcification atherosclerotic involvement of the iliac arteries. 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 This is similar to previous study of 2021. Extra iliac arteries are not enlarged and there are no aneurysms of the internal iliac arteries evident within the pelvis. LYMPH NODES:There is no retroperitoneal nor paraaortic adenopathy. ABDOMINAL WALL: No evidence of significant anterior abdominal wall nor inguinal hernia. GI: There is no evidence of bowel obstruction, free air, nor abscess. PELVIS: GI: No evidence of appendicitis.There is sigmoid diverticuli but no evidence of obvious acute diverticulitis. LYMPH NODES: There is no intrapelvic nor inguinal adenopathy. REPRODUCTIVE: The endometrium is abnormally thickened for this age group measuring approximately 12 mm. No ovarian masses and no free fluid in the pelvis. URINARY BLADDER: Moderately distended as described above. No intraluminal calculi nor masses nor clots OSSEOUS: No fractures and no significant osseous lesions. IMPRESSION: 1. Compared to the prior CT scan of June 2021 there is now bilateral UPJ obstruction of the kidneys. On the left side this is caused by a 4-5 mm calculus in the upper left ureter at the UPJ. On the opposite-right side there may be a tiny punctate 1 mm calcification at the UPJ but this would doubtful be likely to cause this amount of dilatation proximally. There is a 7 millimeter nonobstructive calculus in the upper pole region of the right kidney. No calculi seen in the left kidney. No calculi seen in the urinary bladder lumen. Bladder is moderately distended. 2. There is a thickened endometrial lining in the uterus which measures approximately 12 mm thickness and should be further studied with ultrasound to determine if there is endometrial malignancy. No abnormal adnexal masses. No free fluid. 3. Sludge or tiny calculi in the gallbladder fundus but no evidence of acute cholecystitis. 4. 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 Smaller on the left side. Other findings as above Preliminary virtual Radiology report was reviewed. RADIATION DOSE DELIVERED: 1,145.51mGy.cm Total DLP DATA REPOSITORY: All CT scans at this facility are submitted to the National Radiology Data Registry (NRDR) Dose Index Registry (DIR) with the [employer] ([employer]). RADIATION OPTIMIZATION: All CT scans at this facility use at least one of these dose optimization techniques: automated exposure control; mA and/or kV adjustment per patient size (includes targeted exams where dose is matched to clinical indication); or iterative reconstruction.
--- NOTE | 2025-01-13 08:57 | ED.GENADUL_ITS ---
Discharge Plan Disposition Patient Disposition: Transfer-Acute Inpatient Care Specific Acute Inpt Facility: [facility] Condition: Stable Discharge Details Clinical Impression: Pyelonephritis of left kidney, Kidney stone on left side, Increased endometrial stripe thickness, Aneurysm of right common iliac artery, Atherosclerosis of abdominal aorta, Biliary sludge Primary Care Provider: Ludivina Weinstein ED Provider: Marlena Vazquez Home Meds and New Rx's Prescriptions: No Action mirtazapine 15 mg tablet 15 mg PO DAILY cholecalciferol (vitamin D3) 1,000 unit capsule 1,000 unit PO DAILY multivitamin [Daily Value] 1 EACH tablet 1 ea PO DAILY levothyroxine 50 MCG tablet 50 mcg PO DAILY furosemide 20 MG tablet 20 mg PO DAILY budesonide 32 mcg/actuation spray,non-aerosol 1 spray intranasal DAILY Rx Instructions: administer into each nostril benzonatate 100 mg capsule 100 mg PO BID PRN cyclobenzaprine 5 mg tablet 5 mg PO QHS potassium chloride 10 mEq Tablet Extended Release 10 meq PO DAILY spironolactone 25 mg tablet 25 mg PO DAILY Patient Comments: TAKE ONE TABLET BY MOUTH EVERY DAY aspirin 81 mg Tablet,Delayed Release (Dr/Ec) 81 mg PO DAILY Qty: 90 1RF atorvastatin 40 mg Tablet 80 mg PO QPM Qty: 30 2RF clopidogrel 75 mg Tablet 75 mg PO DAILY Qty: 30 2RF metformin 500 mg tablet extended release 24 hr 500 mg PO DAILY Qty: 30 1RF verapamil 360 mg capsule,ext rel. pellets 24 hr 480 mg PO DAILY rosuvastatin [Crestor] 40 mg tablet 40 mg PO DAILY pantoprazole 40 MG tablet,delayed release (DR/EC) 40 mg PO BID@0730,1999 Qty: 60 0RF nitroglycerin [Nitrostat] 0.4 MG tablet, sublingual 0.4 mg Sublingual Q5 MIN PRN X3 PRNQty: 1 0RF HPI General Mode of arrival: EMS . Date/Time Provider Initiated Documentation: 01/13/25 08:55 . Limitations to Documentation: no limitations . Information obtained by: patient, EMS and old records reviewed . HPI Narrative: This is a an 84-year-old female patient with a past medical history significant for diabetes, COPD, SPRING, GERD, kidney stones, status post BSO, presenting for evaluation of left flank pain. The patient reports that she was woken from sleep this morning with left flank pain, states that it feels very similar to the last time she had a kidney stone. She states that she initially felt nauseated but did not vomit, this has passed. She received Tylenol from EMS with improvement in her pain. She denies radiation of the pain, abdominal or chest pain, shortness of breath. Has not noted any dysuria or hematuria. States that yesterday she was in her normal state of health. No fevers, chills. Related Data Home Medications ?Medication ?Instructions ?Recorded ?Confirmed Daily Value (multivitamin) 1 ea PO DAILY 04/08/1412/31 furosemide 20 mg tablet 20 mg PO DAILY 04/08/1412/31 levothyroxine 50 mcg tablet 50 mcg PO DAILY 04/08/14 0 01/13/25 nitroglycerin 0.4 mg sublingual 0.4 mg sublingual Q5 M IN PRN X3 04/06/17 01/13/25 tablet (Nitrostat) PRN ##1 pantoprazole 40 mg tablet,delayed 40 mg PO BID@0730,20 00 ##60 04/06/17 01/13/25 release cholecalciferol (vitamin D3) 25 1,000 unit PO DAILY 01/13/25 mcg (1,000 unit) capsule mirtazapine 15 mg tablet 15 mg PO DAILY 08/22/1812/31 potassium chloride 10 mEq 10 meq PO DAILY 08/31/18 tablet,extended release benzonatate 100 mg capsule 100 mg PO BID PRN 07/30/20 01/13/25 budesonide 32 mcg/actuation nasal 1 spray intranasal D AILY 07/30/20 01/13/25 spray cyclobenzaprine 5 mg tablet 5 mg PO QHS 07/30/2001/13 spironolactone 25 mg tablet 25 mg PO DAILY 01/13/22 aspirin 81 mg tablet,delayed 81 mg PO DAILY #90 tabs 0 01/15/22 01/13/25 release atorvastatin 40 mg tablet 80 mg (2 x 40 mg) PO QPM #30 tabs 01/15/22 01/13/25 clopidogrel 75 mg tablet 75 mg PO DAILY #30 tabs 12/3101/13/25 metformin 500 mg tablet,extended 500 mg PO DAILY #30 t abs 01/15/22 01/13/25 release 24 hr rosuvastatin 40 mg tablet (Crestor) 40 mg PO DAILY 01/13/25 verapamil 360 mg 24 hr 480 mg PO DAILY 01/13/25 capsule,extended release Previous Rx's ?Medication ?Instructions ?Recorded nitroglycerin 0.4 mg sublingual 0.4 mg sublingual Q5 M IN PRN X3 04/06/17 tablet (Nitrostat) PRN ##1 pantoprazole 40 mg tablet,delayed 40 mg PO BID@0730,20 00 ##60 04/06/17 release aspirin 81 mg tablet,delayed 81 mg PO DAILY #90 tabs 0 01/15/22 release atorvastatin 40 mg tablet 80 mg (2 x 40 mg) PO QPM #30 tabs 01/15/22 clopidogrel 75 mg tablet 75 mg PO DAILY #30 tabs 12/31 10/21 metformin 500 mg tablet,extended 500 mg PO DAILY #30 t abs 01/15/22 release 24 hr Allergies Allergy/AdvReac Type Severity Reaction Status Date / Time losartan Allergy Intermediate unknown Verified 01/13/25 08:58 formoterol fumarate (From AdvReac Severe severe Verified 01/13/25 08:58 Dulera) depression lisinopril AdvReac Severe cough Verified 01/13/25 08:58 mometasone furoate (From AdvReac Severe severe Verified 01/13/25 08:58 Dulera) depression fentanyl AdvReac Intermediate Other (See Verified 01/13/25 08:58 Comment) General Stated Complaint: FlankPain PEDRO: 3 Exam Narrative Exam Narrative: Gen: Awake and alert, in no apparent distress HEENT: Non-icteric sclera Neck: Supple Lungs: No apparent respiratory distress, normal respiratory effort. CV: Appears well perfused, heart with regular rate and rhythm, strong distal pulses Abdomen: Non-distended, soft, nontender to palpation without rigidity, rebound, or guarding MSK: Moves 4 extremities without apparent limitation in ROM. Left CVA tenderness is appreciated without overlying skin changes Skin: Visualized skin without rashes, cyanosis. Neuro: Normal Gait, no obvious focal deficits or facial asymmetry. Speaks in full, clear sentences. Psych: Appropriate for situation. Course Vital Signs Vital signs: Vital Signs Temperature 36.4 C L 01/13/25 08:53 Pulse 82 01/13/25 08:53 Respiratory Rate 12 01/13/25 08:53 Blood Pressure 113/73 01/13/25 08:53 Pulse Oximetry 95 01/13/25 08:53 Temperature 36.4 C L 01/13/25 08:53 Temperature Source Oral 01/13/25 08:53 Pulse 82 01/13/25 08:53 Respiratory Rate 12 01/13/25 08:53 Blood Pressure 113/73 01/13/25 08:53 Blood Pressure Position Sitting 01/13/25 08:53 Pulse Oximetry 95 01/13/25 08:53 Oxygen Delivery Method Room Air 01/13/25 08:53 Oxygen Flow Rate 0 01/13/25 08:53 Medical Decision Making This is a an 84-year-old female patient presenting for evaluation of left flank pain. My differential includes but is not limited to kidney stone, pyelonephritis, certainly considered other intra-abdominal pathology including bowel obstruction, aortic pathology, appendicitis, diverticulitis, pancreatitis. Considered metabolic and electrolyte derangement, dehydration and kidney injury though the brief duration of symptoms is reassuring. No chest pain to suggest ACS or cardiac pathology. We will obtain laboratory studies to include CBC, CMP, magnesium, lipase, and urinalysis. I will obtain a CT abdomen and pelvis with contrast to better characterize any abnormalities to explain the patient's symptoms. At this time her pain has improved significantly with Tylenol and she is not requiring of any medications for management of nausea. -I independently interpreted the laboratory studies, which show no significant leukocytosis, anemia, or thrombocytopenia. The chemistry panel is without evidence of electrolyte abnormality, kidney dysfunction, or liver injury. Urinalysis concerning for infection with hematuria, pyuria, bacteria, and positive nitrites. Lipase is low. Independently interpreted the patient's CT, most notable for a 4 to 5 mm stone in the left UPJ, with evidence of hydronephrosis and secondary signs for pyelonephritis concerning for infected stone. She has bilateral hydronephrosis with a staghorn calculus of the right kidney. She does have some thickening of the endometrial stripe incidentally noted that will require ultrasound, has evidence of gallbladder sludge, possible bamboo spine, and atherosclerosis of multiple vessels with a right common iliac aneurysm without evidence of extravasation. I reached out to Dr. Bustillos with urology who unfortunately is not on-call today and will not be able to intervene on this patient's infected stone in a timely manner. For this reason I reached out [place] [facility] [place] with [place] has excepted this patient for ED to ED transfer for intervention today. She did receive ceftriaxone and her pain was appropriately controlled. The patient will be transported by EMS [place] [facility] [place] Remained hemodynamically appropriate while under my care. Did receive Toradol prior to transport for pain management. Marlena Vazquez MD [facility] All Active Problems Biliary sludge (Acute) Atherosclerosis of abdominal aorta (Acute) Aneurysm of right common iliac artery (Acute) Increased endometrial stripe thickness (Acute) Kidney stone on left side (Acute) Pyelonephritis of left kidney (Acute) New onset type 2 diabetes mellitus (Acute) Vertebral artery stenosis/occlusion with infarction (Acute) New cerebellar infarct (Acute) Primary osteoarthritis of left knee (Chronic) Injected: 02/01/2019 S/P debridement (Acute) 08/31/18. Incision of debridement of SQ abscess of umbilical port site. 09/18/18 dressing removed small amount superficial debridement, wound irrigated and redressed diflucan for yeast Lesion of endometrium (Acute) Thickened endometrial stripe in a postmenopausal female. No history of abnormal uterine bleeding. GERD with esophagitis (Acute) Obesity, Class III, BMI 40-49.9 (morbid obesity) (Acute) Increased endometrial stripe thickness (Acute 06/20/17) Incidental finding at the time of a pelvic CT scan for hydronephrosis in 2016. [place] [facility] [place]. No hx of PMB. Expectant management. H/O esophagogastroduodenoscopy (Chronic ~06/06/18) Hiatal hernia with GERD and esophagitis (Acute) Hydrosalpinx (Chronic) 01/2017 left adnexa cystic lesion measuring 72 x 17 x 62 mm 06/24/17 pelvic ultrasound left hydrosalpinx 73 x 36 x 69 mm with several loculations. Endometrial stripe is 10 mm. 01/05/18 Pelvic u/s L adnexal cyst: [id number]. 08/11/2018 Pelvic u/s L adnexal cyst [id number]. 2 internal septations. Thick walled. ES 14mm. 08/24/18. Laparoscopic bilateral BSO. Premliminary path: benign, SPRING (obstructive sleep apnea) (Chronic) Essential tremor (Chronic) Anxiety (Chronic) Depression (Chronic) Hyperlipidemia (Chronic) Hypothyroidism (Chronic) History of skin cancer (Chronic) COPD (chronic obstructive pulmonary disease) (Chronic) Rosacea (Chronic) Hypertension (Chronic) Vitamin D deficiency (Chronic) Flank pain (Acute) Obesity (BMI 35.0-39.9 without comorbidity) (Acute) Neuropathy (Acute) Chronic cough (Acute) Kidney stones (Chronic) Bradycardia (Acute) Balance problem (Acute) Glucose intolerance (Acute) History of kidney surgery (Acute) Medical History History of prediabetes Seasonal allergies Floaters in visual field Sleep disturbances Osteoarthritis of left knee Chronic diarrhea Chronic fatigue and malaise Polyclonal gammopathy Irritable bowel syndrome with diarrhea NAOMIE positive Encounter for counseling Urinary incontinence Headache Knee pain, left Hydronephrosis Facial flushing Menopause Abdominal pain, epigastric Esophagitis Osteoarthritis Surgical History Hx of cataract surgery Hx of lithotripsy Family History Other Heart disease Social History Smoking/Tobacco Use Status: Never Smoking risk assessment performed?: Yes Alcohol Intake: never Details: MONTHLY OR LESS Drug use: Never Substance use type: does not use Housing: house Number of Children: 3 Current gender identity: female Seatbelt use: always Do you feel safe at home: Yes Do you feel safe in your relationship?: Yes
[2025-01-13 09:18] LABS: Abs Immature Grans 0.02 10^3/uL (0.0-0.06); HCT 50.2 % (36.0-46.0); HGB 15.4 g/dL (11.2-15.7); Immature Grans % 0.2 %; MCH 27.5 pg (27.0-33.0); MCHC 30.7 % (32.0-36.0); MCV 90 fL (80-95); MPV 11.4 fL (8.0-11.0); Platelet Count 258 10^3/uL (130-400); RBC 5.61 10^6/uL (3.93-5.22); RDW 14.6 % (11.7-14.6); RDW-SD 48.5 fL; WBC 8.94 10^3/uL (4.4-10.8)
[2025-01-13 09:21] LABS: Glucose Negative (Negative)
[2025-01-13 09:31] LABS: C & S Indicated? Yes
[2025-01-13] MEDS: cefTRIAXone 1 GM/50 ML BAG IVPB (10:10)
[2025-01-13 10:25] LABS: ALT 18 U/L (14-59); AST 12 U/L (15-37); Albumin 3.6 g/dL (3.4-5.0); Alkaline Phosphatase 124 U/L (46-116); Anion Gap 6.3 mmol/L (3-11); BUN 18 mg/dL (7-18); Bilirubin, Total 0.4 mg/dL (0.2-1.0); CO2 33.7 mmol/L (21.0-32.0); Calcium 9.3 mg/dL (8.5-10.1); Chloride 101 mmol/L (98-107); Estimated GFR 50.17 (mL/min/1.73m2); Glucose 138 mg/dL (74-106); Lipase 22 U/L (<78); Magnesium 1.9 mg/dL (1.8-2.4); Potassium 4.3 mmol/L (3.5-5.1); Sodium 141 mmol/L (136-145); Total Protein 8.5 g/dL (6.4-8.2)
[2025-01-13] MEDS: Omnipaque 350 MG/ML 100 ML BTL IJ (11:07)
[2025-01-13] MEDS: Normal Saline - Diluent 50 ML VIAL IJ (11:07)
[2025-01-13] MEDS: Normal Saline Flush 10 ML SYR IVP (11:08)
--- NOTE | 2025-01-13 12:02 | DI.VRAD_ITS ---
PROCEDURE INFORMATION: Exam: CT Abdomen And Pelvis With Contrast Exam date and time: 01/13/2025 10:56 AM Age: 84 years old Clinical indication: Other: L. Flank pain, nausea TECHNIQUE: Imaging protocol: Computed tomography of the abdomen and pelvis with contrast. Contrast material: PMNIPAQUE 350; Contrast volume: 100 ml; Contrast route: INTRAVENOUS (IV); COMPARISON: CT ABDOMEN PELVIS W 07/07/2021 5:11 PM FINDINGS: Limitations: Some images degraded by artifact, motion, breathing. Lungs: Slight probable atelectasis and/or fibrosis lung bases bilaterally. Heart: Aortic valve calcification. Coronary arteries: Probable coronary artery calcification. Diaphragm: Small hiatal hernia with wall thickening. Liver: Liver unremarkable. Gallbladder and biliary ducts: Evidence of tiny amount of noncalcified material or debris within dependent portion gallbladder fundus suggesting sludge, noncalcified stones/cholelithiasis. Gallbladder appears distended. No obvious gallbladder wall thickening nor pericholecystic fluid seen otherwise. No bile duct dilatation seen. Pancreas: Pancreas appears hypodense, fatty. Spleen: Spleen unremarkable. Adrenal glands: Adrenals unremarkable. Kidneys and ureters: 4-5 mm calcific stone projects region of left ureteropelvic junction, UPJ. Evidence of adjacent wall thickening of left ureter, left renal pelvis, left renal collecting system. Correlate for pyeloureteritis or other process. Irregular, lobular 10-11 mm calcific stone projects mid upper right kidney with small staghorn configuration. Evidence of dilation renal collecting systems, renal pelvis bilaterally compared to prior study 07/07/2021. Stomach and bowel: Large amount of stool and gas of the rectum. Moderately large amount of stool and gas of right-side of colon, transverse colon. Diverticula of the colon without current radiographic evidence of acute diverticulitis. Mild wall thickening versus lack of distension portions of colon, descending colon. Stomach appears mostly empty, decompressed. Evidence of fecalization, small bowel feces suggesting stasis. Ellipsoid hyperdensity/calcific density within a portion of small bowel near the umbilical level to the left of midline may be ingested material, medication femora for exam. Appendix: No acute appendicitis seen. Intraperitoneal space: No free intraperitoneal air and no free abdominal nor pelvic fluid collections seen. Vasculature: Atherosclerotic disease, plaque disease, with evidence of narrowing, stenosis of branches off of abdominal aorta including superior mesenteric artery, renal arteries bilaterally, probably celiac trunk/axis, probably origin of inferior mesenteric artery. Ectasia, no aneurysm seen of abdominal aorta. Focal dilation/aneurysm right common iliac artery measured at about 2.1 cm. Focal dilation proximal left common iliac artery measured at about 1.8 cm. Lymph nodes: Scattered small lymph nodes, nonspecific. Urinary bladder: Urinary bladder appears filled, distended. Reproductive: Uterus appears neutral to slightly anteverted, new serosal slightly retroflexed. Evidence of abnormal mixed density, heterogeneous, mostly hypodense material within uterine cavity, endometrial region, measured at about 12 mm AP thickness. Correlation with nonemergent pelvic ultrasound scan recommended. Bones/joints: Degenerative changes spine. Bridging, flowing hypertrophic endplate changes spine with suggestion of calcification anterior longitudinal ligament, possible bamboo spine. Correlate for ankylosing spondylitis or other process. Soft tissues: Tiny fat containing umbilical/paraumbilical hernia. IMPRESSION: 1. 4-5 mm calcific stone projects region of left ureteropelvic junction, UPJ. Findings suggest obstruction or intermittent obstruction left upper urinary tract at level of left UPJ. Also, adjacent wall thickening of left ureter, left renal pelvis, left renal collecting system. Correlate for pyeloureteritis or other process. 2. Evidence of dilation renal collecting systems, renal pelvis bilaterally compared to prior study 07/07/2021. Correlate for changes of bilateral UPJ obstructions, vesicoureteral reflux, or other process. 3. Nonobstructing 10-11 mm staghorn calculus right kidney. 4. Evidence of abnormal mixed density, heterogeneous, mostly hypodense material within uterine cavity, endometrial region, measured at about 12 mm AP thickness. Correlation with nonemergent pelvic ultrasound scan recommended. 5. Evidence of tiny amount of noncalcified material or debris within dependent portion gallbladder fundus suggesting sludge, noncalcified stones/cholelithiasis. 6. Bridging, flowing hypertrophic endplate changes spine with suggestion of calcification anterior longitudinal ligament, possible bamboo spine. Correlate for ankylosing spondylitis or other process. 7. Atherosclerotic disease, plaque disease, with evidence of narrowing, stenosis of branches off of abdominal aorta including superior mesenteric artery, renal arteries bilaterally, probably celiac trunk/axis, probably origin of inferior mesenteric artery. Ectasia abdominal aorta. Focal dilation/aneurysm right common iliac artery measured at about 2.1 cm and left common iliac artery measured at about 1.8 cm. 8. Please see body of report for additional findings. Dictated and Authenticated by: Tomas Gibson MD. Orderin [facility] Tremayne Mendiola MD
[2025-01-13] MEDS: Ketorolac 15 MG/ML VIAL IVP (13:42)
--- NOTE | 2025-01-16 08:37 | NUR.NOTE ---
Accessed Pt chart to see if Pt was prescribe an antibiotic. There is not a prescription. This is noted on the Specimen Report and given to the Providers.
--- NOTE | 2025-01-16 11:25 | ED.FU.B_ITS ---
Follow Up Plan: Patient was sent to [facility] for lithotripsy and stent placement and was treated with cefpodoxime while she was there. Her urine culture grew back positive for E. coli sensitive to cephalosporins. She is on appropriate therapy no change
== END 2025-01-13 13:47 | disposition short-term general hospital (02) ==
PROVIDERS: Emergency Provider Emergency Medicine; PCP Family Medicine
DX: R10.9 Unspecified abdominal pain (principal); N25.0 Renal osteodystrophy; N10 Acute pyelonephritis; I72.3 Aneurysm of iliac artery; I70.0 Atherosclerosis of aorta; E11.9 Type 2 diabetes mellitus without complications; J44.9 Chronic obstructive pulmonary disease, unspecified; E78.5 Hyperlipidemia, unspecified; E03.9 Hypothyroidism, unspecified; Z79.82 Long term (current) use of aspirin; Z79.02 Long term (current) use of antithrombotics/antiplatelets; Z79.84 Long term (current) use of oral hypoglycemic drugs
CPT/HCPCS: 80053; 83690; 87077; 96365; 96375; 99285; 74177; 81003; 81015; 83735; 85025; 87086; 87186; J0696; J1885; J3490